=== PATIENT | female | born 1975 | race Caucasian/White ===

== ENCOUNTER → 2016-09-06 | Outpatient (CLI) | payer OTHER ==
[~2016-09-06] MED LIST: DPPI400 INJ; MINO100C22 PO; OMEP20CA59 PO
== END | disposition home or self-care (01) ==
LOC: C.PAPS 08:29
PROVIDERS: ATTEND Obstetrics & Gynecology
DX: Z12.4 Encounter for screening for malignant neoplasm of cervix (principal)

== ENCOUNTER → 2017-02-08 | Outpatient (CLI) | payer OTHER ==
[2017-02-08 12:14] LABS: BASO % 0.1 %; BASO ABS # 0.01 K/uL (0-0.2); COMPLETE YES; HEMATOCRIT 46.1 % (37-47); IG% 0.1 %; LYMPH % 27.9 %; LYMPH ABS # 2.22 K/uL (1.2-3.4); MEAN CELL VOLUME 98.3 fL (80-100); MEAN CORPUSCULAR HEMOGLOBIN 31.8 pg (25-34); MEAN CORPUSCULAR HGB CONC 32.3 g/dl (32-36); MEAN PLATELET VOLUME 9.9 fL (7.4-10.4); MONO % 5.2 %; NEUT % 65.7 %; PLATELET COUNT 283 K/uL (130-400); RED BLOOD COUNT 4.69 M/uL (4.2-5.4); WHITE BLOOD COUNT 7.96 K/uL (4.8-10.8)
[2017-02-08 12:44] LABS: ESTIMATED AVERAGE GLUCOSE 100 mg/dl; HA1C FLAG Normal (Normal)
[2017-02-08 13:01] LABS: ALT/SGPT 22 U/L (12-78); AST/SGOT 12 U/L (15-37); BLOOD UREA NITROGEN 8 mg/dl (7-18); BUN/CREATININE RATIO 10.8 (10-20); CALCIUM 8.4 mg/dl (8.5-10.1); CARBON DIOXIDE 27 mmol/L (21-32); CHLORIDE 108 mmol/L (98-107); CREATININE 0.72 mg/dl (0.60-1.20); GLUCOSE 76 mg/dl (70-99); POTASSIUM 4.2 mmol/L (3.5-5.1); SODIUM 144 mmol/L (136-145)
[2017-02-08 13:12] LABS: ALB/GLOB RATIO 0.9 (0.9-2); ALKALINE PHOSPHATASE 57 U/L (45-117); CHOLESTEROL 159 mg/dl (0-200); CHOLESTEROL/HDL RATIO 3.2; FERRITIN 176.5 ng/ml (8.0-388.0); HDL CHOLESTEROL 50 mg/dl; LDL CHOLESTEROL CALCULATED 96 mg/dl; TRIGLYCERIDES 64 mg/dl (0-150); VERY LOW DENSITY LIPOPROT CALC 13 mg/dl
== END | disposition home or self-care (01) ==
LOC: C.LABBFT 08:17
PROVIDERS: ATTEND Internal Medicine
DX: R73.09 Other abnormal glucose (principal); Z98.84 Bariatric surgery status; E53.8 Deficiency of other specified B group vitamins; E66.9 Obesity, unspecified; E55.9 Vitamin D deficiency, unspecified

== ENCOUNTER → 2017-04-04 | Outpatient (CLI) | payer OTHER ==
--- NOTE | 2017-04-05 12:47 | MAMMOGRAPHY REPORT ---
BILATERAL DIGITAL SCREENING MAMMOGRAM TOMOSYNTHESIS WITH CAD: 04/04/2017 CLINICAL HISTORY: Routine screening. Patient has no complaints. TECHNIQUE: Breast tomosynthesis in addition to standard 2D mammography was performed. Current study was also evaluated with a Computer Aided Detection (CAD) system. COMPARISON: Comparison is made to exams dated: 03/31/2016 mammogram, 03/30/2015 mammogram, and 12/25/19 14 mammogram - [facility]. BREAST COMPOSITION: The tissue of both breasts is almost entirely fatty. FINDINGS: No suspicious masses, calcifications, or areas of architectural distortion are noted in ei ther breast. There has been no significant interval change compared to prior exams. Bilateral benign -appearing calcifications are not significantly changed. IMPRESSION: ACR BI-RADS CATEGORY 2: BENIGN There is no mammographic evidence of malignancy. A 1 year screening mammogram is recommended. The pa tient will receive written notification of the results. Approximately 10% of breast cancers are not detected with mammography. A negative mammographic report should not delay biopsy if a clinically suggestive mass is present. Latia Bentley M.D. ah/:04/04/2017 16:58:43 Collet Gluer: Carolina GLASER(Allyson)(M), [facility] letter sent: Normal 1/2 BI-RADS Code: ACR BI-RADS Category 2: Benign
== END | disposition home or self-care (01) ==
LOC: C.MAMM 16:19
PROVIDERS: ATTEND Internal Medicine
DX: Z12.31 Encounter for screening mammogram for malignant neoplasm of breast (principal)

== ENCOUNTER → 2017-05-11 | Outpatient (CLI) | payer OTHER | END | disposition home or self-care (01) | LOC: C.LABBFT 15:32 | PROVIDERS: ATTEND Internal Medicine | DX: E55.9 Vitamin D deficiency, unspecified (principal) ==

== ENCOUNTER → 2017-09-10 | Outpatient (CLI) | payer OTHER | END | disposition home or self-care (01) | LOC: C.PAPS 09:50 | PROVIDERS: ATTEND Obstetrics & Gynecology | DX: Z01.419 Encounter for gynecological examination (general) (routine) without abnormal findings (principal) ==

== ENCOUNTER → 2018-01-07 | Outpatient (CLI) | payer OTHER ==
--- NOTE | 2018-01-07 17:37 | DIAGNOSTIC IMAGING REPORT ---
CHEST 2 VIEWS ROUTINE HISTORY: 42 years-old Female R05 [id number] Shortness of breath acute cough with shortness of breath COMPARISON: None available TECHNIQUE: PA and lateral views of the chest FINDINGS: Cardiac silhouette appears mildly enlarged. Small right and moderate left pleural effusions with bibasilar opacities. Linear perihilar densities suggest atelectasis. No pneumothorax or overt pulmonary edema. Bones of the chest appear grossly intact. Degenerative changes of the spine. Surgical clips of the upper abdomen suggest prior cholecystectomy. IMPRESSION: Small right and moderate left pleural effusions with bibasilar opacities suggesting atelectasis. The above report was generated using voice recognition software. It may contain grammatical, syntax or spelling errors. Electronically signed by: Ángel Flores M.D. 01/07/2018 5:35 PM Dictated Date/Time: 01/07/2018 5:34 PM
[2018-01-07 17:56] LABS: BASO % 0.3 %; BASO ABS # 0.04 K/uL (0-0.2); EOS % 2.2 %; EOS ABS # 0.34 K/uL (0-0.5); HEMATOCRIT 45.1 % (37-47); HEMOGLOBIN 15.4 g/dL (12.0-16.0); IG# 0.07 K/uL (0.00-0.02); LYMPH % 16.8 %; MEAN CELL VOLUME 95.3 fL (80-100); MEAN CORPUSCULAR HEMOGLOBIN 32.6 pg (25-34); MEAN CORPUSCULAR HGB CONC 34.1 g/dl (32-36); MEAN PLATELET VOLUME 9.4 fL (7.4-10.4); MONO % 7.1 %; MONO ABS # 1.09 K/uL (0.11-0.59); NEUT % 73.1 %; PLATELET COUNT 287 K/uL (130-400); RED CELL DISTRIBUTION WIDTH CV 13.2 % (11.5-14.5); RED CELL DISTRIBUTION WIDTH SD 46.1 fL (36.4-46.3); WHITE BLOOD COUNT 15.44 K/uL (4.8-10.8)
[2018-01-07 18:15] LABS: BLOOD UREA NITROGEN 14 mg/dl (7-18); CALCIUM 8.3 mg/dl (8.5-10.1); CARBON DIOXIDE 27 mmol/L (21-32); CREATININE 0.72 mg/dl (0.60-1.20); GLUCOSE 90 mg/dl (70-99); POTASSIUM 4.1 mmol/L (3.5-5.1); SODIUM 140 mmol/L (136-145)
[2018-01-07 18:20] LABS: CKMB 0.9 ng/ml (0.5-3.6)
== END | disposition home or self-care (01) ==
LOC: C.RAD 17:03
PROVIDERS: ATTEND Nurse Practitioner
DX: R06.02 Shortness of breath (principal); R05 Cough; R07.9 Chest pain, unspecified

== ENCOUNTER 2018-01-10 16:51 | Emergency (ER) | payer OTHER ==
[~2018-01-10] VITALS: Ht 170.2 cm; Wt 123.4 kg
[~2018-01-10 16:51] MED LIST changes: -CALC-393 PO; -CHOL20007 PO; -DPPI400 IM; -METH4PAK PO; -MULT-506 PO; -OPTIRAY 320 IV PRN; -PRLSR20 PO; -VNTHFA/IN INH
[2018-01-10 16:56] VITALS: TEMP 36.7; Ht 170.2 cm; Wt 123.4 kg
[2018-01-10] MEDS ORDERED: METH4PAK PO (17:29)
[2018-01-10] MEDS ORDERED: CHOL20007 PO (17:29)
[2018-01-10] MEDS ORDERED: PRLSR20 PO (17:29)
[2018-01-10] MEDS ORDERED: MULT-506 PO (17:29)
[2018-01-10] MEDS ORDERED: DPPI400 IM (17:29)
[2018-01-10] MEDS ORDERED: CALC-393 PO (17:29)
[2018-01-10] MEDS ORDERED: VNTHFA/IN INH (17:29)
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
[2018-01-10 17:56] LABS: BASO % 0.1 %; BASO ABS # 0.02 K/uL (0-0.2); EOS ABS # 0.15 K/uL (0-0.5); HEMATOCRIT 43.1 % (37-47); HEMOGLOBIN 14.8 g/dL (12.0-16.0); IG# 0.06 K/uL (0.00-0.02); LYMPH % 11.3 %; LYMPH ABS # 1.63 K/uL (1.2-3.4); MEAN CELL VOLUME 94.9 fL (80-100); MEAN CORPUSCULAR HEMOGLOBIN 32.6 pg (25-34); MEAN CORPUSCULAR HGB CONC 34.3 g/dl (32-36); MEAN PLATELET VOLUME 9.3 fL (7.4-10.4); MONO % 5.6 %; NEUT % 81.6 %; NEUT ABS # 11.71 K/uL (1.4-6.5); PLATELET COUNT 291 K/uL (130-400); RED CELL DISTRIBUTION WIDTH CV 13.2 % (11.5-14.5); RED CELL DISTRIBUTION WIDTH SD 45.2 fL (36.4-46.3); WHITE BLOOD COUNT 14.37 K/uL (4.8-10.8)
[2018-01-10 18:09] LABS: PTT PATIENT 24.5 SECONDS (21.0-31.0)
[2018-01-10 18:11] LABS: ALT/SGPT 24 U/L (12-78); AST/SGOT 14 U/L (15-37); BLOOD UREA NITROGEN 14 mg/dl (7-18); CALCIUM 8.5 mg/dl (8.5-10.1); CARBON DIOXIDE 23 mmol/L (21-32); CREATININE 0.65 mg/dl (0.60-1.20); GLUCOSE 96 mg/dl (70-99); POTASSIUM 3.7 mmol/L (3.5-5.1); SODIUM 139 mmol/L (136-145)
[2018-01-10 18:16] LABS: ALKALINE PHOSPHATASE 56 U/L (45-117); TOTAL PROTEIN 6.9 gm/dl (6.4-8.2)
[2018-01-10 18:25] VITALS: O2SAT 96
[2018-01-10 20:35] VITALS: BP 177/78; PULSE 73; O2SAT 97
== END 2018-01-10 20:35 | disposition home or self-care (01) ==
LOC: C.EDB 16:52 → C.EDC 20:35
DX: J90 Pleural effusion, not elsewhere classified (principal); R06.09 Other forms of dyspnea; Z79.51 Long term (current) use of inhaled steroids; Z79.899 Other long term (current) drug therapy

== ENCOUNTER → 2018-01-10 | Outpatient (CLI) | payer OTHER ==
[~2018-01-10] MED LIST changes: +CALC-393 PO; +CHOL20007 PO; +DPPI400 IM; +METH4PAK PO; +MULT-506 PO; +OPTIRAY 320 IV PRN; +PRLSR20 PO; +VNTHFA/IN INH
--- NOTE | 2018-01-10 08:40 | DIAGNOSTIC IMAGING REPORT ---
CT ANGIOGRAM OF THE CHEST CLINICAL HISTORY: Shortness of breath COMPARISON STUDY: Chest x-ray dated 01/07/2018 TECHNIQUE: Following the IV administration of 120 mL of [id number]-[id number], CT angiogram of the thorax was performed from the thoracic inlet to the lung bases utilizing the pulmonary embolus protocol. Images are reviewed in the axial, sagittal, and coronal planes. IV contrast was administered without complication. MIP imaging was performed. A dose lowering technique was utilized adhering to the principles of ALARA. CT DOSE: 715.03 mGy.cm FINDINGS: No pathologically enlarged axillary mediastinal or hilar lymph nodes were visualized. There was no evidence of thoracic aortic dilatation. There were no pulmonary artery filling defects to indicate acute pulmonary embolism. There are moderate bilateral pleural effusions Lingular and left lower lobe airspace opacities, likely representing compressive atelectasis. Atelectatic changes are also present on the right adjacent to the major and minor fissures. IMPRESSION: 1. No evidence of acute pulmonary embolism 2. Moderate bilateral pleural effusions, left larger than right.. Lingular and left lower lobe opacities, likely secondary to compressive atelectasis Electronically signed by: Darrin Dejesus M.D. 01/10/2018 8:38 AM Dictated Date/Time: 01/10/2018 8:34 AM
== END | disposition home or self-care (01) ==
LOC: C.CTS 08:07
PROVIDERS: ATTEND Physician Assistant Medical
DX: R06.02 Shortness of breath (principal); J90 Pleural effusion, not elsewhere classified; R91.8 Other nonspecific abnormal finding of lung field

== ENCOUNTER 2018-01-14 12:53 | Emergency (ER) | payer OTHER ==
[~2018-01-14] VITALS: Ht 170.2 cm; Wt 122.0 kg
[~2018-01-14 12:53] MED LIST changes: +CALC-393 PO; +CHOL20007 PO; +DPPI400 IM; -DPPI400 INJ; +METH4PAK PO; +MULT-506 PO; -OMEP20CA59 PO; +PRLSR20 PO; +VNTHFA/IN INH
[2018-01-14 12:55] VITALS: TEMP 36.7
[2018-01-14] MEDS ORDERED: ALBUT/IPRATROP 3MG/0.5MG NEB 3 ML VIAL INH STA (13:36)
--- NOTE | 2018-01-14 13:49 | EMERGENCY ROOM VISIT NOTE ---
ED Visit Note First contact with patient: 13:19 CHIEF COMPLAINT: Shortness of breath HISTORY OF PRESENTING ILLNESS: This is a 42-year-old female who presents to the emergency department with complaint of increasing shortness of breath for the past week. The patient was diagnosed by CT scan of the chest on 01/10 with bilateral pleural effusions. These effusions are of unknown etiology. She is to see Dr. Reyna with thoracic surgery, she has an appointment for tomorrow. She states that she has been followed by Dr. Connor with pulmonology, who called her today and advised her to go to the emergency department to be admitted and have her effusions drained. Dr. Live is to see the patient for this. Patient states that she just finished a course of prednisone yesterday and she feels that her cough has improved, but her shortness of breath has been getting progressively worse. She denies any chest pain. She denies any fevers or chills. She denies any hemoptysis. She denies any dizziness or syncope. She denies any leg pain or swelling. She denies any other symptoms of headaches , back pain, abdominal pain, vomiting or diarrhea, urinary symptoms, or unusual rash. REVIEW OF SYSTEMS: A complete 10 point review of systems was reviewed with the patient with pertinent positives and negatives as per history of present illness. All else were negative. PAST MEDICAL HISTORY: Reviewed in chart, see problem list below. SOCIAL HISTORY: Lives at home. She is a former smoker, states she quit approximately 14 years ago. ALLERGIES: No known allergies. PHYSICAL EXAM: CONSTITUTIONAL: Pleasant and cooperative. No acute distress, but appears to have slightly labored breathing and is uncomfortable. Appears well-hydrated. HEENT: Normocephalic, atraumatic. Pupils equal, round and reactive to light, EOMI. TMs normal. Pharynx normal. NECK: Supple, full active range of motion without discomfort. RESPIRATORY: Upper lung batres are clear. The left lung is severely diminished from the mid lung batres to the base with faint crackles. The right lung base is also diminished to a lesser degree, with some faint crackles. No wheezes or rhonchi. Equal expansion bilaterally. CARDIOVASCULAR: Regular rate and rhythm with no murmurs, rubs or gallops. Normal peripheral perfusion. No edema. GASTROINTESTINAL: Soft, nontender, nondistended. No palpable masses or HSM. Bowel sounds present in all quadrants. MUSCULOSKELETAL: Full range of motion of all joints without discomfort. INTEGUMENTARY: No rash or other significant dermatologic conditions noted. NEUROLOGIC: Alert and oriented X 4 with normal affect. Normal strength and sensation in all 4 extremities. No focal neurologic deficits noted. Normal speech. Normal gait observed ED COURSE AND MEDICAL DECISION MAKING: CC: Patient presenting with complaint of shortness of breath DIFFERENTIAL DIAGNOSIS: Includes, but not limited to bronchitis, pneumonia, pleural effusion, pulmonary edema, pulmonary embolus, among others. INTERPRETATION OF LABS: No leukocytosis, no anemia, no significant electrolyte abnormalities, normal renal function, normal liver enzymes and lipase. Coagulation factors within normal limits. IMAGING: CHEST 2 VIEWS ROUTINE CLINICAL HISTORY: Pleural effusions COMPARISON STUDY: 01/07/2018 FINDINGS: The heart is mildly enlarged. There is interval increase in the size of left pleural effusion with associated left lower lobe atelectasis/consolidation. There is a stable small right pleural effusion. IMPRESSION: 1. Slight interval increase in the size of the moderate left pleural effusion with associated left lower lobe atelectasis/consolidation 2. Stable small right pleural effusion. EKG: Shows normal sinus rhythm with a rate of 78 bpm, no acute ischemic changes , and no significant changes when compared to previous EKG from 01/10/2018 by my interpretation. MEDICATION RECONCILIATION: I attest that I have personally reviewed the patient 's current medication list. INITIAL VITAL SIGNS REVIEW: I reviewed the patient's initial vital signs and interpret them as follows: T: Afebrile; BP: Normotensive; HR: Within normal limits; RR: Within normal limits; Pulse Ox: Within normal limits on room air. Blood pressure screening: The patient was found to have normal blood pressure on screening and does not require follow-up for repeat blood pressure check. SUMMARY: Patient was evaluated at bedside, history and physical exam performed. Patient is alert and oriented, no acute distress, but does appear uncomfortable and was slightly labored breathing, resting in the stretcher. The left lung batres are significantly diminished from the mid lung to the base , and the right base is also diminished, consistent with history of pleural effusions. No peripheral edema on exam. No calf tenderness or swelling appreciated. EKG shows normal sinus rhythm with no acute ischemic changes. Orders were placed at bedside for labs, IV placement, chest x-ray to evaluate for changes in the pleural effusions. Patient discussed with Dr. Cordova, who agrees with my assessment and plan. Labs and imaging reviewed as above, noting a slight interval increase in the left pleural effusion. I spoke with Dr. Galan, [facility] hospitalist team, who agrees to evaluate the patient for admission. Patient is also to be seen by Dr. Live with pulmonology in consult. Patient reassessed multiple times throughout ED stay, she remained stable with no acute complaints. Patient was updated on all results and plan for admission, she verbalized understanding and was agreeable to this plan. Patient stable at time of admission. Problem List Surgical Problems: (1) S/P gastric bypass Status: Resolved Current/Historical Medications Scheduled Albuterol Hfa (Ventolin Hfa), 2-4 PUFFS INH Q6H Calcium Carbonate (Calcium), 600 MG PO DAILY Cholecalciferol (Vitamin D3), 2,000 UNIT PO DAILY Medroxyprogesterone Acetate (Depo-Provera), 400 MG IM Q3MO Minocycline (Minocin), 100 MG PO BID Multivitamin (Multivitamin), 1 TAB PO DAILY Omeprazole (Prilosec), 20 MG PO DAILY Allergies Coded Allergies: No Known Allergies (Verified , 01/14/18) Vital Signs Date Time Temp Pulse Resp B/P (MAP) Pulse Ox O2 Delivery O2 Flow Rate FiO2 01/14/18 14:31 92 20 134/97 95 Room Air 01/14/18 14:10 89 01/14/18 14:06 100 Room Air 01/14/18 13:51 80 20 122/78 100 Nebulizer 01/14/18 13:51 100 Nebulizer 01/14/18 13:51 100 Room Air 01/14/18 12:55 36.7 98 16 132/81 97 Room Air Laboratory Results 01/14/18 13:54 Red Blood Count 4.88, Mean Corpuscular Volume 95.5, Mean Corpuscular Hemoglobin 32.4, Mean Corpuscular Hemoglobin Concent 33.9, Mean Platelet Volume 9.1, Neutrophils (%) (Auto) 71.4, Lymphocytes (%) (Auto) 20.8, Monocytes (%) (Auto) 4.8, Eosinophils (%) (Auto) 2.4, Basophils (%) (Auto) 0.2, Neutrophils # (Auto) 7.66, Lymphocytes # (Auto) 2.23, Monocytes # (Auto) 0.51, Eosinophils # (Auto) 0.26, Basophils # (Auto) 0.02 01/14/18 13:54 Test 01/14/18 13:54 01/14/18 14:22 01/14/18 14:27 White Blood Count 10.72 K/uL (4.8-10.8) Red Blood Count 4.88 M/uL (4.2-5.4) Hemoglobin 15.8 g/dL (12.0-16.0) Hematocrit 46.6 % (37-47) Mean Corpuscular Volume 95.5 fL (80-100) Mean Corpuscular Hemoglobin 32.4 pg (25-34) Mean Corpuscular Hemoglobin Concent 33.9 g/dl (32-36) Platelet Count 268 K/uL (130-400) Mean Platelet Volume 9.1 fL (7.4-10.4) Neutrophils (%) (Auto) 71.4 % Lymphocytes (%) (Auto) 20.8 % Monocytes (%) (Auto) 4.8 % Eosinophils (%) (Auto) 2.4 % Basophils (%) (Auto) 0.2 % Neutrophils # (Auto) 7.66 K/uL (1.4-6.5) Lymphocytes # (Auto) 2.23 K/uL (1.2-3.4) Monocytes # (Auto) 0.51 K/uL (0.11-0.59) Eosinophils # (Auto) 0.26 K/uL (0-0.5) Basophils # (Auto) 0.02 K/uL (0-0.2) RDW Standard Deviation 46.2 fL (36.4-46.3) RDW Coefficient of Variation 13.4 % (11.5-14.5) Immature Granulocyte % (Auto) 0.4 % Immature Granulocyte # (Auto) 0.04 K/uL (0.00-0.02) Anion Gap 8.0 mmol/L (3-11) Est Creatinine Clear Calc Drug Dose 138.9 ml/min Estimated GFR () 122.1 Estimated GFR (Non- 105.4 BUN/Creatinine Ratio 11.0 (10-20) Calcium Level 8.5 mg/dl (8.5-10.1) Total Bilirubin 0.3 mg/dl (0.2-1) Aspartate Amino Transf (AST/SGOT) 17 U/L (15-37) Alanine Aminotransferase (ALT/SGPT) 33 U/L (12-78) Alkaline Phosphatase 68 U/L (45-117) Total Protein 7.5 gm/dl (6.4-8.2) Albumin 3.2 gm/dl (3.4-5.0) Globulin 4.3 gm/dl (2.5-4.0) Albumin/Globulin Ratio 0.7 (0.9-2) Prothrombin Time 10.0 SECONDS (9.0-12.0) Prothromb Time International Ratio 1.0 (0.9-1.1) Activated Partial Thromboplast Time 24.1 SECONDS (21.0-31.0) Partial Thromboplastin Ratio 0.9 Medications Administered Medications (Trade) Dose Ordered Sig/Manju Route Start Time Stop Time Status Last Admin Dose Admin Albuterol/ Ipratropium (Duoneb) 3 ml NOW STAT INH 01/14/18 13:36 01/14/18 13:38 DC 01/14/18 14:08 3 ML Departure Information Impression Primary Impression: Pleural effusion Dispostion Admitted as an inpatient Condition FAIR Referrals Alvaro Mohamud M.D. (PCP) Patient Instructions [facility]
[2018-01-14 13:51] VITALS: O2SAT 100
[2018-01-14 14:04] LABS: BASO % 0.2 %; BASO ABS # 0.02 K/uL (0-0.2); EOS % 2.4 %; EOS ABS # 0.26 K/uL (0-0.5); HEMATOCRIT 46.6 % (37-47); HEMOGLOBIN 15.8 g/dL (12.0-16.0); IG# 0.04 K/uL (0.00-0.02); LYMPH % 20.8 %; LYMPH ABS # 2.23 K/uL (1.2-3.4); MEAN CELL VOLUME 95.5 fL (80-100); MEAN CORPUSCULAR HEMOGLOBIN 32.4 pg (25-34); MEAN CORPUSCULAR HGB CONC 33.9 g/dl (32-36); MEAN PLATELET VOLUME 9.1 fL (7.4-10.4); MONO % 4.8 %; MONO ABS # 0.51 K/uL (0.11-0.59); NEUT % 71.4 %; NEUT ABS # 7.66 K/uL (1.4-6.5); PLATELET COUNT 268 K/uL (130-400); RED CELL DISTRIBUTION WIDTH CV 13.4 % (11.5-14.5); RED CELL DISTRIBUTION WIDTH SD 46.2 fL (36.4-46.3); WHITE BLOOD COUNT 10.72 K/uL (4.8-10.8)
[2018-01-14 14:06] VITALS: O2SAT 100; Ht 170.2 cm; Wt 122.0 kg
[2018-01-14] MEDS ORDERED: IV FLUIDS COMPLETED PRN (14:15)
[2018-01-14 14:23] LABS: ALBUMIN 3.2 gm/dl (3.4-5.0); CALCIUM 8.5 mg/dl (8.5-10.1); CREATININE 0.7 mg/dl (0.60-1.20); POTASSIUM 3.5 mmol/L (3.5-5.1)
[2018-01-14 14:25] LABS: TOTAL PROTEIN 7.5 gm/dl (6.4-8.2)
--- NOTE | 2018-01-14 14:31 | DIAGNOSTIC IMAGING REPORT ---
CHEST 2 VIEWS ROUTINE CLINICAL HISTORY: Pleural effusions COMPARISON STUDY: 01/07/2018 FINDINGS: The heart is mildly enlarged. There is interval increase in the size of left pleural effusion with associated left lower lobe atelectasis/consolidation. There is a stable small right pleural effusion.[ IMPRESSION: 1. Slight interval increase in the size of the moderate left pleural effusion with associated left lower lobe atelectasis/consolidation 2. Stable small right pleural effusion. Electronically signed by: Darrin Dejesus M.D. 01/14/2018 2:30 PM Dictated Date/Time: 01/14/2018 2:29 PM
--- NOTE | 2018-01-14 14:59 | Medical Consult ---
Consultation Note Date of Service January 14, 2018. Consultation Note Consult Dictated #[id number]
[2018-01-14 15:02] LABS: PTT PATIENT 24.1 SECONDS (21.0-31.0)
--- NOTE | 2018-01-14 16:03 | DIAGNOSTIC IMAGING REPORT ---
CHEST ONE VIEW PORTABLE CLINICAL HISTORY: Thoracentesis. COMPARISON STUDY: Chest radiograph January 14, 2018 at 2:18 PM. FINDINGS: There is no pneumothorax following left thoracentesis. The left pleural effusion has markedly decreased in size without significant residual left pleural fluid. A small right pleural fusion is unchanged. Linear bibasilar opacities favor atelectasis. There is no evidence for pulmonary edema. Cardiomediastinal silhouette is unremarkable. IMPRESSION: 1. No pneumothorax following left thoracentesis. Marked decrease in size of the left pleural effusion without significant residual left pleural fluid. 2. No change in a small right pleural effusion. Electronically signed by: Tato Parekh M.D. 01/14/2018 4:02 PM Dictated Date/Time: 01/14/2018 4:00 PM
--- NOTE | 2018-01-14 16:15 | SURGICAL CONSULTATION ---
DATE OF CONSULTATION: 01/14/2018 REASON FOR CONSULTATION: Bilateral pleural effusions. HISTORY OF PRESENT ILLNESS: This is a 42-year-old obese female who has a remote history of fairly light cigarette smoking who had developed a cough over the last 6 weeks. She was exposed to some noxious fumes in the form of chlorine and vinegar as well as polyurethane; however, even though there is a temporal relationship, I have explained that I do not think this pleural effusion is related to this. She really does not look bad. Saturations are 94-95% on room air, but she has orthopnea. She has a cough that has persisted for the last 6-8 weeks. She has had no weight loss. In fact, she has had some weight gain. She has had no palpitations. She has had no unusual peripheral edema. CT scan shows homogenous fluid much greater in the left than the right last Sunday. She was discharged home, came back to the office and is more short of breath. X-ray showed she had a very large left pleural effusion. An ultrasound confirmed this. We are going to perform a left thoracentesis. I discussed this in detail with the patient who does not want to stay in the hospital. We are going to tap her and if her x-ray looks good, we will get her set up for an appointment tomorrow and see her in the office with a repeat film. We discussed this in detail.
--- NOTE | 2018-01-14 17:08 | Discharge Instructions ---
Discharge Instructions Date of Service January 14, 2018. Admission Reason for Admission: Bilateral Lung Effustion Discharge Discharge Diagnosis / Problem: pleural effusion (fluid around the lungs) - improved after draining Discharge Goals Goal(s): Diagnostic testing, Therapeutic intervention Activity Recommendations Activity Limitations: per Instructions/Follow-up section . Instructions / Follow-Up Instructions / Follow-Up pleural effusion -the fluid is around both lungs, but was far worse on the left than the right. Dr Reyna drained 2 liters of fluid - which has opened up your left lung considerably. with more "literal breathing room" it's safe to let you go home and continue to manage this as an outpatient -Dr Reyna wants to see you tomorrow to see how you're doing as well as review the results of the fluid -if you feel a sharp, stabbing pain in your chest, and/or feel more short of breath - we'd want you seen right away -there are no formal activity restrictions, but take it easy between now and when Dr Reyna or Dr Live give you the "green light" to resume regular activity (if it feels like you're overdoing it, you probably are) Current Hospital Diet Patient's current hospital diet: Discharge Diet Recommended Diet: Regular Diet Pending Studies Studies pending at discharge: yes List of pending studies: pleural fluid studies Medical Emergencies . Who to Call and When: Medical Emergencies: If at any time you feel your situation is an emergency, please call 911 immediately. . Non-Emergent Contact Non-Emergency issues call your: Tool Sharpener (Dr Live), Surgeon (Dr Reyna ) . . "Provider Documentation" section prepared by Samm Jin. .
[2018-01-14 17:16] VITALS: BP 122/77; PULSE 83; O2SAT 95
[2018-01-14 17:27] LABS: PLEURAL FLUID TOTAL PROTEIN 4.7 g/dl
--- NOTE | 2018-01-14 17:51 | Medical Student: [facility] ---
Consultation Date of Consultation: January 14, 2018. Requesting Physician: Emergency Department Attending Physician: Davin Reason for Consultation: Question whether to admit History of Present Illness Naomi Caro is a 42-year-old female who presents with a 9 day history of progressively worsening shortness of breath. She says the dyspnea is worse with exertion but now sometimes happens at rest. She has also had a nonproductive cough for 6-8 weeks. She is unable to identify triggers and says that it happens intermittently all day long. She admits to wheezing at night and have chest "soreness" after having coughing fits and when lying flat. She denies orthopnea. She had been prescribed Medrol dose pack and Proventil PRN about two weeks ago. As an outpatient on January 07, she was found to have an EKG in NSR, negative troponins/CKMB/CK, normal BNP at 34, and bilateral pleural effusions on CXR. She also had a WBC count of 15.44, but was taking steroids at that time. She also had a CT of the chest done that showed significant bilateral pleural effusions, with left being worse than the right lung. She was supposed to see Dr. Reyna on January 15, but pulmonology recommended she come to the emergency department for evaluation today. Naomi denies trauma to the chest, recent travel, or jobs associated with caustic fumes. She once lived in a house that had asbestos, but she never renovated it, so the asbestos would have never been aerosolized. She notes that she first noticed the symptoms while working with cleaning products in her home. She has a 15-30 pack-year smoking history, but quit 12-14 years ago. She denies history of recent illness, heart, kidney or liver disease. She has had no new medications with the exception of the steroids. Currently Naomi says she feels well and would like to go home. Past Medical/Surgical History Medical History: B12 deficiency Vitamin D deficiency Plantar fasciitis Surgical History: Gastric bypass - 2013 L shoulder surgery for "bursitis" - pt does not remember date Cholecystectomy - pt does not remember date Family History Father: heart disease, diabetes mellitus, [place], lung fibrosis, HTN Mother: diabetes mellitus, frequent kidney stones Sister: cholelithiasis Social History Smoking Status: Former Smoker (previously smoked 1-2 ppd from age 13 to ~28. 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) Review of Systems Constitutional: + problem reported (weight gain), No fever, No chills Eyes: No worsening of vision ENT: No hearing loss, No nasal symptoms Respiratory: + cough, + wheezing, + shortness of breath, + dyspnea on exertion , + dyspnea at rest, No sputum, No hemoptysis Cardiac: + chest pain ("soreness" from coughing), No palpitations Abdomen: + problem reported (reflux), No pain, No nausea, No vomiting, No diarrhea, No constipation Musculoskeletal: No joint pain, No muscle pain Female : No dysuria, No urinary frequency Neurologic: No weakness, No numbness/tingling Heme: No abnormal bleeding/bruising Skin: + rash Allergies Coded Allergies: No Known Allergies (Verified , 01/14/18) Medications Current Inpatient Medications Medications (Trade) Dose Ordered Sig/Manju Route Start Time Stop Time Status Last Admin Dose Admin Miscellaneous (Iv Fluids Completed) 1 ea PRN PRN N/A 01/14/18 14:15 01/14/19 14:14 Physical Exam Date Time Temp Pulse Resp B/P (MAP) Pulse Ox O2 Delivery O2 Flow Rate FiO2 01/14/18 14:31 92 20 134/97 95 Room Air 01/14/18 14:10 89 01/14/18 14:06 100 Room Air 01/14/18 13:51 80 20 122/78 100 Nebulizer 01/14/18 13:51 100 Nebulizer 01/14/18 13:51 100 Room Air 01/14/18 12:55 36.7 98 16 132/81 97 Room Air General Appearance: WD/WN (Calmly sitting up in bed), no apparent distress Eyes: bilateral eyes normal inspection Respiratory: no respiratory distress, + decreased breath sounds (at bases bilaterally. Left lung clear to auscultation after thoracentesis) Cardiovascular: regular rate, rhythm, no gallop, no murmur Abdomen: normal bowel sounds, non tender, soft Neurologic/Psychiatric: alert Skin: + pertinent finding (purplish plaques with scaling about 2cm in diameter on R forearm.) Laboratory Results Last 24 Hours Test 01/14/18 00:00 01/14/18 13:54 01/14/18 14:22 01/14/18 14:27 Pleural Fluid Source LEFT LUNG Pleural Fluid Color NERY Pleural Fluid Appearance HAZY Pleural Fluid WBC 1171 /uL Pleural Fluid RBC 89519 /uL Pleural Fluid Polynuclear WBCs % 34.9 % Pleural Fluid Mononuclear WBCs % 65.1 % White Blood Count 10.72 K/uL Red Blood Count 4.88 M/uL Hemoglobin 15.8 g/dL Hematocrit 46.6 % Mean Corpuscular Volume 95.5 fL Mean Corpuscular Hemoglobin 32.4 pg Mean Corpuscular Hemoglobin Concent 33.9 g/dl Platelet Count 268 K/uL Mean Platelet Volume 9.1 fL Neutrophils (%) (Auto) 71.4 % Lymphocytes (%) (Auto) 20.8 % Monocytes (%) (Auto) 4.8 % Eosinophils (%) (Auto) 2.4 % Basophils (%) (Auto) 0.2 % Neutrophils # (Auto) 7.66 K/uL Lymphocytes # (Auto) 2.23 K/uL Monocytes # (Auto) 0.51 K/uL Eosinophils # (Auto) 0.26 K/uL Basophils # (Auto) 0.02 K/uL RDW Standard Deviation 46.2 fL RDW Coefficient of Variation 13.4 % Immature Granulocyte % (Auto) 0.4 % Immature Granulocyte # (Auto) 0.04 K/uL Sodium Level 140 mmol/L Potassium Level 3.5 mmol/L Chloride Level 106 mmol/L Carbon Dioxide Level 26 mmol/L Anion Gap 8.0 mmol/L Blood Urea Nitrogen 8 mg/dl Creatinine 0.70 mg/dl Est Creatinine Clear Calc Drug Dose 138.9 ml/min Estimated GFR () 122.1 Estimated GFR (Non- 105.4 BUN/Creatinine Ratio 11.0 Random Glucose 87 mg/dl Calcium Level 8.5 mg/dl Total Bilirubin 0.3 mg/dl Aspartate Amino Transf (AST/SGOT) 17 U/L Alanine Aminotransferase (ALT/SGPT) 33 U/L Alkaline Phosphatase 68 U/L Total Protein 7.5 gm/dl Albumin 3.2 gm/dl Globulin 4.3 gm/dl Albumin/Globulin Ratio 0.7 Pleural Fluid pH 7.31 Prothrombin Time 10.0 SECONDS Prothromb Time International Ratio 1.0 Activated Partial Thromboplast Time 24.1 SECONDS Partial Thromboplastin Ratio 0.9 Assessment & Plan This is a 42-year-old female with a 15-30 year pack history who presents with a 6-8 week history of cough, progressively worsening dyspnea, and bilateral pleural effusions seen on CXR and CT of the chest. Pleural Effusions - The patients shortness of breath and cough is consistent with pleural effusions. The presence of bilateral effusions may point toward systemic causes rather than pulmonary disease. She appears euvolemic, has no cardiac history, and is young making CHF unlikely. She has no liver disease and has normal LFTs making cirrhosis less likely. Consider nephrotic syndrome and obtain urinalysis as an outpatient. Albumin is decreased but not to the level that would explain her symptoms. The next step is to obtain further information from thoracentesis. This was performed on the left side by Dr. Reyna in the ED, and pleural fluid results are pending. ~2L of fluid was obtained. She is to follow-up with him in his office tomorrow at 1:45PM to discuss results, monitor for symptom improvement, and assess need for thoracentesis of the right lung. - She is hemodynamically stable and feels significant improvement in her shortness of breath after the procedure. Lung sounds are much clearer on the left side as well. Post-procedure CXR shows sharper left costophrenic angle. Dr. Reyna, the patient, and I are in agreement that she is stable and fit for discharge as she already has follow-up planned with him for tomorrow. B12 and vitamin D deficiencies Continue home supplementation. Medical Student Supervision Note: I interviewed and examined the patient. Discussed with Carol Carranza MS4 and agree with findings and plan as documented in the note. Any exceptions or clarifications are listed here: None In accordance with new CMS guidelines medical student documentation, when reviewed and attested by attending physician, may be used as part of the patient 's medical record. Documented By: Samm iJn d/w thoracic as well. pt w new effusions - sent to ER for further w/u including thoracentesis. fortunately this was done promptly and without complications by Dr Reyna and Mau Ansari. pt felt much better after and wanted to go home, thoracic surgery felt this was reasonable and will see pt in office tomorrow vitals noted and stable, lungs clear except diminished at bases, no r/r/w. breathing unlabored no accessory muscles new pleural effusions - s/p L sided thoracentesis - feeling better and stable for discharge with ongoing outpt w/u - as is her preference. stable for discharge to home.
--- NOTE | 2018-01-14 19:58 | PULMONARY CONSULTATION ---
DATE OF CONSULTATION: 01/14/2018 REASON FOR CONSULTATION: Bilateral pleural effusion/respiratory distress. HISTORY OF PRESENT ILLNESS: A 42-year-old white female who came back to our Emergency Room with increasing shortness of breath especially over the past 48 hours, states that she has been ill for the past 9 days. Her PCP has noticed that she has become progressively more dyspneic and coughing for the past 2 months, although has been extremely symptomatic for the past 9 days according to her history. Patient was seen in our Emergency Room by Dr. Danilo Guzman on 01/10/2018 with similar symptoms. She has had a history of gastric bypass 5 years ago. She has had a dry nonproductive cough, chest tightness without true pleuritic pain. 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 She quit smoking 12 years ago. Workup included white count of 14,000, H and H 14.8 and 43, and a CT angiogram. The CT scan showed no evidence of pulmonary thromboembolic disease, but moderate bilateral pleural effusions, left greater than right with lingula and left lower lobe compressive atelectasis versus consolidation noted. Apparently, patient was discharged from the ER and she states she is on the impression Dr. Reyna was to call her back the following day to consider a drainage procedure. PAST SURGICAL HISTORY: Pertinent for laparoscopic cholecystectomy, colposcopy, and gastric bypass surgery as well. FAMILY HISTORY: Cerebral artery occlusion with cerebral infarction. Others have had gastric surgery for morbid obesity, osteoporosis, and previous acute myocardial infarction as well as diabetes mellitus. ALLERGIES: There are no known allergies. She has no history of asthma or previous pneumonitis or trauma. She denies hemoptysis. She is not aware of any recent fevers, chills, or sweats. The only thing she has noted in addition to her chest tightness was progressive and worsening shortness of breath with exertion. PHYSICAL EXAMINATION: CURRENT VITAL SIGNS: Pulse 92 and regular, temperature 36.7, respiratory rate 20, blood pressure 134/97, 95% on room air sats. SKIN: Without lesion. HEENT: Atraumatic, normocephalic. PERRLA. EOMI. Conjunctivae pink. Sclerae nonicteric. Fundi non visualized. NECK: Neck veins are not distended at 45 degrees. No carotid bruits. LUNGS: Marked dullness with decreased breath sounds bilaterally. CARDIAC: Regular rate and rhythm. I do not appreciate a gallop. ABDOMEN: Soft, protuberant. EXTREMITIES: No significant pedal edema, clubbing, or cyanosis. NEUROLOGIC: Intact. No lateralizing signs. LABORATORY DATA: Chest x-ray today shows interval increase in size of the moderate left pleural effusion with associated left lower lobe atelectasis/consolidation, small right pleural effusion. White count 10,000, H and H 15.8 and 46.6. Potassium 3.5 and albumin 3.2. PT, PTT, INR within normal limits. OVERALL ASSESSMENT: A 42-year-old status post gastric bypass with history of morbid obesity and limited smoking history presents with progressive cough, dyspnea with exertion and bilateral pleural effusions, left greater than right with left lower lobe compressive atelectasis and mild leukocytosis. The patient needs a thoracentesis or even consideration for a PleurX catheter given the size of the left-sided pleural effusion. This will be for both diagnostic and therapeutic reasons. She will need to be admitted on to the hospitalist service and we will continue to follow her course clinically. I have spoken with Dr. Reyna who I had spoken to earlier along with Dr. Connor to facilitate patient's admission and eventual treatment and workup.
--- NOTE | 2018-01-14 20:04 | OPERATIVE REPORT ---
DATE OF OPERATION: 01/14/2018 PREOPERATIVE DIAGNOSIS: Bilateral pleural effusions, left much greater than right. POSTOPERATIVE DIAGNOSIS: Bilateral pleural effusions, left much greater than right. PROCEDURE: Left thoracentesis under ultrasound guidance. SURGEON: Dr. Reyna CO-SURGEON: RADHA Sahu ANESTHESIA: Local. SPECIFICS OF PROCEDURE: With the patient in the seated position, her left thoracic chest was evaluated with an ultrasound and she had a large amount of fluid as would be expected from her CT scan and chest x-ray. A spot was marked posteriorly and she was prepped and draped in usual sterile fashion. Appropriate timeout, a skin wheal was raised, 25-gauge needle 1% Xylocaine. A large bore needle was used to anesthetize the deeper tissues and pleura. A guidewire was inserted through this large needle and needle removed. Introducer sheath was slid over the guidewire, the guidewire removed and then triple lumen catheter slid in over the guidewire. 2000 mL of a rust colored fluid was drained. She had some reexpansion coughing and pain. We removed the catheter and put an antimicrobial dressing over this. The pH was 7.303. Her x-ray looks superb. She had no evidence of any pneumothorax or infiltrate. We will see her back in the office tomorrow at 1:45 in the afternoon. We will repeat an x-ray at that time and assess her studies. I attest to the content of the Intraoperative Record and any orders documented therein. Any exception s are noted below.
--- NOTE | 2018-01-14 20:27 | CONSULTATION REPORT ---
DATE OF CONSULTATION: 01/14/2018 REASON FOR CONSULTATION: Pleural effusion. HISTORY OF PRESENT ILLNESS: The 42-year-old female who is actually scheduled to see us in the office tomorrow, which is 01/15/2018 secondary to pleural effusion. The patient notes that approximately 6-8 weeks ago she was using some household chemicals to perform some cleaning in her house and she is unsure if she inhaled any toxic fumes. However, since that time, she notes that she has had progressively worsening shortness of breath. It is noteworthy to mention that the patient says she was initially short of breath with activity; however, due to an unrelated plantar fasciitis, she was placed on prednisone, which actually improved her breathing. However, upon stopping her prednisone taper at the appropriate time, her shortness of breath became worse. She notes over the past 2 weeks she has had progressive worsening shortness of breath that has been more pronounced with activity over the past 24-48 hours it is now present even at rest. The patient did see Dr. Connor as an outpatient who did perform a CT scan of her chest on 01/10/2018 of this year, which showed bilateral pleural effusions with the left side being markedly larger than the right. The patient was ultimately scheduled to see us in the office tomorrow for further evaluation and management; however, she presented to the Emergency Department due to her worsening shortness of breath. I questioned the patient on numerous items and she has no recent falls or head injuries. She denies visual changes, tinnitus, sore throat, or neck pain. She denies any substernal chest pain but does admit to some chest tightness due to her shortness of breath. She notes that she is short of breath even at rest now, more pronounced with activity. She denies any nausea, vomiting, diarrhea, or abdominal pain. She says that she has not had any significant weight loss. She denies dysuria. She has no history of DVT or PE. She has no known history of cancer. There is also no family history of cancer. She also denies fever, shakes, or chills. Today in the Emergency Room, PA and lateral chest x-ray was undertaken, which showed a large left pleural effusion. CBC showed white blood cell count, hemoglobin, hematocrit, and platelet count were all normal. Coagulation studies are pending. Chemistry profile showed sodium, potassium, BUN, and creatinine are all normal. At the present time, the patient is resting comfortably in bed and other than some shortness of breath, she is without complaints. PAST MEDICAL HISTORY: 1. History of obesity, for which she has undergone gastric bypass. 2. History of pleural effusion. 3. History of plantar fasciitis. PAST SURGICAL HISTORY: Includes gastric bypass surgery. ALLERGIES: None. SOCIAL HISTORY: The patient has a 50-aees-pzzx history of smoking but quit approximately 13 years ago. FAMILY HISTORY: Negative for breast cancer; however, father did have skin cancer; however, she is unsure of the type of cancer. OUTPATIENT MEDICATIONS: 1. Albuterol inhaler as needed. 2. Calcium 600 mg daily. 3. Vitamin D3 2000 units daily. 4. Depo-Provera 400 mg IM every 3 months. 5. Minocycline 100 mg twice daily. 6. Multivitamin daily. 7. Prilosec 20 mg daily. REVIEW OF SYSTEMS: As noted above. PHYSICAL EXAMINATION: VITAL SIGNS: The patient is afebrile. Temperature 36.7, pulse 92 and regular, respirations are 20 unlabored, blood pressure is 134/97, pulse ox 95% on room air. SKIN: Warm with good turgor. GENERAL: She is alert. She is oriented x3. She is in no distress. HEENT: Head is atraumatic, normocephalic. EYES: Pupils equal, round react to light and accommodation. Extraocular motions are intact. EARS: Auditory acuity is grossly intact. NOSE: Nasal patency was intact. Sinuses are nontender. MOUTH: Moist without exudates. NECK: Supple. I do not appreciate any JVD. CARDIOVASCULAR: Regular rate and rhythm. LUNGS: The patient's lungs were markedly decreased, breath sounds at the bases, left greater than right. ABDOMEN: Soft, nontender, nondistended. EXTREMITIES: Revealed no cyanosis, clubbing, or edema. NEUROLOGIC: Revealed no focal deficits. DIAGNOSTIC DATA: As noted above. IMPRESSION: A 42-year-old female with bilateral pleural effusions, left greater than right. PLAN: I performed a bedside ultrasound, which did show the presence of pleural effusion as noted by her other imaging studies. We will perform a left-sided thoracentesis in the Emergency Department at this time. I discussed with the patient the numerous etiologies of her pleural effusion and noted that we will send the fluid for appropriate analysis, which will help determine the exact cause of her effusion. We will monitor her response to a thoracentesis with further recommendations to be forthcoming. NEO
== END 2018-01-14 17:17 | disposition home or self-care (01) ==
LOC: C.EDB 12:54 → ENRESERV 15:03 → CANBEDREQ 16:15 → C.EDB 17:17
DX: C78.2 Secondary malignant neoplasm of pleura (principal); Z87.891 Personal history of nicotine dependence; Z98.84 Bariatric surgery status; Z79.899 Other long term (current) drug therapy; Z90.49 Acquired absence of other specified parts of digestive tract

== ENCOUNTER → 2018-01-15 | Outpatient (CLI) | payer OTHER ==
[~2018-01-15] MED LIST changes: -METH4PAK PO
--- NOTE | 2018-01-15 08:48 | DIAGNOSTIC IMAGING REPORT ---
CHEST 2 VIEWS ROUTINE HISTORY: J90 Pleural effusion, [id number] COMPARISON: Chest 01/14/2018. FINDINGS: Tiny left apical pneumothorax with a pleural gap of 3 mm. Small right pleural effusion persist. There is a small left pleural effusion which appears of slightly increased in size. Bilateral mid to lower lung zone linear densities. The heart is stable in size. IMPRESSION: 1. Interval development of a tiny left pneumothorax. 2. Small left pleural effusion has also slightly increased in size. 3. No change in the small right pleural effusion. Electronically signed by: Ehsan Atkinson M.D. 01/15/2018 8:46 AM Dictated Date/Time: 01/15/2018 8:34 AM
== END | disposition home or self-care (01) ==
LOC: C.RAD 08:03
PROVIDERS: ATTEND Surgery
DX: J90 Pleural effusion, not elsewhere classified (principal)

== ENCOUNTER 2018-01-21 16:01 | Day surgery (SDC) | payer OTHER ==
[~2018-01-21] VITALS: Ht 170.2 cm; Wt 120.5 kg
[~2018-01-21 16:01] MED LIST changes: -LIDOCAINE HCL 1% 20 ML VIAL ONE; -ULT/50 PO; -b12 injection IM
[2018-01-21] MEDS ORDERED: ULT/50 PO (16:07)
[2018-01-21 16:10] VITALS: BP 121/78; PULSE 95; TEMP 36.6; O2SAT 99; Ht 170.2 cm; Wt 120.5 kg
--- NOTE | 2018-01-21 16:10 | Discharge Instructions ---
Discharge Instructions Date of Service January 21, 2018. Visit Reason for Visit: Malignant Pleural Effusion Discharge Discharge Diagnosis / Problem: Malignant Pleural Effusion Discharge Goals Goal(s): Decrease discomfort, Improve function Activity Recommendations Activity Limitations: as noted below Lifting Limitations: none Shower/Bathe: keep incision dry 1. Do not shower ot take tub baths until cleared to to do so by Dr. Reyna. 2. Do not drive if taking ultram. Anesthesia . Post Anesthesia Instructions: If you have had General Anesthesia or IV Sedation: * Do not drive today. * Resume driving when surgeon permits. * Do not make important decisions or sign legal documents today. * Call surgeon for: 1. Temperature elevations greater than 101 degrees F. 2. Uncontrollable pain. 3. Excessive bleeding. 4. Persistent nausea and vomiting. 5. Medication intolerance (nausea, vomiting or rash). * For nausea and vomiting use only clear liquids such as: tea, soda, bouillon until nausea subsides, then gradually increase diet as tolerated. * If you have any concerns or questions, call your surgeon's office. If physician is unavailable and it is an emergency, call 911 or go to the nearest emergency room. . Instructions / Follow-Up Instructions / Follow-Up 1. Pleurx catheter will be drained daily and visiting nurses will assist you. Record amounts and call Dr. Reyna's office every with amounts. 2. Keep your scheduled appointment with Dr. Reyna on February 04, 2018 @ 9:45 am. Go to hospital 1 hour before appointment to have a chest x-ray taken. Diet Recommendations Recommended Home Diet: resume previous diet Pending Studies Studies pending at discharge: no Medical Emergencies . Who to Call and When: Medical Emergencies: If at any time you feel your situation is an emergency, please call 911 immediately. . Non-Emergent Contact Non-Emergency issues call your: Surgeon Call Non-Emergent contact if: you have a fever, your pain is not controlled, wound has increased drainage . . "Provider Documentation" section prepared by Hernan Ansari. .
[2018-01-21] MEDS ORDERED: TRAMADOL HCL 50 MG TAB PO PRN (16:15)
[2018-01-21 16:42] VITALS: BP 105/73; PULSE 98; TEMP 37; O2SAT 93
--- NOTE | 2018-01-21 16:44 | [facility] Post Operative Brief Note ---
Immediate Operative Summary Operative Date January 21, 2018. Pre-Operative Diagnosis MPE (left) Post-Operative Diagnosis MPE (left) Procedure(s) Performed Insertion of left pleurx catheter Surgeon Axel Lighting Equipment Operator Surgeon(s) Coty Estimated Blood Loss 2 cc's Findings Consistent with Post-Op Diagnosis Specimens 1,300 cc's serous fluid Drains 1 pleurx catheter Anesthesia Type Local Complication(s) none
[2018-01-21] MEDS ORDERED: b12 injection IM (16:49)
--- NOTE | 2018-01-21 17:09 | DIAGNOSTIC IMAGING REPORT ---
CHEST ONE VIEW PORTABLE HISTORY: 42 years-old Female effusion malignant pleural effusions COMPARISON: Chest radiograph 01/21/2018 at 7:05 AM TECHNIQUE: Portable AP view of the chest FINDINGS: Cardiac silhouette is unremarkable. Decreased size of left-sided pleural effusion status post placement of a pleural drainage catheter with distal tip projecting over the left heart border. Small pneumothorax at the level left lung base measures up to 9 mm. Moderate right pleural effusion persists along with consolidative bibasilar opacities. The bones appear grossly intact. IMPRESSION: 1. Interval placement of a left-sided pleural drainage catheter with decreased size of the left pleural effusion. Small postprocedural pneumothorax is noted. 2. Unchanged moderate right pleural effusion. 3. Bibasilar consolidative opacities favor atelectasis. The above report was generated using voice recognition software. It may contain grammatical, syntax or spelling errors. Electronically signed by: Ángel Flores M.D. 01/21/2018 5:07 PM Dictated Date/Time: 01/21/2018 5:05 PM
[2018-01-21 17:15] VITALS: BP 121/65; PULSE 97; TEMP 36.9; O2SAT 97
--- NOTE | 2018-01-21 20:14 | OPERATIVE REPORT ---
DATE OF OPERATION: 01/21/2018 PREOPERATIVE DIAGNOSIS: Reaccumulation of malignant left pleural effusion. POSTOPERATIVE DIAGNOSIS: Reaccumulation of malignant left pleural effusion. PROCEDURE: Insertion of left PleurX catheter. SURGEON: Jeff Reyna M.D. NATIONAL INVESTIGATIVE PRODUCER: RADHA Michele. ANESTHESIA: Local. 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 From the markers, Dr. Zechariah Mena from Pathology feels this is an upper gastrointestinal malignancy. I do not see anything on the CT scan to suggest an origin. Dr. Bruner was going to see her tomorrow. We do not have a PET scan now. Back on 01/14/2018, I performed a thoracentesis and drained 2000 mL of rust-colored fluid. She felt much better; however, over the course of the last week, this fluid has reaccumulated. I saw her in the office late last week and she was greatly improved after the fluid had been drained, but I asked her to come back today and an x-ray showed that this had greatly reaccumulated. For this reason, I felt that placing a PleurX catheter would be appropriate. On 01/21/2018, in the medical treatment unit, I inserted a left PleurX catheter under ultrasound guidance without difficulty. 1300 mL were drained. She had some reexpansion pain and coughing, so we stopped. We have arranged for her to have this drained. She tolerated it well. DESCRIPTION OF PROCEDURE: The patient was brought to the medical treatment unit. After appropriate consent had been obtained and we discussed this in detail, it was felt that she would be a candidate. The patient was placed in right lateral decubitus position, left chest prepped and draped in usual sterile fashion. Under ultrasound guidance, an area was picked just posterior to the mid axillary line and about the eighth interspace. This area was prepped completely. A 25 gauge needle was used to raise a skin wheal over this as well as a skin wheal about 12 cm anterior and inferior to this. A large bore needle was used to go into this and I went just above the rib and got rust-colored fluid. A guidewire was inserted through the needle and needle removed. This insertion site was enlarged to 1 cm. Another 1 cm incision was made in the anterior skin wheal. A long needle was used to anesthetize the subcutaneous tissues between them. The PleurX catheter was attached to a tunneler, which was then tunneled from the anterior to posterior incision. The tunneler was disconnected from the PleurX catheter. Introducer sheath with a peel away catheter and an inner cannula was inserted over the guidewire and then the inner cannula guidewire removed and PleurX catheter inserted through this peel away sheath, which was removed. Two separate 3-0 silk sutures were used to close the posterior incision and 3-0 silk suture was used to anchor the catheter to the patient's skin anteriorly. 1300 mL of rust-colored fluid was drained. She had some reexpansion pain with coughing, so we stopped. She tolerated it quite well. We placed antimicrobial dressings and capped the PleurX catheter. She will be discharged after her x-ray. I attest to the content of the Intraoperative Record and any orders documented therein. Any exception s are noted below.
== END 2018-01-21 17:31 | disposition home or self-care (01) ==
LOC: C.ACU 16:01
PROVIDERS: ATTEND Surgery
DX: J91.0 Malignant pleural effusion (principal)

== ENCOUNTER → 2018-01-21 | Outpatient (CLI) | payer OTHER ==
[~2018-01-21] MED LIST changes: +LIDOCAINE HCL 1% 20 ML VIAL ONE; +ULT/50 PO; +b12 injection IM
--- NOTE | 2018-01-21 08:04 | DIAGNOSTIC IMAGING REPORT ---
TWO VIEW CHEST CLINICAL HISTORY: Pleural effusions. FINDINGS: PA and lateral chest radiographs are compared to study dated 01/15/2018. Correlation is made with chest CT dated 01/10/2018. The cardiomediastinal silhouette is unremarkable. There are moderate pleural effusions, left larger than right with associated bibasilar consolidation. Atelectasis versus scarring is again seen in the right midlung. There is no pneumothorax. The bony thorax appears intact. Cholecystectomy clips are noted in the upper abdomen. IMPRESSION: 1. There are moderate pleural effusions, left larger than right with associated bibasilar consolidation. These unchanged to modestly increased in size from 01/15/2018. 2. Bibasilar consolidation likely represents atelectasis. Clinical correlation will be required. 3. The trace left apical pneumothorax seen previously is no longer identified. Electronically signed by: Fermín Arroyo M.D. 01/21/2018 8:02 AM Dictated Date/Time: 01/21/2018 8:00 AM
== END | disposition home or self-care (01) ==
LOC: C.RAD 06:40
PROVIDERS: ATTEND Physician Assistant
DX: J90 Pleural effusion, not elsewhere classified (principal)

== ENCOUNTER → 2018-04-05 | Outpatient (CLI) | payer OTHER ==
[~2018-04-05] MED LIST changes: +CYAN10005 IM; +ENOX1INJ13 SQ; -MINO100C22 PO; -VNTHFA/IN INH
--- NOTE | 2018-04-08 15:11 | MAMMOGRAPHY REPORT ---
BILATERAL DIGITAL SCREENING MAMMOGRAM TOMOSYNTHESIS WITH CAD: 04/05/2018 CLINICAL HISTORY: Routine screening. Patient has no complaints. TECHNIQUE: The study was acquired using full field digital technology and interpreted from soft copy. Breast tomosynthesis in addition to standard 2D mammography was performed. Current study was also ev aluated with a Computer Aided Detection (CAD) system. COMPARISON: Comparison is made to exams dated: 04/04/2017 mammogram, 03/31/2016 mammogram, 03/30/2015 ma mmogram, and 12/24/2013 mammogram - [facility]. BREAST COMPOSITION: The tissue of both breasts is almost entirely fatty. FINDINGS: No suspicious masses, calcifications, or areas of architectural distortion are noted in either breast . There has been no significant interval change compared to prior exams. Scattered bilateral benign-a ppearing calcifications are not significantly changed. A port catheter overlies the left pectoralis muscle on the MLO view. IMPRESSION: ACR BI-RADS CATEGORY 2: BENIGN There is no mammographic evidence of malignancy. A 1 year screening mammogram is recommended.( 019) The patient will receive written notification of the results. Some breast cancers are not detected with mammography. A negative mammographic report should not justine y biopsy if a clinically suggestive mass is present. Latia Bentley M.D. /:04/05/2018 16:12:49 Meter Changes Records Clerk: Kaela Falcon, [facility] letter sent: Normal 1/2 BI-RADS Code: ACR BI-RADS Category 2: Benign
== END | disposition home or self-care (01) ==
LOC: C.MAMM 15:49
PROVIDERS: ATTEND Internal Medicine
DX: Z12.31 Encounter for screening mammogram for malignant neoplasm of breast (principal); J90 Pleural effusion, not elsewhere classified

== ENCOUNTER 2018-11-07 21:28 | Inpatient (IN) ==
[2018-11-07] MEDS ORDERED: MoRPHine SULFATE 4 MG/ML 1 ML CARP\\VIAL IV STA (21:50)
[2018-11-07] MEDS ORDERED: ONDANSETRON INJ 2 MG/ML 2 ML VIAL IV STA (21:50)
--- NOTE | 2018-11-07 22:06 | XRay Report ---
XR chest 1V portable HISTORY: Esophageal cancer. COMPARISON: Chest CT 10/22/2018. FINDINGS: No pneumothorax. Small bilateral pleural effusions and diffuse interstitial thickening pers ists. The heart is stable in size. Left jugular Port-A-Cath is unchanged in position. This terminates within the left brachiocephalic vein. IMPRESSION: No change in the small bilateral pleural effusions and diffuse interstitial thickening. Electronically signed by: Ehsan Atkinson M.D. 11/07/2018 10:04 PM
[2018-11-07 22:26] LABS: Basophils # (auto) 0.01 K/uL (0-0.2); Basophils % (auto) 0.1 %; Eosinophils % (auto) 5.5 %; Hematocrit (blood only) 42.1 % (37-47); Hemoglobin 14.4 g/dL (12.0-16.0); Immature Granulocytes # (auto) 0.01 K/uL (0.00-0.02); Immature Granulocytes % (auto) 0.1 %; Lymphocytes # (auto) 0.84 K/uL (1.2-3.4); Lymphocytes % (auto) 7.7 %; Mean Corpuscular Hgb Conc 34.2 g/dL (32-36); Mean Corpuscular Volume 92.5 fL (80-100); Mean Platelet Volume 9.9 fL (7.4-10.4); Monocytes # (auto) 0.16 K/uL (0.11-0.59); Monocytes % (auto) 1.5 %; Neutrophils # (auto) 9.33 K/uL (1.4-6.5); Neutrophils % (auto) 85.1 %; Platelet Count 307 K/uL (130-400); RDW Coefficient of Variation 13.1 % (11.5-14.5); RDW Standard Deviation 44.5 fL (36.4-46.3); Red Blood Count 4.55 M/uL (4.2-5.4); White Blood Count 10.95 K/uL (4.8-10.8)
[2018-11-07 22:42] LABS: Albumin Level 2.6 gm/dl (3.4-5.0); BUN Creatinine Ratio 19.4 (10-20); Calcium 7.9 mg/dl (8.5-10.1); Creatinine Clr Calc Pharmacy 132.9 ml/min; Est GFR (African American) 121.3; Est GFR (Non-African American) 104.6; Potassium 3.9 mmol/L (3.5-5.1)
[2018-11-07 22:45] LABS: Albumin Globulin Ratio 0.6 (0.9-2); Bilirubin,Total 0.5 mg/dl (0.2-1); Globulin 4.1 gm/dl (2.5-4.0); Total Protein 6.7 gm/dl (6.4-8.2)
[2018-11-07 22:47] LABS: Partial Thromboplastin Ratio 1.7
[2018-11-07 22:52] LABS: Prothrombin Time 53.9 Seconds (9.0-12.0)
[2018-11-07 22:54] LABS: Partial Thromboplastin Time 46.6 Seconds (21.0-31.0)
[2018-11-07] MEDS ORDERED: IOVERSOL 100ml IV PRN (23:23)
--- NOTE | 2018-11-07 23:40 | Emergency Department Note ---
History of Present Illness General Chief complaint: Abdominal Pain Stated complaint: ABDOMINAL PAIN- CANCER PT Source: patient Mode of arrival: ambulatory Limitations: no limitations History of Present Illness Maximum Pain Intensity: 8 This patient is a 43-year-old female who presents to the emergency department complaining of worsening abdominal pain. 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 She has had worsening abdominal bloating and pain over the past 2-3 weeks. She states that over the past 2-3 days, her pain has become much worse. She rates her discomfort an 8/10. She states that she went to chemotherapy 2 days ago and they wanted to admit her but she refused at that time. She takes Coumadin due to a blood clot at her port. She reports a history of gastric bypass. She states that she has had a small amount of ascites but not enough for them to drain. Home Medications Home Medications Medication Instructions Recorded Confirmed Type calcium citrate-vitamin D3 1 tab PO QPM 05/13/18 11/07/18 History [Citracal + D Maximum] calcium citrate-vitamin D3 2 tabs PO DAILY 05/13/18 11/07/18 History [Citracal + D Maximum] cholecalciferol (vitamin D3) 2,000 unit PO DAILY 05/13/18 11/07/18 History [Vitamin D3] cyanocobalamin (vitamin B-12) 1,000 mcg IM Q3MO 05/13/18 11/07/18 History medroxyprogesterone [Depo-Provera] 400 mg IM Q3MO 05/13/18 11/07/18 History omeprazole 20 mg PO BID17 05/13/18 11/07/18 History hydrocodone 10 mg-acetaminophen 1 tab PO QID PRN 06/21/18 11/07/18 History 325 mg tablet turmeric root extract 500 mg 500 mg PO DAILY 07/11/18 11/07/18 History capsule pediatric multivitamin no.76 1 tab PO BID tab 10/02/18 11/07/18 History chewable tablet pregabalin 50 mg capsule 100 mg PO TID cap 10/02/18 11/07/18 History warfarin 5 mg tablet See Rx Instructions PO .COMPLEX 10/31/18 11/07/18 History tab Allergies Allergy/AdvReac Type Severity Reaction Status Date / Time No Known Allergies Allergy Verified 11/07/18 23:14 Past Med/Surg History Medical History Esophageal cancer Pleural effusion Social History Preferred Language: Khmer Communication Ability: Effective 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 Feels Safe at Home: Yes Safety Concerns: Feels Safe At This Time Smoking Status: Former smoker Hx Substance Use: No Review of Systems A total of 10 systems reviewed and were otherwise negative Physical Exam Vital Signs Vital Signs - 24 hr 11/07/18 21:30 11/07/18 22:26 11/08/18 00:20 Temperature 36.6 C Temperature Source Oral Sepsis Recent Fever Within 48 Hours No Sepsis Action Taken by Nursing No Action Required Pulse Rate 93 H Pulse Rate [Left Finger] 87 87 Pulse Rhythm [Left Finger] Regular Pulse Strength [Left Finger] Normal Respiratory Rate 18 23 18 Respiratory Effort / Characteristics Non-Labored Spontaneous Non-Labored Spontaneous Respiratory Depth Normal Normal Respiratory Pattern Regular Blood Pressure 127/87 Blood Pressure [Left Arm] 120/80 119/77 Blood Pressure Mean 100 Blood Pressure Mean [Left Arm] 93 91 Blood Pressure Position Sitting Blood Pressure Position [Left Arm] Sitting Pulse Oximetry 93 93 93 Oxygen Delivery Method Room Air Room Air Room Air 11/08/18 01:53 11/08/18 02:12 11/08/18 07:57 Temperature 36.6 C 36.7 C Temperature Source Oral Oral Sepsis Recent Fever Within 48 Hours Sepsis Action Taken by Nursing Pulse Rate Pulse Rate [Left Finger] 93 H 102 H 90 Pulse Rhythm [Left Finger] Regular Pulse Strength [Left Finger] Normal Respiratory Rate 16 22 18 Respiratory Effort / Characteristics Non-Labored Spontaneous Spontaneous SOB on Exertion Respiratory Depth Normal Shallow Respiratory Pattern Regular Blood Pressure Blood Pressure [Left Arm] 108/81 140/89 104/72 Blood Pressure Mean Blood Pressure Mean [Left Arm] 90 106 82 Blood Pressure Position Blood Pressure Position [Left Arm] Sitting Lying Pulse Oximetry 92 92 94 Oxygen Delivery Method Room Air Room Air Room Air 11/08/18 11:46 11/08/18 12:10 Temperature 36.8 C 36.8 C Temperature Source Oral Oral Sepsis Recent Fever Within 48 Hours Sepsis Action Taken by Nursing Pulse Rate Pulse Rate [Left Finger] 82 80 Pulse Rhythm [Left Finger] Pulse Strength [Left Finger] Respiratory Rate 16 18 Respiratory Effort / Characteristics Respiratory Depth Respiratory Pattern Blood Pressure Blood Pressure [Left Arm] 105/68 96/65 L Blood Pressure Mean Blood Pressure Mean [Left Arm] 80 75 Blood Pressure Position Blood Pressure Position [Left Arm] Lying Pulse Oximetry 96 93 Oxygen Delivery Method Room Air Room Air VITALS: Vitals are noted on the nurse's note and reviewed by myself. Vital signs stable. GENERAL: This patient is a 43-year-old female, in no acute distress, nondiaphoretic, well-developed well-nourished. SKIN: The skin was without rashes. EARS: External auditory canals clear, tympanic membranes pearly brumfield without erythema or effusion bilaterally. EYES: Pupils equal round and reactive to light and accommodation. Conjunctivae without injection, sclerae without icterus. MOUTH: Mucous membranes moist. Tonsils are not enlarged. Pharynx without erythema or exudate. NECK: Supple without nuchal rigidity. No lymphadenopathy. HEART: Regular rate and rhythm without murmurs gallops or rubs. LUNGS: Clear to auscultation bilaterally without wheezes, rales or rhonchi. ABDOMEN: Distended abdomen. Positive bowel sounds x 4. Tenderness to palpation throughout the abdomen. No guarding or rebound tenderness. EXTREMITIES: No peripheral edema. NEURO: Patient was alert and oriented to person place and time. Course Consultations Consultation #1: Dr. Merino - [facility] hospitalist Administered Medications Acetaminophen (Tylenol) 650 mg PO Q4H PRN PRN Reason: pain/fever Stop: 12/08/18 02:11 Last Admin: 11/08/18 08:30 Dose: 650 mg Documented by: [id number] Albumin Human (Albumin 25%) 50 mls @ 50 mls/hr IV Q1H [facility] Stop: 11/08/18 14:04 Last Admin: 11/08/18 12:12 Dose: 60 mls/hr Documented by: [id number] Ioversol (Optiray 320 100ml) 100 ml IV ONCE PRN PRN Reason: Interaction Checking Stop: 11/11/18 23:22 Last Admin: 11/07/18 23:24 Dose: 93 ml Documented by: [id number] Multivitamins/Minerals (Caltrate Plus) 1 tab PO DAILY [facility] Stop: 12/08/18 08:59 Last Admin: 11/08/18 08:32 Dose: 1 tab Documented by: [id number] Ondansetron HCl (Zofran) 4 mg IV Q6H PRN PRN Reason: Nausea Stop: 12/08/18 02:11 Last Admin: 11/08/18 06:03 Dose: 4 mg Documented by: [id number] Pantoprazole Sodium (Protonix) 40 mg PO QAM [facility] Stop: 12/08/18 08:59 Last Admin: 11/08/18 12:05 Dose: 40 mg Documented by: [id number] Pregabalin (Lyrica) 100 mg PO TID [facility] Stop: 12/08/18 08:59 Last Admin: 11/08/18 08:30 Dose: 100 mg Documented by: [id number] Prochlorperazine (Compazine) 10 mg PO Q6H PRN PRN Reason: Nausea Stop: 12/08/18 03:14 Last Admin: 11/08/18 06:04 Dose: 10 mg Documented by: [id number] Vitamin D (Vitamin D3) 2,000 units PO DAILY [facility] Stop: 12/08/18 08:59 Last Admin: 11/08/18 08:32 Dose: 2,000 units Documented by: [id number] Discontinued Medications Phytonadione 10 mg/ Sodium (Chloride) 51 mls @ 102 mls/hr IV NOW ONE Stop: 11/08/18 02:59 Last Infusion: 11/08/18 03:20 Dose: 0 mls/hr Documented by: [id number] Admin: 11/08/18 02:37 Dose: 75 mls/hr Documented by: [id number] Morphine Sulfate (Morphine Sulfate) 4 mg IV NOW STA Stop: 11/07/18 21:51 Last Admin: 11/07/18 22:31 Dose: 4 mg Documented by: [id number] Morphine Sulfate (Morphine Sulfate) 4 mg IV NOW STA Stop: 11/08/18 01:06 Last Admin: 11/08/18 01:11 Dose: 4 mg Documented by: [id number] Morphine Sulfate (Morphine Sulfate) Confirm Administered Dose 4 mg .ROUTE .STK- MED ONE Stop: 11/08/18 01:10 Last Admin: 11/08/18 01:11 Dose: Not Given Documented by: [id number] Ondansetron HCl (Zofran) 4 mg IV NOW STA Stop: 11/07/18 21:51 Last Admin: 11/07/18 22:31 Dose: 4 mg Documented by: [id number] Medical Decision Making Differential Diagnosis Differential diagnosis includes ascites, metastasis, SBP, bowel obstruction, UTI, among others. Medical Records Attestation: I reviewed the patient's medical records. Home Medications Current Medication List: was personally reviewed by me Laboratory Data Attestation: I reviewed the patient's lab results. Result diagrams: 11/08/18 07:14 11/08/18 07:14 Lab Results 11/07/18 11/07/18 11/07/18 Range/Units 22:15 22:15 22:15 WBC 10.95 H (4.8-10.8) K/uL RBC 4.55 (4.2-5.4) M/uL Hgb 14.4 (12.0-16.0) g/dL Hct 42.1 (37-47) % MCV 92.5 (80-100) fL MCH 31.6 (25-34) pg MCHC 34.2 (32-36) g/dL RDW Std Deviation 44.5 (36.4-46.3) fL RDW Coeff of Huber 13.1 (11.5-14.5) % Plt Count 307 (130-400) K/uL MPV 9.9 (7.4-10.4) fL Immature Gran % (Auto) 0.1 % Neut % (Auto) 85.1 % Lymph % (Auto) 7.7 % [place] % (Auto) 1.5 % Eos % (Auto) 5.5 % Baso % (Auto) 0.1 % Immature Gran # (Auto) 0.01 (0.00-0.02) K/uL Neut # (Auto) 9.33 H (1.4-6.5) K/uL Lymph # (Auto) 0.84 L (1.2-3.4) K/uL [place] # (Auto) 0.16 (0.11-0.59) K/uL Eos # (Auto) 0.60 H (0-0.5) K/uL Baso # (Auto) 0.01 (0-0.2) K/uL PT 53.9 H (9.0-12.0) Seconds INR 6.0 H* (0.9-1.1) APTT 46.6 H* (21.0-31.0) Seconds PTT Ratio 1.7 Sodium 136 (136-145) mmol/L Potassium 3.9 (3.5-5.1) mmol/L Chloride 100 (98-107) mmol/L Carbon Dioxide 31 (21-32) mmol/L Anion Gap 5.0 (3-11) BUN 14 (7-18) mg/dl Creatinine 0.70 (0.6-1.2) mg/dl Est Cr Clr Drug Dosing 132.9 ml/min Est GFR ( Amer) 121.3 Est GFR (Non-Af Amer) 104.6 BUN/Creatinine Ratio 19.4 (10-20) Glucose 86 (70-99) mg/dl Calcium 7.9 L (8.5-10.1) mg/dl Total Bilirubin 0.5 (0.2-1) mg/dl AST 22 (15-37) U/L ALT 27 (12-78) U/L Alkaline Phosphatase 61 (45-117) U/L Total Protein 6.7 (6.4-8.2) gm/dl Albumin 2.6 L (3.4-5.0) gm/dl Globulin 4.1 H (2.5-4.0) gm/dl Albumin/Globulin Ratio 0.6 L (0.9-2) Lipase 150 (73-393) U/L Urine Color Urine Appearance (Clear) Urine pH (4.5-7.5) Ur Specific Liberal (1.000-1.030) Urine Protein (Negative) Urine Glucose (UA) (Negative) Urine Ketones (Negative) Urine Blood (Negative) Urine Nitrite (Negative) Urine Bilirubin (Negative) Urine Urobilinogen (Negative) Ur Leukocyte Esterase (Negative) Urine WBC (Auto) (0-5) /hpf Urine RBC (Auto) (0-4) /hpf U Hyaline Cast (Auto) (0-5) /lpf U Epithel Cells (Auto) (0-5) /lpf Urine Bacteria (Auto) (Negative) Ur Renal Epithelial Cell Urine Mucus (None Prsent) 11/08/18 11/08/18 11/08/18 Range/Units 07:14 07:14 07:14 WBC 9.91 (4.8-10.8) K/uL RBC 4.44 (4.2-5.4) M/uL Hgb 13.9 (12.0-16.0) g/dL Hct 41.1 (37-47) % MCV 92.6 (80-100) fL MCH 31.3 (25-34) pg MCHC 33.8 (32-36) g/dL RDW Std Deviation 44.8 (36.4-46.3) fL RDW Coeff of Huber 13.0 (11.5-14.5) % Plt Count 287 (130-400) K/uL MPV 10.0 (7.4-10.4) fL Immature Gran % (Auto) 0.2 % Neut % (Auto) 87.7 % Lymph % (Auto) 7.0 % [place] % (Auto) 1.3 % Eos % (Auto) 3.8 % Baso % (Auto) 0.0 % Immature Gran # (Auto) 0.02 (0.00-0.02) K/uL Neut # (Auto) 8.69 H (1.4-6.5) K/uL Lymph # (Auto) 0.69 L (1.2-3.4) K/uL [place] # (Auto) 0.13 (0.11-0.59) K/uL Eos # (Auto) 0.38 (0-0.5) K/uL Baso # (Auto) 0.00 (0-0.2) K/uL PT 17.0 H (9.0-12.0) Seconds INR 1.7 H (0.9-1.1) APTT (21.0-31.0) Seconds PTT Ratio Sodium 134 L (136-145) mmol/L Potassium 4.0 (3.5-5.1) mmol/L Chloride 102 (98-107) mmol/L Carbon Dioxide 27 (21-32) mmol/L Anion Gap 5.0 (3-11) BUN 13 (7-18) mg/dl Creatinine 0.54 L (0.6-1.2) mg/dl Est Cr Clr Drug Dosing 172.5 ml/min Est GFR ( Amer) 132.1 Est GFR (Non-Af Amer) 114.0 BUN/Creatinine Ratio 23.6 H (10-20) Glucose 95 (70-99) mg/dl Calcium 7.8 L (8.5-10.1) mg/dl Total Bilirubin (0.2-1) mg/dl AST (15-37) U/L ALT (12-78) U/L Alkaline Phosphatase (45-117) U/L Total Protein (6.4-8.2) gm/dl Albumin (3.4-5.0) gm/dl Globulin (2.5-4.0) gm/dl Albumin/Globulin Ratio (0.9-2) Lipase (73-393) U/L Urine Color Urine Appearance (Clear) Urine pH (4.5-7.5) Ur Specific Liberal (1.000-1.030) Urine Protein (Negative) Urine Glucose (UA) (Negative) Urine Ketones (Negative) Urine Blood (Negative) Urine Nitrite (Negative) Urine Bilirubin (Negative) Urine Urobilinogen (Negative) Ur Leukocyte Esterase (Negative) Urine WBC (Auto) (0-5) /hpf Urine RBC (Auto) (0-4) /hpf U Hyaline Cast (Auto) (0-5) /lpf U Epithel Cells (Auto) (0-5) /lpf Urine Bacteria (Auto) (Negative) Ur Renal Epithelial Cell Urine Mucus (None Prsent) 11/08/18 Range/Units Unknown WBC (4.8-10.8) K/uL RBC (4.2-5.4) M/uL Hgb (12.0-16.0) g/dL Hct (37-47) % MCV (80-100) fL MCH (25-34) pg MCHC (32-36) g/dL RDW Std Deviation (36.4-46.3) fL RDW Coeff of Huber (11.5-14.5) % Plt Count (130-400) K/uL MPV (7.4-10.4) fL Immature Gran % (Auto) % Neut % (Auto) % Lymph % (Auto) % [place] % (Auto) % Eos % (Auto) % Baso % (Auto) % Immature Gran # (Auto) (0.00-0.02) K/uL Neut # (Auto) (1.4-6.5) K/uL Lymph # (Auto) (1.2-3.4) K/uL [place] # (Auto) (0.11-0.59) K/uL Eos # (Auto) (0-0.5) K/uL Baso # (Auto) (0-0.2) K/uL PT (9.0-12.0) Seconds INR (0.9-1.1) APTT (21.0-31.0) Seconds PTT Ratio Sodium (136-145) mmol/L Potassium (3.5-5.1) mmol/L Chloride (98-107) mmol/L Carbon Dioxide (21-32) mmol/L Anion Gap (3-11) BUN (7-18) mg/dl Creatinine (0.6-1.2) mg/dl Est Cr Clr Drug Dosing ml/min Est GFR ( Amer) Est GFR (Non-Af Amer) BUN/Creatinine Ratio (10-20) Glucose (70-99) mg/dl Calcium (8.5-10.1) mg/dl Total Bilirubin (0.2-1) mg/dl AST (15-37) U/L ALT (12-78) U/L Alkaline Phosphatase (45-117) U/L Total Protein (6.4-8.2) gm/dl Albumin (3.4-5.0) gm/dl Globulin (2.5-4.0) gm/dl Albumin/Globulin Ratio (0.9-2) Lipase (73-393) U/L Urine Color Yellow Urine Appearance Clear (Clear) Urine pH 6.0 (4.5-7.5) Ur Specific Liberal > 1.045 H (1.000-1.030) Urine Protein Negative (Negative) Urine Glucose (UA) Negative (Negative) Urine Ketones Negative (Negative) Urine Blood 2+ H (Negative) Urine Nitrite Negative (Negative) Urine Bilirubin Negative (Negative) Urine Urobilinogen Negative (Negative) Ur Leukocyte Esterase Negative (Negative) Urine WBC (Auto) 5-10 H (0-5) /hpf Urine RBC (Auto) 10-30 H (0-4) /hpf U Hyaline Cast (Auto) 0 (0-5) /lpf U Epithel Cells (Auto) >30 H (0-5) /lpf Urine Bacteria (Auto) Negative (Negative) Ur Renal Epithelial Cell Not Reportable Urine Mucus Present H (None Prsent) Imaging Data Attestation: I personally reviewed and interpreted this imaging study as follows: Radiologist's Impression: CT ABDOMEN & PELVIS With Contrast: Comparison 10/22/2018 Small bilateral pleural effusions, pleural thickening and basilar atelectasis and possible infiltrate at the left base again noted, unchanged Small pericardial effusion and coronary calcifications again noted There is now a very large abdominal pelvic free fluid, ascites distending the abdomen No bowel dilation or free air Large amount of proximal colonic stool Radiologist: Jos Coleman M.D. Blood Pressure Blood Pressure Findings: Elevated blood pressure Blood Pressure Disposition: elevated BP felt to be situational MDM Narrative The patient is a 43-year-old female with history of metastatic esophageal cancer who presents today complaining of abdominal pain and bloating which has been progressively worsening over the past 2 weeks. Labs revealed a mild leukocytosis, no concerning anemia or electrolyte abnormality. CT shows worsening abdominal ascites. Patient was treated with morphine for pain. I am not highly suspicious of SBP. Patient is afebrile. INR was elevated at 6. Patient will be admitted to the hospitalist service for further evaluation and paracentesis. Impression & Plan Ascites, Supratherapeutic INR Discharge Plan Visit Data *Final* Discharge Date/Time: 11/08/18 02:01 Chief Complaint: Abdominal Pain Stated Complaint: ABDOMINAL PAIN- CANCER PT ED Provider: Shola Clark ED Midlevel Provider: Farzana Watson Discharge Problem: Ascites, Supratherapeutic INR Patient Disposition: Admitted As Inpatient Discharge Instructions Interventions: ED Discharge Assessment Last Done: 11/08/18 02:01 Discharge Problem: Ascites Qualifiers: Ascites type: malignant Qualified Code(s): R18.0 - Malignant ascites
--- NOTE | 2018-11-08 00:40 | History & Physical Report ---
Date of Service November 08, 2018 Assessment & Plan (1) Ascites: Ms. 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 ED course: 4 mg IV morphine sulfate x2, 4 mg IV Zofran -Admit to Med/Surg -CT abdomen and pelvis showed very large amount of pelvic free fluid, ascites extending into abdomen, stool build up in proximal colon and small bilateral pleural effusions -Consult oncology as well as radiology for paracentesis -ascites is likely malignant and related to metastatic esophageal cancer -Patient does have an elevated white count at 10.95, however no fever or chills, and is hemodynamically stable. Will order blood cultures and hold off on antibiotics at this time, to allow for culture of ascitic fluid -pain regimen -> 4 mg of morphine q4h and 1g IV acetaminophen q8h -4mg IV zofran prn nausea -NPO pending paracentesis, hopefully tomorrow Supratherapeutic INR -INR supratherapeutic at 6, no bleeding noted -Hold warfarin -Administer 10 mg of IV vitamin K, in preparation for paracentesis -follows w/[facility] anticoagulation clinic Bilateral pleural effusions -Follows with Dr. Reyna -due to have another CT scan of her chest in December Esophageal cancer -metastatic adenocarcinoma of the distal esophagus (stage 4) -Follows with Dr. Bruner, who we have consulted -change home omeprazole to pantoprazole Peripheral neuropathy -Per review of outpatient records, seems to be secondary to mohegan based chemotherapy -Continue home gabapentin CODE STATUS: Full DVT prophylaxis: Contraindicated given supratherapeutic INR Disposition: Admit to med/surg F/E/N: N.p.o. No electrolyte abnormalities noted. No IV fluids ordered. (2) Supratherapeutic INR: (3) Pleural effusion: (4) Esophageal cancer: (5) Peripheral neuropathy: History of Present Illness Primary Care Provider: Alvaro Mohamud MD Ms. 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 The patient states that she was meant to have a paracentesis last week, however after her ultrasound, she was told there was not enough fluid to tap. Since then, she has noted progressively worsening abdominal distention and abdominal pain, as well as back pain. She states her pain is all over her abdomen, and is an 8 out of 10 in severity. She denies fever, chills, nausea, vomiting, but states that she has been quite fatigued and weak since beginning her second cycle of chemotherapy. She has had poor appetite, and also reports constipation. She is able to urinate without difficulty. The patient does endorse a cough, that is occasionally productive of sputum, however states that this has been ongoing. With regards to her metastatic esophageal cancer, she follows with Dr. Bruner. She completed 1 cycle of chemotherapy, took a month break, and is now on her second cycle of chemotherapy. She last had chemotherapy on October 29. She also has seen Dr. Reyna in the past for management of her bilateral malignant pleural effusions, and he had placed a Pleurx catheter. With regards to the clot in her port, she is unsure of exactly when this happened, but states that it was longer than 6 months ago. She states she is meant to be on Coumadin for life, and follows with the anticoagulation clinic here at [facility]. She states that they did hold her Coumadin last week, in preparation for her paracentesis. She was then loaded with 10 mg of Coumadin on Sunday, Sunday, Sunday and has been taking an alternating regimen of 7.5 mg and 5 mg daily. She denies any bleeding. Of note, she is a former smoker. She smoked a pack to a pack and a half for 15 years, but has since quit. She denies use of alcohol or recreational drugs. Allergies Allergy/AdvReac Type Severity Reaction Status Date / Time No Known Allergies Allergy Verified 11/07/18 23:14 Home Medications Home Medications Medication Instructions Recorded Confirmed Type calcium citrate-vitamin D3 1 tab PO QPM 05/13/18 11/07/18 History [Citracal + D Maximum] calcium citrate-vitamin D3 2 tabs PO DAILY 05/13/18 11/07/18 History [Citracal + D Maximum] cholecalciferol (vitamin D3) 2,000 unit PO DAILY 05/13/18 11/07/18 History [Vitamin D3] cyanocobalamin (vitamin B-12) 1,000 mcg IM Q3MO 05/13/18 11/07/18 History medroxyprogesterone [Depo-Provera] 400 mg IM Q3MO 05/13/18 11/07/18 History omeprazole 20 mg PO BID17 05/13/18 11/07/18 History hydrocodone 10 mg-acetaminophen 1 tab PO QID PRN 06/21/18 11/07/18 History 325 mg tablet turmeric root extract 500 mg 500 mg PO DAILY 07/11/18 11/07/18 History capsule pediatric multivitamin no.76 1 tab PO BID tab 10/02/18 11/07/18 History chewable tablet pregabalin 50 mg capsule 100 mg PO TID cap 10/02/18 11/07/18 History warfarin 5 mg tablet See Rx Instructions PO .COMPLEX 10/31/18 11/07/18 History tab Past Med/Surg History Medical History Esophageal cancer (Chronic) Pleural effusion (Chronic) Social History Communication Ability: Effective Beliefs That Will Affect Care: None Current Living Situation: Family Current Living Situation Comment: lives at home with son. Feels Safe at Home: Yes Safety Concerns: Feels Safe At This Time Smoking Status: Former smoker Hx Substance Use: No Review of Systems Constitutional: + fatigue, + weakness and + anorexia; no fever and no chills Respiratory: + cough and + sputum production; no hemoptysis and no wheezing Cardiovascular: + edema; no chest pain, no palpitations, no syncope and no calf pain Gastrointestinal: + abdominal pain, + bloating and + constipation; no nausea, no vomiting, no hematemesis and no blood in stools Genitourinary (Female): no dysuria, no urinary frequency and no hematuria Musculoskeletal: + back pain Integumentary: no rash and no lesions Physical Exam Vital Signs (Past 24 Hours): Last Vital Signs Temp 36.6 C 11/07/18 21:30 Pulse 87 11/08/18 00:20 Resp 18 11/08/18 00:20 BP 119/77 11/08/18 00:20 Pulse Ox 93 11/08/18 00:20 Constitutional: well developed and well nourished; no acute distress Looks uncomfortable, appears pale and tired Eyes: PERRL, conjunctivae normal, anicteric sclerae ENMT: external ear and nose normal, oropharynx normal Respiratory: Auscultation: + diminished lung sounds Cardiovascular: Rate/Rhythm: regular rate and regular rhythm Heart Sounds: no murmur Vessels: radial pulses present Extremities: + pedal edema; no calf tenderness Gastrointestinal (Abdomen): Inspection/Auscultation: + abdomen distended Percussion/Palpation: + abdomen tender (throughout) and + ascites Skin: no rashes, warm and dry Psychiatric: A+Ox3, euthymic affect Results & Data Laboratory Results Laboratory Results - last 24 hr 11/07/18 11/07/18 11/07/18 22:15 22:15 22:15 WBC 10.95 H RBC 4.55 Hgb 14.4 Hct 42.1 MCV 92.5 MCH 31.6 MCHC 34.2 RDW Std Deviation 44.5 RDW Coeff of Huber 13.1 Plt Count 307 MPV 9.9 Immature Gran % (Auto) 0.1 Neut % (Auto) 85.1 Lymph % (Auto) 7.7 Linn % (Auto) 1.5 Eos % (Auto) 5.5 Baso % (Auto) 0.1 Immature Gran # (Auto) 0.01 Neut # (Auto) 9.33 H Lymph # (Auto) 0.84 L Linn # (Auto) 0.16 Eos # (Auto) 0.60 H Baso # (Auto) 0.01 PT 53.9 H INR 6.0 H* APTT 46.6 H* PTT Ratio 1.7 Sodium 136 Potassium 3.9 Chloride 100 Carbon Dioxide 31 Anion Gap 5.0 BUN 14 Creatinine 0.70 Est Cr Clr Drug Dosing 132.9 Est GFR ( Amer) 121.3 Est GFR (Non-Af Amer) 104.6 BUN/Creatinine Ratio 19.4 Glucose 86 Calcium 7.9 L Total Bilirubin 0.5 AST 22 ALT 27 Alkaline Phosphatase 61 Total Protein 6.7 Albumin 2.6 L Globulin 4.1 H Albumin/Globulin Ratio 0.6 L Lipase 150 Supervising Physician Co-Signing Physician Notes Attending addendum: I have physically seen this patient, have supervised the medical residents activities, and agree with the H&P unless as otherwise noted. Assessment and Plan: Ascites/anasarca/cirrhosis-- CT scan shows a significantly worsening ascites and since previous imaging 1 week ago. Consult radiology for therapeutic paracentesis. Morphine sulfate 4 mg IV every 4 hours as needed severe pain. Zofran 4 mg IV every 6 hours as needed nausea. Give vitamin K 10 mg IV with supratherapeutic INR of 6, and repeat INR in the a.m. Should likely be less than 1.4 for paracentesis to be performed. Bilateral pleural effusions-- Follow with Dr. Reyna Metastatic distal esophageal adenocarcinoma stage IV-- Consult her oncologist Dr. Bruner. Remainder of orders and notations as noted. Resident Activity Tracking Resident Involvement: Resident Care Provided Care Provided: [facility]
[2018-11-08] MEDS ORDERED: MoRPHine SULFATE 4 MG/ML 1 ML CARP\\VIAL IV STA (01:05)
[2018-11-08] MEDS ORDERED: MoRPHine SULFATE 4 MG/ML 1 ML CARP\\VIAL ONE (01:09)
[2018-11-08] MEDS ORDERED: HYDROCODONE/ACETAMINOPHEN 10/325 TAB PO PRN (02:12)
[2018-11-08] MEDS ORDERED: ACETAMINOPHEN 1,000 MG/100 ML VIAL IV PRN (02:18)
[2018-11-08] MEDS ORDERED: PHYTONADIONE 10 MG in SODIUM CHLORIDE 0.9% 50 ML IV ONE (02:30)
[2018-11-08 02:48] LABS: Appearance Urine Clear (Clear); Bacteria Urine Automated Negative (Negative); Bilirubin Urine Negative (Negative); Blood Urine 2+ (Negative); Color Urine Yellow; Epithelial Cell Urine Auto >30 /lpf (0-5); Glucose Urine UA Negative (Negative); Ketones Urine Negative (Negative); Leukocyte Esterase Urine Negative (Negative); Nitrite Urine Negative (Negative); Protein Urine Negative (Negative); Specific Gravity Urine > 1.045 (1.000-1.030); Urobilinogen Urine Negative (Negative)
[2018-11-08] MEDS ORDERED: PROCHLORPERAZINE MALEATE 10 MG TAB PO PRN (03:02)
[2018-11-08 03:08] LABS: Cast Urine Automated 0 /lpf (0-5); Mucus Urine Present (None Prsent)
[2018-11-08] MEDS: ONDANSETRON INJ 2 MG/ML 2 ML VIAL IV PRN (06:03)
--- NOTE | 2018-11-08 07:10 | CT Scan Report ---
CT abd pelvis IV con only CLINICAL HISTORY: 43 years-old Female presenting with esophageal ca, increased pain and bloating. TECHNIQUE: Multidetector CT of the abdomen and pelvis was performed after the administration of intra venous contrast. IV contrast: 93 mL of Optiray 320. One or more dose lowering techniques were used co nsistent with the principles of ALARA (as low as reasonably achievable), including automatic exposure control, mA or kV adjustment to individual patient size, and/or use of iterative reconstruction. COMPARISON: 10/22/2018. CT DOSE (mGy.cm): The estimated cumulative dose is 1665.61 mGy.cm. FINDINGS: Audiovisual Technician topogram: Cholecystectomy clips. Lung bases: Normal heart size. Coronary artery calcification. Small pericardial effusion with pericar dial enhancement slightly increased from prior. Bilateral pleural thickening with trace bilateral ple ural effusions similar to prior. Pleural thickening also extends into the fissures. Calcification not ed along the pleura at the left heart border. Extensive interlobular septal thickening. Atelectasis n oted at the lung bases. Liver: Redemonstration of the subcapsular or intraparenchymal cystic lesion in the region of the caud ate with mass effect on the adjacent intrahepatic IVC. This lesion measures 4.6 cm in maximal diamete r, unchanged from prior. No additional subcapsular or parenchymal lesion. Patent hepatic vasculature. Biliary: Mild biliary ductal prominence likely a reservoir effect in the post cholecystectomy state. Gallbladder surgically absent. Pancreas: Mild parenchymal atrophy. Spleen: Normal. Adrenal glands: Normal. Kidneys and ureters: Normal. No hydronephrosis. Bladder: Incompletely evaluated secondary to underdistention. Pelvic organs: Uterus and ovaries normal. Bowel: Moderate stool burden in the right colon. No bowel obstruction. Feces noted in small bowel lik rain indicating delayed transit or bacterial overgrowth. Small bowel loops appear clumped with ill-def ined wall thickening. Postsurgical changes of antecolic Hubert-en-Y gastric bypass. Patent distal anast omosis. Visualized portion of the esophagus is grossly normal. Peritoneal cavity: Significant interval increase in size of the now large volume ascites. Extensive p eritoneal thickening most prominent in the pelvis (series 3 image 442 and 451). Redemonstration of th e bilobed cystic lesion within the lesser sac and associated with the serosa of the posterior wall th e stomach. This measures up to 7 cm in diameter, not significant changed from prior given slightly al tered configuration of the stomach. Nodularity of the omentum also evident. No free intraperitoneal g as. Lymph nodes: No enlarged lymph nodes in the abdomen or pelvis. Vasculature: Atherosclerosis of the normal caliber abdominal aorta. IVC patent. Abdominal wall: Mild body wall edema. Musculoskeletal: Degenerative changes of the spine. No destructive osseous lesion. IMPRESSION: 1. Significant interval increase in the now large volume ascites with evidence of peritoneal carcino matosis as on prior exam. Peritoneal carcinomatosis likely extensively involves bowel serosa. Subcaps ular or intraparenchymal cystic lesion in the region of the caudate lobe of the liver and bilobed cys tic lesion in the region of the lesser sac also consistent with metastatic disease; these lesions are unchanged. 2. Persistent bilateral pleural thickening and effusions with stable to slightly increased pericardi al thickening and pericardial effusion. Metastatic involvement is presumed. 3. 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 4. Antecolic Hubert-en-Y gastric bypass. No bowel obstruction. 5. Moderate stool burden in the right colon. Electronically signed by: Zechariah Yeung M.D. 11/08/2018 7:08 AM
[2018-11-08 07:28] LABS: Eosinophils # (auto) 0.38 K/uL (0-0.5); Eosinophils % (auto) 3.8 %; Hematocrit (blood only) 41.1 % (37-47); Hemoglobin 13.9 g/dL (12.0-16.0); Immature Granulocytes # (auto) 0.02 K/uL (0.00-0.02); Immature Granulocytes % (auto) 0.2 %; Lymphocytes # (auto) 0.69 K/uL (1.2-3.4); Mean Corpuscular Hgb Conc 33.8 g/dL (32-36); Mean Corpuscular Volume 92.6 fL (80-100); Monocytes # (auto) 0.13 K/uL (0.11-0.59); Monocytes % (auto) 1.3 %; Neutrophils # (auto) 8.69 K/uL (1.4-6.5); Neutrophils % (auto) 87.7 %; Platelet Count 287 K/uL (130-400); RDW Standard Deviation 44.8 fL (36.4-46.3); Red Blood Count 4.44 M/uL (4.2-5.4); White Blood Count 9.91 K/uL (4.8-10.8)
[2018-11-08 07:37] LABS: INR 1.7 (0.9-1.1)
[2018-11-08 08:03] LABS: BUN Creatinine Ratio 23.6 (10-20); Calcium 7.8 mg/dl (8.5-10.1); Creatinine Clr Calc Pharmacy 172.5 ml/min; Est GFR (African American) 132.1
[2018-11-08] MEDS: ACETAMINOPHEN 325 MG TAB PO PRN ×3 (08:30→20:20)
[2018-11-08] MEDS: PREGABALIN 100 MG CAP PO SCH ×3 (08:30→20:16)
[2018-11-08] MEDS: CALCIUM 600MG + VIT D 400 IU TAB PO SCH ×2 (08:32→20:16)
[2018-11-08] MEDS: CHOLECALCIFEROL 1,000 UNITS TAB PO SCH (08:32)
--- NOTE | 2018-11-08 11:03 | Ultrasound Report ---
PARACENTESIS UNDER ULTRASOUND GUIDANCE CLINICAL HISTORY: Abdominal ascites. Esophageal cancer. Abdominal pain and bloating. COMPARISON STUDY: Abdominal CT dated 11/07/2018. PROCEDURE: The risks, benefits, and alternatives to the procedure were discussed with the patient who voiced understanding. Written informed consent was obtained. Following real-time ultrasound localiza tion of a suitable pocket of fluid the left lower quadrant, the abdomen was prepped and draped in the usual sterile fashion. The skin and soft tissues were anesthetized with 1% lidocaine. The sheathed p aracentesis was inserted and approximately 6 liters of dark ascitic fluid was removed by vacuum sucti on. The procedure was well tolerated and without immediate complication. The patient left the [facility] in satisfactory condition. IMPRESSION: Successful ultrasound-guided paracentesis with removal of approximately 6 liters of ascit ic fluid. Electronically signed by: Fermín Arroyo M.D. 11/08/2018 11:01 AM
[2018-11-08] MEDS: PANTOprazole 40 MG TAB PO SCH (12:05)
[2018-11-08] MEDS: ALBUMIN 25% 50 ML IV SCH ×3 (12:12→13:53)
--- NOTE | 2018-11-08 14:41 | Hospitalist Progress Note ---
Date of Service November 08, 2018 Assessment & Plan (1) Ascites: - This is likely in the setting of malignancy; no signs of SBP and holding on Abx - S/P paracentesis for 6 L; and reports improvement with discomfort - Utilize Albumin 25% x 3 bags for a 6 mg/L removed ratio - Will check electrolytes in AM - Oncology following - appreciate input Present on Admission?: Yes (2) Supratherapeutic INR: - INR was at 6 on admission but now at 1.7 after Vit K administration - was ok to go forward with paracentesis - No bleeding at site of paracentesis and will restart her home regimen as she is now subtherapeutic - Pt follows with the anticoagulation clinic Present on Admission?: Yes (3) Esophageal cancer: - Metastatic adenocarcinoma of the distal esophagus and follows with Dr Bruner - Concern for rapid progression of cancer with last chemo a couple days prior - appreciate oncology input Present on Admission?: Yes (4) Pleural effusion: - Follows with Dr. Reyna - Small b/l effusions on CT Present on Admission?: Yes (5) Peripheral neuropathy: - Possibly chemotherapy induced - Lyrica 100 mg TID Present on Admission?: Yes (6) DVT prophylaxis: - Coumadin Disposition: If symptom improvement and electrolytes stable. Likely discharge tomorrow Subjective Reports a lot more comfort now that paracentesis is complete. States she has never had one before. States she is more just fatigued. Denies tenderness with palp and does not appear this is a SBP She verbalizes no other complaints at this time Constitutional: + fatigue, + weakness and + anorexia; no fever and no chills Ear, Nose, Mouth, Throat: no sore throat, no hoarseness and no dysphagia Respiratory: + cough and + sputum production; no hemoptysis and no wheezing Cardiovascular: + edema; no chest pain, no palpitations and no calf pain Gastrointestinal: + abdominal pain (improving), + bloating (improving) and + constipation; no nausea, no vomiting, no hematemesis and no blood in stools Genitourinary (Female): no dysuria Musculoskeletal: + back pain Physical Exam Vital Signs (Past 24 Hours): Last Vital Signs Temp 37.0 C 11/08/18 13:45 Pulse 93 H 11/08/18 13:45 Resp 18 11/08/18 13:45 BP 110/72 11/08/18 13:45 Pulse Ox 94 11/08/18 13:45 Constitutional: well developed and well nourished; no acute distress Eyes: PERRL, conjunctivae normal, anicteric sclerae ENMT: external ear and nose normal, oropharynx normal Respiratory: Auscultation: + diminished lung sounds Cardiovascular: Rate/Rhythm: regular rate and regular rhythm Heart Sounds: no murmur Vessels: radial pulses present Extremities: + pedal edema; no calf tenderness Gastrointestinal (Abdomen): Inspection/Auscultation: + abdomen distended Percussion/Palpation: + abdomen tender (throughout) and + ascites Skin: no rashes, warm and dry Psychiatric: A+Ox3, euthymic affect (1) Ascites Ascites type: malignant Qualified Code(s): R18.0 - Malignant ascites
--- NOTE | 2018-11-08 14:43 | Consultation Report ---
DATE OF CONSULTATION: 11/08/2018 MEDICAL ONCOLOGY CONSULTATION REASON FOR CONSULTATION: Progressive ascites in a pleasant 43-year-old female patient with metastatic adenocarcinoma of the esophagus. HISTORY OF PRESENT ILLNESS: Naomi is a very pleasant but unfortunate 43-year-old female with a diagnosis of metastatic esophageal cancer, manifested by bilateral malignant pleural effusions, initially admitted to [facility] with increased abdominal pain. The patient has been struggling with worsening abdominal pain and distention for a couple of weeks now. She describes the pain as dull, persistent and diffuse and rates it 8/10 in severity. She has had no fevers, chills, but clearly has not been eating much because of abdominal fullness. Naomi also complains of constipation. She was recently started on opioid analgesia. Naomi was diagnosed with metastatic breast cancer last January, manifested by bilateral malignant pleural effusions. The cytology was suggestive of an upper gastrointestinal carcinoma and was initially treated with salvage FOLFOX x12 courses completed 07/09/2018. Unfortunately, shortly thereafter, CT scan of the chest clearly demonstrates abdominal disease progression, particularly in the omentum. Thus, the decision is to proceed with salvage Taxotere. Her first course was administered roughly a week ago. Since that time, there has been further abdominal distention. She actually went through abdominal ultrasound and at this time there was not enough fluid to pursue a paracentesis. Her most recent scans now demonstrate significant interval increase in large volume ascites with evidence of peritoneal carcinomatosis. Persistent bilateral pleural thickening and effusions with a stable to slightly increased pericardial thickening and pericardial effusion. Metastatic involvement is presumed. Extensive intralobar septal thickening at the lung base is likely lymphangitic carcinomatosis. PAST MEDICAL HISTORY: Again significant for metastatic esophageal cancer, glucose intolerance, previous DVT of the upper extremity, gastroesophageal reflux disease, morbid obesity, obstructive sleep apnea, cholelithiasis. PAST SURGICAL HISTORY: Includes Hubert-en-Y, colposcopy, cholecystectomy, and tooth extraction, talc pleurodesis, left chest PleurX catheter. HOME MEDICATIONS: Include calcium citrate 1 tablet p.o. daily, cholecalciferol 2000 mg p.o. daily, cyanocobalamin 1000 mcg IM q. 3 months, Depo-Provera 400 mg IM q. 3, omeprazole 20 mg p.o. b.i.d., hydrocodone 10 mg p.o. q.i.d. p.r.n., turmeric root 500 mg p.o. daily, multivitamin 1 p.o. daily, pregabalin 100 mg p.o. t.i.d., warfarin per instruction. ALLERGIES: No known drug allergies. 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 FAMILY HISTORY: Noncontributory. REVIEW OF SYSTEMS: Positive for asthenia, anorexia, increased abdominal girth, progressive ascites. No fevers, chills or sweats. SKIN: No rashes or lesions. No history of dermatoses. HEENT: Negative for headaches, lightheadedness or dizziness. No acute visual or hearing deficits. No sinus symptoms, sore throat or dysphagia. LYMPH: No history of lymphoproliferative disease. CARDIAC: Negative for coronary artery disease, no angina or palpitations. PULMONARY: Negative for COPD, shortness of breath, dyspnea or orthopnea. Positive history of malignant pleural effusions. GASTROINTESTINAL: As per HPI, diffuse abdominal pain. Positive for constipation. No current nausea. Positive for ascites. GENITOURINARY: No hematuria, dysuria, urinary incontinence. MUSCULOSKELETAL: No arthralgias or myalgias. ENDOCRINE: Negative for diabetes or thyroid disease. NEUROLOGIC: Negative for seizure, stroke, or migraine headache. HEMATOLOGIC: Positive for treatment-induced cytopenias. PHYSICAL EXAMINATION: GENERAL: Ill-appearing 43-year-old female patient, in no acute distress, awake, alert and appropriate. VITAL SIGNS: Temperature 36.8, pulse 82, respiratory rate 16, blood pressure 105/68. SKIN: Warm, dry, noncyanotic without petechiae, rash or ecchymosis. HEENT: Head: Atraumatic, normocephalic. Eyes: PERRLA, EOMI. Sclerae nonicteric. No conjunctival injection. Nares patent without rhinorrhea or discharge. Throat clear. Tongue midline. Mucous membranes are moist. NECK: Supple without JVD or thyromegaly. LYMPH: No cervical, supraclavicular or axillary palpable nodes. HEART: Regular rate and rhythm. No clicks, rubs, murmurs or gallops. LUNGS: Clear to auscultation bilaterally. ABDOMEN: Distended, shifting dullness, positive fluid wave, diffusely tender. EXTREMITIES: No clubbing, cyanosis. Trace peripheral edema, bilateral lower extremities. MUSCULOSKELETAL: Strength and pulses are equal in all 4 quadrants. NEUROLOGICALLY: She is awake, alert and oriented x3. Cranial nerves are intact. LABORATORY DATA: Sodium 134, potassium 4.0, chloride 102, carbon dioxide 27, BUN 13, creatinine 0.54, albumin 2.6. Urinalysis reveals 5-10 WBCs. She has got a microhematuria as well. WBCs 9910, hemoglobin 13.9, platelet count 287. IMPRESSION: 1. Abdominal ascites. 2. Increased omental disease burden. 3. Hypoalbuminemia. 4. Malignant bilateral effusions/pericardial effusion. 5. Metastatic esophageal cancer. PLAN: In summary, Naomi is a very pleasant and unfortunate 43-year-old female patient who is clearly progressing rapidly. The change in ascites volume has been significant, however, just a few days. Her abdominal pain became so severe necessitating admission to hospital. I started her on salvage Taxotere about a week ago. Unfortunately, I suspect she will progress through treatment at this juncture and at some point need to talk to her to consider other options long-term. Perhaps, a little too early to discuss hospice, I would like to at least give her another cycle of chemotherapy. Clearly, she needs a paracentesis for palliation. Perhaps pain management and nutritional status should be addressed. Urinalysis suggests she may have an underlying urinary tract infection and would place her on short course of ciprofloxacin. I appreciate the hospitalist's assistance in managing this very nice lady. I plan to reconvene with her prior to cycle #2 and potentially at that time broach the subject of discontinuing aggressive treatment. Thank you very much for allowing me to participate in her care. NEO
[2018-11-08] MEDS ORDERED: WARFARIN SOD 5 MG TAB PO SCH (16:00)
[2018-11-09] MEDS: MoRPHine SULFATE 4 MG/ML 1 ML CARP\\VIAL IV PRN ×2 (02:31→14:45)
[2018-11-09] MEDS: ONDANSETRON INJ 2 MG/ML 2 ML VIAL IV PRN (02:31)
[2018-11-09] MEDS ORDERED: POLYETHYLENE (MIRALAX) 17 GM PACK PO ONE (03:25)
[2018-11-09] MEDS: POLYETHYLENE (MIRALAX) 17 GM PACK PO SCH (08:21)
[2018-11-09] MEDS: CHOLECALCIFEROL 1,000 UNITS TAB PO SCH (08:23)
[2018-11-09] MEDS: PANTOprazole 40 MG TAB PO SCH (08:23)
[2018-11-09] MEDS: CALCIUM 600MG + VIT D 400 IU TAB PO SCH ×2 (08:23→20:15)
[2018-11-09] MEDS: PREGABALIN 100 MG CAP PO SCH ×3 (08:26→20:20)
[2018-11-09 09:33] LABS: Eosinophils # (auto) 0.36 K/uL (0-0.5); Eosinophils % (auto) 3.3 %; Hematocrit (blood only) 43.1 % (37-47); Hemoglobin 14.1 g/dL (12.0-16.0); Immature Granulocytes # (auto) 0.02 K/uL (0.00-0.02); Immature Granulocytes % (auto) 0.2 %; Lymphocytes # (auto) 0.57 K/uL (1.2-3.4); Lymphocytes % (auto) 5.2 %; Mean Corpuscular Hgb Conc 32.7 g/dL (32-36); Mean Corpuscular Volume 93.9 fL (80-100); Mean Platelet Volume 10.2 fL (7.4-10.4); Monocytes # (auto) 0.08 K/uL (0.11-0.59); Monocytes % (auto) 0.7 %; Neutrophils # (auto) 9.89 K/uL (1.4-6.5); Neutrophils % (auto) 90.6 %; Platelet Count 249 K/uL (130-400); RDW Coefficient of Variation 13.3 % (11.5-14.5); RDW Standard Deviation 45.5 fL (36.4-46.3); Red Blood Count 4.59 M/uL (4.2-5.4); White Blood Count 10.92 K/uL (4.8-10.8)
[2018-11-09 09:43] LABS: INR 1.2 (0.9-1.1); Prothrombin Time 12.3 Seconds (9.0-12.0)
[2018-11-09 09:48] LABS: Calcium 7.9 mg/dl (8.5-10.1); Creatinine Clr Calc Pharmacy 160.5 ml/min; Est GFR (African American) 130.5; Est GFR (Non-African American) 112.6; Potassium 4.1 mmol/L (3.5-5.1)
[2018-11-09] MEDS ORDERED: BISACODYL 10 MG SUPP PR STA (11:38)
[2018-11-09] MEDS ORDERED: SOD PHOSPHATE/SOD BIPHOSPHATE ENEMA 132 ML BTL PR PRN (11:39)
[2018-11-09] MEDS ORDERED: WARFARIN SOD 2.5 MG TAB PO STA (13:05)
--- NOTE | 2018-11-09 13:34 | Hospitalist Progress Note ---
Date of Service November 09, 2018 Assessment & Plan (1) Ascites: - This is likely in the setting of malignancy; no signs of SBP and holding on Abx - S/P paracentesis for 6 L; and reports improvement with discomfort - Given Albumin 25% x 3 bags for a 6 mg/L removed ratio / - Albumin 11/09 2.6 - will order Boost - Oncology following - appreciate input (2) Supratherapeutic INR: - INR was at 6 on admission but now at 1.2 after Vit K administration - was ok to go forward with paracentesis - Patient's normal dose today would be 7.5 - will give and bridge with enoxaparin due to history of blood clot in port - Pt follows with the anticoagulation clinic - INR am (3) Pleural effusion: - Follows with Dr. Reyna - Small b/l effusions on CT (4) Esophageal cancer: - Metastatic adenocarcinoma of the distal esophagus and follows with Dr Bruner - Concern for rapid progression of cancer with last chemo a couple days prior - appreciate oncology input (5) Peripheral neuropathy: - Possibly chemotherapy induced - Lyrica 100 mg TID (6) Low urine output: 150 ml for daylight shift - will hold off on IV fluids given ascites and pleural effusions. Encourage po intake. Kidney function this morning was wnl. Reassess after next shift (7) DVT prophylaxis: Coumadin, enoxaparin Subjective Ms. Caro had some relief after her paracentesis yesterday of her abdominal pain but she continues to have constipation. She is unsure of when her last bowel movement was but notes it has been sometime. Review of Systems All systems reviewed & are unremarkable except as noted in HPI & below Physical Exam Vital Signs (Past 24 Hours): Last Vital Signs Temp 37.1 C 11/09/18 12:29 Pulse 99 H 11/09/18 12:29 Resp 18 11/09/18 12:29 BP 112/76 11/09/18 12:29 Pulse Ox 94 11/09/18 12:29 Physical Exam: General: no distress Eyes: normal inspection, PERLL Respiratory: chest non tender, clear to auscultation, normal breath sounds, no respiratory distress, no accessory muscle use Cardiac: regular rate and rhythm, no rub or gallop, no murmur, no edema, no jvd GI/: active bowel sounds, no abd pain or tenderness, soft, non distended Extremities: normal range of motion, normal strength, non tender Neuro/Psych: alert and oriented x 3, normal mood and affect Skin: normal color, dry Results & Data Laboratory Results Abnormal lab results 11/09/18 11/09/18 11/09/18 Range/Units 09:21 09:21 09:21 WBC 10.92 H (4.8-10.8) K/uL Neut # (Auto) 9.89 H (1.4-6.5) K/uL Lymph # (Auto) 0.57 L (1.2-3.4) K/uL [place] # (Auto) 0.08 L (0.11-0.59) K/uL PT 12.3 H (9.0-12.0) Seconds INR 1.2 H (0.9-1.1) Creatinine 0.56 L (0.6-1.2) mg/dl Glucose 130 H (70-99) mg/dl Calcium 7.9 L (8.5-10.1) mg/dl (1) Ascites Ascites type: malignant Qualified Code(s): R18.0 - Malignant ascites
[2018-11-09] MEDS: ENOXAPARIN INJ 120 MG/0.8 ML SYR SC SCH (14:10)
[2018-11-09] MEDS ORDERED: WARFARIN SOD 5 MG TAB PO SCH (16:00)
[2018-11-09] MEDS: LAVAGE SOLUTION 4000ML PO SCH ×2 (18:36→20:16)
[2018-11-10] MEDS: ENOXAPARIN INJ 120 MG/0.8 ML SYR SC SCH ×2 (01:12→15:15)
[2018-11-10] MEDS: LAVAGE SOLUTION 4000ML PO SCH ×3 (01:32→07:46)
[2018-11-10] MEDS ORDERED: LAVAGE SOLN 240ML BOTTLE PO ONE (02:00)
[2018-11-10 06:06] LABS: Basophils # (auto) 0.02 K/uL (0-0.2); Basophils % (auto) 0.3 %; Eosinophils # (auto) 0.19 K/uL (0-0.5); Eosinophils % (auto) 2.5 %; Hemoglobin 14.2 g/dL (12.0-16.0); Immature Granulocytes # (auto) 0.08 K/uL (0.00-0.02); Immature Granulocytes % (auto) 1.1 %; Lymphocytes # (auto) 0.77 K/uL (1.2-3.4); Lymphocytes % (auto) 10.3 %; Mean Corpuscular Volume 92.1 fL (80-100); Mean Platelet Volume 10.6 fL (7.4-10.4); Monocytes # (auto) 0.09 K/uL (0.11-0.59); Monocytes % (auto) 1.2 %; Neutrophils # (auto) 6.36 K/uL (1.4-6.5); Neutrophils % (auto) 84.6 %; Platelet Count 277 K/uL (130-400); RDW Coefficient of Variation 13.3 % (11.5-14.5); RDW Standard Deviation 44.3 fL (36.4-46.3); Red Blood Count 4.67 M/uL (4.2-5.4); White Blood Count 7.51 K/uL (4.8-10.8)
[2018-11-10 06:25] LABS: INR 1.8 (0.9-1.1); Prothrombin Time 17.7 Seconds (9.0-12.0)
[2018-11-10 06:33] LABS: BUN Creatinine Ratio 20.9 (10-20); Calcium 7.8 mg/dl (8.5-10.1); Creatinine Clr Calc Pharmacy 209.2 ml/min; Est GFR (African American) 142.4; Est GFR (Non-African American) 122.8; Potassium 4.2 mmol/L (3.5-5.1)
[2018-11-10] MEDS: CHOLECALCIFEROL 1,000 UNITS TAB PO SCH (07:42)
[2018-11-10] MEDS: POLYETHYLENE (MIRALAX) 17 GM PACK PO SCH (07:42)
[2018-11-10] MEDS: PANTOprazole 40 MG TAB PO SCH (07:43)
[2018-11-10] MEDS: PREGABALIN 100 MG CAP PO SCH ×3 (07:51→20:58)
[2018-11-10] MEDS ORDERED: BISACODYL 10 MG SUPP PR STA (08:55)
[2018-11-10] MEDS: CALCIUM 600MG + VIT D 400 IU TAB PO SCH ×2 (09:02→20:58)
--- NOTE | 2018-11-10 10:33 | XRay Report ---
XR KUB CLINICAL HISTORY: abdominal pain pain COMPARISON STUDY: 11/07/2018. FINDINGS: Moderate increase in fecal load transverse colon. Nonobstructive bowel pattern. IMPRESSION: Moderate increased fecal load transverse colon. The above report was generated using voice recognition software. It may contain grammatical, syntax or spelling errors. Electronically signed by: Calvin Desouza M.D. 11/10/2018 10:32 AM
[2018-11-10] MEDS ORDERED: TAP WATER ENEMA PR ONE (12:03)
[2018-11-10] MEDS: WARFARIN SOD 7.5 MG TAB PO SCH ×2 (15:39→18:20)
[2018-11-10] MEDS ORDERED: BISACODYL 5 MG TABEC PO ONE (16:13)
[2018-11-10] MEDS: MoRPHine SULFATE 4 MG/ML 1 ML CARP\\VIAL IV PRN ×2 (16:16→22:27)
[2018-11-10] MEDS: ONDANSETRON INJ 2 MG/ML 2 ML VIAL IV PRN (16:22)
--- NOTE | 2018-11-10 16:24 | Hospitalist Progress Note ---
Date of Service November 10, 2018 Assessment & Plan (1) Ascites: - This is likely in the setting of malignancy; no signs of SBP and holding on Abx - S/P paracentesis 11/08 for 6 L ; and reports improvement with discomfort - Given Albumin 25% x 3 bags for a 6 mg/L removed ratio 11/08 - Albumin 11/09 2.6 - will order Boost - Oncology following - appreciate input (2) Constipation: Patient having a lot of belly pain - repeat KUB without obstruction, does show increased fecal load. Patient tried GoLytely last night but could not tolerate so much liquid ingestion due to history of gastric bypass. She has had a soap suds enema and suppository today. Will give 10 mg po dulcolax now and one time dose of Relistor. Patient does not take chronic opioids but has had a few doses of morphine here at the hospital. (3) Supratherapeutic INR: - INR was at 6 and reversed with Vit K administration - 1.7 today - continue to bridge with enoxaparin due to history of blood clot in port - Pt follows with the anticoagulation clinic - INR am (4) Pleural effusion: - Follows with Dr. Reyna - Small b/l effusions on CT (5) Esophageal cancer: - Metastatic adenocarcinoma of the distal esophagus and follows with Dr Bruner - Concern for rapid progression of cancer with last chemo a couple days prior - appreciate oncology input (6) Peripheral neuropathy: - Possibly chemotherapy induced - Lyrica 100 mg TID (7) Low urine output: Improved. Encourage po intake. Kidney function this morning was wnl. Would like to avoid IFV given effusions/ascites (8) DVT prophylaxis: Coumadin, enoxaparin Subjective Ms. Caro continues to have quite a bit of belly pain. She has not been able to have a bowel movement Review of Systems All systems reviewed & are unremarkable except as noted in HPI & below Physical Exam Vital Signs (Past 24 Hours): Last Vital Signs Temp 36.7 C 11/10/18 15:51 Pulse 115 H 11/10/18 15:51 Resp 16 11/10/18 15:51 BP 121/83 11/10/18 15:51 Pulse Ox 90 11/10/18 15:51 Physical Exam: General: no distress Eyes: normal inspection, PERLL Respiratory: chest non tender, clear to auscultation, normal breath sounds, no respiratory distress, no accessory muscle use Cardiac: regular rate and rhythm, no rub or gallop, no murmur, no edema, no jvd GI/: active bowel sounds, abdomen is soft, tender to palpation but no exquisitely tender, no guarding Extremities: normal range of motion, normal strength, non tender Neuro/Psych: alert and oriented x 3, normal mood and affect Skin: normal color, dry Results & Data Laboratory Results Abnormal lab results 11/10/18 11/10/18 11/10/18 Range/Units 05:39 05:39 05:39 MPV 10.6 H (7.4-10.4) fL Immature Gran # (Auto) 0.08 H (0.00-0.02) K/uL Lymph # (Auto) 0.77 L (1.2-3.4) K/uL [place] # (Auto) 0.09 L (0.11-0.59) K/uL PT 17.7 H (9.0-12.0) Seconds INR 1.8 H (0.9-1.1) Creatinine 0.43 L (0.6-1.2) mg/dl BUN/Creatinine Ratio 20.9 H (10-20) Glucose 102 H (70-99) mg/dl Calcium 7.8 L (8.5-10.1) mg/dl (1) Ascites Ascites type: malignant Qualified Code(s): R18.0 - Malignant ascites
[2018-11-10] MEDS ORDERED: METHYLNALTREXONE BROMIDE 12 MG/0.6 ML VIAL SQ SCH (17:00)
[2018-11-10] MEDS ORDERED: METHYLNALTREXONE BROMIDE 12 MG/0.6 ML VIAL SQ ONE (17:44)
[2018-11-11] MEDS: ENOXAPARIN INJ 120 MG/0.8 ML SYR SC SCH (05:47)
[2018-11-11] MEDS: PREGABALIN 100 MG CAP PO SCH ×3 (07:43→21:06)
[2018-11-11] MEDS: CALCIUM 600MG + VIT D 400 IU TAB PO SCH ×2 (07:44→21:05)
[2018-11-11] MEDS: CHOLECALCIFEROL 1,000 UNITS TAB PO SCH (07:44)
[2018-11-11] MEDS: PANTOprazole 40 MG TAB PO SCH (07:44)
[2018-11-11] MEDS: POLYETHYLENE (MIRALAX) 17 GM PACK PO SCH (07:44)
[2018-11-11 08:05] LABS: INR 3.2 (0.9-1.1); Prothrombin Time 30.3 Seconds (9.0-12.0)
[2018-11-11 08:20] LABS: Hematocrit (blood only) 42.8 % (37-47); Hemoglobin 14.5 g/dL (12.0-16.0); Mean Corpuscular Hgb Conc 33.9 g/dL (32-36); Mean Corpuscular Volume 91.8 fL (80-100); Mean Platelet Volume 10.6 fL (7.4-10.4); Platelet Count 297 K/uL (130-400); RDW Coefficient of Variation 13.2 % (11.5-14.5); Red Blood Count 4.66 M/uL (4.2-5.4); White Blood Count 2.16 K/uL (4.8-10.8)
[2018-11-11 08:23] LABS: Creatinine Clr Calc Pharmacy 171.1 ml/min; Est GFR (African American) 132.9; Est GFR (Non-African American) 114.7; Potassium 4.3 mmol/L (3.5-5.1)
[2018-11-11 08:26] LABS: Basophils # (auto) 0.05 K/uL (0-0.2); Basophils % (auto) 2.3 %; Eosinophils # (auto) 0.15 K/uL (0-0.5); Eosinophils % (auto) 6.9 %; Immature Granulocytes # (auto) 0.09 K/uL (0.00-0.02); Immature Granulocytes % (auto) 4.2 %; Lymphocytes # (auto) 0.86 K/uL (1.2-3.4); Lymphocytes % (auto) 39.8 %; Monocytes # (auto) 0.16 K/uL (0.11-0.59); Monocytes % (auto) 7.4 %; Neutrophils # (auto) 0.85 K/uL (1.4-6.5); Neutrophils % (auto) 39.4 %
--- NOTE | 2018-11-11 09:04 | Progress Note ---
DATE: 11/11/2018 DIAGNOSES: 1. Abdominal ascites. 2. Progressing metastatic disease. 3. Hypoalbuminemia. 4. Bilateral pleural effusion/pericardial effusion. 5. Metastatic esophageal cancer. 6. Constipation. SUBJECTIVE: Naomi was seen and examined while sitting in chair today. Paracentesis was successful in removing close to 6 L of ascitic fluid. She was also given albumin over the weekend. P.o. intake is marginal; however, she states clinically feeling a little bit better today. She continues to have difficulty moving her bowels; perhaps the addition of lactulose may be helpful. Obviously, my concerns of disease progression are significant. She is due for her next round of chemotherapy in about 10 days. She states her pain is well controlled. She reports no fevers or chills over the weekend. Nursing reports no overnight difficulties otherwise. PHYSICAL EXAMINATION: GENERAL: Very pleasant 43-year-old female in no acute distress. VITAL SIGNS: Temperature 36.7, pulse 121, respiratory rate 16, blood pressure 138/86. SKIN: Without rash or lesion. HEENT: Oral mucosa without erythema or ulceration. NECK: Supple. Trachea is midline. HEART: Tachycardic but regular. LUNGS: Clear to auscultation bilaterally. ABDOMEN: Mildly distended, nontender. EXTREMITIES: No clubbing, cyanosis; however, she does have trace peripheral edema bilateral lower extremities. NEUROLOGIC: Grossly intact. LABORATORY DATA: WBC count 2160, hemoglobin 14.5, platelet count 297,000. Her chemistries are pending. RADIOGRAPHIC DATA: KUB performed reveals moderate increased equal in the transverse colon. IMPRESSION: 1. Diffuse abdominal pain. 2. Abdominal ascites. 3. Progressing omental metastatic disease. 4. Hypoalbuminemia. 5. Metastatic esophageal cancer. PLAN: I visited with Naomi at chair side this morning. She seems to be making slow but steady progress. I would continue to evaluate her routinely for reaccumulation of fluid, perhaps an ultrasound tomorrow or the next day to see how fast she is reaccumulating. Naomi expressed interest in going home, but again, would like to have fluid drained before that happens, a little closer to when she is to get her second cycle of chemotherapy. Obviously, she is constipated and needs work on moving her bowels regularly. Perhaps adding Megace, poor appetite stimulation might prove to be beneficial. I have nothing further to add at this time but will continue to follow her regularly during her stay. Thank you again for assisting me in the care of this very pleasant and unfortunate patient.
[2018-11-11] MEDS: MoRPHine SULFATE 4 MG/ML 1 ML CARP\\VIAL IV PRN (13:45)
[2018-11-11] MEDS: ONDANSETRON INJ 2 MG/ML 2 ML VIAL IV PRN (13:51)
[2018-11-11] MEDS ORDERED: WARFARIN SOD 5 MG TAB PO SCH (16:00)
--- NOTE | 2018-11-11 17:43 | Hospitalist Progress Note ---
Date of Service November 11, 2018 Assessment & Plan (1) Ascites: - Related to metastatic esophageal cancer; no evidence of SBP. - S/p paracentesis on 11/08 with removal of 6L; received Albumin 25% x 3 bags following procedure. - Plan for repeat US on 11/12/18. - Will likely require placement of peritoneal drain if fluid re-accumulates -- would need transferred to tertiary care center for procedure. (2) Esophageal cancer: - Metastatic adenocarcinoma of the distal esophagus. - Has progressed through chemotherapy; currently receiving salvage chemo with Taxotere. - Oncology consulted, appreciate input. (3) Constipation: - KUB showed 11/10 showed moderate fecal load. - Received Dulcolax and Relistor on 11/10/18 with resolution. - Continue Miralax daily scheduled. (4) Pleural effusion: - Follows with Dr. Reyna - Small bilat pleural effusions noted on CXR. (5) DVT (deep venous thrombosis): - Mediport associated DVT in the past. - Had supratherapeutic INR on 11/07, reversed with Vitamin K. - Continue Coumadin 7.5 mg qSunTuesThursSat and 5 mg qMWF. - Monitor INR daily -- was mildly elevatd at 3.2 today, consider decreasing dose tomorrow. - Follows with the Coumadin clinic. (6) Peripheral neuropathy: - Likely chemo induced. - Continue Lyrica 100 mg TID. (7) Neutropenia: - Secondary to recent chemotherapy. - ANC decreased to 850 today. - Monitor CBC qAM. (8) Hyponatremia: - Na level decreased to 133; likely hypervolemic hyponatremia in setting of ascites. - Monitor qAM. (9) DVT prophylaxis: - Coumadin. Dispo: Continue to monitor for re-accumulation of ascites; may require transfer to tertiary care center for peritoneal drain. Supervising Physician Co-Signing Physician Notes Attending Attestation- Chart reviewed in detail, care plan d/w RADHA Torrez. I agree w/ the roa components of her documentation. Pt with ongoing multiple GI issues including malignant ascites and constipation. May need another therapeutic paracentesis tomorrow. In light of rapid reaccumulation of fluid strongly consider transfer to tertiary care for consideration of IR placed peritoneal drain. Treat the constipation. Also, in light of rapidly progressive cancer, would patient be willing to discuss hospice as option ? Panda Gonsalez MD Subjective Pt. is stable overall. She has abdominal bloating at the top of her abdomen. Complains of abd cramping/pain in the lower abdomen. Constipation now improved, is having diarrhea following administration of stool softeners/laxatives. Review of Systems All systems reviewed & are unremarkable except as noted in HPI & below Constitutional: + anorexia; no fever, no chills, no fatigue and no weakness Respiratory: no cough, no dyspnea and no dyspnea on exertion Cardiovascular: no chest pain, no palpitations and no edema Gastrointestinal: + abdominal pain, + bloating and + diarrhea/loose stools; no nausea, no vomiting and no constipation Genitourinary (Female): no difficulty urinating Musculoskeletal: no joint pain Allergy / Immunological: no rash Physical Exam Vital Signs (Past 24 Hours): Last Vital Signs Temp 36.7 C 11/11/18 08:00 Pulse 99 H 11/11/18 08:10 Resp 16 11/11/18 08:00 BP 138/86 11/11/18 08:00 Pulse Ox 90 11/11/18 08:00 Physical Exam: General: Resting comfortably in no apparent distress; A&OX3 HEENT: NC/AT; PERRLA with EOMI; [place] conjunctiva, MMM. Neck: Supple and nontender Cardiac: RRR w/o murmurs, gallops or rubs Lungs: CTA bilaterally; No rhonchi, wheezing, or rales Abdomen: Distended abdomen; BS normoactive x4; nontender to light palpation. Extremities: Warm. No edema present Neuro: No focal weakness Skin: No rash Results & Data Laboratory Results 11/11/18 11/11/18 11/11/18 Range/Units 07:23 07:23 07:23 WBC 2.16 L (4.8-10.8) K/uL RBC 4.66 (4.2-5.4) M/uL Hgb 14.5 (12.0-16.0) g/dL Hct 42.8 (37-47) % MCV 91.8 (80-100) fL MCH 31.1 (25-34) pg MCHC 33.9 (32-36) g/dL RDW Std Deviation 44.0 (36.4-46.3) fL RDW Coeff of [place] 13.2 (11.5-14.5) % Plt Count 297 (130-400) K/uL MPV 10.6 H (7.4-10.4) fL Immature Gran % (Auto) 4.2 % Neut % (Auto) 39.4 % Lymph % (Auto) 39.8 % [place] % (Auto) 7.4 % Eos % (Auto) 6.9 % Baso % (Auto) 2.3 % Immature Gran # (Auto) 0.09 H (0.00-0.02) K/uL Neut # (Auto) 0.85 L* (1.4-6.5) K/uL Lymph # (Auto) 0.86 L (1.2-3.4) K/uL [place] # (Auto) 0.16 (0.11-0.59) K/uL Eos # (Auto) 0.15 (0-0.5) K/uL Baso # (Auto) 0.05 (0-0.2) K/uL PT 30.3 H (9.0-12.0) Seconds INR 3.2 H (0.9-1.1) Sodium 133 L (136-145) mmol/L Potassium 4.3 (3.5-5.1) mmol/L Chloride 98 (98-107) mmol/L Carbon Dioxide 28 (21-32) mmol/L Anion Gap 7.0 (3-11) BUN 9 (7-18) mg/dl Creatinine 0.53 L (0.6-1.2) mg/dl Est Cr Clr Drug Dosing 171.1 ml/min Est GFR ( Amer) 132.9 Est GFR (Non-Af Amer) 114.7 BUN/Creatinine Ratio 17.0 (10-20) Glucose 102 H (70-99) mg/dl Calcium 8.0 L (8.5-10.1) mg/dl (1) Ascites Ascites type: malignant Qualified Code(s): R18.0 - Malignant ascites
[2018-11-12] MEDS: ONDANSETRON INJ 2 MG/ML 2 ML VIAL IV PRN ×2 (05:52→14:32)
[2018-11-12] MEDS: MoRPHine SULFATE 4 MG/ML 1 ML CARP\\VIAL IV PRN ×2 (05:52→14:32)
[2018-11-12] MEDS: POLYETHYLENE (MIRALAX) 17 GM PACK PO SCH (08:27)
[2018-11-12] MEDS: CHOLECALCIFEROL 1,000 UNITS TAB PO SCH (08:28)
[2018-11-12] MEDS: PANTOprazole 40 MG TAB PO SCH (08:28)
[2018-11-12] MEDS: PREGABALIN 100 MG CAP PO SCH ×2 (08:28→13:17)
[2018-11-12] MEDS: CALCIUM 600MG + VIT D 400 IU TAB PO SCH (08:29)
--- NOTE | 2018-11-12 09:15 | Progress Note ---
DATE: 11/12/2018 DIAGNOSES: 1. Abdominal ascites. 2. Progressive metastatic disease. 3. Hypoalbuminemia. 4. Bilateral pleural effusions/pericardial effusion. 5. Metastatic esophageal cancer. 6. Constipation. SUBJECTIVE: The patient was visited while sitting in chair again today. Previous paracentesis was successful in removing 6 liters of ascitic fluid. She was also administered albumin over the weekend. The patient feels the ascites is returning, feels bloating particularly in the upper abdomen. She states the lower part of her abdomen does feel better since moving her bowels. I understand the patient will be transferred to [facility] for peritoneal drain, which I readily agree. I think until we achieve better control of her disease through chemotherapy, peritoneal drain may prove to be helpful. She continues to report very little p.o. intake. Nursing reports no overnight difficulties otherwise. PHYSICAL EXAMINATION: GENERAL: She is in no acute distress. VITAL SIGNS: Temperature 36.7, pulse 90, respiratory rate 18, blood pressure 139/53. SKIN: Without rash or lesion. HEENT: Oral mucosa without erythema or ulceration. NECK: Supple. Trachea is midline. HEART: Regular rate and rhythm. LUNGS: Bibasilar crackles heard. ABDOMEN: Mildly distended, nontender. EXTREMITIES: Trace peripheral edema bilateral lower extremities noted. NEUROLOGIC: Grossly intact. LABORATORY DATA: Labs are pending for today. IMPRESSION: 1. Diffuse abdominal pain (improving). 2. Abdominal ascites. 3. Progressive omental metastatic disease. 4. Hypoalbuminemia. 5. Metastatic esophageal cancer. 6. Constipation. PLAN: In summary, the patient feels her ascites is reaccumulating, which would not be surprising. Agree with transfer to the [facility] for peritoneal drain placement. She is scheduled to receive her second cycle of chemotherapy, I believe, next week. I would like to see her eating better and obviously moving her bowels more regularly. I agree with current medical management, really I have nothing further to add. We will await drain placement and reconvene with her as outpatient with plan to continue salvage chemotherapy. Her overall prognosis is quite poor. Again, I do not believe the patient is ready for hospice just yet. Thank you for assisting me in the care of this very pleasant and unfortunate patient.
[2018-11-12 09:29] LABS: Prothrombin Time 37.3 Seconds (9.0-12.0)
[2018-11-12 09:31] LABS: Mean Corpuscular Hgb Conc 33.3 g/dL (32-36); Mean Corpuscular Volume 90.9 fL (80-100); Mean Platelet Volume 10.4 fL (7.4-10.4); Platelet Count 316 K/uL (130-400); RDW Coefficient of Variation 13.2 % (11.5-14.5); RDW Standard Deviation 43.1 fL (36.4-46.3); Red Blood Count 4.62 M/uL (4.2-5.4); White Blood Count 1.55 K/uL (4.8-10.8)
[2018-11-12 09:45] LABS: BUN Creatinine Ratio 14.5 (10-20); Calcium 7.9 mg/dl (8.5-10.1); Est GFR (African American) 129.8; Potassium 3.9 mmol/L (3.5-5.1)
[2018-11-12 10:43] LABS: Giant Platelets 1+; Toxic Vacuolation 1+
[2018-11-12 10:55] LABS: ALC (manual) 0.94 K/uL (1.2-3.4); Basophils # (manual) 0.01 K/uL (0-0.2); Basophils % (manual) 0.9 %; Eosinophils # (manual) 0.11 K/uL (0-0.5); Lymphocytes # (manual) 0.94 K/uL (1.2-3.4); Lymphocytes % (manual) 60.8 %; Neutrophils % (manual) 18.3 %
--- NOTE | 2018-11-12 11:11 | Ultrasound Report ---
US abdomen limited HISTORY: Evaluate for re-accumulation of ascites. COMPARISON: 11/08/2018 FINDINGS: Survey evaluation of the abdomen is compared to a prior study of 11/08/2018.. There is been m oderate reaccumulation of ascites. IMPRESSION: Moderate reaccumulation of ascites compared to the prior exam. The above report was generated using voice recognition software. It may contain grammatical, syntax or spelling errors. Electronically signed by: Calvin Desouza M.D. 11/12/2018 11:09 AM
--- NOTE | 2018-11-12 13:37 | Discharge Summary ---
Date of Service November 12, 2018 Admission HPI Per Admitting Provider Ms. 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 The patient states that she was meant to have a paracentesis last week, however after her ultrasound, she was told there was not enough fluid to tap. Since then, she has noted progressively worsening abdominal distention and abdominal pain, as well as back pain. She states her pain is all over her abdomen, and is an 8 out of 10 in severity. She denies fever, chills, nausea, vomiting, but states that she has been quite fatigued and weak since beginning her second cycle of chemotherapy. She has had poor appetite, and also reports constipation. She is able to urinate without difficulty. The patient does endorse a cough, that is occasionally productive of sputum, however states that this has been ongoing. With regards to her metastatic esophageal cancer, she follows with Dr. Bruner. She completed 1 cycle of chemotherapy, took a month break, and is now on her second cycle of chemotherapy. She last had chemotherapy on October 29. She also has seen Dr. Reyna in the past for management of her bilateral malignant pleural effusions, and he had placed a Pleurx catheter. With regards to the clot in her port, she is unsure of exactly when this happened, but states that it was longer than 6 months ago. She states she is meant to be on Coumadin for life, and follows with the anticoagulation clinic here at [facility]. She states that they did hold her Coumadin last week, in preparation for her paracentesis. She was then loaded with 10 mg of Coumadin on Sunday, Sunday, Sunday and has been taking an alternating regimen of 7.5 mg and 5 mg daily. She denies any bleeding. Of note, she is a former smoker. She smoked a pack to a pack and a half for 15 years, but has since quit. She denies use of alcohol or recreational drugs. Admission Exam Per Admitting Provider Constitutional: well developed and well nourished; no acute distress Looks uncomfortable, appears pale and tired Eyes: PERRL, conjunctivae normal, anicteric sclerae ENMT: external ear and nose normal, oropharynx normal Respiratory: Auscultation: + diminished lung sounds Cardiovascular: Rate/Rhythm: regular rate and regular rhythm Heart Sounds: no murmur Vessels: radial pulses present Extremities: + pedal edema; no calf tenderness Gastrointestinal (Abdomen): Inspection/Auscultation: + abdomen distended Percussion/Palpation: + abdomen tender (throughout) and + ascites Skin: no rashes, warm and dry Psychiatric: A+Ox3, euthymic affect Principal Diagnosis Malignant recurrent ascites Discharge Exam General: Resting comfortably in no apparent distress; A&OX3 HEENT: NC/AT; PERRLA with EOMI; [place] conjunctiva, MMM. Neck: Supple and nontender Cardiac: RRR w/o murmurs, gallops or rubs Lungs: CTA bilaterally; No rhonchi, wheezing, or rales Abdomen: Distended abdomen; BS normoactive x4; firm to palpation over abdomen c/w ascites, increased from previous exam. Extremities: Warm. No edema present Neuro: No focal weakness Skin: No rash Discharge Data Allergies Allergy/AdvReac Type Severity Reaction Status Date / Time No Known Allergies Allergy Verified 11/07/18 23:14 Consultations 11/07/18 23:37 ED Decision to Admit Stat 11/08/18 02:12 Consult Hematology Routine 11/08/18 02:22 Consult Radiology Routine 11/12/18 13:13 Burn CD for patient Stat Ordered Studies CXR 11/07/18 11/07/18 21:50 CT abd pelvis IV con only Urgent 11/08/18 07:17 US paracentesis abd w/image Routine 11/12/18 09:04 US abdomen limited Routine KUB 11/10/18 Hospital Course (1) Ascites: Related to metastatic esophageal cancer; no evidence of SBP. S/p paracentesis on 11/08 with removal of 6L; received Albumin 25% x 3 bags following procedure. Repeat US on 11/12 moderate re-accumulation of ascites. She will be transferred to [facility] for placement of a peritoneal drain. (2) Esophageal cancer: Metastatic adenocarcinoma of the distal esophagus. Has progressed through chemotherapy; currently receiving salvage chemo with Taxotere. Oncology was consulted. Plan for ongoing chemotherapy, due for next dose in ~9 days. (3) Constipation: KUB showed 11/10 showed moderate fecal load. Constipation improved with Dulcolax and Relistor. (4) Pleural effusion: Follows with Dr. Reyna. Small bilat pleural effusions noted on CXR. (5) DVT (deep venous thrombosis): Mediport associated DVT in the past. INR was supratherapeutic at 4 on day of transfer, coumadin will be held. Pt. takes 7.5 mg qSunTuesThursSat and 5 mg qMWF. (6) Peripheral neuropathy: Likely chemo induced. Continued Lyrica 100 mg TID. (7) Neutropenia: Secondary to recent chemotherapy. CBC monitored qAM. (8) Hyponatremia: - Na level decreased, likely hypervolemic hyponatremia in setting of as cites. (9) DVT prophylaxis: Coumadin was ordered. Pt. was stable for transfer to [facility] for placement of peritoneal drain on 11/12/18. Total Time Total Time Spent Total Time Spent (In Minutes): >30 minutes Total Time Includes: Examination of the Patient, Discharge Planning, Medication Reconciliation, Communication With Other Providers and Other Discharge Plan Discharge Items Patient Disposition: Transfer Acute Care Hospital Reason For Visit: ASCITES, SUPRATHERAPEUTIC INR Discharge Diagnosis: Malignant Recurrent Ascites Condition: Critical Discharge Goals: Decrease discomfort, Diagnostic testing and Therapeutic intervention Activity: Resume your previous activity Non-emergency contact: Primary Care Provider and Oncologist Call non-emergency contact if: you have any medication questions Follow-up/Referrals: Alvaro Mohamud III, MD [Primary Care Provider] - Diet: Regular Addtl Provider Instructions: 1. You will be transferred to [facility] in [place], [place] for placement of a drain in the setting of recurrent ascites. Prescriptions: Continued omeprazole 20 mg Capsule,Delayed Release(Dr/Ec) 20 mg PO BID17 RF: 0 pregabalin [Lyrica] 50 mg capsule 100 mg PO TID RF: 0 Discontinued cyanocobalamin (vitamin B-12) 1,000 mcg/mL Solution 1,000 mcg IM Q3MO RF: 0 Depo-Provera 400 mg/mL Suspension 400 mg IM Q3MO RF: 0 cholecalciferol (vitamin D3) [Vitamin D3] 2,000 unit Capsule 2,000 unit PO DAILY RF: 0 calcium citrate-vitamin D3 [Citracal + D Maximum] 315-250 mg-unit Tablet 1 tab PO QPM RF: 0 calcium citrate-vitamin D3 [Citracal + D Maximum] 315-250 mg-unit Tablet 2 tabs PO DAILY RF: 0 hydrocodone-acetaminophen [[place]] 10-325 mg tablet 1 tab PO QID PRN (Reason: Abdominal Discomfort) RF: 0 turmeric root extract 500 mg capsule 500 mg PO DAILY RF: 0 pediatric multivitamin no.76 [[place] Complete] tablet,chewable 1 tab PO BID RF: 0 warfarin 5 mg tablet See Patient Comments PO .COMPLEX RF: 0 No Action calcium citrate-vitamin D3 [Citracal + D Maximum] 315-250 mg-unit tablet See Patient Comments PO .COMPLEX RF: 0 cyanocobalamin (vitamin B-12) 1,000 mcg/mL solution 1,000 mcg IM .3 month RF: 0 Depo-Provera 400 mg/mL suspension 400 mg IM .3 months RF: 0 hydrocodone-acetaminophen [[place]] 10-325 mg tablet 1 tab PO QID PRN (Reason: pain) RF: 0 pediatric multivitamin tablet,chewable 1 tab PO BID RF: 0 tumeric 500 mg 500 mg PO DAILY RF: 0 warfarin 5 mg tablet 5 mg PO DAILY RF: 0 Stand-Alone Forms: Call Back Authorization, [facility] Discharge Orders: Discharge Order (Routine); Ordered 11/12/18 Ordered By: Radha Torrez Admission Data Admit Date/Time: 11/08/18 01:13 Attending Provider: Panda Gonsalez Admit Provider: Antoni Maravilla Primary Care Provider: Alvaro Mohamud III Other Providers: Antoni Maravilla ; Liborio Bruner V ; Arti Lewis Sarah Ann ; Radha Torrez Service: Medical Other Interventions: Discharge Summary Assessment (RN) Last Done: 11/12/18 14:04 Pending Studies at Discharge: Yes Studies:: Blood cultures 11/08/18: negative to date DC Date/Time DO NOT enter until pt leaves facility: 11/12/18 14:45 Supervising Physician Co-Signing Physician Notes Attending Attestation & Discharge Note: Pt seen/examined, chart reviewed, discharge care plan d/w RADHA Torrez. I agree w/ the roa components of her discharge summary. Unfortunate 43yo female with stage 4 esophageal cancer with malignant ascites. Underwent paracentesis this admission - diagnostic and therapeutic. The patient's ascites was extensive and reaccumulated quickly. In order to avoid recurrent paracentesis procedures discussions were held with the patient about transferring to tertiary care for placement of a palliative peritoneal drain. She was agreeable to such, and will transfer to [facility] for consideration of this. Discharge exam: gen - NAD, depressed affect neck - no JVD heart - RRR, s1, s2 lungs - CTA b/l abd - distended w/ ascites, BS+, NT ext - no edema Panda Gonsalez MD
== END 2018-11-12 14:45 | disposition short-term general hospital (02) | DRG 375 ==
LOC: ED 21:28 → 4E 11-08 01:13 → SUATTDRO 11-08 01:13 → 4E 11-08 02:01
DX: Z86.718 Personal history of other venous thrombosis and embolism; Z79.01 Long term (current) use of anticoagulants; K74.60 Unspecified cirrhosis of liver; G62.0 Drug-induced polyneuropathy; J91.0 Malignant pleural effusion; Z98.84 Bariatric surgery status; Z79.899 Other long term (current) drug therapy; K21.9 Gastro-esophageal reflux disease without esophagitis; C15.5 Malignant neoplasm of lower third of esophagus; R18.0 Malignant ascites; G47.33 Obstructive sleep apnea (adult) (pediatric); T45.515A Adverse effect of anticoagulants, initial encounter; Z68.39 Body mass index [BMI] 39.0-39.9, adult; T47.2X5A Adverse effect of stimulant laxatives, initial encounter; T45.1X5A Adverse effect of antineoplastic and immunosuppressive drugs, initial encounter; Z87.891 Personal history of nicotine dependence; E66.01 Morbid (severe) obesity due to excess calories; D70.1 Agranulocytosis secondary to cancer chemotherapy; E87.1 Hypo-osmolality and hyponatremia; E88.09 Other disorders of plasma-protein metabolism, not elsewhere classified; K59.00 Constipation, unspecified; R79.1 Abnormal coagulation profile; R19.7 Diarrhea, unspecified

== ENCOUNTER 2018-12-30 08:28 | Inpatient (IN) ==
[2018-12-30] MEDS ORDERED: SODIUM CHLORIDE 0.9% 500 ML IV SCH (09:00)
[2018-12-30 09:03] LABS: Basophils # (auto) 0.05 K/uL (0-0.2); Basophils % (auto) 0.3 %; Hematocrit (blood only) 38.5 % (37-47); Hemoglobin 12.9 g/dL (12.0-16.0); Immature Granulocytes # (auto) 0.65 K/uL (0.00-0.02); Immature Granulocytes % (auto) 4.1 %; Lymphocytes # (auto) 2.27 K/uL (1.2-3.4); Lymphocytes % (auto) 14.4 %; Mean Corpuscular Hgb Conc 33.5 g/dL (32-36); Mean Corpuscular Volume 86.5 fL (80-100); Mean Platelet Volume 9.2 fL (7.4-10.4); Monocytes # (auto) 1.47 K/uL (0.11-0.59); Monocytes % (auto) 9.3 %; Neutrophils # (auto) 11.31 K/uL (1.4-6.5); Neutrophils % (auto) 71.9 %; Platelet Count 283 K/uL (130-400); RDW Coefficient of Variation 18.5 % (11.5-14.5); Red Blood Count 4.45 M/uL (4.2-5.4); White Blood Count 15.75 K/uL (4.8-10.8)
[2018-12-30 09:06] LABS: Base Excess VBG 4.2 mEq/L; Oxygen Saturation VBG 72.3 %; pH VBG 7.47 (7.36-7.41)
[2018-12-30] MEDS ORDERED: OPTIRAY 320 125ml IV PRN (09:11)
[2018-12-30 09:13] LABS: INR 1.3 (0.9-1.1); Partial Thromboplastin Ratio 1.2; Partial Thromboplastin Time 31.8 Seconds (21.0-31.0); Prothrombin Time 13.2 Seconds (9.0-12.0)
[2018-12-30 09:19] LABS: Albumin Level 1.6 gm/dl (3.4-5.0); BUN Creatinine Ratio 19.5 (10-20); Creatinine Clr Calc Pharmacy 153.8 ml/min; Est GFR (African American) 131.3; Est GFR (Non-African American) 113.3; Potassium 2.9 mmol/L (3.5-5.1)
[2018-12-30 09:32] LABS: Albumin Globulin Ratio 0.4 (0.9-2); Bilirubin,Total 0.4 mg/dl (0.2-1); Globulin 3.7 gm/dl (2.5-4.0); Total Protein 5.3 gm/dl (6.4-8.2); Troponin I 1.63 ng/ml (0-0.045)
[2018-12-30] MEDS ORDERED: ONDANSETRON INJ 2 MG/ML 2 ML VIAL IV STA (09:35)
[2018-12-30] MEDS ORDERED: ACETAMINOPHEN 1,000 MG/100 ML VIAL IV STA (09:35)
--- NOTE | 2018-12-30 09:49 | CT Scan Report ---
CT ANGIOGRAM OF THE CHEST; CT SCAN OF THE ABDOMEN AND PELVIS WITH IV CONTRAST CLINICAL HISTORY: Dyspnea. Nausea. COMPARISON STUDY: Chest CT scans dated 12/03/2018 and 01/10/2018. Abdominal CT dated 11/07/2018. TECHNIQUE: Following the IV administration of 119 of Optiray 320, CT angiogram of the chest is perfor med from the upper abdomen to the thoracic inlet utilizing the pulmonary embolus protocol. Images are reviewed in the axial, sagittal, coronal planes. 3-D MIPS images are created and assessed. Subsequen tly, CT scan of the abdomen and pelvis was performed from the lung bases to the proximal femora. Imag es are reviewed in the axial, sagittal, and coronal planes. IV contrast was administered without comp lication. A dose lowering technique was utilized adhering to the principles of ALARA. CT DOSE: 1417.56 mGy.cm FINDINGS: CHEST: Thyroid: Imaged portions of the thyroid gland are normal in size and attenuation. Thoracic aorta: The thoracic aorta is normal in caliber and demonstrates bovine variant arch anatomy. No dissection is seen. Pulmonary vasculature: The pulmonary trunk is normal in caliber. There is saddle pulmonary embolus. E xtensive pulmonary emboli are present within all lobar branches, extending peripherally into segmenta l and subsegmental levels. Heart: A right internal jugular central venous infusion port is in place. The heart is top normal in size and there is a small pericardial effusion. The coronary arteries are densely calcified. Lungs and pleural spaces: There are moderate pleural effusions with associated atelectasis. Intralobu lar septal thickening is noted at the lung bases. The trachea and central airways are clear. Pleural thickening is again seen at both lung bases. Mediastinum: There are prominent mediastinal lymph nodes. A prevascular node measures 7 mm in short a xis. Terri: Clear. Axillae: There is no axillary lymphadenopathy. Bony thorax: No lytic or blastic lesions are identified. Soft tissues: There is a small pocket of fluid within the left anterior chest wall measuring 1.8 cm, best seen on image #207. This is at the site of a previous infusion port and likely represents a smal l seroma. ABDOMEN AND PELVIS: Liver: The contrast-enhanced liver is enlarged, measuring 20 cm in length. The liver demonstrates dif fusely diminished attenuation consistent with severe hepatic steatosis. There is no intrahepatic or d uctal dilatation. The hepatic veins and portal veins are patent. 3.6 cm cystic lesion is again seen i n the caudate lobe. A peripherally enhancing low-attenuation fluid collection is again seen along the right lateral margin of the liver on image #124. This has decreased in size from previous, and measu res up to 10 x 2.5 cm in maximum axial dimension. Gallbladder: Surgically absent noting clips in the gallbladder fossa. Spleen: Normal in size and attenuation. Pancreas: Unremarkable. Adrenal glands: Unremarkable. Kidneys: The contrast enhanced kidneys demonstrate mild cortical atrophy and are without hydronephros is. The kidneys enhance symmetrically. Abdominal vasculature: The abdominal aorta is normal in course and caliber noting moderate to advance d atherosclerotic calcification. Stomach and bowel: Postoperative change is consistent with a history of Hubert-en-Y gastric bypass surg arik. No bowel obstruction is seen. The small bowel loops are matted anteriorly, likely representing a dhesions. The appendix is normal as imaged. Peritoneum: There is only trace abdominal ascites. This is significantly decreased from previous. No intraperitoneal free air is seen. A catheter is coiled in the pelvis from a right lower quadrant appr oach. There is a thick-walled and peripherally enhancing multiloculated fluid collection the pelvis o r on the catheter. This measures approximately 7.5 x 11 x 9.5 cm in dimension and there are adjacent foci of nodular soft tissue thickening and enhancement. A 3.6 x 2.3 cm collection is seen in the left upper quadrant scalloping the anterior margin of the spleen on image #128. Numerous additional tiny locules of fluid are scattered throughout the mesentery. Lymphadenopathy: None. Pelvic viscera: The bladder, uterus, and adnexa are normal as visualized. Skeletal structures: No lytic or blastic lesions are seen. Sclerotic change is noted in the sacroilia c joints. IMPRESSION: 1. Saddle embolus with extensive pulmonary emboli as above. 2. There are small to moderate and at least partially loculated pleural effusions as above. These are similar to the 12/03/2018 examination. 3. Intralobular septal thickening is again seen at both lung bases. This could represent scarring/ate lectasis, a component of congestive change, and/or limited expected tumor. 4. Nonspecific pleural thickening is again seen at the lung bases. 5. Severe hepatic steatosis. 6. There is only trace residual abdominal ascites. 7. A catheter is coiled in the pelvis, new from previous. A loculated fluid collection is seen in the pelvis around the tip of the catheter with foci of nodular thickening and enhancement. There are sev eral additional cystic collections scattered throughout the abdomen and pelvis, and this appears impr kristofer from 11/07/2018. 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 Superimposed infection at any o f these sites would be impossible to exclude by imaging and clinical correlation will be required. 8. There are postoperative changes from a Hubert-en-Y gastric bypass procedure. No bowel obstruction is seen. 9. Additional findings as above. Electronically signed by: Fermín Arroyo M.D. 12/30/2018 9:47 AM
--- NOTE | 2018-12-30 10:10 | Emergency Department Note ---
Entered by Virginia Ernandez acting as a scribe for Shola Clark M.D. History of Present Illness General Chief complaint: Shortness of Breath/Dyspnea Time Seen by Provider: 12/30/18 08:47 Source: patient, EMS and other (nursing staff) History of Present Illness Provider complaint: shortness of breath Onset (ago): day(s) (last night) Location: chest Current Pain Intensity: 3 Quality: + other (shortness of breath) Associated symptoms: + loss of appetite, + nausea/vomiting (nausea), + weakness and + other (hypotensive, tachycardic, right leg achiness); no chest pain and no fever/chills The patient is a 43 year old female who presents to the Emergency Department with complaints of shortness of breath beginning last night. She rates her current discomfort at a 3/10. She reports feeling very weak and nauseous. The patient denies being febrile and denies having chest pain. She states that she also has neuropathy and a history of a gastric bypass. The patient states that she normally does not wear Oxygen at home. She states that she gets Lovenox sh ots once per day. She states that she follows with Dr. Bruner and Dr. Mohamud. She states that she was a smoker 12 years ago. Per nursing staff, the patient has a history of metastatic esophageal cancer. Nursing staff states that the patient was satting at 72% and went to the 90s after being placed on a non-rebreather. Per nursing staff, the patient was also hypotensive at 40/20. Per EMS, the patient was hypotensive at 44/20 and was tachycardic. EMS states that the patient had chemotherapy 2 weeks ago. Per EMS, the patient reported having right leg achiness since yesterday morning. Per EMS, the patient's home health nurse came this morning and the patient was satting in the 70s. Per EMS, the patient has not been eating much in the last couple of weeks and has not been taking her potassium supplements over the last couple of days. Home Medications Home Medications Medication Instructions Recorded Confirmed Type omeprazole 20 mg PO BID 05/13/18 12/30/18 History cyanocobalamin (vit B-12) 1,000 1,000 mcg IM UD ml 11/18/18 12/30/18 History mcg/mL injection solution hydrocodone 10 mg-acetaminophen 1 tab PO QID PRN 11/18/18 12/30/18 History 325 mg tablet pediatric multivitamin chewable 1 tab PO BID 11/18/18 12/30/18 History tablet pregabalin 150 mg PO TID 12/04/18 12/30/18 History dronabinol 5 mg capsule 5 mg PO TID 12/09/18 12/30/18 History enoxaparin 40 mg/0.4 mL 40 mg SQ DAILY 12/09/18 12/30/18 History subcutaneous syringe potassium 10 meq PO BID 12/11/18 12/30/18 History medroxyprogesterone 1 dose IM Q3M 12/30/18 12/30/18 History Allergies Allergy/AdvReac Type Severity Reaction Status Date / Time No Known Allergies Allergy Verified 12/30/18 09:34 Past Med/Surg History Medical History Esophageal cancer (Chronic) Acid reflux History of blood clots LEFT UPPER CHEST "HOOKED TO JUGULAR VEIN" (2 CLOTS TOTAL) History of pleural effusion JANUARY 2018/ R & L DRAINAGE CATHETERS History of recent chemotherapy Surgical History History of gastric bypass History of shoulder surgery LEFT History of vascular access device MEDIPORT LEFT CHEST Family History Grandfather Family history of stomach cancer Social History Preferred Language: Khmer Communication Ability: Effective Processing Mgr Required: No Beliefs That Will Affect Care: Sikhism Current Living Situation: Family Current Living Situation Comment: live with son Other Information That Helps Us Care for You: No Feels Safe at Home: Yes Safety Concerns: Feels Safe At This Time Smoking Status: Never smoker Tobacco Type: cigarettes Second Hand Exposure: No Hx Alcohol Use: No Hx Substance Use: No Review of Systems See HPI for pertinent positives & negatives. and A total of 10 systems reviewed and were otherwise negative Physical Exam Vital Signs Vital Signs - 24 hr 12/30/18 08:35 12/30/18 08:40 12/30/18 08:41 Temperature 36.6 C Temperature Source Oral Sepsis Recent Fever Within 48 Hours No Sepsis New/Unexplained Change in Mental Status No Sepsis Action Taken by Nursing No Action Required Pulse Rate 127 H Pulse Rate [Apical] Pulse Rate from SpO2 Sensor Respiratory Rate 32 H Respiratory Effort / Characteristics Spontaneous Respiratory Depth Respiratory Pattern Regular Blood Pressure 96/74 L Blood Pressure [Right Arm] Blood Pressure Mean 81 Blood Pressure Mean [Right Arm] Pulse Oximetry 87 L 93 93 Oxygen Delivery Method Oxymask Oxymask Oxymask Oxygen Flow Rate 10 15 15 12/30/18 09:25 12/30/18 09:44 12/30/18 10:01 Temperature Temperature Source Sepsis Recent Fever Within 48 Hours Sepsis New/Unexplained Change in Mental Status Sepsis Action Taken by Nursing Pulse Rate 115 H 115 H Pulse Rate [Apical] 119 H Pulse Rate from SpO2 Sensor 117 H 115 H Respiratory Rate 28 H 28 H Respiratory Effort / Characteristics Respiratory Depth Respiratory Pattern Blood Pressure 91/64 L 88/68 L Blood Pressure [Right Arm] 81/65 L Blood Pressure Mean 73 74 Blood Pressure Mean [Right Arm] 70 Pulse Oximetry 90 90 93 Oxygen Delivery Method Oxymask Oxymask Oxymask Oxygen Flow Rate 15 15 12/30/18 10:16 12/30/18 10:42 12/30/18 10:46 Temperature Temperature Source Sepsis Recent Fever Within 48 Hours Sepsis New/Unexplained Change in Mental Status Sepsis Action Taken by Nursing Pulse Rate 121 H 123 H 123 H Pulse Rate [Apical] Pulse Rate from SpO2 Sensor 119 H 120 H 126 H Respiratory Rate 28 H 30 H Respiratory Effort / Characteristics Respiratory Depth Respiratory Pattern Blood Pressure 94/59 L 93/62 L 85/69 L Blood Pressure [Right Arm] Blood Pressure Mean 70 72 74 Blood Pressure Mean [Right Arm] Pulse Oximetry 94 92 83 L Oxygen Delivery Method Oxymask Oxymask Oxygen Flow Rate 15 15 12/30/18 10:50 12/30/18 10:56 12/30/18 10:57 Temperature Temperature Source Sepsis Recent Fever Within 48 Hours Sepsis New/Unexplained Change in Mental Status Sepsis Action Taken by Nursing Pulse Rate 120 H 120 H 119 H Pulse Rate [Apical] Pulse Rate from SpO2 Sensor 122 H 120 H 118 H Respiratory Rate Respiratory Effort / Characteristics Respiratory Depth Respiratory Pattern Blood Pressure 94/74 L Blood Pressure [Right Arm] Blood Pressure Mean 80 Blood Pressure Mean [Right Arm] Pulse Oximetry 87 L 93 94 Oxygen Delivery Method Oxygen Flow Rate 12/30/18 11:00 12/30/18 11:03 12/30/18 11:10 Temperature Temperature Source Sepsis Recent Fever Within 48 Hours Sepsis New/Unexplained Change in Mental Status Sepsis Action Taken by Nursing Pulse Rate 121 H 117 H 118 H Pulse Rate [Apical] Pulse Rate from SpO2 Sensor 125 H 117 H 120 H Respiratory Rate Respiratory Effort / Characteristics Respiratory Depth Respiratory Pattern Blood Pressure 87/63 L Blood Pressure [Right Arm] Blood Pressure Mean 71 Blood Pressure Mean [Right Arm] Pulse Oximetry 82 L 82 L Oxygen Delivery Method Oxygen Flow Rate 12/30/18 11:15 12/30/18 11:20 12/30/18 11:45 Temperature 36.3 C L Temperature Source Oral Sepsis Recent Fever Within 48 Hours Sepsis New/Unexplained Change in Mental Status Sepsis Action Taken by Nursing Pulse Rate 116 H 114 H 116 H Pulse Rate [Apical] Pulse Rate from SpO2 Sensor 115 H 112 H Respiratory Rate Respiratory Effort / Characteristics Spontaneous SOB on Exertion Respiratory Depth Normal Respiratory Pattern Regular Blood Pressure 101/69 Blood Pressure [Right Arm] Blood Pressure Mean 79 Blood Pressure Mean [Right Arm] Pulse Oximetry 98 99 Oxygen Delivery Method Oxymask Oxygen Flow Rate 15 12/30/18 11:52 12/30/18 12:00 12/30/18 12:05 Temperature 36.3 C L Temperature Source Sepsis Recent Fever Within 48 Hours Sepsis New/Unexplained Change in Mental Status Sepsis Action Taken by Nursing Pulse Rate 120 H 118 H 118 H Pulse Rate [Apical] Pulse Rate from SpO2 Sensor 119 H 118 H Respiratory Rate 20 25 H 30 H Respiratory Effort / Characteristics Respiratory Depth Respiratory Pattern Blood Pressure 86/62 L 86/63 L Blood Pressure [Right Arm] Blood Pressure Mean 70 70 Blood Pressure Mean [Right Arm] Pulse Oximetry 91 93 92 Oxygen Delivery Method Oxymask Oxygen Flow Rate 15 12/30/18 12:10 12/30/18 12:15 12/30/18 12:20 Temperature Temperature Source Sepsis Recent Fever Within 48 Hours Sepsis New/Unexplained Change in Mental Status Sepsis Action Taken by Nursing Pulse Rate 118 H 114 H 115 H Pulse Rate [Apical] Pulse Rate from SpO2 Sensor 117 H 114 H 115 H Respiratory Rate 28 H 21 20 Respiratory Effort / Characteristics Respiratory Depth Respiratory Pattern Blood Pressure Blood Pressure [Right Arm] Blood Pressure Mean Blood Pressure Mean [Right Arm] Pulse Oximetry 90 92 88 L Oxygen Delivery Method Oxygen Flow Rate 12/30/18 12:25 12/30/18 12:34 12/30/18 12:40 Temperature Temperature Source Sepsis Recent Fever Within 48 Hours Sepsis New/Unexplained Change in Mental Status Sepsis Action Taken by Nursing Pulse Rate 116 H 115 H 117 H Pulse Rate [Apical] Pulse Rate from SpO2 Sensor 116 H 114 H 118 H Respiratory Rate 28 H 22 21 Respiratory Effort / Characteristics Respiratory Depth Respiratory Pattern Blood Pressure 81/61 L 87/71 L Blood Pressure [Right Arm] Blood Pressure Mean 67 76 Blood Pressure Mean [Right Arm] Pulse Oximetry 91 93 93 Oxygen Delivery Method Oxygen Flow Rate 12/30/18 12:46 12/30/18 12:51 12/30/18 12:55 Temperature Temperature Source Sepsis Recent Fever Within 48 Hours Sepsis New/Unexplained Change in Mental Status Sepsis Action Taken by Nursing Pulse Rate 118 H 114 H 113 H Pulse Rate [Apical] Pulse Rate from SpO2 Sensor 118 H 114 H 113 H Respiratory Rate 25 H 25 H 28 H Respiratory Effort / Characteristics Respiratory Depth Respiratory Pattern Blood Pressure 80/63 L 89/57 L 81/55 L Blood Pressure [Right Arm] Blood Pressure Mean 68 67 63 Blood Pressure Mean [Right Arm] Pulse Oximetry 90 91 91 Oxygen Delivery Method Oxygen Flow Rate 12/30/18 13:01 12/30/18 13:06 12/30/18 13:10 Temperature Temperature Source Sepsis Recent Fever Within 48 Hours Sepsis New/Unexplained Change in Mental Status Sepsis Action Taken by Nursing Pulse Rate 120 H 117 H 115 H Pulse Rate [Apical] Pulse Rate from SpO2 Sensor 120 H 118 H 115 H Respiratory Rate 27 H 27 H 24 Respiratory Effort / Characteristics Respiratory Depth Respiratory Pattern Blood Pressure 92/69 L 90/60 L 108/50 L Blood Pressure [Right Arm] Blood Pressure Mean 76 70 69 Blood Pressure Mean [Right Arm] Pulse Oximetry 79 L 89 L 90 Oxygen Delivery Method Oxygen Flow Rate 12/30/18 13:16 Temperature Temperature Source Sepsis Recent Fever Within 48 Hours Sepsis New/Unexplained Change in Mental Status Sepsis Action Taken by Nursing Pulse Rate 113 H Pulse Rate [Apical] Pulse Rate from SpO2 Sensor 113 H Respiratory Rate 17 Respiratory Effort / Characteristics Respiratory Depth Respiratory Pattern Blood Pressure 97/56 L Blood Pressure [Right Arm] Blood Pressure Mean 69 Blood Pressure Mean [Right Arm] Pulse Oximetry 92 Oxygen Delivery Method Oxygen Flow Rate GENERAL: Awake, alert. Fatigued. Tachypneic. HENT: Normocephalic, atraumatic. EYES: Normal conjunctiva. Sclera non-icteric. NECK: Supple. No nuchal rigidity. RESPIRATORY: Clear to auscultation. No wheezes. Normal respiratory effort. CARDIAC: Tachycardic rate. Normal rhythm. Extremities warm and well perfused. Port to the right upper chest. GI: Soft, non-distended. No tenderness to palpation. No rebound or guarding. Mild abdominal ascites. RECTAL: Deferred. MUSCULOSKELETAL: Atraumatic. Chest examination reveals no tenderness. LOWER EXTREMITIES: 2+ right lower extremity edema. NEURO: Normal sensorium. No sensory or motor deficits noted. No facial droop. SKIN: Warm and dry. No jaundice noted. Course 0828: The patient was evaluated in room B1. A history and physical were performed. 0931: I reviewed the patient's CT scans. 0945: I discussed the patient's CT with Dr. Parekh-Radiology. 0947: I discussed the patient's case with Dr. Shah-ICU who will come see the patient. 1007: I discussed the patient's case with Dr. Efrain Lopez who will evaluate the patient for further management. 1014: I discussed the patient's case with Dr. Shah. Consultations Consultation #1: Dr. Shah-ICU Time: 09:47 Consultation #2: Dr. Efrain Lopez Time: 10:07 Administered Medications Dronabinol (Marinol) 5 mg PO TID MERCEDEZ Stop: 01/29/19 13:59 Last Admin: 12/30/18 14:18 Dose: 5 mg Documented by: [id number] Potassium Chloride (K Alvarado / Wtr) 10 meq in 100 mls @ 100 mls/hr IV Q1H MERCEDEZ Stop: 12/30/18 16:29 Last Admin: 12/30/18 14:17 Dose: 100 mls/hr Documented by: [id number] Famotidine 20 mg/ Syringe 5 mls @ 2.5 mls/min IV BID MERCEDEZ Stop: 01/29/19 13:29 Last Admin: 12/30/18 14:18 Dose: 2.5 mls/min Documented by: [id number] Pregabalin (Lyrica) 150 mg PO TID MERCEDEZ Stop: 01/29/19 13:59 Last Admin: 12/30/18 14:18 Dose: 150 mg Documented by: [id number] Discontinued Medications Heparin Sodium (Porcine) (Heparin Iv Bolus) Confirm Administered Dose 10,000 units .ROUTE .STK-MED ONE Stop: 12/30/18 10:20 Last Admin: 12/30/18 10:22 Dose: 6,000 units Documented by: [id number] Cosigned by: [id number] Heparin Sodium/Dextrose () 1 ea IV NOW STA; Protocol Stop: 12/30/18 10:07 Last Admin: 12/30/18 10:26 Dose: Not Given Documented by: [id number] Heparin Sodium/Dextrose (Heparin Sodium/Dextrose) Confirm Administered Dose 25,000 units IV .STK-MED ONE Stop: 12/30/18 10:20 Last Admin: 12/30/18 10:22 Dose: 1,350 units Documented by: [id number] Cosigned by: [id number] Sodium Chloride (Nss) 500 mls @ 999 mls/hr IV .Q31M MERCEDEZ Stop: 12/30/18 09:30 Last Infusion: 12/30/18 09:24 Dose: 0 mls/hr Documented by: [id number] Admin: 12/30/18 08:50 Dose: 999 mls/hr Documented by: [id number] Acetaminophen (Ofirmev) 1,000 mg in 100 mls @ 400 mls/hr IV NOW STA Stop: 12/30/18 09:49 Last Infusion: 12/30/18 09:55 Dose: 0 mls/hr Documented by: [id number] Admin: 12/30/18 09:39 Dose: 400 mls/hr Documented by: [id number] Sodium Chloride (Nss 1000ml) 1,000 mls @ 999 mls/hr IV .Q1H1M ONE Stop: 12/30/18 11:13 Last Infusion: 12/30/18 12:12 Dose: 0 mls/hr Documented by: [id number] Admin: 12/30/18 10:24 Dose: 999 mls/hr Documented by: [id number] Alteplase, Recombinant 100 mg/ (EMPTY BAG) 100 mls @ 50 mls/hr IV NOW [facility] Stop: 12/30/18 14:02 Last Admin: 12/30/18 12:20 Dose: 50 mls/hr Documented by: [id number] Cosigned by: [id number] Ioversol (Optiray 320 125ml) 119 ml IV ONCE PRN PRN Reason: Interaction Checking Stop: 01/03/19 09:10 Last Admin: 12/30/18 09:11 Dose: 119 ml Documented by: [id number] Ondansetron HCl (Zofran) 4 mg IV NOW STA Stop: 12/30/18 09:36 Last Admin: 12/30/18 09:39 Dose: 4 mg Documented by: [id number] Medical Decision Making Differential Diagnosis Differential diagnosis: Etiologies such as infections, reactive airway disease, COPD, pneumonia, pleural effusion, pulmonary edema, ARDS, pneumothorax, CHF, cardiac ischemia, cardiac tamponade, dysrhythmia, anemia, pulmonary embolism, musculoskeletal, gastrointestinal process, as well as others were entertained. Medical Records Attestation: I reviewed the patient's medical records. Home Medications Current Medication List: was personally reviewed by me Laboratory Data Attestation: I reviewed the patient's lab results. Result diagrams: 12/30/18 08:49 12/30/18 08:49 Lab Results 12/30/18 12/30/18 12/30/18 Range/Units 08:49 08:49 08:49 WBC 15.75 H (4.8-10.8) K/uL RBC 4.45 (4.2-5.4) M/uL Hgb 12.9 (12.0-16.0) g/dL Hct 38.5 (37-47) % MCV 86.5 (80-100) fL MCH 29.0 (25-34) pg MCHC 33.5 (32-36) g/dL RDW Std Deviation 57.0 H (36.4-46.3) fL RDW Coeff of Huber 18.5 H (11.5-14.5) % Plt Count 283 (130-400) K/uL MPV 9.2 (7.4-10.4) fL Immature Gran % (Auto) 4.1 % Neut % (Auto) 71.9 % Lymph % (Auto) 14.4 % Meigs % (Auto) 9.3 % Eos % (Auto) 0.0 % Baso % (Auto) 0.3 % Immature Gran # (Auto) 0.65 H (0.00-0.02) K/uL Neut # (Auto) 11.31 H (1.4-6.5) K/uL Lymph # (Auto) 2.27 (1.2-3.4) K/uL Meigs # (Auto) 1.47 H (0.11-0.59) K/uL Eos # (Auto) 0.00 (0-0.5) K/uL Baso # (Auto) 0.05 (0-0.2) K/uL PT 13.2 H (9.0-12.0) Seconds INR 1.3 H (0.9-1.1) APTT 31.8 H (21.0-31.0) Seconds PTT Ratio 1.2 VBG pH (7.36-7.41) VBG pCO2 (38-50) mmHg VBG pO2 mmHg VBG HCO3 mmol/L VBG O2 Saturation % VBG Base Excess mEq/L Barometric Pressure mm/Hg Sodium 141 (136-145) mmol/L Potassium 2.9 L (3.5-5.1) mmol/L Chloride 103 (98-107) mmol/L Carbon Dioxide 28 (21-32) mmol/L Anion Gap 10.0 (3-11) BUN 11 (7-18) mg/dl Creatinine 0.55 L (0.6-1.2) mg/dl Est Cr Clr Drug Dosing 153.8 ml/min Est GFR ( Amer) 131.3 Est GFR (Non-Af Amer) 113.3 BUN/Creatinine Ratio 19.5 (10-20) Glucose 101 H (70-99) mg/dl Lactate (0.4-2.0) mmol/L Calcium 8.0 L (8.5-10.1) mg/dl Magnesium 2.0 (1.8-2.4) mg/dl Total Bilirubin 0.4 (0.2-1) mg/dl AST 17 (15-37) U/L ALT 14 (12-78) U/L Alkaline Phosphatase 98 (45-117) U/L Troponin I 1.630 H* (0-0.045) ng/ml NT-Pro-B Natriuret Pep (0-450) pg/ml Total Protein 5.3 L (6.4-8.2) gm/dl Albumin 1.6 L (3.4-5.0) gm/dl Globulin 3.7 (2.5-4.0) gm/dl Albumin/Globulin Ratio 0.4 L (0.9-2) Influenza Type A (PCR) (Neg) Influenza Type B (PCR) (Neg) 12/30/18 12/30/18 12/30/18 Range/Units 08:49 08:49 08:55 WBC (4.8-10.8) K/uL RBC (4.2-5.4) M/uL Hgb (12.0-16.0) g/dL Hct (37-47) % MCV (80-100) fL MCH (25-34) pg MCHC (32-36) g/dL RDW Std Deviation (36.4-46.3) fL RDW Coeff of Huber (11.5-14.5) % Plt Count (130-400) K/uL MPV (7.4-10.4) fL Immature Gran % (Auto) % Neut % (Auto) % Lymph % (Auto) % Meigs % (Auto) % Eos % (Auto) % Baso % (Auto) % Immature Gran # (Auto) (0.00-0.02) K/uL Neut # (Auto) (1.4-6.5) K/uL Lymph # (Auto) (1.2-3.4) K/uL Meigs # (Auto) (0.11-0.59) K/uL Eos # (Auto) (0-0.5) K/uL Baso # (Auto) (0-0.2) K/uL PT (9.0-12.0) Seconds INR (0.9-1.1) APTT (21.0-31.0) Seconds PTT Ratio VBG pH 7.47 H (7.36-7.41) VBG pCO2 39 (38-50) mmHg VBG pO2 38 mmHg VBG HCO3 28 mmol/L VBG O2 Saturation 72.3 % VBG Base Excess 4.2 mEq/L Barometric Pressure 741.3 mm/Hg Sodium (136-145) mmol/L Potassium (3.5-5.1) mmol/L Chloride (98-107) mmol/L Carbon Dioxide (21-32) mmol/L Anion Gap (3-11) BUN (7-18) mg/dl Creatinine (0.6-1.2) mg/dl Est Cr Clr Drug Dosing ml/min Est GFR ( Amer) Est GFR (Non-Af Amer) BUN/Creatinine Ratio (10-20) Glucose (70-99) mg/dl Lactate 1.3 (0.4-2.0) mmol/L Calcium (8.5-10.1) mg/dl Magnesium (1.8-2.4) mg/dl Total Bilirubin (0.2-1) mg/dl AST (15-37) U/L ALT (12-78) U/L Alkaline Phosphatase (45-117) U/L Troponin I (0-0.045) ng/ml NT-Pro-B Natriuret Pep 2354 H (0-450) pg/ml Total Protein (6.4-8.2) gm/dl Albumin (3.4-5.0) gm/dl Globulin (2.5-4.0) gm/dl Albumin/Globulin Ratio (0.9-2) Influenza Type A (PCR) (Neg) Influenza Type B (PCR) (Neg) 12/30/18 Range/Units 09:25 WBC (4.8-10.8) K/uL RBC (4.2-5.4) M/uL Hgb (12.0-16.0) g/dL Hct (37-47) % MCV (80-100) fL MCH (25-34) pg MCHC (32-36) g/dL RDW Std Deviation (36.4-46.3) fL RDW Coeff of Huber (11.5-14.5) % Plt Count (130-400) K/uL MPV (7.4-10.4) fL Immature Gran % (Auto) % Neut % (Auto) % Lymph % (Auto) % Meigs % (Auto) % Eos % (Auto) % Baso % (Auto) % Immature Gran # (Auto) (0.00-0.02) K/uL Neut # (Auto) (1.4-6.5) K/uL Lymph # (Auto) (1.2-3.4) K/uL Meigs # (Auto) (0.11-0.59) K/uL Eos # (Auto) (0-0.5) K/uL Baso # (Auto) (0-0.2) K/uL PT (9.0-12.0) Seconds INR (0.9-1.1) APTT (21.0-31.0) Seconds PTT Ratio VBG pH (7.36-7.41) VBG pCO2 (38-50) mmHg VBG pO2 mmHg VBG HCO3 mmol/L VBG O2 Saturation % VBG Base Excess mEq/L Barometric Pressure mm/Hg Sodium (136-145) mmol/L Potassium (3.5-5.1) mmol/L Chloride (98-107) mmol/L Carbon Dioxide (21-32) mmol/L Anion Gap (3-11) BUN (7-18) mg/dl Creatinine (0.6-1.2) mg/dl Est Cr Clr Drug Dosing ml/min Est GFR ( Amer) Est GFR (Non-Af Amer) BUN/Creatinine Ratio (10-20) Glucose (70-99) mg/dl Lactate (0.4-2.0) mmol/L Calcium (8.5-10.1) mg/dl Magnesium (1.8-2.4) mg/dl Total Bilirubin (0.2-1) mg/dl AST (15-37) U/L ALT (12-78) U/L Alkaline Phosphatase (45-117) U/L Troponin I (0-0.045) ng/ml NT-Pro-B Natriuret Pep (0-450) pg/ml Total Protein (6.4-8.2) gm/dl Albumin (3.4-5.0) gm/dl Globulin (2.5-4.0) gm/dl Albumin/Globulin Ratio (0.9-2) Influenza Type A (PCR) Neg for Influ A (Neg) Influenza Type B (PCR) Neg for Influ B (Neg) Imaging Data Radiologist's Impression: Radiology results as stated below per my review and the radiologist's interpretation: CT ANGIOGRAM OF THE CHEST; CT SCAN OF THE ABDOMEN AND PELVIS WITH IV CONTRAST CLINICAL HISTORY: Dyspnea. Nausea. COMPARISON STUDY: Chest CT scans dated 12/03/2018 and 01/10/2018. Abdominal CT dated 11/07/2018. TECHNIQUE: Following the IV administration of 119 of Optiray 320, CT angiogram of the chest is performed from the upper abdomen to the thoracic inlet utilizing the pulmonary embolus protocol. Images are reviewed in the axial, sagittal, coronal planes. 3-D MIPS images are created and assessed. Subsequently, CT scan of the abdomen and pelvis was performed from the lung bases to the proximal femora. Images are reviewed in the axial, sagittal, and coronal planes. IV contrast was administered without complication. A dose lowering technique was utilized adhering to the principles of ALARA. CT DOSE: 1417.56 mGy.cm FINDINGS: CHEST: Thyroid: Imaged portions of the thyroid gland are normal in size and attenua tion. Thoracic aorta: The thoracic aorta is normal in caliber and demonstrates bovine variant arch anatomy. No dissection is seen. Pulmonary vasculature: The pulmonary trunk is normal in caliber. There is saddle pulmonary embolus. Extensive pulmonary emboli are present within all lobar branches, extending peripherally into segmental and subsegmental levels. Heart: A right internal jugular central venous infusion port is in place. The heart is top normal in size and there is a small pericardial effusion. The coronary arteries are densely calcified. Lungs and pleural spaces: There are moderate pleural effusions with associated atelectasis. Intralobular septal thickening is noted at the lung bases. The trachea and central airways are clear. Pleural thickening is again seen at both lung bases. Mediastinum: There are prominent mediastinal lymph nodes. A prevascular node measures 7 mm in short axis. Terri: Clear. Axillae: There is no axillary lymphadenopathy. Bony thorax: No lytic or blastic lesions are identified. Soft tissues: There is a small pocket of fluid within the left anterior chest wall measuring 1.8 cm, best seen on image #207. This is at the site of a previous infusion port and likely represents a small seroma. ABDOMEN AND PELVIS: Liver: The contrast-enhanced liver is enlarged, measuring 20 cm in length. The liver demonstrates diffusely diminished attenuation consistent with severe hepatic steatosis. There is no intrahepatic or ductal dilatation. The hepatic veins and portal veins are patent. 3.6 cm cystic lesion is again seen in the caudate lobe. A peripherally enhancing low-attenuation fluid collection is again seen along the right lateral margin of the liver on image #124. This has decreased in size from previous, and measures up to 10 x 2.5 cm in maximum axial dimension. Gallbladder: Surgically absent noting clips in the gallbladder fossa. Spleen: Normal in size and attenuation. Pancreas: Unremarkable. Adrenal glands: Unremarkable. Kidneys: The contrast enhanced kidneys demonstrate mild cortical atrophy and are without hydronephrosis. The kidneys enhance symmetrically. Abdominal vasculature: The abdominal aorta is normal in course and caliber noting moderate to advanced atherosclerotic calcification. Stomach and bowel: Postoperative change is consistent with a history of Hubert-en-Y gastric bypass surgery. No bowel obstruction is seen. The small bowel loops are matted anteriorly, likely representing adhesions. The appendix is normal as imaged. Peritoneum: There is only trace abdominal ascites. This is significantly decreased from previous. No intraperitoneal free air is seen. A catheter is coiled in the pelvis from a right lower quadrant approach. There is a thick- walled and peripherally enhancing multiloculated fluid collection the pelvis or on the catheter. This measures approximately 7.5 x 11 x 9.5 cm in dimension and there are adjacent foci of nodular soft tissue thickening and enhancement. A 3.6 x 2.3 cm collection is seen in the left upper quadrant scalloping the anterior margin of the spleen on image #128. Numerous additional tiny locules of fluid are scattered throughout the mesentery. Lymphadenopathy: None. Pelvic viscera: The bladder, uterus, and adnexa are normal as visualized. Skeletal structures: No lytic or blastic lesions are seen. Sclerotic change is n oted in the sacroiliac joints. IMPRESSION: 1. Saddle embolus with extensive pulmonary emboli as above. 2. There are small to moderate and at least partially loculated pleural effusions as above. These are similar to the 12/03/2018 examination. 3. Intralobular septal thickening is again seen at both lung bases. This could represent scarring/atelectasis, a component of congestive change, and/or limited expected tumor. 4. Nonspecific pleural thickening is again seen at the lung bases. 5. Severe hepatic steatosis. 6. There is only trace residual abdominal ascites. 7. A catheter is coiled in the pelvis, new from previous. A loculated fluid collection is seen in the pelvis around the tip of the catheter with foci of nodular thickening and enhancement. There are several additional cystic c ollections scattered throughout the abdomen and pelvis, and this appears improved from 11/07/2018. 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 Superimposed infection at any of these sites would be impossible to exclude by imaging and clinical correlation will be required. 8. There are postoperative changes from a Hubert-en-Y gastric bypass procedure. No bowel obstruction is seen. 9. Additional findings as above. Electronically signed by: Fermín Arroyo M.D. 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 History of gastric bypass as well. Presenting with weakness over the past several days decreased oral intake along with shortness of breath particularly this morning. Noticed some right leg swelling below the knee y esterday. Is on prophylactic Lovenox dosing only. Denies trauma. Denies chest pain. EMS called and noted to be hypoxic and hypotensive. Not normally on oxygen. Now requiring 15 L to saturate proximal and 90. Some swelling of the right lower extremity. Some mild diffuse abdominal ascites noted but not tense. EKG with what appears to be some new diffuse ST depressions. Troponin was sent. [id number] BMP obtained and taken for emergent CT of the chest and abdomen pelvis. Concern for possible PE. Also concern for possible lower extremity DVT. Could also be accumulated ascites although does have a drain in place. No real infectious symptoms reported but influenza and blood cultures were sent. Less likely to be infectious after results. CT scan shows evidence of a large saddle pulmonary embolism with extensive emboli elsewhere. CT abdomen pelvis without other significant acute pathology contributing to today's complaint. Likely a right lower extremity DVT as well. Discussed with the ICU doctor. Does have evidence of some cardiac strain with positive troponin. Started on a heparin drip. Discussed with the ICU who they wished for another fluid bolus before initiating TPA and will see the patient in the ICU. Hospitalist contacted as well. Impression & Plan Pulmonary emboli, Hypoxia, Non-ST elevation SD (NSTEMI) Critical Care Time I have personally spent 45 minutes of critical care time in the direct management of this patient. This includes bedside care, interpretation of diagnostic studies, and testing, discussion with consultants, patient, and family members, and other required patient management activities. This 45 minutes is in excess of all separately billable procedures. Critical Care Time: Yes Total Critical Care Time: 45 Discharge Plan Visit Data *Final* Discharge Date/Time: 12/30/18 11:26 Chief Complaint: Shortness of Breath/Dyspnea ED Provider: Shola Clark Discharge Problem: Pulmonary emboli, Hypoxia, Non-ST elevation SD (NSTEMI) Patient Disposition: Admitted As Inpatient Discharge Instructions Interventions: ED Discharge Assessment Last Done: 12/30/18 11:26 Discharge Problem: Pulmonary emboli Qualifiers: Pulmonary embolism type: saddle The scribe's documentation has been prepared under my direction and personally reviewed by me in its entirety. I confirm that the note above accurately reflects all work, treatment, procedures, and medical decision making performed by me.
--- NOTE | 2018-12-30 10:12 | History & Physical Report ---
Date of Service December 30, 2018 Assessment & Plan (1) Hypoxia: Acute respiratory distress with hypoxia, presumed to be from saddle pulmonary embolus. She has physiological strain from this with tachycardic and hypotensive vital signs and requiring significant oxygen supplementation to maintain her saturations. He is previously known small pleural effusions from her metastatic disease and poor nutritional status. We will supplement oxygen with high flow and anticoagulated with intravenous heparin (2) Pulmonary embolism: Patient takes prophylactic Lovenox previously she was on therapeutic warfarin therapy. This was because of a left subclavian surgery DVT. Patient did miss 1 dose of subcu Lovenox according to her, one day prior to admission. She is a saddle pulmonary embolus seen on CT scan and she does have clinical signs of likely right calf DVT with positive Homans sign she is anticoagulated with intravenous heparin at this time, ICU with consideration of thrombolytic therapy (3) Metastatic squamous cell carcinoma: Patient reportedly sees Dr. Bundy, has been intolerant of some chemotherapy in the past and is reportedly in 1 week chemotherapy at lower doses. She continues to pursue additional treatment she is a full code at this time. (4) Abdominal carcinomatosis: Pt has a poorly functioning Pleurex cath in her right abdomen and CT shows likely loculated fluid collections, and there was some discussion of removing tube in the next two weeks. (5) Hypokalemia: pt has significant issues swallowing her potassium pills will try to augment her intravenously and then try to find another way to augment her potassium (6) Nausea: Patient had persistent nausea for the last 2 days which is she feels secondary to chemotherapy. Could also be from gastritis will use intravenous famotidine as Protonix is on back order. We will supply antiemetics at this time clear liquid diet and nutritional evaluation. If it looks like she may have some gastric outlet issues because of her cancer we may pursue a gastric emptying study. The patient otherwise does not have any swallowing issues per se. History of Present Illness She reportedly is on home Lovenox injections Primary Care Provider: Alvaro Mohamud MD The patient is a 43 year old female who presents to the Emergency Department with complaints of shortness of breath beginning 12/29. She has a history of metastatic esophageal cancer and is on home lovenox injections. She reportedly is on home Lovenox injections because she is having difficulty controlling her INR being on Coumadin therapy and chemotherapy at the same time. She was fully anticoagulated in the past due to a left subclavian catheter associated blood clot that catheter has been since removed. She reported feeling very weak and nauseous. The patient denies being febrile and denies having chest pain. She states that she also has neuropathy and a history of a gastric bypass. The patient states that she normally does not wear Oxygen at home. She follows with Dr. Bruner and Dr. Mohamud. She states that she was a smoker 12 years ago. Pts oxygen saturation in the ER was up to 90% after being placed on a non- rebreather, the patient was also hypotensive at 40/20. Per EMS, the patient was hypotensive at 44/20 and was tachycardic. EMS states that the patient had chemotherpay 2 weeks ago. Per EMS, the patient reported having right leg achiness since yesterday morning. Per EMS, the patient's home health nurse came this morning and the patient was with an oxygen saturation in the 70s. Per EMS, the patient has not been eating much in the last couple of weeks and has not been taking her potassium supplements over the last couple of days. Allergies Allergy/AdvReac Type Severity Reaction Status Date / Time No Known Allergies Allergy Verified 12/30/18 09:34 Home Medications Home Medications Medication Instructions Recorded Confirmed Type omeprazole 20 mg PO BID 05/13/18 12/30/18 History cyanocobalamin (vit B-12) 1,000 1,000 mcg IM UD ml 11/18/18 12/30/18 History mcg/mL injection solution hydrocodone 10 mg-acetaminophen 1 tab PO QID PRN 11/18/18 12/30/18 History 325 mg tablet pediatric multivitamin chewable 1 tab PO BID 11/18/18 12/30/18 History tablet pregabalin 150 mg PO TID 12/04/18 12/30/18 History dronabinol 5 mg capsule 5 mg PO TID 12/09/18 12/30/18 History enoxaparin 40 mg/0.4 mL 40 mg SQ DAILY 12/09/18 12/30/18 History subcutaneous syringe potassium 10 meq PO BID 12/11/18 12/30/18 History medroxyprogesterone 1 dose IM Q3M 12/30/18 12/30/18 History Past Med/Surg History Medical History Esophageal cancer (Chronic) Acid reflux History of blood clots LEFT UPPER CHEST "HOOKED TO JUGULAR VEIN" (2 CLOTS TOTAL) History of pleural effusion JANUARY 2018/ R & L DRAINAGE CATHETERS History of recent chemotherapy Surgical History History of gastric bypass History of shoulder surgery LEFT History of vascular access device MEDIPORT LEFT CHEST Family History Grandfather Family history of stomach cancer Social History Preferred Language: Irish Communication Ability: Effective 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 Beliefs That Will Affect Care: Zoroastrianism Current Living Situation: Family Current Living Situation Comment: live with son Other Information That Helps Us Care for You: No Feels Safe at Home: Yes Safety Concerns: Feels Safe At This Time Smoking Status: Never smoker Tobacco Type: cigarettes Second Hand Exposure: No Hx Alcohol Use: No Hx Substance Use: No Review of Systems Review of Systems: ROS: Appears chronically ill weekend and fatigue No double vision blurry vision Patient has had anorexia of late and has difficulty swallowing potassium pills No palpitations, chest pain or pressure Patient feels short of breath has no pleuritic pain has a small cough but no hemoptysis No abdominal pain nausea vomiting diarrhea did move her bowels one day prior to admission No burning urine urine frequency or changes in color No focal joint pain does have right calf pain No skin rashes or oral lesions No unusual bruising or bleeding No focused back pain or numbness or loss of strength outside of her typical neuropathy No changes in memory or confusion Physical Exam Physical Exam: The patient appeared medically ill she is alopecia Vital signs as documented. Tachycardic hypertensive Head exam is unremarkable. normocephalic, atraumatic, oropharynx without thrush Neck is without jugular venous distension, thyromegaly, or lymphademopathy Lungs are clear to auscultation with exception of some decreased breath sounds at the bases Cardiac exam reveals CARDIAC: No chest pain, sweating, shortness of breath, leg swelling, or irregular heart beat.. First and second heart sounds normal. Abdominal exam reveals normal bowel sounds, no masses, no organomegaly, she is a Pleurx catheter in the right mid abdomen Extremities are nonedematous and both pedal pulses are present, positive Homans sign but no cords are felt in the right leg Neurologic exam is A&Ox3, no focal deficits, strength is equal bilateral globally diminished Psychologically seems to be coping well with her serious medical problems Skin is warm Dry without bruises or lesions Results & Data Vital Signs (Past 12 Hours) Vital Signs Temp Pulse Pulse Resp BP BP Pulse Ox 12/30/18 10:01 115 H 28 H 88/68 L 93 12/30/18 09:44 115 H 91/64 L 90 12/30/18 09:25 119 H 28 H 81/65 L 90 12/30/18 08:41 93 12/30/18 08:40 93 12/30/18 08:35 36.6 C 127 H 32 H 96/74 L 87 L Diagnostic Findings CTA + abd and pelvis: Saddle embolus with extensive pulmonary emboli as above. 2. There are small to moderate and at least partially loculated pleural effusions as above. These are similar to the 12/03/2018 examination. 3. Intralobular septal thickening is again seen at both lung bases. This could represent scarring/atelectasis, a component of congestive change, and/or limited expected tumor. 4. Nonspecific pleural thickening is again seen at the lung bases. 5. Severe hepatic steatosis. 6. There is only trace residual abdominal ascites. 7. A catheter is coiled in the pelvis, new from previous. A loculated fluid collection is seen in the pelvis around the tip of the catheter with foci of nodular thickening and enhancement. There are several additional cystic collections scattered throughout the abdomen and pelvis, and this appears improved from 11/07/2018. 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 Superimposed infection at any of these sites would be impossible to exclude by imaging and clinical correlation will be required. 8. There are postoperative changes from a Hubert-en-Y gastric bypass procedure. No bowel obstruction is seen. ECG Additional Comments: EKG was not performed in the ER and will be performed in the ICU
[2018-12-30] MEDS ORDERED: SODIUM CHLORIDE 0.9% 1000ML 1,000 ML IV ONE (10:13)
[2018-12-30 10:14] LABS: Influenza A virus by PCR Neg for Influ A (Neg); Influenza B virus by PCR Neg for Influ B (Neg)
[2018-12-30] MEDS ORDERED: HEPARIN 25000 UNIT/500 ML D5W IV ONE (10:19)
[2018-12-30] MEDS ORDERED: HEPARIN SOD (PORCINE) 1000 UNIT/ML 10 ML VIAL ONE (10:19)
--- NOTE | 2018-12-30 10:38 | Critical Care Consultation ---
Date of Consultation December 30, 2018 Assessment & Plan (1) Pulmonary emboli: Reason Critically Ill: 43-year-old female with a PMHx of esophageal cancer s/p chemotherapy here for saddle pulmonary embolus. Neuro - [facility] ICU: NEGATIVE Cardiac - No prior cardiac history EKG: sinus tachycardia with nonspecific T wave changes likely 2/2 to PE managed as below Respiratory - Massive Pulmonary Embolism: - Saddle PE with multiple diffuse PEs noted on CT-PE protocol - Tachycardic, hypotensive, tachypnic on admission - Oxymask 15L/min, Spo2 ~92% - TPA administered 100mg/2hr given hypotension. She is tolerating administration well with slow normalization of her blood pressure and downtrending of her heart rate. No clinical signs of bleeding at this time. - Heparin held temporarily in context of TPA administration. Once complete, resume heparin gtt with bolus protocol. 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 Will require therapeutic anticoagulation dosing likely followed by indefinite anticoagulation. Question lovenox as an appropriate agent in post-therapeutic period given clot development while on 40mg daily, but given esophageal cancer is not an ideal candidate for DOAC either. 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 Continue to follow. HEME - - Stable H&H. - Will monitor for any drops in the setting of Heparin gtt Esophageal Cancer - s/p port placement with ongoing chemotherapy. Was previously on coumadin for a clot at her port site which was revised . - No oncology consult at this time ID - No concerns for infection at this point. INTEGUMENTARY - No skin lesions or skin findings at this time LINES/IV ACCESS - PIVs intact. DVT PROPHYLAXIS - Heparin gtt, TPA protocol Thank you for allowing us to be part of this patient's care. Please refer to Dr. Dozier's documentation for any further recommendations. (2) Peripheral neuropathy: History of Present Illness Reason for Consultation: Saddle Pulmonary Embolism Requesting Physician: Dr. Clark Attending Physician: Dr. Yap History of Present Illness Naomi Caro is a 43yo F with a PMHx of metastatic esophageal cancer on enoxaparin anticoagulation who presented to the emergency department with increased shortness of breath, nausea, and leg pain from the ankle to knee. She noticed her symptoms yesterday morning and they have gradually worsened. She has not had any chest pain, fever, or chills. She denies vomiting, diarrhea. She presented to the emergency departmet after her home health nurse noted her SpO2 was in the 70s and called EMS. She follows with Dr. Bundy and Dr. Mohamud for her malignancy. She last had chemotherapy treatment two weeks ago. She had a R port placed at about that time. She has not had any radiation treatment. She has not taken any long trips and had prolonged periods of sitting. She has not had any recent surgery other than the placement of her R port as noted above. She is a former smoker, last tobacco use 12 years ago. She has had a decreased appetite for the last couple of weeks and has not been taking her potassium supplements over the last couple of days. She denies other symptoms/problems. CT-PE in ED shows mutliple pulmonary emboli and a saddle embolus. Allergies Allergy/AdvReac Type Severity Reaction Status Date / Time No Known Allergies Allergy Verified 12/30/18 09:34 Home Medications Home Medications Medication Instructions Recorded Confirmed Type omeprazole 20 mg PO BID 05/13/18 12/30/18 History cyanocobalamin (vit B-12) 1,000 1,000 mcg IM UD ml 11/18/18 12/30/18 History mcg/mL injection solution hydrocodone 10 mg-acetaminophen 1 tab PO QID PRN 11/18/18 12/30/18 History 325 mg tablet pediatric multivitamin chewable 1 tab PO BID 11/18/18 12/30/18 History tablet pregabalin 150 mg PO TID 12/04/18 12/30/18 History dronabinol 5 mg capsule 5 mg PO TID 12/09/18 12/30/18 History enoxaparin 40 mg/0.4 mL 40 mg SQ DAILY 12/09/18 12/30/18 History subcutaneous syringe potassium 10 meq PO BID 12/11/18 12/30/18 History medroxyprogesterone 1 dose IM Q3M 12/30/18 12/30/18 History Patient History Medical History Esophageal cancer (Chronic) Acid reflux History of blood clots LEFT UPPER CHEST "HOOKED TO JUGULAR VEIN" (2 CLOTS TOTAL) History of pleural effusion JANUARY 2018/ R & L DRAINAGE CATHETERS History of recent chemotherapy Surgical History History of gastric bypass History of shoulder surgery LEFT History of vascular access device MEDIPORT LEFT CHEST Family History Grandfather Family history of stomach cancer Social History Preferred Language: Samoan Communication Ability: Effective Beliefs That Will Affect Care: None Current Living Situation: Family Current Living Situation Comment: lives at home with son. Feels Safe at Home: Yes Smoking Status: Former smoker Tobacco Type: cigarettes Second Hand Exposure: No Hx Alcohol Use: No Hx Substance Use: No Review of Systems Review of Systems: Constitutional: Denies fevers, chills. Eyes: Denies double vision, vision change, eye pain ENT: Denies ear pain, sore throat, sinus pain Cardiovascular: Denies chest pain, chest pressure, palpitations, lower extremity edema. Respiratory: Endorses shortness of breath. Denies wheezing, asthma, COPD Gastrointestinal: Denies abdominal pain, vomiting, constipation, diarrhea. Endorses nausea. Genitourinary: Denies dysuria, urinary symptoms. Musculoskeletal: Endorses fatigue, diffuse weakness. Denies joint stiffness, joint swelling Integumentary: Denies rash, hives, blisters, bruising, Neurological: Denies headache, weakness, numbness Hematology: Denies recent bleeding, bruising, clotting problems Physical Exam Physical Exam: General: A&Ox3. NAD. Cooperative. HEENT: Atraumatic, normocephalic. Pulm: CTAB A&P. -wheezes, -rales, -rhonchi. Symmetrical chest rise. No overt distress. On 15L oxymask. Cardiac: RRR, -mrg. S2 more prominent than S1. Abdominal: Nontender, nondistended, soft. BS present. Extremity: No unilateral leg swelling, no lower extremity warmth or erythema. Results & Data Vital Signs (Past 12 Hours) Vital Signs Temp Pulse Pulse Resp BP BP Pulse Ox 12/30/18 10:01 115 H 28 H 88/68 L 93 12/30/18 09:44 115 H 91/64 L 90 12/30/18 09:25 119 H 28 H 81/65 L 90 12/30/18 08:41 93 12/30/18 08:40 93 12/30/18 08:35 36.6 C 127 H 32 H 96/74 L 87 L Resident Activity Tracking Resident Involvement: Resident Care Provided Care Provided: Adult Hospital Medicine (1) Pulmonary emboli Pulmonary embolism type: saddle
[2018-12-30] MEDS ORDERED: ALTEPLASE, RECOMBINANT 100 MG in EMPTY BAG 0 ML IV SCH (12:03)
[2018-12-30] MEDS ORDERED: ICU PROTOCOL FOR HYPERGLYCEMIA PRN ×2 (12:10)
[2018-12-30] MEDS ORDERED: FAMOTIDINE 20 MG in DEXTROSE 5% 100 ML IV SCH (12:10)
[2018-12-30] MEDS ORDERED: POTASSIUM CHLORIDE 10 MEQ / 100ML WTR IV STA (12:10)
[2018-12-30] MEDS ORDERED: HYDROCODONE/ACETAMINOPHEN 10/325 TAB PO PRN (12:10)
[2018-12-30] MEDS ORDERED: ICU ELECTROLYTE REPLACEMENT PROTOCOL PRN (12:10)
[2018-12-30] MEDS ORDERED: Heparin IV Standard *NO* Bolus IV SCH (14:16)
[2018-12-30] MEDS: POTASSIUM CHLORIDE / WTR 10 MEQ/100 ML PLCT IV SCH ×3 (14:17→16:41)
[2018-12-30] MEDS: DRONABINOL 2.5 MG CAP PO SCH ×3 (14:18→20:52)
[2018-12-30] MEDS: FAMOTIDINE 20 MG in SYRINGE 3 ML IV SCH ×2 (14:18→20:52)
[2018-12-30] MEDS: PREGABALIN 150 MG CAP PO SCH ×2 (14:18→20:52)
[2018-12-30] MEDS ORDERED: LACTATED RINGER'S 1,000 ML IV ONE ×2 (15:02→18:30)
[2018-12-30] MEDS: Heparin Adult STANDARD Wt-Based Dextrose 5% 25,000 units/500 mL IV SCH (15:34)
--- NOTE | 2018-12-30 16:41 | Ultrasound Report ---
BILATERAL LOWER EXTREMITY VENOUS DOPPLER HISTORY: Pulmonary embolus. Right leg pain. COMPARISON STUDY: None. FINDINGS: There is near occlusive thrombus within the right popliteal vein with occlusive thrombus wi thin the right posterior tibial and one of 2 peroneal and anterior tibial veins. No DVT within the le ft lower externally. IMPRESSION: 1. Positive DVT within the right lower extremity. 2. No DVT within the left lower extremity. Electronically signed by: Ehsan Atkinson M.D. 12/30/2018 4:40 PM
[2018-12-30] MEDS ORDERED: NOREPINEPHRINE BIT INJ 8 MG in DEXTROSE 5% 500 ML IV SCH (19:30)
[2018-12-30 21:57] LABS: Partial Thromboplastin Ratio 3.4
[2018-12-30 21:59] LABS: Partial Thromboplastin Time 92.1 Seconds (21.0-31.0)
--- OUTSIDE RECORDS SUMMARY | 2018-12-30 22:55 | External Medical Summary | Continuity of Care Document ---
:1975 Author Name Ayanna Pena, Provider Address Unavailable Unavailable , Care Team Providers Name Role Phone Oneida RODRÍGUEZ M.D., Alvaro Zepeda Unavailable [email or web address] Leonardo CARLTON Unavailable [email or web address] Unavailable [email or web address] INTERVIEWING CLERK SC1 Unavailable MARCOS MOHAMUD M.D., A Unavailable Unavailable Unavailable Unavailable Unavailable Problems Cellulitis of foot (682.7) (L03.119) Cough (786.2) (R05) On depo medroxyprogesterone acetate for contraception (V25.4 9) (Z30.42) Nausea with vomiting (787.01) (R11.2) Sciatica (724.3) (M54.30) Plantar fasciitis (728.71) (M72.2) Diarrhea (787.91) (R19.7) Headache (784.0) (R51) Cholelithiasis (574.20) Esophageal cancer (150.9) (C15.9) Peritoneal dialysis catheter in place (V45.11) (Z99.2) Aftercare following surgery (V58.89) (Z48.89) Acid reflux (530.81) (K21.9) Malignant ascites (789.51) (R18.0) Port-A-Cath in place (V45.89) (Z95.828) Counseling for initiation of control method (V25.02) ( Z30.09) Encounter for routine gynecological exam ination with Papanicolaou smear of cervix (V72.31) (Z01.419) Malignant pleural effusion (511.81) (J91.0) Arm vein blood clot (453.83) (I82.609) Shortness of breath (786.05) (R06.02) Central chest pain (786.50) (R07.9) Elevated blood pressure reading without diagnosis of hypertension (796.2) (R03.0) Pap smear of cervix with ASCUS, cannot exclude HGSIL (795.02 ) (R87.611) Status post gastric bypass for obesity (V45.86) (Z98.84) Pain in joint of left shoulder (719.41) (M25.512) Joint pain, knee (719.46) (M25.569) Emotional crisis (309.29) (F43.20) Mild cervical dysplasia (622.11) (N87.0) Muscle spasm (728.85) (M62.838) Acute pharyngitis (462) (J02.9) Acne (706.1) (L70.9) Potassium deficiency (276.8) (E87.6) Pleural effusion (511.9) (J90) Vitamin B12 deficiency (266.2) (E53.8) Bacterial conjunctivitis of right eye (372.39) (H10.9) Abnormal glucose (790.29) (R73.09) Obesity (278.00) (E66.9) Vitamin D deficiency (268.9) (E55.9) Hyperlipidemia (272.4) (E78.5) Obstructive sleep apnea (327.23) (G47.33) Allergies and Adverse Reactions No Known Drug Allergies (Allergy) Medications Omeprazole 20 MG Oral Capsule Delayed Release; Take 1 capsule twice daily BRANDT Patterson Start: 12-Apr-2012 Quantity: 180 Refills: 3 Multi-Vitamin Oral Tablet; TAKE 1 TABLET DAILY. Start: 01-Dec-2011 Refills: 0 Calcium Citrate CAPS Refills: 0 Proventil HFA 108 (90 Base) MCG/ACT Inha lation Aerosol Solution; INHALE 1-2 PUFFS EVERY 4-6 HOURS NEEDED AND DIRECTED. BRANDT Patterson Start : 07-Jan-2018 Quantity: 1 6.7 GM Inhaler Refills: 3 Metoclopramide HCl - 10 MG/10ML Oral Maryanne ution; GIVE 1ML BY MOUTH FOUR TIMES DAILY 30 MINUTES BEFORE EATING AND AT BEDTIME CLARISSA Ansari Start: 19-Dec-2018 Quantity: 3 100 x 10 ML Cup Refills: 2 Carafate 1 GM/10ML Oral Suspension; TAKE 10ML BY MOUTH DAILY BEFORE MEALS Becky Mohamud III Start: 24-Dec-2018 Quantity: 1260 Refills: 4 Potassium Chloride ER 20 MEQ Oral Tablet Extended Release; TAKE 2 TABLET Twice daily BRANDT Patterson Start: 05-Dec-2018 Quantity: 120 Refills: 3 Lyrica 100 MG Oral Capsule; TAKE 1 CAPSULE 3 TIMES DAILY. Start: 22-Oct-2018 Refills: 0 Cyanocobalamin 1000 MCG/ML Injection Maryanne ution; INJECT 1 ML Intramuscular every 3 months BRANDT Patterson Start: 29-Apr-2018 Quantity: 0 Status: Admin Reques dara Refills: 0 Coumadin 4 MG Oral Tablet; TAKE 1 TABLET BY MOUTH DAILY OR A S DIRECTED Start: 29-Apr-2018 Refills: 0 Vicodin TABS; TAKE 1 TABLET DAILY NEEDED FOR PAIN. Refills: 0 Procedures X-ray Chest, PA and Lateral Routine Date: 12-Dec-2018 History of Oral Surgery Tooth Status: Co mpleted Extraction History of Colposcopy With Loop Status: Completed Electrode Excision Of The Cervix History of Colposcopy With Loop Status: Completed Electrode Excision Of The Cervix History of Cholecystectomy Status: Compl eted Laparoscopic History of Gastric Surgery For Morbid St atus: Completed Obesity Gastric Bypass History of thoracentesis Status: Complet ed History of Thoracentesis (Diagnostic) St atus: Completed History of Lung Surgery Insertion Of Sta tus: Completed Tunnel Pleural Catheter With Cuff Counseling for initiation of control method History of venous access port Status: Co mpleted 11-Dec-2018 0:00 placement History of Excision For Hidradenitis Sta tus: Completed 26-Dec-2018 0:00 Axillary Immunizations Fluzone Quadrivalent 0.5 ML Intramuscular Suspension On: Jun-2018 16:59 Lot #: [id number], [employer] Family History Unknown Family Member Family history of Diabetes Mellitus (V18.0) Status: Active Comments: Family History Father Family history of Acute Myocardial Infarction (V17.3) Status : Active Mother Family history of Gastric Surgery For Morbid Obesity Status: Active Family history of Cerebral Artery Occlusion With Cereb ral Infarction Status: Active Family history of Osteoporosis (V17.81) Status: Active Sister Family history of Family Health Status Of Sister - Good Stat us: Active Grandmother Family history of Cerebral Artery Aneurysm Status: Active Social History - Smoking Status Unknown if ever smoked Never smoker Former smoker Plan of Treatment Planned Encounters Appointment; INTERVIEWING CLERK SC1, Nursing Station Start: 12-Mar-2019 16: 00 Request Planned Observations Planned Goals not documented Results Comp Metabolic Panel Laboratory: [facility] Laboratory 1800 Comme nts: Drawn with IV (Pending) Mariana Malik Raymond RADHA start per protocol. [id number] tel: 03-Dec-2018 11:33 SODIUM 138 mmol/L Range: 136-145 mmol /L POTASSIUM 2.9 mmol/L (below low Range: 3.5-5.1 mmol/L threshold) CHLORIDE 100 mmol/L Range: 98-107 mmol/ L CARBON DIOXIDE 29 mmol/L Range: 21-32 m mol/L ANION GAP 9.0 Range: 3-11 BLOOD UREA NITROGEN 6 mg/dl (below Range : 7-18 mg/dl low threshold) CREATININE 0.34 mg/dl (below low Range: 0.6-1.2 mg/dl threshold) Estimated GFR () > Comme nts: Units: ml/min per 150.0 1.73 meters squaredT he estimated GFR (CKD-E PI equation) has not be en validatedfor inpatie nt settings and may not be an accurate reflectiono f renal function in critical ly ill patients or those withrapidly changing renal function (e.g. JAMAL). Estimated GFR (Non- Comments: Uni ts: ml/min per Citizen Of [place]) 132.7 1.73 meters squaredT he estimated GFR (CKD-E PI equation) has not be en validatedfor inpatie nt settings and may not be an accurate reflectiono f renal function in critical ly ill patients or those withrapidly changing renal function (e.g. JAMAL). BUN/CREATININE RATIO 17.5 Range: 10-20 GLUCOSE 90 mg/dl Range: 70-99 mg/dl CALCIUM 8.2 mg/dl (below low Range: 8.5 -10.1 mg/dl threshold) Bilirubin, Total 0.5 mg/dl Range: 0.2-1 mg/dl AST/SGOT 12 U/L (below low Range: 15-37 U/L threshold) ALT/SGPT 19 U/L Range: 12-78 U/L TOTAL PROTEIN 5.9 {gm/dl} (below Range: 6.4-8.2 gm/dl low threshold) ALBUMIN 1.5 {gm/dl} (below low Range: 3 .4-5.0 gm/dl threshold) GLOBULIN 4.4 {gm/dl} (above high Range: 2.5-4.0 gm/dl threshold) ALB/GLOB RATIO 0.3 (below low Range: 0. 9-2 threshold) ALKALINE PHOSPHATASE 101 U/L Range: 45- 117 U/L Magnesium (Pending) Laboratory: [facility] Laboratory 1800 Commen ts: Drawn with IV [address] Raymond [place] start per protocol. [id number] tel: 03-Dec-2018 11:33 MAGNESIUM 1.8 mg/dl Range: 1.8-2.4 mg/d l CBC With DIFF (Pending) Laboratory: [facility] Laboratory 1800 Co mments: Drawn with IV [address]. [address] [place] start per protocol. [id number] tel: 03-Dec-2018 11:33 WBC 2.72 K/uL (below low Range: 4.8-10. 8 K/uL threshold) RBC 4.03 {M/uL} (below low Range: 4.2-5 .4 M/uL threshold) HEMOGLOBIN 11.9 g/dL (below low Range: 12.0-16.0 g/dL threshold) HEMATOCRIT 35.3 % (below low Range: 37- 47 % threshold) MCV 87.6 fL Range: 80-100 fL MCH 29.5 pg Range: 25-34 pg MEAN CORPUSCULAR HGB CONC 33.7 Range: 3 2-36 g/dL g/dL RED CELL DISTRIBUTION WIDTH SD Range: 3 6.4-46.3 fL 45.6 fL RED CELL DISTRIBUTION WIDTH CV Range: 1 1.5-14.5 % 14.4 % PLATELET COUNT 427 K/uL (above Range: 1 30-400 K/uL high threshold) MEAN PLATELET VOLUME 10.0 fL Range: 7.4 -10.4 fL NEUT % 30.1 % Range: % LYMPH % 32.4 % Range: % MONO % 36.0 % Range: % EOS % 0.7 % Range: % BASO % 0.4 % Range: % IG% 0.4 % Range: % Comments: IG paramet er reflects the combination of Metas, Myelos andPromyelocytes. Neutrophils (Auto) 0.82 K/uL Range: 1. 4-6.5 K/uL (Critical low) Comments: This resul t has been called to LENARD SINGLETON by Kary on 12 03 18 at 12:23, and has been read back (). LYMPH ABS # 0.88 K/uL (below low Range: 1.2-3.4 K/uL threshold) MONO ABS # 0.98 K/uL (above high Range: 0.11-0.59 K/uL threshold) EOS ABS # 0.02 K/uL Range: 0-0.5 K/uL BASO ABS # 0.01 K/uL Range: 0-0.2 K/uL IG# 0.01 K/uL Range: 0.00-0.02 K/ uL HYPOSEGMENTED POLYS 2+ GIANT PLATELETS 1+ CT chest wo con Laboratory: [facility] Diagnostic Imaging 1800 [facility] 03-Dec-2018 16:59 CT chest wo con [facility], [place] [phone] CT Scan Report Patient: SHERON AHUJA Admit Date: 12/03/18 MR#: [id number] Address1: [address] [place] [address] Acct ID:[id number] Address2: Date: 1975 [facility] Zip: [place] [address] Age: 43 Location: CT Sex: F Room/Bed: Att Phy: Hernan Ansari PA-C Diagnosis : PLURAL EFFUSION Teetee Phy: Alvaro Mohamud MD Service Date: 12/03/18 Fam Phy: Interpreting Phy: Fermín Leslie Admit Phy: Ordering Phy: Hernan Ansari PA-C cc: CT SCAN OF THE CHEST WITHOUT IV CONTRAST CLINICAL HISTORY: Pleural effusions. Esophageal cancer. COMPARISON STUDY: Chest CT scans dated 10/22/2018 and 01/10/2018. PET/CT dated 08/05/2018. Abdominal CT dated 11/07/2018. TECHNIQUE: CT scan of the thorax was performed from the thoracic inlet to the upper abdomen. Images are reviewed in the axial, sagittal, and coronal planes. IV contrast was not administered forthis examination as per the referring clinician. Note that the examination is suboptimal without IV contrast. A dose lowering technique was utilized adhering to the principles of ALARA. CT DOSE: 445.93 mGycm FINDINGS: Thyroid: Imaged portions of the thyroid gland are normal in size and attenuation. Thoracic aorta: The thoracic aorta is normal in caliber and demonstrates bovine variant arch anatomy. Heart: The heart is normal in size and there is a small to moderate pericardial effusion. The coronary arteries are densely calcified. A left internal jugular central venous infusion port is in place. Lungs and pleural spaces: There are small to moderate bilateral pleural effusions appear at least partially loculated. There is associated pleural thickening. There is intralobular septal thickeningseen throughout both lower lobes. The upper lobes appear relatively clear. The trachea and central airways are patent. Mediastinum: There are numerous subcentimeter mediastinal lymph nodes. Terri: Not well assessed without IV contrast. Axillae: A heterogeneous left axillary lymph node measures up to 1.8 cm. Upper abdomen: Postoperative change is identified the gastroesophageal junction and consistent withprevious Hubert-en-Y gastric bypass. There is loculated fluid scalloping the right lobe of the liver. This has increased in volume from 11/07/2018 and may be subcapsular in location. This measures up to 12 cm in length. A 4.4 cm cystic lesion in the caudate lobe of the liver is unchanged. Skeletal structures: The skeletal structures are osteopenic. No lytic or blastic bony lesions are seen. IMPRESSION: 1. There are small to moderate bilateral pleural effusions which are at least partially loculated. Both of these show adjacent pleural thickening, and these have not significantly changed from 10/22/2018. 2. Intralobular septal thickening and airspace opacities are again seen in the lower lobes. This isunchanged to slightly progressive from previous. Differential considerations include chronic scarring, a component of chronic congestive change, or possibly lymphangitic spread of tumor. 3. The upper lobes appear relatively clear. 4. Small to moderate pericardial effusion. 5. There is increasing loculated fluid in the upper abdomen which scallops the right lobe of the liver. This is likely related to the patient's history of carcinomatosis and the fluid may be subcapsular in location. A partially imaged cystic lesion in the caudate lobe has not appreciably changed. 6. Numerous subcentimeter mediastinal lymph nodes are similar to previous. 7. Additional findings as above. Electronically signed by: Fermín Arroyo M.D. 12/03/2018 5:10 PM Dictated: 12/03/181658 Transcribed: 12/03/181658 Basic Metabolic Panel Laboratory: [facility] Laboratory 1800 Mariana Malik [place] [id number] tel: 09-Dec-2018 8:04 SODIUM 140 mmol/L Range: 136-145 mmol /L POTASSIUM 2.6 mmol/L (below low Range: 3.5-5.1 mmol/L threshold) CHLORIDE 101 mmol/L Range: 98-107 mmol/ L CARBON DIOXIDE 36 mmol/L (above Range: 21-32 mmol/L high threshold) ANION GAP 3.0 Range: 3-11 BLOOD UREA NITROGEN 7 mg/dl Range: 7-18 mg/dl CREATININE 0.55 mg/dl (below low Range: 0.6-1.2 mg/dl threshold) Estimated GFR () Comment s: Units: ml/min per 131.3 1.73 meters squaredT he estimated GFR (CKD-E PI equation) has not be en validatedfor inpatie nt settings and may not be an accurate reflectiono f renal function in critical ly ill patients or those withrapidly changing renal function (e.g. JAMAL). Estimated GFR (Non- Comments: Uni ts: ml/min per Citizen [place]) 113.3 1.73 meters squaredT he estimated GFR (CKD-E PI equation) has not be en validatedfor inpatie nt settings and may not be an accurate reflectiono f renal function in critical ly ill patients or those withrapidly changing renal function (e.g. JAMAL). BUN/CREATININE RATIO 11.8 Range: 10-20 GLUCOSE 112 mg/dl (above high Range: 70 -99 mg/dl threshold) CALCIUM 7.8 mg/dl (below low Range: 8.5 -10.1 mg/dl threshold) CBC With DIFF (Pending) Laboratory: [facility] Laboratory 1800 Co mments: Reason for Exam [place] [id number] tel: [place]? NCom ment SDS 11-Dec-2018 10:18 WBC 20.11 K/uL (above high Range: 4.8-1 0.8 K/uL threshold) RBC 4.26 {M/uL} Range: 4.2-5.4 M/uL HEMOGLOBIN 12.4 g/dL Range: 12.0-16.0 g /dL HEMATOCRIT 37.6 % Range: 37-47 % MCV 88.3 fL Range: 80-100 fL MCH 29.1 pg Range: 25-34 pg MEAN CORPUSCULAR HGB CONC 33.0 Range: 3 2-36 g/dL g/dL RED CELL DISTRIBUTION WIDTH SD Range: 3 6.4-46.3 fL 48.2 fL (above high threshold) RED CELL DISTRIBUTION WIDTH CV Range: 1 1.5-14.5 % 15.2 % (above high threshold) PLATELET COUNT 507 K/uL (above Range: 1 30-400 K/uL high threshold) MEAN PLATELET VOLUME 9.2 fL Range: 7.4- 10.4 fL NEUT % 76.9 % Range: % LYMPH % 11.9 % Range: % MONO % 6.8 % Range: % EOS % 0.0 % Range: % BASO % 0.2 % Range: % IG% 4.2 % Range: % Comments: IG paramet er reflects the combination of Metas, Myelos andPromyelocytes. Neutrophils (Auto) 15.45 K/uL Range: 1 .4-6.5 K/uL (above high threshold) LYMPH ABS # 2.39 K/uL Range: 1.2-3.4 K/ uL MONO ABS # 1.37 K/uL (above high Range: 0.11-0.59 K/uL threshold) EOS ABS # 0.01 K/uL Range: 0-0.5 K/uL BASO ABS # 0.05 K/uL Range: 0-0.2 K/uL IG# 0.84 K/uL (above high Range: 0.00-0 .02 K/uL threshold) PT/INR (Pending) Laboratory: [facility] Laboratory 1800 Comm ts: Reason for Exam E. Sophy Menone. [facility] PREOPComme [facility] [address] tel: 11-Dec-2018 10:18 Prothrombin Time 12.7 {Seconds} Range: 9.0-12.0 Seconds (above high threshold) INR 1.3 (above high threshold) Range: 0 .9-1.1 PTT (Pending) Laboratory: [facility] Laboratory 1800 Commen ts: Reason for Exam Mariana Malik [facility] [place] [address] tel: 11-Dec-2018 10:18 PTT PATIENT 28.7 {Seconds} Range: 21.0- 31.0 Seconds Comments: Therapeuti c APTT range is 46.0 - 66.4 seconds PARTIAL THROMBOPLASTIN RATIO 1.1 Potassium, Serum Laboratory: [facility] Laboratory 1800 Commen ts: Reason for Exam (Pending) Mariana Malik [facility] [place] [id number] tel: 11-Dec-2018 10:18 POTASSIUM 3.2 mmol/L (below low Range: 3.5-5.1 mmol/L threshold) , Urine - Point Laboratory: [facility] Laboratory 1800 Of Care (Pending) Mariana Malik [facility] [address] tel: 11-Dec-2018 10:20 , Urine (Point of Care) Range: NEG NEG Comp Metabolic Panel Laboratory: [facility] 1800 Comme nts: Drawn from [facility] (Pending) Mariana Malik [facility] per protoc ol. 10 cc [id number] tel: discard. 16-Dec-2018 15:48 SODIUM 136 mmol/L Range: 136-145 mmol /L POTASSIUM 4.4 mmol/L Range: 3.5-5.1 mmo l/L CHLORIDE 104 mmol/L Range: 98-107 mmol/ L CARBON DIOXIDE 29 mmol/L Range: 21-32 m mol/L ANION GAP 3.0 Range: 3-11 BLOOD UREA NITROGEN 10 mg/dl Range: 7-1 8 mg/dl CREATININE 0.60 mg/dl Range: 0.6-1.2 mg /dl Estimated GFR () Comment s: Units: ml/min per 127.6 1.73 meters squaredT he estimated GFR (CKD-E PI equation) has not be en validatedfor [facility] nt settings and may not be an accurate reflectiono f renal function in critical ly ill patients or those withrapidly changing renal function (e.g. JAMAL). Estimated GFR (Non- Comments: Uni ts: ml/min per Citizen [place]) 110.1 1.73 meters squaredT he estimated GFR (CKD-E PI equation) has not be en validatedfor inpatie nt settings and may not be an accurate reflectiono f renal function in critical ly ill patients or those withrapidly changing renal function (e.g. JAMAL). BUN/CREATININE RATIO 16.3 Range: 10-20 GLUCOSE 152 mg/dl (above high Range: 70 -99 mg/dl threshold) CALCIUM 7.9 mg/dl (below low Range: 8.5 -10.1 mg/dl threshold) Bilirubin, Total 0.4 mg/dl Range: 0.2-1 mg/dl AST/SGOT 10 U/L (below low Range: 15-37 U/L threshold) ALT/SGPT 13 U/L Range: 12-78 U/L TOTAL PROTEIN 6.5 {gm/dl} Range: 6.4-8. 2 gm/dl ALBUMIN 1.4 {gm/dl} (below low Range: 3 .4-5.0 gm/dl threshold) GLOBULIN 5.1 {gm/dl} (above high Range: 2.5-4.0 gm/dl threshold) ALB/GLOB RATIO 0.3 (below low Range: 0. 9-2 threshold) ALKALINE PHOSPHATASE 140 U/L Range: 45- 117 U/L (above high threshold) Magnesium (Pending) Laboratory: [facility] Laboratory 1800 Commen ts: Drawn from [facility] per protoc ol. 10 cc [id number] tel: discard. 16-Dec-2018 15:48 MAGNESIUM 2.0 mg/dl Range: 1.8-2.4 mg/d l CEA (Pending) Laboratory: [facility] Laboratory 1800 Commen ts: Drawn from [facility] per protoc ol. 10 cc [id number] tel: discard. 16-Dec-2018 15:48 CARCINOEMBRYONIC ANTIGEN 1.8 ng/ml Range : 0-2.5 ng/ml CBC With DIFF (Pending) Laboratory: [facility] Laboratory 1800 Co mments: Drawn from [facility] per protoc ol. 10 cc [id number] tel: discard. 16-Dec-2018 15:48 WBC 25.55 K/uL (above high Range: 4.8-1 0.8 K/uL threshold) RBC 3.70 {M/uL} (below low Range: 4.2-5 .4 M/uL threshold) HEMOGLOBIN 10.5 g/dL (below low Range: 12.0-16.0 g/dL threshold) HEMATOCRIT 32.8 % (below low Range: 37- 47 % threshold) MCV 88.6 fL Range: 80-100 fL MCH 28.4 pg Range: 25-34 pg MEAN CORPUSCULAR HGB CONC 32.0 Range: 3 2-36 g/dL g/dL RED CELL DISTRIBUTION WIDTH SD Range: 3 6.4-46.3 fL 51.1 fL (above high threshold) RED CELL DISTRIBUTION WIDTH CV Range: 1 1.5-14.5 % 16.3 % (above high threshold) PLATELET COUNT 398 K/uL Range: 130-400 K/uL MEAN PLATELET VOLUME 9.6 fL Range: 7.4- 10.4 fL NEUT % 93.4 % Range: % LYMPH % 4.2 % Range: % MONO % 1.5 % Range: % EOS % 0.0 % Range: % BASO % 0.0 % Range: % IG% 0.9 % Range: % Comments: IG paramet er reflects the combination of Metas, Myelos andPromyelocytes. Neutrophils (Auto) 23.83 K/uL Range: 1 .4-6.5 K/uL (above high threshold) LYMPH ABS # 1.08 K/uL (below low Range: 1.2-3.4 K/uL threshold) MONO ABS # 0.39 K/uL Range: 0.11-0.59 K /uL EOS ABS # 0.00 K/uL Range: 0-0.5 K/uL BASO ABS # 0.01 K/uL Range: 0-0.2 K/uL IG# 0.24 K/uL (above high Range: 0.00-0 .02 K/uL threshold) ANISOCYTOSIS Present TYPE/SCREEN Hold Profile Laboratory: [facility] Laboratory 1800 (Pending) Mariana Malik [facility] [address] tel: 17-Dec-2018 13:40 TYPE/SCREEN HOLD PROFILE Run: 12/18/[address] [place], [place] [address]tany Pathology Report Name : SHERON AHUJA Age/Sex: 43/F Location: [facility]: [id number] Unit: [id number] Status: REG [facility] Room/Bed:Re12/18/18 Disch: Att Dr: Liborio Bruner D.O. Spec: [id number] Collected: 12/17/18Received: 12/17/[address]: Liborio Bruner D.O.Copy To: Alvaro Mohamud III, Lupe Prods: PC LeukoOrd Tests: TS, XMComments: Drawn from [facility] per protocol. 10 cc discard.Queries: Patient Confirmed NIf Not Currently , Preg or Miscarriage Last 3 Mo? NoTransfusion of Blood, Platelets, FFP in Past 3 Months? UnknownLast 3 Months: Rhogam? NoHas Patient Ever Had a Blood Transfusion? Unknown Alicia t Result Flag Reference Site Blood Type A PosAntibody Screen NEGATIVEXMPacked Cells, [id number] A Neg Compatible? Y Packed Cells, Leukoreduced-------- Issue --------Unit # Bld Type Product Status Date Time User Rsrvd [id number] A Neg PC Leuko TRANSFUSED 12/18/18833 68998Hkxdje: 310 mL TX Begin: 12/18/18 By [id number] End: 12/18/18 By [id number] Date/Time: 12/18/18841 Bobbi Gandhi RN (RN)Entered by: 12/18/18842 Bobbi Gandhi RN (RN)Transfusion Rate: 50Pulse Rhythm: RegularOccurred Date/Time: 12/18/18857 Arthur Lawson RN (RN)Entered by: 12/18/18899 Arthur Lawson RN (RN)Transfusion Rate: 200Pulse Rhythm: RegularOccurred Date/Time: 12/18/1815 53433 Bobbi Gandhi RN (RN)Entered by: 12/18/1818 [id number] Bobbi Gandhi RN (RN)Transfusion Rate: 200Pulse Rhythm: RegularOccurred Date/Time: 12/18/1847 66650 Bobbi Gandhi RN (RN)Entered by: 12/18/1850 70362 Bobbi Gandhi RN (RN)Transfusion Rate: 200Pulse Rhythm: RegularOccurred Date/Time: 12/18/18 1040 [id number] Bobbi Gandhi RN (RN)Entered by: 12/18/181044 [id number] Bobbi Gandhi RN (RN)Pulse Rhythm: Regular Alicia ts: Date Time Order Change Action User Run: 12/18/181044 [facility] Pathology Report Specimen: [id number] Collected: 12/17/18 (Continued) 12/17/181343 TS 1 NEW [id number]/17/18 1404 XM 1 ADD [id number] Products: Date Time Order Change Action User12/17/18 1404 PC Leuko [address] ADD [id number] abd pelvis IV con Laboratory: [facility] Diagnostic only (Pending) Imaging Farheen Cannon Raymond [place] 30-Dec-2018 9:28 CT abd pelvis IV con only [facility], [place] [phone] CT Scan Report Patient: SHERON AHUJA Admit Date: 12/30/18 MR#: [id number] Address1: [address] [place] Acct ID:[id number] Address2: Date: 1975 [facility] Zip: [place] [address] Age: 43 Location: ED Sex: F Room/Bed: Att Phy: Diagnosis: SOB Teetee Phy: Alvaro Mohamud III, MD Service Date: 12/30/18 Fam Phy: Interpreting Phy: Fermín Leslie Admit Phy: Ordering Phy: Shola Clark M.D. cc: CT ANGIOGRAM OF THE CHEST; CT SCAN OF THE ABDOMEN AND PELVIS WITH IV CONTRAST CLINICAL HISTORY: Dyspnea. Nausea. COMPARISON STUDY: Chest CT scans dated 12/03/2018 and 01/10/2018. Abdominal CT dated 11/07/2018. TECHNIQUE: Following the IV administration of 119 of Optiray 320, CT angiogram of the chest is performed from the upper abdomen to the thoracic inlet utilizing the pulmonary embolus protocol. Images are reviewed in the axial, sagittal, coronal planes. 3-D MIPS images are created and assessed. Subsequently, CT scan of the abdomen and pelvis was performed from the lung bases to the proximal femora. Images are reviewed in the axial, sagittal, and coronal planes. IV contrast was administered without complication. A dose lowering technique was utilized adhering to the principlesof ALARA. CT DOSE: 1417.56 mGy.cm FINDINGS: CHEST: Thyroid: Imaged portions of the thyroid gland are normal in size and attenuation. Thoracic aorta: The thoracic aorta is normal in caliber and demonstrates bovine variant arch anatomy. No dissection is seen. Pulmonary vasculature: The pulmonary trunk is normal in caliber. There is saddle pulmonary embolus.Extensive pulmonary emboli are present within all lobar branches, extending peripherally into segmental and subsegmental levels. Heart: A right internal jugular central venous infusion port is in place. The heart is top normal in size and there is a small pericardial effusion. The coronary arteries are densely calcified. Lungs and pleural spaces: There are moderate pleural effusions with associated atelectasis. Intralobular septal thickening is noted at the lung bases. The trachea and central airways are clear. Pleural thickening is again seen at both lung bases. Mediastinum: There are prominent mediastinal lymph nodes. A prevascular node measures 7 mm in shortaxis. Terri: Clear. Axillae: There is no axillary lymphadenopathy. Bony thorax: No lytic or blastic lesions are identified. Soft tissues: There is a small pocket of fluid within the left anterior chest wall measuring 1.8 cm, best seen on image #207. This is at the site of a previous infusion port and likely represents asmall seroma. ABDOMEN AND PELVIS: Liver: The contrast-enhanced liver is enlarged, measuring 20 cm in length. The liver demonstrates diffusely diminished attenuation consistent with severe hepatic steatosis. There is no intrahepatic or ductal dilatation. The hepatic veins and portal veins are patent. 3.6 cm cystic lesion is again seen in the caudate lobe. A peripherally enhancing low-attenuation fluid collection is again seen along the right lateral margin of the liver on image #124. This has decreased in size from previous,and measures up to 10 x 2.5 cm in maximum axial dimension. Gallbladder: Surgically absent noting clips in the gallbladder fossa. Spleen: Normal in size and attenuation. Pancreas: Unremarkable. Adrenal glands: Unremarkable. Kidneys: The contrast enhanced kidneys demonstrate mild cortical atrophy and are without hydronephrosis. The kidneys enhance symmetrically. Abdominal vasculature: The abdominal aorta is normal in course and caliber noting moderate to advanced atherosclerotic calcification. Stomach and bowel: Postoperative change is consistent with a history of Hubert-en-Y gastric bypass surgery. No bowel obstruction is seen. The small bowel loops are matted anteriorly, likely representing adhesions. The appendix is normal as imaged. Peritoneum: There is only trace abdominal ascites. This is significantly decreased from previous. No intraperitoneal free air is seen. A catheter is coiled in the pelvis from a right lower quadrant approach. There is a thick-walled and peripherally enhancing multiloculated fluid collection the pelvis or on the catheter. This measures approximately 7.5 x 11 x 9.5 cm in dimension and there are adjacent foci of nodular soft tissue thickening and enhancement. A 3.6 x 2.3 cm collection is seen in the left upper quadrant scalloping the anterior margin of the spleen on image #128. Numerous additional tiny locules of fluid are scattered throughout the mesentery. Lymphadenopathy: None. Pelvic viscera: The bladder, uterus, and adnexa are normal as visualized. Skeletal structures: No lytic or blastic lesions are seen. Sclerotic change is noted in the sacroiliac joints. IMPRESSION: 1. Saddle embolus with extensive pulmonary emboli as above. 2. There are small to moderate and at least partially loculated pleural effusions as above. These are similar to the 12/03/2018 examination. 3. Intralobular septal thickening is again seen at both lung bases. This could represent scarring/atelectasis, a component of congestive change, and/or limited expected tumor. 4. Nonspecific pleural thickening is again seen at the lung bases. 5. Severe hepatic steatosis. 6. There is only trace residual abdominal ascites. 7. A catheter is coiled in the pelvis, new from previous. A loculated fluid collection is seen in the pelvis around the tip of the catheter with foci of nodular thickening and enhancement. There areseveral additional cystic collections scattered throughout the abdomen and pelvis, and this appears improved from 11/07/2018. 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 Superimposed infection at any of these sites would be impossible to exclude by imaging and clinical correlation will be required. 8. There are postoperative changes from a Hubert-en-Y gastric bypass procedure. No bowel obstruction is seen. 9. Additional findings as above. Electronically signed by: Fermín Arroyo M.D. 12/30/2018 9:47 AM Dictated: 12/30/18927 Transcribed: 12/30/18927 CT (Chest for Laboratory: [facility] Diagnostic PE)Angiography with Imaging [address] [facility] (Pending) [facility] 30-Dec-2018 9:28 CT CHEST FOR PE ANGIO WITH [facility], [place] [phone] CT Scan Report Patient: SHERON AHUJA Admit Date: 12/30/18 MR#: [id number] Address1: [address] [place] [address] Acct ID:[id number] Address2: Date: 1975 [facility] Zip: [place] [address] Age: 43 Location: ED Sex: F Room/Bed: Att Phy: Diagnosis: SOB Teetee Phy: Alvaro Mohamud III, MD Service Date: 12/30/18 Fam Phy: Interpreting Phy: Fermín Leslie Admit Phy: Ordering Phy: Shola Clark M.D. cc: CT ANGIOGRAM OF THE CHEST; CT SCAN OF THE ABDOMEN AND PELVIS WITH IV CONTRAST CLINICAL HISTORY: Dyspnea. Nausea. COMPARISON STUDY: Chest CT scans dated 12/03/2018 and 01/10/2018. Abdominal CT dated 11/07/2018. TECHNIQUE: Following the IV administration of 119 of Optiray 320, CT angiogram of the chest is performed from the upper abdomen to the thoracic inlet utilizing the pulmonary embolus protocol. Images are reviewed in the axial, sagittal, coronal planes. 3-D MIPS images are created and assessed. Subsequently, CT scan of the abdomen and pelvis was performed from the lung bases to the proximal femora. Images are reviewed in the axial, sagittal, and coronal planes. IV contrast was administered without complication. A dose lowering technique was utilized adhering to the principlesof ALARA. CT DOSE: 1417.56 mGy.cm FINDINGS: CHEST: Thyroid: Imaged portions of the thyroid gland are normal in size and attenuation. Thoracic aorta: The thoracic aorta is normal in caliber and demonstrates bovine variant arch anatomy. No dissection is seen. Pulmonary vasculature: The pulmonary trunk is normal in caliber. There is saddle pulmonary embolus.Extensive pulmonary emboli are present within all lobar branches, extending peripherally into segmental and subsegmental levels. Heart: A right internal jugular central venous infusion port is in place. The heart is top normal in size and there is a small pericardial effusion. The coronary arteries are densely calcified. Lungs and pleural spaces: There are moderate pleural effusions with associated atelectasis. Intralobular septal thickening is noted at the lung bases. The trachea and central airways are clear. Pleural thickening is again seen at both lung bases. Mediastinum: There are prominent mediastinal lymph nodes. A prevascular node measures 7 mm in shortaxis. Terri: Clear. Axillae: There is no axillary lymphadenopathy. Bony thorax: No lytic or blastic lesions are identified. Soft tissues: There is a small pocket of fluid within the left anterior chest wall measuring 1.8 cm, best seen on image #207. This is at the site of a previous infusion port and likely represents asmall seroma. ABDOMEN AND PELVIS: Liver: The contrast-enhanced liver is enlarged, measuring 20 cm in length. The liver demonstrates diffusely diminished attenuation consistent with severe hepatic steatosis. There is no intrahepatic or ductal dilatation. The hepatic veins and portal veins are patent. 3.6 cm cystic lesion is again seen in the caudate lobe. A peripherally enhancing low-attenuation fluid collection is again seen along the right lateral margin of the liver on image #124. This has decreased in size from previous,and measures up to 10 x 2.5 cm in maximum axial dimension. Gallbladder: Surgically absent noting clips in the gallbladder fossa. Spleen: Normal in size and attenuation. Pancreas: Unremarkable. Adrenal glands: Unremarkable. Kidneys: The contrast enhanced kidneys demonstrate mild cortical atrophy and are without hydronephrosis. The kidneys enhance symmetrically. Abdominal vasculature: The abdominal aorta is normal in course and caliber noting moderate to advanced atherosclerotic calcification. Stomach and bowel: Postoperative change is consistent with a history of Hubert-en-Y gastric bypass surgery. No bowel obstruction is seen. The small bowel loops are matted anteriorly, likely representing adhesions. The appendix is normal as imaged. Peritoneum: There is only trace abdominal ascites. This is significantly decreased from previous. No intraperitoneal free air is seen. A catheter is coiled in the pelvis from a right lower quadrant approach. There is a thick-walled and peripherally enhancing multiloculated fluid collection the pelvis or on the catheter. This measures approximately 7.5 x 11 x 9.5 cm in dimension and there are adjacent foci of nodular soft tissue thickening and enhancement. A 3.6 x 2.3 cm collection is seen in the left upper quadrant scalloping the anterior margin of the spleen on image #128. Numerous additional tiny locules of fluid are scattered throughout the mesentery. Lymphadenopathy: None. Pelvic viscera: The bladder, uterus, and adnexa are normal as visualized. Skeletal structures: No lytic or blastic lesions are seen. Sclerotic change is noted in the sacroiliac joints. IMPRESSION: 1. Saddle embolus with extensive pulmonary emboli as above. 2. There are small to moderate and at least partially loculated pleural effusions as above. These are similar to the 12/03/2018 examination. 3. Intralobular septal thickening is again seen at both lung bases. This could represent scarring/atelectasis, a component of congestive change, and/or limited expected tumor. 4. Nonspecific pleural thickening is again seen at the lung bases. 5. Severe hepatic steatosis. 6. There is only trace residual abdominal ascites. 7. A catheter is coiled in the pelvis, new from previous. A loculated fluid collection is seen in the pelvis around the tip of the catheter with foci of nodular thickening and enhancement. There areseveral additional cystic collections scattered throughout the abdomen and pelvis, and this appears improved from 11/07/2018. 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 Superimposed infection at any of these sites would be impossible to exclude by imaging and clinical correlation will be required. 8. There are postoperative changes from a Hubert-en-Y gastric bypass procedure. No bowel obstruction is seen. 9. Additional findings as above. Electronically signed by: Fermín Arroyo M.D. 12/30/2018 9:47 AM Dictated: 12/30/18927 Transcribed: 12/30/18927 Ultrasound Venous Laboratory: [facility] Diagnostic Doppler Lwr Ext Bila Imaging [address] [facility] (Pending) [facility] 30-Dec-2018 16:39 US Venoous Doppler Lwr Ext Bila [place], [place] [phone] Ultrasound Report Patient: SHERON AHUJA Admit Date: 12/30/18 MR#: [id number] Address1: [address] [place] [address] Acct ID:[id number] Address2: Date: 1975 [facility] Zip: [place] [address] Age: 43 Location: Sex: F Room/Bed: [facility] Att Phy: Casey Vu MD Diagnosis: SA DDLE PE Teetee Phy: Alvaro Mohamud III, MD Service Date: 12/30/18 Fam Phy: Interpreting Phy: Ehsan ayala MD Admit Phy: Hemant Yap MD Ordering Phy: Zechariah Hinkle MD cc: BILATERAL LOWER EXTREMITY VENOUS DOPPLER HISTORY: Pulmonary embolus. Right leg pain. COMPARISON STUDY: None. FINDINGS: There is near occlusive thrombus within the right popliteal vein with occlusive thrombus within the right posterior tibial and one of 2 peroneal and anterior tibial veins. No DVT within theleft lower externally. IMPRESSION: 1. Positive DVT within the right lower extremity. 2. No DVT within the left lower extremity. Electronically signed by: Ehsan Atkinson M.D. 12/30/2018 4:40 PM Dictated: 12/30/18 1639 Transcribed: 12/30/18 1639 Vital Signs 26-Dec-2018 15:07 Systolic 109 mm[Hg] Diastolic 75 mm[Hg] Temperature 97.7 f Respiration 18 /min Heart Rate 89 /min BMI Calculated 32.26 kg/m2 Weight 206 lb BSA Calculated 2.05 m2 Height 67 in 24-Dec-2018 12:03 other 50 Comments: CC Drained 12-Dec-2018 11:28 Systolic 117 mm[Hg] Diastolic 73 mm[Hg] Respiration 18 /min Heart Rate 95 /min O2 Saturation 91 % Comments: Source: 06-Dec-2018 13:14 other 350 Comments: CC Drained 28-Nov-2018 13:19 other 75 Comments: CC Drained 25-Nov-2018 13:20 other 75 Comments: CC Drained Encounters Appointment; Alfredo Galeana DO 26-Dec-2018 14:50 Encounter Diagnosis: Problem not documented Appointment; INTERVIEWING CLERK [facility], [facility] 19-Dec-2018 12:30 Encounter Diagnosis: Problem not documented Appointment; Jeff Reyna M.D. 12-Dec-2018 11:15 Encounter Diagnosis: Problem not documented Appointment; Alfredo Galeana DO 11-Dec-2018 11:30 Encounter Diagnosis: Problem not documented Appointment; Alfredo Galeana DO 29-Nov-2018 9:40 Encounter Diagnosis: Problem not documented Appointment; Jannet Patterson CRNP 25-Nov-2018 14:00 Encounter Diagnosis: Problem not documented Appointment; Jeff Reyna M.D. 22-Oct-2018 9:00 Encounter Diagnosis: Problem not documented Appointment; INTERVIEWING CLERK [facility] 02-Oct-2018 15:30 Encounter Diagnosis: Problem not documented Appointment; Jeff Reyna M.D. 30-Sep-2018 13:30 Encounter Diagnosis: Problem not documented Appointment; Juan Miguel Richards M.D. 23-Sep-2018 16:30 Encounter Diagnosis: Problem not documented Appointment; Jeff Reyna M.D. 20-Aug-2018 9:45 Encounter Diagnosis: Problem not documented Appointment; [facility], [place] [id number] 02-Aug-2018 15:30 Encounter Diagnosis: Problem not documented Appointment; Alfredo Galeana DO 23-Jul-2018 14:40 Encounter Diagnosis: Problem not documented Appointment; [facility], [place] [id number] 04-Jul-2018 8:15 Encounter Diagnosis: Problem not documented Appointment; INTERVIEWING CLERK [facility], Nursing [facility] 04-Jul-2018 8:15 Encounter Diagnosis: Problem not documented Appointment; INTERVIEWING CLERK [facility], [facility] 03-Jul-2018 16:00 Encounter Diagnosis: Problem not documented Appointment; Nursing [facility], [place] [id number] 20-Jun-2018 16:00 Encounter Diagnosis: Problem not documented Appointment; Jannet Patterson CRNP 29-Apr-2018 15:45 Encounter Diagnosis: Problem not documented Appointment; INTERVIEWING CLERK [facility], Nursing Station 16-Apr-2018 16:00 Encounter Diagnosis: Problem not documented Appointment; Jeff Reyna M.D. 07-Mar-2018 12:00 Encounter Diagnosis: Problem not documented Appointment; Jeff Reyna M.D. 15-Feb-2018 14:30 Encounter Diagnosis: Problem not documented Appointment; Hernan Ansari PA-C 14-Feb-2018 15:00 Encounter Diagnosis: Problem not documented Appointment; Jeff Reyna M.D. 12-Feb-2018 16:00 Encounter Diagnosis: Problem not documented Appointment; Jeff Reyna M.D. 12-Feb-2018 14:45 Encounter Diagnosis: Problem not documented Appointment; Jeff Reyna M.D. 05-Feb-2018 16:00 Encounter Diagnosis: Problem not documented Appointment; Jeff Reyna M.D. 05-Feb-2018 10:30 Encounter Diagnosis: Problem not documented Appointment; Alfredo Galeana DO 31-Jan-2018 10:00 Encounter Diagnosis: Problem not documented Appointment; Porsha Rojas PA-C 30-Jan-2018 11:00 Encounter Diagnosis: Problem not documented Appointment; Jannet Patterson CRNP 29-Jan-2018 16:45 Encounter Diagnosis: Problem not documented Appointment; Surg [facility], Nursing Station 23-Jan-2018 16:00 Encounter Diagnosis: Problem not documented Appointment; INTERVIEWING CLERK [facility], Nursing Station 22-Jan-2018 16:00 Encounter Diagnosis: Problem not documented Appointment; Jeff Reyna M.D. 21-Jan-2018 14:30 Encounter Diagnosis: Problem not documented Appointment; Jeff Reyna M.D. 15-Jan-2018 13:45 Encounter Diagnosis: Problem not documented Appointment; Pulmonary, Funct Testing 11-Jan-2018 14:00 Encounter Diagnosis: Problem not documented Appointment; Jannet Patterson CRNP 07-Jan-2018 15:30 Encounter Diagnosis: Problem not documented Appointment; INTERVIEWING CLERK [facility], Nursing Station 31-Oct-2017 11:30 Encounter Diagnosis: Problem not documented Appointment; Juan Miguel Richards M.D. 10-Sep-2017 16:30 Encounter Diagnosis: Problem not documented Appointment; [place] [id number], [facility] 07-Aug-2017 16:00 Encounter Diagnosis: Problem not documented Appointment; [place] [id number], Nursing [facility] 15-May-2017 16:00 Encounter Diagnosis: Problem not documented Appointment; [place] [id number] 11-May-2017 15:30 Encounter Diagnosis: Problem not documented Appointment; [place] [id number], [facility] 19-Feb-2017 16:00 Encounter Diagnosis: Problem not documented Appointment; Alvaro Mohamud III, M.D. 08-Feb-2017 7:50 Encounter Diagnosis: Problem not documented Appointment; [place] [id number], [facility] 12-Mar-2019 16:00 Encounter Diagnosis: Problem not documented
[2018-12-30] MEDS ORDERED: HEPARIN 100 UNIT/ML 5ML FLUSH FLUSH PRN (23:32)
[2018-12-31 04:15] LABS: Basophils # (auto) 0.04 K/uL (0-0.2); Basophils % (auto) 0.3 %; Eosinophils # (auto) 0.03 K/uL (0-0.5); Eosinophils % (auto) 0.3 %; Hematocrit (blood only) 34.3 % (37-47); Hemoglobin 11.2 g/dL (12.0-16.0); Immature Granulocytes # (auto) 0.53 K/uL (0.00-0.02); Immature Granulocytes % (auto) 4.6 %; Lymphocytes # (auto) 1.68 K/uL (1.2-3.4); Lymphocytes % (auto) 14.7 %; Mean Corpuscular Hgb Conc 32.7 g/dL (32-36); Mean Platelet Volume 9.7 fL (7.4-10.4); Monocytes # (auto) 1.07 K/uL (0.11-0.59); Monocytes % (auto) 9.3 %; Neutrophils % (auto) 70.8 %; Nucleated RBC # (auto) 0.05 K/uL (0-0); Nucleated RBC % (auto) 0.4 %; Platelet Count 186 K/uL (130-400); RDW Coefficient of Variation 18.7 % (11.5-14.5); RDW Standard Deviation 57.5 fL (36.4-46.3); Red Blood Count 3.99 M/uL (4.2-5.4); White Blood Count 11.45 K/uL (4.8-10.8)
[2018-12-31 04:35] LABS: BUN Creatinine Ratio 19.5 (10-20); Calcium 7.2 mg/dl (8.5-10.1); Creatinine Clr Calc Pharmacy 173.3 ml/min; Est GFR (African American) 136.4; Est GFR (Non-African American) 117.7; Magnesium 1.6 mg/dl (1.8-2.4); Partial Thromboplastin Ratio 3.7; Potassium 3.1 mmol/L (3.5-5.1)
[2018-12-31 04:37] LABS: Partial Thromboplastin Time 99.4 Seconds (21.0-31.0)
[2018-12-31 04:44] LABS: Phosphorus 3.2 mg/dl (2.5-4.9); Troponin I 0.857 ng/ml (0-0.045)
[2018-12-31] MEDS ORDERED: MAGNESIUM OXIDE 400 MG TAB PO STA (04:55)
[2018-12-31] MEDS: POTASSIUM CHLORIDE / WTR 20 MEQ/100 ML PLCT IV SCH ×4 (05:40→18:25)
[2018-12-31] MEDS ORDERED: CARBOHYDRATES FOR HYPOGLYCEMIA PO PRN (06:34)
[2018-12-31] MEDS: MAGNESIUM SULFATE / D5W 1 GM/100 ML BAG IV SCH ×2 (07:51→08:55)
[2018-12-31] MEDS: FAMOTIDINE 20 MG in SYRINGE 3 ML IV SCH ×2 (08:14→21:01)
[2018-12-31] MEDS: PREGABALIN 150 MG CAP PO SCH ×3 (08:14→21:01)
[2018-12-31] MEDS: DRONABINOL 2.5 MG CAP PO SCH ×3 (08:14→21:01)
--- NOTE | 2018-12-31 08:14 | Critical Care Progress Note ---
Date of Service December 31, 2018 Assessment & Plan (1) Pulmonary emboli: Reason Critically Ill: 43-year-old female with a PMHx of esophageal cancer s/p chemotherapy here for saddle pulmonary embolus. Neuro - CAM ICU: NEGATIVE Cardiac - No prior cardiac history EKG: sinus tachycardia with nonspecific T wave changes likely 2/2 to PE managed as below Respiratory - Massive Pulmonary Embolism: - Saddle PE with multiple diffuse PEs noted on CT-PE protocol - Tachycardic, hypotensive, tachypnic on admission - Oxygen weaned to NC4L from Oxymask 15L/min, doing well with Spo2>94%. - s/p TPA. Initially had improvement in BP and downtrending of her heart rate, but remains mildly hypotensive and tachycardic. No signs of bleeding. - Heparin gtt. Hold [employer] enoxaparin. Will require therapeutic anticoagulation dosing followed by indefinite anticoagulation. Question lovenox as an appropriate agent in post-therapeutic period given clot development while on 40mg daily, but given esophageal cancer is not an ideal candidate for DOAC either. +Discussion with heme/onc GI - Regular Diet RENAL/LYTES - - Hypokalemic, has not been taking [employer] potassium repletion 2/2 nausea - K 3.1 today - Declines oral potassium repletion 2/2 nausea - KRider 20meg today - Cr 0.49, stable. - Mg low at 1.6. +2g Mg IV and recheck electrolytes in 4 hours. ENDO - Glucose 62-81mg/dl with juice this morning. Low oral intake, no hx DM. Continue to follow. HEME - - Stable H&H. (Hgb 11.2 today) - Will monitor for any drops in the setting of Heparin gtt Esophageal Cancer - s/p port placement with ongoing chemotherapy. Was previously on coumadin for a clot at her port site which was revised 12/11. - No oncology consult at this time, will consider today for optimal anticoagulation discussion. ID - No concerns for infection at this point. INTEGUMENTARY - No skin lesions or skin findings at this time LINES/IV ACCESS - PIVs intact. DVT PROPHYLAXIS - Heparin gtt Thank you for allowing us to be part of this patient's care. Please refer to Dr. Dozier's documentation for any further recommendations. (2) Peripheral neuropathy: Supervising Physician Co-Signing Physician Notes pulmonary/critical care attending: seen and examined with Dr. Hinkle. agree with above except as below 43 y/o female with a history of esophageal ca presenting with one day of leg pain and shortness of breath. Constitutional: Comfortable NAD HEENT: normocephalic atraumatic. CV: tachycardic nl s1, loud s2 no murmurs rubs or gallops Lungs: clear to auscultation bilaterally. no accessory muscle use Abd: soft nontender nondistended. normal bowel sounds Ext: no edema. no cyanosis, no clubbing Skin: warm dry Neuro: alert and oriented. moving all extremities Psych: normal mood and affect a/p: Neuro- awake alert CV- obstructive shock due to massive pulmonary embolism. s/p TPA though did not respond as well as I would have liked. await echo to evaluate RV strain. will need repeat echo in 3 months as well Pulmonary- acute respiratory failure due to massive PE. s/p TPA due to hemodynamic instability. titrate fio2 for sat >92% ID- no signs infection Renal- cr ok. hypokalemia will replace GI- diet as tolerated. nausea with diet. ondansetron as needed Heme- pulmonary embolism due to esophageal CA. heparin drip s/p TPA. will need lifelong anticoagulation as long as bleeding risk is not greater than clotting risk. discussed risk and benefits with DOAC vs enoxaparin in cancer patients. recent date suggest less clot with DOAC but increased bleeding in GI malignancies. This was discussed with her but she would prefer the oral medications as she does not like the pain from injecting herself Endocrine- keep blood sugar <180 Dispo-continue ICU care for hemodynamic support and monitoring post TPA Subjective Naomi reports she feels 'OK' this morning. She denies shortness of breath this morning. She is not having any chest pain, chest pressure, or palpitations this morning. SHe did not have any fever or chills overnight. She continues to have a dry, nonproductive intermittent cough. Her lower R leg continues to ache, no better or worse today. No weakness. She continues to have mild nausea with some sensitive gag reflex in response to her cough. REports an 'OK' appetite, thinks that some more solid food might help her appetite. No emesis this morning. No questions or concerns at time of visit. Review of Systems Review of Systems: Constitutional: Denies fever, chills Eyes: Denies vision change, eye pain ENT: Denies sore throat, sinus pain Cardiovascular: Denies chest pain, chest pressure, palpitations, extremity swelling Respiratory: Denies shortness of breath, sputum production, difficulty breathing. Endorses dry cough. Gastrointestinal: Denies abdominal pain, vomiting, constipation, diarrhea. Endorses mild nausea Musculoskeletal: Denies weakness, endorses some aching in her R leg, denies other joint aches/pain Integumentary:Denies rash, lesions, bruising Neurological: Denies headache, focal weakness. Physical Exam Physical Exam: General: A&Ox3. NAD. Cooperative. HEENT: Atraumatic, normocephalic. Pulm: LLL crackles. Otherwise CTAB A&P. -wheezes, -rales, -rhonchi. Symmetrical chest rise. No increase work of breathing. No respiratory distress on 5L NCO2. Cardiac: RRR, -mrg. Radial pulses intact and symmetrical. Abdominal: Nontender, nondistended, soft. BS present. Extremity: Continues to have tenderness to palpation in RLE and pain with R ankle dorsiflexion. No lower extremity swelling, warmth, erythema, or asymmetry. Posterior tibial pulses intact and symmetrical bilaterally. Results & Data Vital Signs (Past 12 Hours) Vital Signs Temp Pulse Resp BP Pulse Ox 12/31/18 06:31 96 H 25 H 98/61 L 95 12/31/18 06:00 88 18 95/62 L 96 12/31/18 05:30 92 H 21 110/70 98 12/31/18 05:00 90 19 95/59 L 95 12/31/18 04:30 90 20 98/58 L 95 12/31/18 04:00 36.8 C 88 15 96/63 L 96 12/31/18 03:30 92 H 20 94/61 L 96 12/31/18 03:00 86 20 90/58 L 98 12/31/18 02:30 89 19 92/57 L 96 12/31/18 02:00 93 H 16 97/64 L 98 12/31/18 01:30 90 17 89/51 L 95 12/31/18 01:00 94 H 21 96/53 L 94 12/31/18 00:30 97 H 21 99/60 L 95 12/31/18 00:00 36.7 C 91 H 14 88/54 L 97 12/30/18 23:30 91 H 15 90/60 L 98 12/30/18 23:01 93 H 18 94/51 L 97 12/30/18 22:32 93 H 14 90/53 L 97 12/30/18 21:31 96 H 13 103/55 L 94 12/30/18 21:01 108 H 31 H 101/66 94 12/30/18 20:30 96 H 16 86/52 L 96 Resident Activity Tracking Resident Involvement: Resident Care Provided Care Provided: Adult Hospital Medicine (1) Pulmonary emboli Pulmonary embolism type: saddle
[2018-12-31] MEDS ORDERED: POTASSIUM CHLORIDE 20 MEQ/15 ML UDC PO SCH (09:00)
[2018-12-31 10:28] LABS: Partial Thromboplastin Ratio 2.7
[2018-12-31 10:52] LABS: Partial Thromboplastin Time 71.9 Seconds (21.0-31.0)
--- NOTE | 2018-12-31 11:39 | Hospitalist Progress Note ---
Date of Service December 31, 2018 Assessment & Plan (1) Pulmonary embolism: massive PE causing hemodynamic compromise with hypotension at the time of admission saddle PE with signs of cor pulmonale treated with tPA at 1200 yesterday, completed at 1400 on 12/30 now back on heparin drip blood pressure and HR stable today keep in ICU today will need to determine best option for anticoagulation, likely Lovenox (2) Right leg DVT: continue on heparin drip will need transition to outpatient AC will need lifelong given cancer (3) Hypoxia: Acute respiratory distress with hypoxia due to massive PE and cor pulmonale less oxygen requirements today, no distress at rest (4) Metastatic squamous cell carcinoma: continues to follow with Dr. Bruner for chemotherapy (5) Abdominal carcinomatosis: Pt has a poorly functioning Pleurex cath in her right abdomen and CT shows likely loculated fluid collections, and there was some discussion of removing tube in the next two weeks. can follow up with Dr. Bruner (6) Hypokalemia: K normal today at 3.5 repeat tomorrow (7) Nausea: better today continue to monitor could be due to chemo (8) Pleural effusion: chronic issue, now worse could be metastatic but also related to bilateral PE will monitor Subjective Patient feeling better today, less dyspnea, no chest pain, less tightness in her leg appetite is okay, eating 50% reviewed labs, BMP normal, mild leukocytosis at 11k troponin trending down at 0.8 from 1[address] Dozier reviewed chart since time of admission reviewed CTA chest with students Review of Systems Review of Systems: All systems reviewed & are unremarkable except as noted in HPI & below Constitutional: + fatigue and + weakness; no fever and no sweats Respiratory: + dyspnea and + dyspnea on exertion; no cough Cardiovascular: no chest pain, no palpitations and no edema Gastrointestinal: no abdominal pain, no nausea, no vomiting, no constipation and no diarrhea/loose stools Physical Exam Constitutional: WD/WN, vitals as above Eyes: PERRL, conjunctivae normal, anicteric sclerae ENMT: external ear and nose normal, oropharynx normal Neck: trachea midline, no thyromegaly Respiratory: normal respiratory effort, lungs clear to auscultation Auscultation: + diminished lung sounds (bases); no wheezes Cardiovascular: RRR, no murmur, no edema Gastrointestinal (Abdomen): normal bowel sounds, soft, nontender, no hepatosplenomegaly Musculoskeletal: no cyanosis or clubbing, extremities motor strength 5/5 Skin: no rashes, warm and dry Neurologic: patellar DTR's 2+ bilat, sensation intact and PERRL, EOMI, accommodation nl, no face palsy, no dysarthria Psychiatric: A+Ox3, euthymic affect Lymphatic: no cervical or axillary lymphadenopathy Results & Data Vital Signs (Past 12 Hours) Vital Signs Temp Pulse Resp BP Pulse Ox 12/31/18 09:30 93 H 17 97/68 L 97 12/31/18 09:19 89 18 91/59 L 97 12/31/18 09:01 91 H 21 91/59 L 97 12/31/18 08:31 95 H 19 110/66 94 12/31/18 08:01 108 H 16 105/64 91 12/31/18 08:00 91 H 12/31/18 07:30 36.9 C 90 20 104/65 94 12/31/18 07:00 89 21 101/59 L 95 12/31/18 06:31 96 H 25 H 98/61 L 95 12/31/18 06:00 88 18 95/62 L 96 12/31/18 05:30 92 H 21 110/70 98 12/31/18 05:00 90 19 95/59 L 95 12/31/18 04:30 90 20 98/58 L 95 12/31/18 04:00 36.8 C 88 15 96/63 L 96 12/31/18 03:30 92 H 20 94/61 L 96 12/31/18 03:00 86 20 90/58 L 98 12/31/18 02:30 89 19 92/57 L 96 12/31/18 02:00 93 H 16 97/64 L 98 12/31/18 01:30 90 17 89/51 L 95 12/31/18 01:00 94 H 21 96/53 L 94 12/31/18 00:30 97 H 21 99/60 L 95 12/31/18 00:00 36.7 C 91 H 14 88/54 L 97 Laboratory Results Laboratory Results - last 24 hr 12/30/18 12/30/18 12/30/18 12:30 17:05 21:27 WBC RBC Hgb Hct MCV MCH MCHC RDW Std Deviation RDW Coeff of Huber Plt Count MPV Immature Gran % (Auto) Neut % (Auto) Lymph % (Auto) [place] % (Auto) Eos % (Auto) Baso % (Auto) Immature Gran # (Auto) Neut # (Auto) Lymph # (Auto) [place] # (Auto) Eos # (Auto) Baso # (Auto) Absolute Nucleated RBC Nucleated RBC % (auto) APTT 92.1 H* PTT Ratio 3.4 Sodium Potassium Chloride Carbon Dioxide Anion Gap BUN Creatinine Est Cr Clr Drug Dosing Est GFR ( Amer) Est GFR (Non-Af Amer) BUN/Creatinine Ratio Glucose POC Glucose 82 Calcium Phosphorus Magnesium Troponin I Nasal Screen MRSA (PCR) Negative 12/31/18 12/31/18 12/31/18 00:26 04:06 04:06 WBC 11.45 H RBC 3.99 L Hgb 11.2 L Hct 34.3 L MCV 86.0 MCH 28.1 MCHC 32.7 RDW Std Deviation 57.5 H RDW Coeff of Huber 18.7 H Plt Count 186 MPV 9.7 Immature Gran % (Auto) 4.6 Neut % (Auto) 70.8 Lymph % (Auto) 14.7 [place] % (Auto) 9.3 Eos % (Auto) 0.3 Baso % (Auto) 0.3 Immature Gran # (Auto) 0.53 H Neut # (Auto) 8.10 H Lymph # (Auto) 1.68 [place] # (Auto) 1.07 H Eos # (Auto) 0.03 Baso # (Auto) 0.04 Absolute Nucleated RBC 0.05 H Nucleated RBC % (auto) 0.4 APTT PTT Ratio Sodium 138 Potassium 3.1 L Chloride 107 Carbon Dioxide 28 Anion Gap 3.0 BUN 10 Creatinine 0.49 L Est Cr Clr Drug Dosing 173.3 Est GFR ( Amer) 136.4 Est GFR (Non-Af Amer) 117.7 BUN/Creatinine Ratio 19.5 Glucose 76 POC Glucose 80 Calcium 7.2 L Phosphorus 3.2 Magnesium 1.6 L Troponin I 0.857 H* Nasal Screen MRSA (PCR) 12/31/18 12/31/18 12/31/18 04:06 06:30 06:32 WBC RBC Hgb Hct MCV MCH MCHC RDW Std Deviation RDW Coeff of Huber Plt Count MPV Immature Gran % (Auto) Neut % (Auto) Lymph % (Auto) [place] % (Auto) Eos % (Auto) Baso % (Auto) Immature Gran # (Auto) Neut # (Auto) Lymph # (Auto) [place] # (Auto) Eos # (Auto) Baso # (Auto) Absolute Nucleated RBC Nucleated RBC % (auto) APTT 99.4 H* PTT Ratio 3.7 Sodium Potassium Chloride Carbon Dioxide Anion Gap BUN Creatinine Est Cr Clr Drug Dosing Est GFR ( Amer) Est GFR (Non-Af Amer) BUN/Creatinine Ratio Glucose POC Glucose 62 L* 62 L* Calcium Phosphorus Magnesium Troponin I Nasal Screen MRSA (PCR) 12/31/18 12/31/18 06:51 09:47 WBC RBC Hgb Hct MCV MCH MCHC RDW Std Deviation RDW Coeff of Huber Plt Count MPV Immature Gran % (Auto) Neut % (Auto) Lymph % (Auto) [place] % (Auto) Eos % (Auto) Baso % (Auto) Immature Gran # (Auto) Neut # (Auto) Lymph # (Auto) [place] # (Auto) Eos # (Auto) Baso # (Auto) Absolute Nucleated RBC Nucleated RBC % (auto) APTT 71.9 H* PTT Ratio 2.7 Sodium Potassium Chloride Carbon Dioxide Anion Gap BUN Creatinine Est Cr Clr Drug Dosing Est GFR ( Amer) Est GFR (Non-Af Amer) BUN/Creatinine Ratio Glucose POC Glucose 81 Calcium Phosphorus Magnesium Troponin I Nasal Screen MRSA (PCR) Medications Administered Current Inpatient Medications Hydrocodone Bitart/Acetaminophen ([place] 10/325) 1 tab PO QID PRN PRN Reason: pain Stop: 01/13/19 12:09 Dronabinol (Marinol) 5 mg PO TID [facility] Stop: 01/29/19 13:59 Last Admin: 12/31/18 08:14 Dose: 5 mg Documented by: Heparin Sodium (Porcine) (Heparin Sod 100 Unit/Ml Flush) 5 ml FLUSH PRN PRN PRN Reason: Flush Stop: 01/29/19 23:44 Famotidine 20 mg/ Syringe 5 mls @ 2.5 mls/min IV BID [facility] Stop: 01/29/19 13:29 Last Admin: 12/31/18 08:14 Dose: 2.5 mls/min Documented by: Heparin Sodium/Dextrose (Heparin Sodium/Dextrose) 25,000 units in 500 mls @ 21 mls/hr IV .[id number] [facility]; Protocol Stop: 01/29/19 15:14 Last Titration: 12/31/18 11:37 Dose: 950 units/hr, 19 mls/hr Documented by: Miscellaneous ([facility] Protocol For Hyperglycemia) 1 ea N/A PRN PRN; Protocol PRN Reason: Hyperglycemia Protocol Stop: 01/01/19 12:09 Miscellaneous ([facility] Electrolyte Replacement Protocol) 1 ea N/A UD PRN PRN Reason: for e-lyte repletion Stop: 01/06/19 12:09 Miscellaneous (Carbohydrates For Hypoglycemia) 15 gm PO ONCE PRN PRN Reason: Hypoglycemia Treatment Stop: 01/30/19 06:33 Last Admin: 12/31/18 06:35 Dose: 15 gm Documented by: Ondansetron HCl (Zofran) 4 mg IV Q4H PRN PRN Reason: Nausea Stop: 01/29/19 12:09 Potassium Chloride (Luciana Ciel Elix) 40 meq PO QAM [facility] Stop: 01/30/19 08:59 Last Admin: 12/31/18 07:53 Dose: Not Given Documented by: Pregabalin (Lyrica) 150 mg PO TID [facility] Stop: 01/29/19 13:59 Last Admin: 12/31/18 08:14 Dose: 150 mg Documented by:
[2018-12-31] MEDS: Heparin Adult STANDARD Wt-Based Dextrose 5% 25,000 units/500 mL IV SCH (13:43)
--- NOTE | 2018-12-31 15:28 | Medical Student Progress Note ---
Date of Service December 31, 2018 Assessment & Plan (1) Hypoxia: Ms. Caro's acute respiratory distress appears to be improving re: her vitals and symptoms. Her BP is still low but better than on admission now at 98/63, her pulse is still high though lower than on admission now at 95, her respiratory rate has stabilized now at 19, her O2 sat has much improved now to 95% on 4L NC. Symptomatically she says she is better able to breathe today and less nauseous. Her hypoxia is likely related to her right calf DVT and saddle PE discussed below. Continue supplemental O2 and IV heparin. (2) Pulmonary embolism: She has metastatic esophageal cancer and takes enoxaparin injections, though missed Sunday's dose. She has a history of subclavian catheter-related DVT. She has right calf pain and mild swelling, and venous doppler confirms a DVT. She had acute respiratory distress, with DVT Sx, likely PE diagnosis, HR >100, history of DVT, and actively treated cancer, resulting in 8.5 points on the Well's criteria and likely PE. This is confirmed by chest CTA and abd/pelvis CT which both showed massive saddle embolus with extensive PE, along with more chronic small-moderate partially lobulated pleural effusions which are unchanged since early December. She had her heparin drip stopped, underwent 100mg/2 hours TPA, and now heparin drip has restarted. She is symptomatically improving. Her PE is considered massive especially considering her hypotension (noted as 40/20 on EMR) and IV heparin should help in case her saddle PE breaks up in the lungs. (3) Metastatic squamous cell carcinoma: She follows with Dr. Bruner and has been intolerant of chemo, and she has a lower dose chemo scheduled. (4) Hypokalemia: She has had difficulty swallowing her potassium supplement pills re: her chronic nausea. Augment her with IV while inpatient. K today was 3.1, continue to monitor (5) Nausea: She has a chronic nausea likely related to her esophageal cancer with chemo and exacerbated by chronic productive cough with strong gag reflex. Continue pantoprazole and monitor as she advances her diet. She is making symptomatic progress today and was able to swallow and eat some solid breakfast. Subjective Ms. Caro states she is feeling better this morning. Her diet was advanced from clear liquids and she is happy she was able to eat some oatmeal and blueberries this morning with some nausea but no vomiting. She says she has had chronic nausea re: her cancer and chemo and that much of her vomiting is due to a chronic semi-productive cough which leads to balls of phlegm which she then gags on and vomits, although she has had no episodes of this today and only a mild, dry cough. Her right calf is mildly tender with 1/10 pain, somewhat less bothersome than yesterday. She underwent TPA yesterday and is back on her IV heparin drip. Constitutional: + fatigue; no fever and no chills Respiratory: + cough; no dyspnea, no pain on inspiration and no pain with cough Cardiovascular: + calf pain; no chest pain and no palpitations Gastrointestinal: + nausea; no abdominal pain, no vomiting, no dysphagia, no constipation and no diarrhea/loose stools Neurologic: no headache(s) and no confusion Physical Exam Vital Signs (Past 24 Hours): Last Vital Signs Temp 36.9 C 12/31/18 07:30 Pulse 95 H 12/31/18 13:01 Resp 19 12/31/18 13:01 BP 98/63 L 12/31/18 13:01 Pulse Ox 95 12/31/18 13:01 Constitutional: WD/WN, vitals as above no acute distress Eyes: PERRL, conjunctivae normal, anicteric sclerae ENMT: external ear and nose normal, oropharynx normal Respiratory: normal respiratory effort; no respiratory distress and does not use accessory muscles Auscultation: + rales (mild LLL rales, though somewhat difficult to auscultate due to bed position); no rhonchi and no wheezes Cardiovascular: RRR, no murmur, no edema Gastrointestinal (Abdomen): normal bowel sounds, soft, nontender, no hepatosplenomegaly Percussion/Palpation: no guarding and abdomen not rigid Musculoskeletal: Extremities: + lower extremity abnormal to inspection (right leg mildly swollen relative to left, mildly tender, no erythema) Skin: no rashes, warm and dry Psychiatric: A+Ox3, euthymic affect Lymphatic: no cervical or axillary lymphadenopathy
[2018-12-31 15:30] LABS: BUN Creatinine Ratio 14.1 (10-20); Calcium 7.2 mg/dl (8.5-10.1); Creatinine Clr Calc Pharmacy 142.9 ml/min; Est GFR (African American) 127.6; Est GFR (Non-African American) 110.1; Magnesium 2.2 mg/dl (1.8-2.4); Potassium 3.5 mmol/L (3.5-5.1)
[2018-12-31 18:41] LABS: Partial Thromboplastin Ratio > 5.1
[2018-12-31 19:04] LABS: Partial Thromboplastin Time > 139.0 Seconds (21.0-31.0)
[2018-12-31 19:29] LABS: Appearance Urine Cloudy (Clear); Bacteria Urine Automated Negative (Negative); Bilirubin Urine Negative (Negative); Blood Urine 3+ (Negative); Color Urine Dark Yellow; Epithelial Cell Urine Auto >30 /lpf (0-5); Glucose Urine UA Negative (Negative); Ketones Urine Trace (Negative); Leukocyte Esterase Urine Negative (Negative); Nitrite Urine Negative (Negative); Protein Urine Trace (Negative); Specific Gravity Urine 1.037 (1.000-1.030); Urobilinogen Urine Negative (Negative); pH Urine 5.5 (4.5-7.5)
[2018-12-31 19:58] LABS: Mucus Urine Present (None Prsent)
[2019-01-01 02:24] LABS: Partial Thromboplastin Ratio 2.4
[2019-01-01 02:45] LABS: Partial Thromboplastin Time 65.2 Seconds (21.0-31.0)
[2019-01-01 04:52] LABS: Hematocrit (blood only) 34.4 % (37-47); Mean Corpuscular Volume 86.9 fL (80-100); Mean Platelet Volume 9.4 fL (7.4-10.4); Platelet Count 158 K/uL (130-400); RDW Coefficient of Variation 18.7 % (11.5-14.5); RDW Standard Deviation 57.9 fL (36.4-46.3); Red Blood Count 3.96 M/uL (4.2-5.4); White Blood Count 11.94 K/uL (4.8-10.8)
[2019-01-01 05:12] LABS: Partial Thromboplastin Ratio 2.5
[2019-01-01 05:16] LABS: Partial Thromboplastin Time 68.6 Seconds (21.0-31.0)
[2019-01-01 05:20] LABS: BUN Creatinine Ratio 18.5 (10-20); Calcium 7.1 mg/dl (8.5-10.1); Creatinine Clr Calc Pharmacy 164.9 ml/min; Est GFR (African American) 133.7; Est GFR (Non-African American) 115.4; Magnesium 2.1 mg/dl (1.8-2.4); Phosphorus 2.9 mg/dl (2.5-4.9)
[2019-01-01 05:28] LABS: Basophils # (auto) 0.05 K/uL (0-0.2); Basophils % (auto) 0.4 %; Echinocytes 1+; Eosinophils # (auto) 0.05 K/uL (0-0.5); Eosinophils % (auto) 0.4 %; Immature Granulocytes # (auto) 0.66 K/uL (0.00-0.02); Immature Granulocytes % (auto) 5.5 %; Lymphocytes # (auto) 1.77 K/uL (1.2-3.4); Lymphocytes % (auto) 14.8 %; Monocytes # (auto) 1.02 K/uL (0.11-0.59); Monocytes % (auto) 8.5 %; Neutrophils # (auto) 8.39 K/uL (1.4-6.5); Neutrophils % (auto) 70.4 %; Polychromasia 1+
[2019-01-01] MEDS: FAMOTIDINE 20 MG in SYRINGE 3 ML IV SCH (08:21)
[2019-01-01] MEDS: DRONABINOL 2.5 MG CAP PO SCH ×3 (08:21→21:19)
[2019-01-01] MEDS: PREGABALIN 150 MG CAP PO SCH ×3 (08:21→21:19)
[2019-01-01] MEDS: POTASSIUM CHLORIDE 10 MEQ TABCR PO SCH (09:13)
--- NOTE | 2019-01-01 09:27 | Critical Care Progress Note ---
Date of Service January 01, 2019 Assessment & Plan (1) Pulmonary emboli: Reason Critically Ill: 43-year-old female with a PMHx of esophageal cancer s/p chemotherapy here for saddle pulmonary embolus. Neuro - [facility] ICU: NEGATIVE Cardiac - No prior cardiac history EKG 12/30: sinus tachycardia with nonspecific T wave changes likely 2/2 to PE managed as below Respiratory - Massive Pulmonary Embolism: - Saddle PE with multiple diffuse PEs noted on CT-PE protocol - Tachycardic, hypotensive, tachypnic on admission - Oxygen weaned to NC4L from Oxymask 15L/min. Continues to require 4LNC for SpO2>94%. - s/p TPA. Initially had improvement in BP and downtrending of her heart rate, but remains mildly hypotensive and tachycardic. No signs of bleeding. - Heparin gtt. 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 Will require therapeutic anticoagulation dosing followed by indefinite anticoagulation. Pt would prefer pill for ease, but would rather therapeutic lovenox if the DOACs carry an increased bleeding risk given her malignancy. GI - Regular Diet RENAL/LYTES - - Potassium corrected to 4.2 today - KCL 40meq PO daily - BMP daily - Mg corrected to 2.1 from 1.6 ENDO - Glucose 70s-80s in setting of low oral intake. Increasing PO intake, continue to follow. HEME - - Stable H&H. (Hgb 11.9 today) - Will monitor for any drops in the setting of Heparin gtt Esophageal Cancer - s/p port placement with ongoing chemotherapy. Was previously on coumadin for a clot at her port site which was revised 12/11. - No oncology consult at this time ID - No concerns for infection at this point. INTEGUMENTARY - No skin lesions or skin findings at this time LINES/IV ACCESS - PIVs intact. DVT PROPHYLAXIS - Heparin gtt. Pending conversion to DOAC vs Enoxaparin. Dispo: Anticipate downgrade from ICU status today. Thank you for allowing us to be part of this patient's care. Please refer to Dr. Dozier's documentation for any further recommendations. Supervising Physician Co-Signing Physician Notes pulmonary/critical care attending: seen and examined with Dr. Hinkle. agree with above except as below 43 y/o female with a history of esophageal ca presenting with massive pulmonary embolism Constitutional: Comfortable NAD HEENT: normocephalic atraumatic. CV: RRR nl s1, s2 no murmurs rubs or gallops Lungs: clear to auscultation bilaterally. no accessory muscle use Abd: soft nontender nondistended. normal bowel sounds Ext: no edema. no cyanosis, no clubbing Skin: warm dry Neuro: alert and oriented. moving all extremities Psych: normal mood and affect a/p: Neuro- awake alert CV- obstructive shock due to massive pulmonary embolism. s/p TPA though did not respond as well as I would have liked. await echo to evaluate RV strain. will need repeat echo in 3 months as well Pulmonary- acute respiratory failure due to massive PE. s/p TPA due to hemodynamic instability. titrate fio2 for sat >92% ID- no signs infection Renal- cr ok. hypokalemia will replace GI- diet as tolerated. nausea improved. ondansetron as needed Heme- pulmonary embolism due to esophageal CA. heparin drip s/p TPA. will need lifelong anticoagulation as long as bleeding risk is not greater than clotting risk. discussed risk and benefits with DOAC vs enoxaparin in cancer patients. recent date suggest less clot with DOAC but increased bleeding in GI malignancies. This was discussed with her but she would prefer the oral medications as she does not like the pain from injecting herself. can transition off heparin tommorow Endocrine- keep blood sugar <180 Dispo-ok to transfer out of ICU to monitored floor Subjective Naomi reports she feels 'OK' today. She feels unchanged from yesterday. Denies shortness of breath this morning. No shortness of breath moving from the bed to chair, although she did require and assist due to feeling weak. Denies chest pain. Continues to have a dry cough. Had a BM this morning. Is hungry, is not nauseus currently and last had a small amount of vomiting last night. No questions/concerns at this time. Review of Systems Review of Systems: Constitutional: Denies fever, chills Eyes: Denies vision change, eye pain ENT: Denies sore throat, sinus pain Cardiovascular: Denies chest pain, chest pressure, palpitations, extremity swelling Respiratory: Denies shortness of breath, sputum production, difficulty breathing. Endorses dry cough. Gastrointestinal: Denies abdominal pain, vomiting, constipation, diarrhea. Denies nausea this morning. Musculoskeletal: Endorses some weakness ambulating from bed this morning. Endorses some aching in her R leg unchanged from prior, denies other joint aches/pain Integumentary: Denies rash, lesions, bruising Neurological: Denies headache, focal weakness. Physical Exam Physical Exam: General: A&Ox3. NAD. Cooperative. HEENT: Atraumatic, normocephalic. Pulm: CTAB A&P. -wheezes, -rales, -rhonchi. Symmetrical chest rise. No increase work of breathing. No respiratory distress on 4L NCO2. Cardiac: RRR, -mrg. Radial pulses intact and symmetrical. Abdominal: Nontender, nondistended, soft. BS present. Extremity: Continues to have tenderness to palpation in RLE and pain with R ankle dorsiflexion. No lower extremity swelling, warmth, erythema, or asymmetry. Results & Data Vital Signs (Past 12 Hours) Vital Signs Temp Pulse Resp BP Pulse Ox 01/01/19 06:01 75 18 90/57 L 98 01/01/19 06:00 78 16 97 01/01/19 05:31 76 14 89/54 L 98 01/01/19 05:30 72 22 98 01/01/19 05:01 82 15 84/65 L 98 01/01/19 05:00 73 15 97 01/01/19 04:32 79 14 96 01/01/19 04:31 81 13 101/57 L 97 01/01/19 04:30 78 6 L 97 01/01/19 04:01 36.8 C 79 15 103/53 L 95 01/01/19 04:00 85 13 96 01/01/19 03:31 82 17 100/56 L 95 01/01/19 03:30 84 19 94 01/01/19 03:01 86 18 103/56 L 96 01/01/19 03:00 91 H 26 H 97 01/01/19 02:31 78 22 95/52 L 97 01/01/19 02:30 79 19 98 01/01/19 02:01 82 17 102/54 L 97 01/01/19 02:00 86 16 97 01/01/19 01:31 85 14 103/47 L 97 01/01/19 01:30 86 14 97 01/01/19 01:00 87 19 91/58 L 97 01/01/19 00:32 88 28 H 96 01/01/19 00:31 85 22 88/54 L 96 01/01/19 00:30 85 19 95 01/01/19 00:01 36.8 C 86 25 H 111/53 L 97 01/01/19 00:00 84 23 98 12/31/18 23:31 90 17 99/60 L 97 12/31/18 23:30 90 22 97 12/31/18 23:01 88 19 96/71 L 97 12/31/18 23:00 84 18 96 12/31/18 22:31 92 H 20 92/60 L 96 12/31/18 22:30 87 22 97 12/31/18 22:02 92 H 16 96 12/31/18 22:01 94 H 17 104/58 L 96 12/31/18 22:00 94 H 17 96 12/31/18 21:32 83 13 99 12/31/18 21:31 82 16 87/53 L 98 12/31/18 21:30 84 14 98 Laboratory Results 01/01/19 01/01/19 01/01/19 Range/Units 06:37 04:32 04:32 WBC (4.8-10.8) K/uL RBC (4.2-5.4) M/uL Hgb (12.0-16.0) g/dL Hct (37-47) % MCV (80-100) fL MCH (25-34) pg MCHC (32-36) g/dL RDW Std Deviation (36.4-46.3) fL RDW Coeff of Huber (11.5-14.5) % Plt Count (130-400) K/uL MPV (7.4-10.4) fL Immature Gran % (Auto) % Neut % (Auto) % Lymph % (Auto) % [place] % (Auto) % Eos % (Auto) % Baso % (Auto) % Immature Gran # (Auto) (0.00-0.02) K/uL Neut # (Auto) (1.4-6.5) K/uL Lymph # (Auto) (1.2-3.4) K/uL [place] # (Auto) (0.11-0.59) K/uL Eos # (Auto) (0-0.5) K/uL Baso # (Auto) (0-0.2) K/uL Polychromasia Echinocytes APTT 68.6 H* (21.0-31.0) Seconds PTT Ratio 2.5 Sodium 136 (136-145) mmol/L Potassium 4.0 (3.5-5.1) mmol/L Chloride 106 (98-107) mmol/L Carbon Dioxide 28 (21-32) mmol/L Anion Gap 2.0 L (3-11) BUN 10 (7-18) mg/dl Creatinine 0.52 L (0.6-1.2) mg/dl Est Cr Clr Drug Dosing 164.9 ml/min Est GFR ( Amer) 133.7 Est GFR (Non-Af Amer) 115.4 BUN/Creatinine Ratio 18.5 (10-20) Glucose 73 (70-99) mg/dl POC Glucose 86 (70-99) Calcium 7.1 L (8.5-10.1) mg/dl Phosphorus 2.9 (2.5-4.9) mg/dl Magnesium 2.1 (1.8-2.4) mg/dl Urine Color Urine Appearance (Clear) Urine pH (4.5-7.5) Ur Specific [place] (1.000-1.030) Urine Protein (Negative) Urine Glucose (UA) (Negative) Urine Ketones (Negative) Urine Blood (Negative) Urine Nitrite (Negative) Urine Bilirubin (Negative) Urine Urobilinogen (Negative) Ur Leukocyte Esterase (Negative) Urine WBC (Auto) (0-5) /hpf Urine RBC (Auto) (0-4) /hpf U Hyaline Cast (Auto) (0-5) /lpf U Epithel Cells (Auto) (0-5) /lpf Urine Bacteria (Auto) (Negative) Ur Renal Epithelial Cell Granular Casts (0) /lpf Urine Mucus (None Prsent) Urine Yeast 01/01/19 01/01/19 12/31/18 Range/Units 04:32 01:55 20:46 WBC 11.94 H (4.8-10.8) K/uL RBC 3.96 L (4.2-5.4) M/uL Hgb 11.0 L (12.0-16.0) g/dL Hct 34.4 L (37-47) % MCV 86.9 (80-100) fL MCH 27.8 (25-34) pg MCHC 32.0 (32-36) g/dL RDW Std Deviation 57.9 H (36.4-46.3) fL RDW Coeff of Huber 18.7 H (11.5-14.5) % Plt Count 158 (130-400) K/uL MPV 9.4 (7.4-10.4) fL Immature Gran % (Auto) 5.5 % Neut % (Auto) 70.4 % Lymph % (Auto) 14.8 % [place] % (Auto) 8.5 % Eos % (Auto) 0.4 % Baso % (Auto) 0.4 % Immature Gran # (Auto) 0.66 H (0.00-0.02) K/uL Neut # (Auto) 8.39 H (1.4-6.5) K/uL Lymph # (Auto) 1.77 (1.2-3.4) K/uL [place] # (Auto) 1.02 H (0.11-0.59) K/uL Eos # (Auto) 0.05 (0-0.5) K/uL Baso # (Auto) 0.05 (0-0.2) K/uL Polychromasia 1+ Echinocytes 1+ APTT 65.2 H* (21.0-31.0) Seconds PTT Ratio 2.4 Sodium (136-145) mmol/L Potassium (3.5-5.1) mmol/L Chloride (98-107) mmol/L Carbon Dioxide (21-32) mmol/L Anion Gap (3-11) BUN (7-18) mg/dl Creatinine (0.6-1.2) mg/dl Est Cr Clr Drug Dosing ml/min Est GFR ( Amer) Est GFR (Non-Af Amer) BUN/Creatinine Ratio (10-20) Glucose (70-99) mg/dl POC Glucose 71 (70-99) Calcium (8.5-10.1) mg/dl Phosphorus (2.5-4.9) mg/dl Magnesium (1.8-2.4) mg/dl Urine Color Urine Appearance (Clear) Urine pH (4.5-7.5) Ur Specific [place] (1.000-1.030) Urine Protein (Negative) Urine Glucose (UA) (Negative) Urine Ketones (Negative) Urine Blood (Negative) Urine Nitrite (Negative) Urine Bilirubin (Negative) Urine Urobilinogen (Negative) Ur Leukocyte Esterase (Negative) Urine WBC (Auto) (0-5) /hpf Urine RBC (Auto) (0-4) /hpf U Hyaline Cast (Auto) (0-5) /lpf U Epithel Cells (Auto) (0-5) /lpf Urine Bacteria (Auto) (Negative) Ur Renal Epithelial Cell Granular Casts (0) /lpf Urine Mucus (None Prsent) Urine Yeast 12/31/18 12/31/18 12/31/18 Range/Units 19:14 18:45 17:40 WBC (4.8-10.8) K/uL RBC (4.2-5.4) M/uL Hgb (12.0-16.0) g/dL Hct (37-47) % MCV (80-100) fL MCH (25-34) pg MCHC (32-36) g/dL RDW Std Deviation (36.4-46.3) fL RDW Coeff of Huber (11.5-14.5) % Plt Count (130-400) K/uL MPV (7.4-10.4) fL Immature Gran % (Auto) % Neut % (Auto) % Lymph % (Auto) % [place] % (Auto) % Eos % (Auto) % Baso % (Auto) % Immature Gran # (Auto) (0.00-0.02) K/uL Neut # (Auto) (1.4-6.5) K/uL Lymph # (Auto) (1.2-3.4) K/uL [place] # (Auto) (0.11-0.59) K/uL Eos # (Auto) (0-0.5) K/uL Baso # (Auto) (0-0.2) K/uL Polychromasia Echinocytes APTT 55.0 H* > 139.0 H* (21.0-31.0) Seconds PTT Ratio 2.0 > 5.1 Sodium (136-145) mmol/L Potassium (3.5-5.1) mmol/L Chloride (98-107) mmol/L Carbon Dioxide (21-32) mmol/L Anion Gap (3-11) BUN (7-18) mg/dl Creatinine (0.6-1.2) mg/dl Est Cr Clr Drug Dosing ml/min Est GFR ( Amer) Est GFR (Non-Af Amer) BUN/Creatinine Ratio (10-20) Glucose (70-99) mg/dl POC Glucose (70-99) Calcium (8.5-10.1) mg/dl Phosphorus (2.5-4.9) mg/dl Magnesium (1.8-2.4) mg/dl Urine Color Dark Yellow Urine Appearance Cloudy H (Clear) Urine pH 5.5 (4.5-7.5) Ur Specific [place] 1.037 H (1.000-1.030) Urine Protein Trace H (Negative) Urine Glucose (UA) Negative (Negative) Urine Ketones Trace H (Negative) Urine Blood 3+ H (Negative) Urine Nitrite Negative (Negative) Urine Bilirubin Negative (Negative) Urine Urobilinogen Negative (Negative) Ur Leukocyte Esterase Negative (Negative) Urine WBC (Auto) 10-30 H (0-5) /hpf Urine RBC (Auto) 10-30 H (0-4) /hpf U Hyaline Cast (Auto) 1-5 (0-5) /lpf U Epithel Cells (Auto) >30 H (0-5) /lpf Urine Bacteria (Auto) Negative (Negative) Ur Renal Epithelial Cell Not Reportable Granular Casts 1-5 H (0) /lpf Urine Mucus Present H (None Prsent) Urine Yeast Not Reportable 12/31/18 12/31/18 12/31/18 Range/Units 16:26 15:06 11:35 WBC (4.8-10.8) K/uL RBC (4.2-5.4) M/uL Hgb (12.0-16.0) g/dL Hct (37-47) % MCV (80-100) fL MCH (25-34) pg MCHC (32-36) g/dL RDW Std Deviation (36.4-46.3) fL RDW Coeff of Huber (11.5-14.5) % Plt Count (130-400) K/uL MPV (7.4-10.4) fL Immature Gran % (Auto) % Neut % (Auto) % Lymph % (Auto) % [place] % (Auto) % Eos % (Auto) % Baso % (Auto) % Immature Gran # (Auto) (0.00-0.02) K/uL Neut # (Auto) (1.4-6.5) K/uL Lymph # (Auto) (1.2-3.4) K/uL [place] # (Auto) (0.11-0.59) K/uL Eos # (Auto) (0-0.5) K/uL Baso # (Auto) (0-0.2) K/uL Polychromasia Echinocytes APTT (21.0-31.0) Seconds PTT Ratio Sodium 138 (136-145) mmol/L Potassium 3.5 (3.5-5.1) mmol/L Chloride 106 (98-107) mmol/L Carbon Dioxide 29 (21-32) mmol/L Anion Gap 3.0 (3-11) BUN 9 (7-18) mg/dl Creatinine 0.60 (0.6-1.2) mg/dl Est Cr Clr Drug Dosing 142.9 ml/min Est GFR ( Amer) 127.6 Est GFR (Non-Af Amer) 110.1 BUN/Creatinine Ratio 14.1 (10-20) Glucose 75 (70-99) mg/dl POC Glucose 75 79 (70-99) Calcium 7.2 L (8.5-10.1) mg/dl Phosphorus (2.5-4.9) mg/dl Magnesium 2.2 (1.8-2.4) mg/dl Urine Color Urine Appearance (Clear) Urine pH (4.5-7.5) Ur Specific [place] (1.000-1.030) Urine Protein (Negative) Urine Glucose (UA) (Negative) Urine Ketones (Negative) Urine Blood (Negative) Urine Nitrite (Negative) Urine Bilirubin (Negative) Urine Urobilinogen (Negative) Ur Leukocyte Esterase (Negative) Urine WBC (Auto) (0-5) /hpf Urine RBC (Auto) (0-4) /hpf U Hyaline Cast (Auto) (0-5) /lpf U Epithel Cells (Auto) (0-5) /lpf Urine Bacteria (Auto) (Negative) Ur Renal Epithelial Cell Granular Casts (0) /lpf Urine Mucus (None Prsent) Urine Yeast 12/31/18 Range/Units 09:47 WBC (4.8-10.8) K/uL RBC (4.2-5.4) M/uL Hgb (12.0-16.0) g/dL Hct (37-47) % MCV (80-100) fL MCH (25-34) pg MCHC (32-36) g/dL RDW Std Deviation (36.4-46.3) fL RDW Coeff of Huber (11.5-14.5) % Plt Count (130-400) K/uL MPV (7.4-10.4) fL Immature Gran % (Auto) % Neut % (Auto) % Lymph % (Auto) % [place] % (Auto) % Eos % (Auto) % Baso % (Auto) % Immature Gran # (Auto) (0.00-0.02) K/uL Neut # (Auto) (1.4-6.5) K/uL Lymph # (Auto) (1.2-3.4) K/uL [place] # (Auto) (0.11-0.59) K/uL Eos # (Auto) (0-0.5) K/uL Baso # (Auto) (0-0.2) K/uL Polychromasia Echinocytes APTT 71.9 H* (21.0-31.0) Seconds PTT Ratio 2.7 Sodium (136-145) mmol/L Potassium (3.5-5.1) mmol/L Chloride (98-107) mmol/L Carbon Dioxide (21-32) mmol/L Anion Gap (3-11) BUN (7-18) mg/dl Creatinine (0.6-1.2) mg/dl Est Cr Clr Drug Dosing ml/min Est GFR ( Amer) Est GFR (Non-Af Amer) BUN/Creatinine Ratio (10-20) Glucose (70-99) mg/dl POC Glucose (70-99) Calcium (8.5-10.1) mg/dl Phosphorus (2.5-4.9) mg/dl Magnesium (1.8-2.4) mg/dl Urine Color Urine Appearance (Clear) Urine pH (4.5-7.5) Ur Specific [place] (1.000-1.030) Urine Protein (Negative) Urine Glucose (UA) (Negative) Urine Ketones (Negative) Urine Blood (Negative) Urine Nitrite (Negative) Urine Bilirubin (Negative) Urine Urobilinogen (Negative) Ur Leukocyte Esterase (Negative) Urine WBC (Auto) (0-5) /hpf Urine RBC (Auto) (0-4) /hpf U Hyaline Cast (Auto) (0-5) /lpf U Epithel Cells (Auto) (0-5) /lpf Urine Bacteria (Auto) (Negative) Ur Renal Epithelial Cell Granular Casts (0) /lpf Urine Mucus (None Prsent) Urine Yeast Medications Administered Current Inpatient Medications Hydrocodone Bitart/Acetaminophen ([place] 10/325) 1 tab PO QID PRN PRN Reason: pain Stop: 01/13/19 12:09 Dronabinol (Marinol) 5 mg PO TID [facility]CEDEZ Stop: 01/29/19 13:59 Last Admin: 01/01/19 08:21 Dose: 5 mg Documented by: Heparin Sodium (Porcine) (Heparin Sod 100 Unit/Ml Flush) 5 ml FLUSH PRN PRN PRN Reason: Flush Stop: 01/29/19 23:44 Famotidine 20 mg/ Syringe 5 mls @ 2.5 mls/min IV BID MERCEDEZ Stop: 01/29/19 13:29 Last Admin: 01/01/19 08:21 Dose: 2.5 mls/min Documented by: Heparin Sodium/Dextrose (Heparin Sodium/Dextrose) 25,000 units in 500 mls @ 17 mls/hr IV .Q24H MERCEDEZ; Protocol Stop: 01/29/19 15:14 Last Titration: 01/01/19 06:46 Dose: 850 units/hr, 17 mls/hr Documented by: Miscellaneous ([facility] Protocol For Hyperglycemia) 1 ea N/A PRN PRN; Protocol PRN Reason: Hyperglycemia Protocol Stop: 01/01/19 12:09 Miscellaneous ([facility] Electrolyte Replacement Protocol) 1 ea N/A UD PRN PRN Reason: for e-lyte repletion Stop: 01/06/19 12:09 Miscellaneous (Carbohydrates For Hypoglycemia) 15 gm PO ONCE PRN PRN Reason: Hypoglycemia Treatment Stop: 01/30/19 06:33 Last Admin: 12/31/18 06:35 Dose: 15 gm Documented by: Ondansetron HCl (Zofran) 4 mg IV Q4H PRN PRN Reason: Nausea Stop: 01/29/19 12:09 Potassium Chloride (Klor-Con M10) 40 meq PO DAILY MERCEDEZ Stop: 01/31/19 08:59 Last Admin: 01/01/19 09:13 Dose: 40 meq Documented by: Pregabalin (Lyrica) 150 mg PO TID [facility] Stop: 01/29/19 13:59 Last Admin: 01/01/19 08:21 Dose: 150 mg Documented by: Resident Activity Tracking Resident Involvement: Resident Care Provided Care Provided: Adult Hospital Medicine (1) Pulmonary emboli Pulmonary embolism type: saddle
[2019-01-01] MEDS: ONDANSETRON INJ 2 MG/ML 2 ML VIAL IV PRN (10:45)
[2019-01-01 11:36] LABS: Partial Thromboplastin Ratio 1.8
[2019-01-01 12:13] LABS: Partial Thromboplastin Time 49.4 Seconds (21.0-31.0)
[2019-01-01] MEDS: Heparin Adult STANDARD Wt-Based Dextrose 5% 25,000 units/500 mL IV SCH (15:17)
--- NOTE | 2019-01-01 16:04 | Hospitalist Progress Note ---
Date of Service January 01, 2019 Assessment & Plan (1) Pulmonary embolism: massive PE causing hemodynamic compromise with hypotension at the time of admission saddle PE with signs of cor pulmonale treated with tPA at 1200 on 12/30, completed at 1400 continue heparin drip blood pressure still low at times, HR stable keep in ICU today due to low blood pressures and high clot burden, need to monitor closely will need to determine best option for anticoagulation, likely Lovenox of note, was only on Lovenox 40mg daily outpatient for bridge will d/w hematology, coag clinic prior to discharge (2) Right leg DVT: continue on heparin drip will need transition to outpatient AC will need lifelong given cancer (3) Hypoxia: Acute respiratory distress with hypoxia due to massive PE and cor pulmonale oxygen requirement down to 2L today, no distress at rest (4) Metastatic squamous cell carcinoma: continues to follow with Dr. Bruner for chemotherapy (5) Abdominal carcinomatosis: Pt has a poorly functioning Pleurex cath in her right abdomen and CT shows likely loculated fluid collections, and there was some discussion of removing tube in the next two weeks. can follow up with Dr. Bruner (6) Hypokalemia: K normal today at 4.0 repeat tomorrow (7) Nausea: better today continue to monitor could be due to chemo eating more (8) Pleural effusion: chronic issue, now worse could be metastatic but also related to bilateral PE will monitor Subjective patient feeling a little better today, more energy breathing is stable at rest but feels dyspnea on minimal exertion appetite is a little better today but not great discussed details of outpatient anticoagulation she says she was on Lovenox 40mg daily which would seem to be too low she was on this because her Coumadin was difficult to manage we discussed that prior to discharge we will touch base with hem/onc and coag clinic keep in ICU reviewed labs discussed with intensive care staff Review of Systems Review of Systems: All systems reviewed & are unremarkable except as noted in HPI & below Constitutional: + fatigue and + weakness; no fever Respiratory: + dyspnea on exertion; no cough and no dyspnea Cardiovascular: no chest pain Physical Exam Constitutional: WD/WN, vitals as above Eyes: PERRL, conjunctivae normal, anicteric sclerae ENMT: external ear and nose normal, oropharynx normal Neck: trachea midline, no thyromegaly Respiratory: normal respiratory effort, lungs clear to auscultation Auscultation: + diminished lung sounds (bases); no wheezes Cardiovascular: RRR, no murmur, no edema Gastrointestinal (Abdomen): normal bowel sounds, soft, nontender, no hepatosplenomegaly Musculoskeletal: no cyanosis or clubbing, extremities motor strength 5/5 Skin: no rashes, warm and dry Neurologic: patellar DTR's 2+ bilat, sensation intact and PERRL, EOMI, accommodation nl, no face palsy, no dysarthria Psychiatric: A+Ox3, euthymic affect Lymphatic: no cervical or axillary lymphadenopathy Results & Data Vital Signs (Past 12 Hours) Vital Signs Temp Pulse Pulse Resp BP BP Pulse Ox 01/01/19 12:00 36.7 C 91 H 17 91/50 L 94 01/01/19 10:01 92 H 8 L 88/55 L 99 01/01/19 09:13 97 H 12 97/65 L 98 01/01/19 08:05 114 H 15 110/71 97 01/01/19 08:00 98 H 01/01/19 07:13 83 7 L 89/54 L 96 01/01/19 06:01 75 18 90/57 L 98 01/01/19 06:00 78 16 97 01/01/19 05:31 76 14 89/54 L 98 01/01/19 05:30 72 22 98 01/01/19 05:01 82 15 84/65 L 98 01/01/19 05:00 73 15 97 01/01/19 04:32 79 14 96 01/01/19 04:31 81 13 101/57 L 97 01/01/19 04:30 78 6 L 97 01/01/19 04:01 36.8 C 79 15 103/53 L 95 Laboratory Results Laboratory Results - last 24 hr 12/31/18 12/31/18 12/31/18 16:26 17:40 18:45 WBC RBC Hgb Hct MCV MCH MCHC RDW Std Deviation RDW Coeff of Huber Plt Count MPV Immature Gran % (Auto) Neut % (Auto) Lymph % (Auto) [place] % (Auto) Eos % (Auto) Baso % (Auto) Immature Gran # (Auto) Neut # (Auto) Lymph # (Auto) [place] # (Auto) Eos # (Auto) Baso # (Auto) Polychromasia Echinocytes APTT > 139.0 H* PTT Ratio > 5.1 Sodium Potassium Chloride Carbon Dioxide Anion Gap BUN Creatinine Est Cr Clr Drug Dosing Est GFR ( Amer) Est GFR (Non-Af Amer) BUN/Creatinine Ratio Glucose POC Glucose 75 Calcium Phosphorus Magnesium Urine Color Dark Yellow Urine Appearance Cloudy H Urine pH 5.5 Ur Specific [place] 1.037 H Urine Protein Trace H Urine Glucose (UA) Negative Urine Ketones Trace H Urine Blood 3+ H Urine Nitrite Negative Urine Bilirubin Negative Urine Urobilinogen Negative Ur Leukocyte Esterase Negative Urine WBC (Auto) 10-30 H Urine RBC (Auto) 10-30 H U Hyaline Cast (Auto) 1-5 U Epithel Cells (Auto) >30 H Urine Bacteria (Auto) Negative Ur Renal Epithelial Cell Not Reportable Granular Casts 1-5 H Urine Mucus Present H Urine Yeast Not Reportable 12/31/18 12/31/18 01/01/19 19:14 20:46 01:55 WBC RBC Hgb Hct MCV MCH MCHC RDW Std Deviation RDW Coeff of Huber Plt Count MPV Immature Gran % (Auto) Neut % (Auto) Lymph % (Auto) [place] % (Auto) Eos % (Auto) Baso % (Auto) Immature Gran # (Auto) Neut # (Auto) Lymph # (Auto) [place] # (Auto) Eos # (Auto) Baso # (Auto) Polychromasia Echinocytes APTT 55.0 H* 65.2 H* PTT Ratio 2.0 2.4 Sodium Potassium Chloride Carbon Dioxide Anion Gap BUN Creatinine Est Cr Clr Drug Dosing Est GFR ( Amer) Est GFR (Non-Af Amer) BUN/Creatinine Ratio Glucose POC Glucose 71 Calcium Phosphorus Magnesium Urine Color Urine Appearance Urine pH Ur Specific [place] Urine Protein Urine Glucose (UA) Urine Ketones Urine Blood Urine Nitrite Urine Bilirubin Urine Urobilinogen Ur Leukocyte Esterase Urine WBC (Auto) Urine RBC (Auto) U Hyaline Cast (Auto) U Epithel Cells (Auto) Urine Bacteria (Auto) Ur Renal Epithelial Cell Granular Casts Urine Mucus Urine Yeast 01/01/19 01/01/19 01/01/19 04:32 04:32 04:32 WBC 11.94 H RBC 3.96 L Hgb 11.0 L Hct 34.4 L MCV 86.9 MCH 27.8 MCHC 32.0 RDW Std Deviation 57.9 H RDW Coeff of Huber 18.7 H Plt Count 158 MPV 9.4 Immature Gran % (Auto) 5.5 Neut % (Auto) 70.4 Lymph % (Auto) 14.8 [place] % (Auto) 8.5 Eos % (Auto) 0.4 Baso % (Auto) 0.4 Immature Gran # (Auto) 0.66 H Neut # (Auto) 8.39 H Lymph # (Auto) 1.77 [place] # (Auto) 1.02 H Eos # (Auto) 0.05 Baso # (Auto) 0.05 Polychromasia 1+ Echinocytes 1+ APTT 68.6 H* PTT Ratio 2.5 Sodium 136 Potassium 4.0 Chloride 106 Carbon Dioxide 28 Anion Gap 2.0 L BUN 10 Creatinine 0.52 L Est Cr Clr Drug Dosing 164.9 Est GFR ( Amer) 133.7 Est GFR (Non-Af Amer) 115.4 BUN/Creatinine Ratio 18.5 Glucose 73 POC Glucose Calcium 7.1 L Phosphorus 2.9 Magnesium 2.1 Urine Color Urine Appearance Urine pH Ur Specific [place] Urine Protein Urine Glucose (UA) Urine Ketones Urine Blood Urine Nitrite Urine Bilirubin Urine Urobilinogen Ur Leukocyte Esterase Urine WBC (Auto) Urine RBC (Auto) U Hyaline Cast (Auto) U Epithel Cells (Auto) Urine Bacteria (Auto) Ur Renal Epithelial Cell Granular Casts Urine Mucus Urine Yeast 01/01/19 01/01/19 01/01/19 06:37 11:02 11:39 WBC RBC Hgb Hct MCV MCH MCHC RDW Std Deviation RDW Coeff of Huber Plt Count MPV Immature Gran % (Auto) Neut % (Auto) Lymph % (Auto) [place] % (Auto) Eos % (Auto) Baso % (Auto) Immature Gran # (Auto) Neut # (Auto) Lymph # (Auto) [place] # (Auto) Eos # (Auto) Baso # (Auto) Polychromasia Echinocytes APTT 49.4 H* PTT Ratio 1.8 Sodium Potassium Chloride Carbon Dioxide Anion Gap BUN Creatinine Est Cr Clr Drug Dosing Est GFR ( Amer) Est GFR (Non-Af Amer) BUN/Creatinine Ratio Glucose POC Glucose 86 71 Calcium Phosphorus Magnesium Urine Color Urine Appearance Urine pH Ur Specific [place] Urine Protein Urine Glucose (UA) Urine Ketones Urine Blood Urine Nitrite Urine Bilirubin Urine Urobilinogen Ur Leukocyte Esterase Urine WBC (Auto) Urine RBC (Auto) U Hyaline Cast (Auto) U Epithel Cells (Auto) Urine Bacteria (Auto) Ur Renal Epithelial Cell Granular Casts Urine Mucus Urine Yeast Medications Administered Current Inpatient Medications Hydrocodone Bitart/Acetaminophen ([place] 10/325) 1 tab PO QID PRN PRN Reason: pain Stop: 01/13/19 12:09 Dronabinol (Marinol) 5 mg PO TID [facility] Stop: 01/29/19 13:59 Last Admin: 01/01/19 15:16 Dose: 5 mg Documented by: Famotidine (Pepcid) 20 mg PO BID [facility]; Protocol Stop: 01/31/19 20:59 Heparin Sodium (Porcine) (Heparin Sod 100 Unit/Ml Flush) 5 ml FLUSH PRN PRN PRN Reason: Flush Stop: 01/29/19 23:44 Heparin Sodium/Dextrose (Heparin Sodium/Dextrose) 25,000 units in 500 mls @ 17 mls/hr IV .Q24H [facility]; Protocol Stop: 01/29/19 15:14 Last Admin: 01/01/19 15:17 Dose: 850 units/hr, 17 mls/hr Documented by: Miscellaneous (Icu Electrolyte Replacement Protocol) 1 ea N/A UD PRN PRN Reason: for e-lyte repletion Stop: 01/06/19 12:09 Miscellaneous (Carbohydrates For Hypoglycemia) 15 gm PO ONCE PRN PRN Reason: Hypoglycemia Treatment Stop: 01/30/19 06:33 Last Admin: 12/31/18 06:35 Dose: 15 gm Documented by: Ondansetron HCl (Zofran) 4 mg IV Q4H PRN PRN Reason: Nausea Stop: 01/29/19 12:09 Potassium Chloride (Klor-Con M10) 40 meq PO DAILY [facility] Stop: 01/31/19 08:59 Last Admin: 01/01/19 09:13 Dose: 40 meq Documented by: Pregabalin (Lyrica) 150 mg PO TID [facility] Stop: 01/29/19 13:59 Last Admin: 01/01/19 15:16 Dose: 150 mg Documented by:
[2019-01-01] MEDS: FAMOTIDINE 20 MG TAB PO SCH (21:19)
[2019-01-02 04:36] LABS: Basophils # (auto) 0.04 K/uL (0-0.2); Basophils % (auto) 0.3 %; Eosinophils # (auto) 0.03 K/uL (0-0.5); Eosinophils % (auto) 0.2 %; Hematocrit (blood only) 32.9 % (37-47); Hemoglobin 10.6 g/dL (12.0-16.0); Immature Granulocytes # (auto) 0.57 K/uL (0.00-0.02); Immature Granulocytes % (auto) 3.8 %; Lymphocytes # (auto) 2.55 K/uL (1.2-3.4); Mean Corpuscular Hgb Conc 32.2 g/dL (32-36); Mean Platelet Volume 10.1 fL (7.4-10.4); Monocytes # (auto) 1.05 K/uL (0.11-0.59); Neutrophils # (auto) 10.72 K/uL (1.4-6.5); Neutrophils % (auto) 71.7 %; Platelet Count 149 K/uL (130-400); RDW Coefficient of Variation 18.8 % (11.5-14.5); RDW Standard Deviation 58.7 fL (36.4-46.3); Red Blood Count 3.78 M/uL (4.2-5.4); White Blood Count 14.96 K/uL (4.8-10.8)
[2019-01-02 04:53] LABS: BUN Creatinine Ratio 18.2 (10-20); Creatinine Clr Calc Pharmacy 159.1 ml/min; Est GFR (African American) 132.1; Magnesium 1.8 mg/dl (1.8-2.4); Potassium 4.1 mmol/L (3.5-5.1)
[2019-01-02 04:54] LABS: Partial Thromboplastin Ratio 4.4; Phosphorus 3.2 mg/dl (2.5-4.9)
[2019-01-02 05:12] LABS: Partial Thromboplastin Time 117.9 Seconds (21.0-31.0)
[2019-01-02 06:22] LABS: Partial Thromboplastin Ratio 2.1
[2019-01-02 06:23] LABS: Partial Thromboplastin Time 57.6 Seconds (21.0-31.0)
--- NOTE | 2019-01-02 07:27 | Critical Care Progress Note ---
Date of Service January 02, 2019 Assessment & Plan (1) Pulmonary emboli: Reason Critically Ill: 43-year-old female with a PMHx of esophageal cancer s/p chemotherapy here for saddle pulmonary embolus. Neuro - CAM ICU: NEGATIVE Cardiac - No prior cardiac history EKG 12/30: sinus tachycardia with nonspecific T wave changes likely 2/2 to PE managed as below Respiratory - Massive Pulmonary Embolism with R DVT: - Saddle PE with multiple diffuse PEs noted on CT-PE protocol, R DVT on doppler in setting of known malignancy - Tachycardic, hypotensive, tachypnic on admission - Oxygen weaned to NC2L with no SoB and SpO2>94% - s/p TPA. Currently mildly hypotensive without tachycardia. - Heparin gtt. Will require therapeutic anticoagulation dosing followed by indefinite anticoagulation. Pt would prefer pill for ease, but would rather therapeutic lovenox if the DOACs carry an increased bleeding risk given her malignancy. GI - Regular Diet RENAL/LYTES - - Potassium 4.1 today, Cr .54 - KCL 40meq PO daily - BMP daily ENDO - Glucose 70s with moderate-low oral intake. Increasing PO intake, continue to follow. HEME - - Stable H&H. (Hgb 10.6 today) - Will monitor for any drops in the setting of Heparin gtt Esophageal Cancer - s/p port placement with ongoing chemotherapy. Was previously on coumadin for a clot at her port site which was revised 12/11. - No oncology consult at this time ID - No concerns for infection at this point. INTEGUMENTARY - No skin lesions or skin findings at this time LINES/IV ACCESS - PIVs intact. DVT PROPHYLAXIS - Heparin gtt. Pending conversion to DOAC vs Enoxaparin. Thank you for allowing us to be part of this patient's care. Please refer to Dr. Dozier's documentation for any further recommendations. Supervising Physician Co-Signing Physician Notes pulmonary/critical care attending: seen and examined with Dr. Hinkle. agree with above except as below 43 y/o female with a history of esophageal ca presenting with massive pulmonary embolism Constitutional: Comfortable NAD in chair HEENT: normocephalic atraumatic. CV: RRR nl s1, s2 no murmurs rubs or gallops Lungs: clear to auscultation bilaterally. no accessory muscle use Abd: soft nontender nondistended. normal bowel sounds Ext: no edema. no cyanosis, no clubbing Skin: warm dry Neuro: alert and oriented. moving all extremities Psych: normal mood and affect a/p: Neuro- awake alert CV- obstructive shock due to massive pulmonary embolism now HD stable. s/p TPA. echo yesterday without RV dysfunction Pulmonary- acute respiratory failure due to massive PE. s/p TPA due to hemodynamic instability. titrate fio2 for sat >92% ID- no signs infection except for increased WBC. bibasilar infiltrates more likely atelectasis Renal- cr ok. hypokalemia improved GI- diet as tolerated. nausea improved. ondansetron as needed Heme- pulmonary embolism due to esophageal CA. heparin drip s/p TPA. will need lifelong anticoagulation as long as bleeding risk is not greater than clotting risk. discussed risk and benefits with DOAC vs enoxaparin in cancer patients. recent date suggest less clot with DOAC but increased bleeding in GI malignancies. This was discussed with her. Endocrine- keep blood sugar <180 Dispo-ok to transfer out of ICU to monitored floor Subjective Naomi feels about the same today as yesterday. She reports she is not short of breath this morning. her oxygen was weaned from 4L to 2L last night, she initially had some shortness of breath which quickly resolved. No chest pain, chest pressure. No fevers, chills, night sweats. Her R leg continues to be a little achy to the touch, but is not painful at rest today. No vomiting this morning, although was a little nauseus last night. No abdominal pain, diarrhea. No questions or concerns this morning. Review of Systems Review of Systems: Constitutional: Denies fever, chills, night sweats Eyes: Denies vision change, eye pain ENT: Denies sore throat, sinus pain Cardiovascular: Denies chest pain, chest pressure, palpitations, extremity swelling Respiratory: Denies shortness of breath, sputum production, difficulty breathing. Endorses dry cough. Gastrointestinal: Denies abdominal pain, vomiting, constipation, diarrhea. Denies nausea this morning. Was last nauseus last night. Musculoskeletal: Endorses some aching in her R leg unchanged from prior, denies other joint aches/pain Integumentary: Denies rash, lesions, bruising Neurological: Denies headache, focal weakness. Denies dysuria/polyuria. Physical Exam Physical Exam: General: A&Ox3. NAD. Cooperative. No cyanosis. No clubbing. HEENT: Atraumatic, normocephalic. Pulm: RLL rales present. Otherwise CTAB A&P. -wheezes, -rhonchi. Symmetrical chest rise. No increase work of breathing. No respiratory distress on 2L NCO2. Cardiac: RRR, -mrg. Radial pulses intact and symmetrical. Abdominal: Nontender, nondistended, soft. BS present. Extremity: Continues to have tenderness to palpation in RLE and pain with R ankle dorsiflexion. No tenderness at rest. No lower extremity swelling, warmth, erythema, or asymmetry. Results & Data Vital Signs (Past 12 Hours) Vital Signs Temp Pulse Resp BP Pulse Ox Pulse Ox 01/02/19 05:30 70 14 97 01/02/19 05:11 74 16 95/57 L 95 01/02/19 05:10 87 21 86/51 L 97 01/02/19 05:01 72 17 95/57 L 96 01/02/19 05:00 72 5 L 96 01/02/19 04:30 77 15 95 01/02/19 04:28 78 16 89/57 L 94 01/02/19 04:02 74 14 97 01/02/19 04:01 76 12 86/48 L 98 01/02/19 04:00 75 16 97 01/02/19 03:30 79 12 97 01/02/19 03:01 84 16 87/50 L 97 01/02/19 03:00 78 16 97 01/02/19 02:30 83 16 98 01/02/19 02:01 85 16 89/51 L 91 01/02/19 02:00 82 16 91 01/02/19 01:30 84 13 91 01/02/19 01:02 85 13 93 01/02/19 01:01 82 21 87/53 L 92 01/02/19 01:00 81 12 92 01/02/19 00:30 83 95 01/02/19 00:01 36.8 C 81 21 97/51 L 94 01/02/19 00:00 91 H 22 94 01/01/19 23:47 89 14 86/54 L 96 01/01/19 23:30 80 13 96 01/01/19 23:00 75 12 97 01/01/19 22:30 81 12 96 01/01/19 22:01 78 13 81/55 L 96 01/01/19 22:00 80 20 97 94 01/01/19 21:30 81 12 96 01/01/19 21:00 82 18 96 01/01/19 20:30 89 18 97 01/01/19 20:01 36.8 C 82 19 114/49 L 97 01/01/19 20:00 83 98 01/01/19 19:30 88 29 H 95 Resident Activity Tracking Resident Involvement: Resident Care Provided Care Provided: Adult Hospital Medicine (1) Pulmonary emboli Pulmonary embolism type: saddle
[2019-01-02] MEDS: DRONABINOL 2.5 MG CAP PO SCH ×3 (08:47→21:17)
[2019-01-02] MEDS: PREGABALIN 150 MG CAP PO SCH ×3 (08:47→21:17)
[2019-01-02] MEDS: FAMOTIDINE 20 MG TAB PO SCH ×2 (08:47→21:44)
[2019-01-02] MEDS: POTASSIUM CHLORIDE 10 MEQ TABCR PO SCH (08:48)
--- NOTE | 2019-01-02 10:49 | XRay Report ---
XR chest 1V portable CLINICAL HISTORY: RLL rales, leukocytosis dyspnea COMPARISON STUDY: 12/11/2018 FINDINGS: Central catheter remains in superior vena cava. Pleural thickening left hemithorax is unchanged. Pleural thickening and/or small effusion right base unchanged. Prominent basilar parenchymal markings unchanged. Pulmonary apices are clear. IMPRESSION: Stable bibasilar parenchymal infiltrative change. Stable bilateral pleural thickening. N o change from the prior study. The above report was generated using voice recognition software. It may contain grammatical, syntax or spelling errors. Electronically signed by: Calvin Desouza M.D. 01/02/2019 10:48 AM
[2019-01-02] MEDS: Heparin Adult STANDARD Wt-Based Dextrose 5% 25,000 units/500 mL IV SCH (12:10)
--- NOTE | 2019-01-02 13:36 | Hospitalist Progress Note ---
Date of Service January 02, 2019 Assessment & Plan (1) Pulmonary embolism: massive PE causing hemodynamic compromise with hypotension at the time of admission saddle PE with signs of cor pulmonale treated with tPA at 1200 on 12/30, completed at 1400 continue heparin drip while inpatient blood pressure still low at times, HR stable, overal BP improved today transfer to PCU today will plan for Lovenox 1mg/kg BID on discharge for lifetime anticoagulation (2) Right leg DVT: continue on heparin drip will need transition to outpatient AC, Lovenox will need lifelong given cancer (3) Hypoxia: Acute respiratory distress with hypoxia due to massive PE and cor pulmonale oxygen requirement down to room air today, no distress at all (4) Metastatic squamous cell carcinoma: continues to follow with Dr. Bruner for chemotherapy can follow up next week after discharge (5) Abdominal carcinomatosis: Pt has a poorly functioning Pleurex cath in her right abdomen and CT shows likely loculated fluid collections, and there was some discussion of removing tube in the next two weeks. can follow up with Dr. Bruner (6) Hypokalemia: K normal today at 4.1 (7) Nausea: much improved, eating a lot more today (8) Pleural effusion: chronic issue, now worse could be metastatic but also related to bilateral PE will monitor Subjective patient is having a good day today oob in chair, stronger appetite is coming back breathing quite well, even tolerating room air with saturations 94% blood pressure still periodically low but for the most part it is improved reviewed labs, WBC up slightly to 14k BMP stable discussed with Dr. Bruner, her oncologist, will use full dose Lovenox on d/c Review of Systems Review of Systems: All systems reviewed & are unremarkable except as noted in HPI & below Constitutional: + fatigue and + weakness; no fever, no chills and no sweats Respiratory: + dyspnea on exertion; no cough and no dyspnea Cardiovascular: + dyspnea on exertion; no chest pain, no palpitations, no syncope and no edema Physical Exam Constitutional: WD/WN, vitals as above Eyes: PERRL, conjunctivae normal, anicteric sclerae ENMT: external ear and nose normal, oropharynx normal Neck: trachea midline, no thyromegaly Respiratory: normal respiratory effort, lungs clear to auscultation Auscultation: + diminished lung sounds (bases); no wheezes Cardiovascular: RRR, no murmur, no edema Gastrointestinal (Abdomen): normal bowel sounds, soft, nontender, no hepatosplenomegaly Musculoskeletal: no cyanosis or clubbing, extremities motor strength 5/5 Skin: no rashes, warm and dry Neurologic: patellar DTR's 2+ bilat, sensation intact and PERRL, EOMI, accommodation nl, no face palsy, no dysarthria Psychiatric: A+Ox3, euthymic affect Lymphatic: no cervical or axillary lymphadenopathy Results & Data Vital Signs (Past 12 Hours) Vital Signs Temp Pulse Pulse Resp BP BP Pulse Ox 01/02/19 13:00 90 16 92 01/02/19 12:40 36.4 C L 96 H 20 96 01/02/19 12:01 92 H 19 110/61 94 01/02/19 12:00 36.6 C 88 93 H 17 95/67 L 95 01/02/19 11:01 87 24 100/62 100 01/02/19 11:00 79 20 98 01/02/19 10:01 85 20 101/71 98 01/02/19 10:00 90 20 98 01/02/19 09:08 87 14 102/75 98 01/02/19 09:07 97 01/02/19 08:01 78 16 92/57 L 97 01/02/19 08:00 36.4 C L 82 88 16 89/54 L 96 01/02/19 07:45 87 23 89/54 L 94 01/02/19 07:00 72 11 L 97 01/02/19 05:30 70 14 97 01/02/19 05:11 74 16 95/57 L 95 01/02/19 05:10 87 21 86/51 L 97 01/02/19 05:01 72 17 95/57 L 96 01/02/19 05:00 72 5 L 96 01/02/19 04:30 77 15 95 01/02/19 04:28 78 16 89/57 L 94 01/02/19 04:02 74 14 97 01/02/19 04:01 76 12 86/48 L 98 01/02/19 04:00 75 16 97 01/02/19 03:30 79 12 97 01/02/19 03:01 84 16 87/50 L 97 01/02/19 03:00 78 16 97 01/02/19 02:30 83 16 98 01/02/19 02:01 85 16 89/51 L 91 01/02/19 02:00 82 16 91 Pulse Ox 01/02/19 13:00 01/02/19 12:40 01/02/19 12:01 01/02/19 12:00 94 01/02/19 11:01 01/02/19 11:00 01/02/19 10:01 01/02/19 10:00 01/02/19 09:08 01/02/19 09:07 01/02/19 08:01 01/02/19 08:00 94 01/02/19 07:45 01/02/19 07:00 01/02/19 05:30 01/02/19 05:11 01/02/19 05:10 01/02/19 05:01 01/02/19 05:00 01/02/19 04:30 01/02/19 04:28 01/02/19 04:02 01/02/19 04:01 01/02/19 04:00 01/02/19 03:30 01/02/19 03:01 01/02/19 03:00 01/02/19 02:30 01/02/19 02:01 01/02/19 02:00 Laboratory Results Laboratory Results - last 24 hr 01/01/19 01/01/19 01/02/19 16:38 23:53 04:23 WBC 14.96 H RBC 3.78 L Hgb 10.6 L Hct 32.9 L MCV 87.0 MCH 28.0 MCHC 32.2 RDW Std Deviation 58.7 H RDW Coeff of Huber 18.8 H Plt Count 149 MPV 10.1 Immature Gran % (Auto) 3.8 Neut % (Auto) 71.7 Lymph % (Auto) 17.0 [place] % (Auto) 7.0 Eos % (Auto) 0.2 Baso % (Auto) 0.3 Immature Gran # (Auto) 0.57 H Neut # (Auto) 10.72 H Lymph # (Auto) 2.55 [place] # (Auto) 1.05 H Eos # (Auto) 0.03 Baso # (Auto) 0.04 APTT PTT Ratio Sodium Potassium Chloride Carbon Dioxide Anion Gap BUN Creatinine Est Cr Clr Drug Dosing Est GFR ( Amer) Est GFR (Non-Af Amer) BUN/Creatinine Ratio Glucose POC Glucose 72 80 Calcium Phosphorus Magnesium 01/02/19 01/02/19 01/02/19 04:23 04:23 05:47 WBC RBC Hgb Hct MCV MCH MCHC RDW Std Deviation RDW Coeff of Huber Plt Count MPV Immature Gran % (Auto) Neut % (Auto) Lymph % (Auto) [place] % (Auto) Eos % (Auto) Baso % (Auto) Immature Gran # (Auto) Neut # (Auto) Lymph # (Auto) [place] # (Auto) Eos # (Auto) Baso # (Auto) APTT 117.9 H* 57.6 H* PTT Ratio 4.4 2.1 Sodium 137 Potassium 4.1 Chloride 107 Carbon Dioxide 27 Anion Gap 3.0 BUN 10 Creatinine 0.54 L Est Cr Clr Drug Dosing 159.1 Est GFR ( Amer) 132.1 Est GFR (Non-Af Amer) 114.0 BUN/Creatinine Ratio 18.2 Glucose 72 POC Glucose Calcium 7.0 L Phosphorus 3.2 Magnesium 1.8 01/02/19 11:15 WBC RBC Hgb Hct MCV MCH MCHC RDW Std Deviation RDW Coeff of Huber Plt Count MPV Immature Gran % (Auto) Neut % (Auto) Lymph % (Auto) [place] % (Auto) Eos % (Auto) Baso % (Auto) Immature Gran # (Auto) Neut # (Auto) Lymph # (Auto) [place] # (Auto) Eos # (Auto) Baso # (Auto) APTT PTT Ratio Sodium Potassium Chloride Carbon Dioxide Anion Gap BUN Creatinine Est Cr Clr Drug Dosing Est GFR ( Amer) Est GFR (Non-Af Amer) BUN/Creatinine Ratio Glucose POC Glucose 80 Calcium Phosphorus Magnesium Medications Administered Current Inpatient Medications Hydrocodone Bitart/Acetaminophen ([place] 10/325) 1 tab PO QID PRN PRN Reason: pain Stop: 01/13/19 12:09 Dronabinol (Marinol) 5 mg PO TID [facility] Stop: 01/29/19 13:59 Last Admin: 01/02/19 08:47 Dose: 5 mg Documented by: Famotidine (Pepcid) 20 mg PO BID [facility]; Protocol Stop: 01/31/19 20:59 Last Admin: 01/02/19 08:47 Dose: 20 mg Documented by: Heparin Sodium (Porcine) (Heparin Sod 100 Unit/Ml Flush) 5 ml FLUSH PRN PRN PRN Reason: Flush Stop: 01/29/19 23:44 Heparin Sodium/Dextrose (Heparin Sodium/Dextrose) 25,000 units in 500 mls @ 17 mls/hr IV .Q24H [facility]; Protocol Stop: 01/29/19 15:14 Last Admin: 01/02/19 12:10 Dose: 850 units/hr, 17 mls/hr Documented by: Miscellaneous (Icu Electrolyte Replacement Protocol) 1 ea N/A UD PRN PRN Reason: for e-lyte repletion Stop: 01/06/19 12:09 Miscellaneous (Carbohydrates For Hypoglycemia) 15 gm PO ONCE PRN PRN Reason: Hypoglycemia Treatment Stop: 01/30/19 06:33 Last Admin: 12/31/18 06:35 Dose: 15 gm Documented by: Ondansetron HCl (Zofran) 4 mg IV Q4H PRN PRN Reason: Nausea Stop: 01/29/19 12:09 Last Admin: 01/01/19 10:45 Dose: 4 mg Documented by: Potassium Chloride (Klor-Con M10) 40 meq PO DAILY [facility] Stop: 01/31/19 08:59 Last Admin: 01/02/19 08:48 Dose: 40 meq Documented by: Pregabalin (Lyrica) 150 mg PO TID [facility] Stop: 01/29/19 13:59 Last Admin: 01/02/19 08:47 Dose: 150 mg Documented by:
--- NOTE | 2019-01-02 14:13 | Medical Student Progress Note ---
Date of Service January 02, 2019 Assessment & Plan (1) Hypoxia: Ms. Bains acute respiratory distress continues to improve. Her HR and RR has stabilized and while her BP had been hanging in the 90s systolic for the past few days it has been around 100 this morning. Her O2 sats have been improving as well, and she moved from 2L to room air around lunchtime. She no longer has SOB or JAUREGUI. Continue IV heparin re: PE and she is ready to transfer to PCU upstairs. (2) Pulmonary embolism: She has metastatic esophageal cancer and takes enoxaparin injections, though missed Sunday's dose. She has a history of subclavian catheter-related DVT. She has right calf pain and mild swelling, and venous doppler confirms a DVT. She had acute respiratory distress, with DVT Sx, likely PE diagnosis, HR >100, history of DVT, and actively treated cancer, resulting in 8.5 points on the Well's criteria and likely PE. This is confirmed by chest CTA and abd/pelvis CT which both showed massive saddle embolus with extensive PE, along with more chronic small-moderate partially lobulated pleural effusions which are unchanged since early December. She had her heparin drip stopped, underwent 100mg/2 hours TPA, and now heparin drip has restarted. She is symptomatically improving. Her PE is considered massive especially considering her hypotension (noted as 40/20 on EMR) and IV heparin should help in case her saddle PE breaks up in the lungs. By this time the PE should have at least mostly broken up, and she is hemodynamically stable for transfer upstairs. Continue to supply heparin drip inpatient. Outpatient Ms. Bains regiment of enoxaparin should likely increase. She had been on 40mg subQ qd, although at 100.1 kg she would likely be better served with a higher dose like 100mg bid. This can be discussed with Dr. Bruner and the coag clinic, but it would be surprising if her missing the Sunday dose of enoxaparin alone would be enough to cause this massive saddle PE, so likely a more aggressive anticoagulation regimen is necessary. (3) Metastatic squamous cell carcinoma: She follows with Dr. Bruner and has been intolerant of chemo, and she has a lower dose chemo scheduled. (4) Hypokalemia: She has had difficulty swallowing her potassium supplement pills re: her chronic nausea. Augment her with IV while inpatient. K was 3.1 Gé[place]is, 4.0 yesterday, 4.1 today, now back in the normal range. (5) Nausea: She has a chronic nausea likely related to her esophageal cancer with chemo and exacerbated by chronic productive cough with strong gag reflex. Continue pantoprazole and monitor as she advances her diet. She is making symptomatic progress today and was able to swallow and eat some solid breakfast. Subjective Ms. Caro states her energy level is about the same today and that she is feeling tired. She is eating better today after having primarily eating only broth and oatmeal the past few days. Last night she had a small amount of meatloaf and a strawberry banana smoothie. She has another smoothie to eat today and is looking forward to it. She also had some eggs for breakfast, and while she isn't doesn't have her normal appetite she feels she is making definite progress with eating and drinking. She says she is never a good drinker and doesn't like the taste of water in general, so the smoothies help a bit in that regard. Whereas she had SOB on admission and JAUREGUI yesterday, today she has neither and feels able to breathe comfortably at both rest and with activity. Her oxygen supplementation continues to go down, needing 4L yesterday but does to room air today with appropriate sats. She has had one episode of vomiting this morning, of the phlegm leading to gaging leading to vomiting variety, and has not had any nausea. Her right calf continues to symptomatically improve in terms of tenderness. Constitutional: + fatigue; no fever and no chills Respiratory: + cough (unchanged, minimal); no dyspnea, no pain on inspiration and no pain with cough Cardiovascular: + calf pain; no chest pain and no palpitations Gastrointestinal: + vomiting (From gaging); no abdominal pain, no nausea, no dysphagia, no constipation and no diarrhea/loose stools Neurologic: no confusion Physical Exam Vital Signs (Past 24 Hours): Last Vital Signs Temp 36.8 C 01/02/19 13:45 Pulse 78 01/02/19 13:45 Resp 20 01/02/19 13:45 BP 89/63 L 01/02/19 13:45 Pulse Ox 94 01/02/19 13:45 Constitutional: WD/WN, vitals as above no acute distress Eyes: PERRL, conjunctivae normal, anicteric sclerae ENMT: external ear and nose normal, oropharynx normal Respiratory: normal respiratory effort; no respiratory distress and does not use accessory muscles Auscultation: no rales, no rhonchi and no wheezes Cardiovascular: RRR, no murmur, no edema Gastrointestinal (Abdomen): normal bowel sounds, soft, nontender, no hepatosplenomegaly Percussion/Palpation: no guarding and abdomen not rigid Musculoskeletal: Extremities: no lower extremity abnormal to inspection Skin: no rashes, warm and dry Psychiatric: A+Ox3, euthymic affect Lymphatic: no cervical or axillary lymphadenopathy
[2019-01-02] MEDS: ONDANSETRON INJ 2 MG/ML 2 ML VIAL IV PRN (19:14)
[2019-01-03 07:36] LABS: Hematocrit (blood only) 37.9 % (37-47); Hemoglobin 12.4 g/dL (12.0-16.0)
[2019-01-03] MEDS: FAMOTIDINE 20 MG TAB PO SCH ×2 (08:02→20:34)
[2019-01-03] MEDS: PREGABALIN 150 MG CAP PO SCH ×3 (08:02→20:34)
[2019-01-03] MEDS: POTASSIUM CHLORIDE 10 MEQ TABCR PO SCH (08:02)
[2019-01-03 08:12] LABS: Partial Thromboplastin Time 53.8 Seconds (21.0-31.0)
[2019-01-03] MEDS: DRONABINOL 2.5 MG CAP PO SCH ×3 (08:55→20:34)
[2019-01-03] MEDS: ONDANSETRON INJ 2 MG/ML 2 ML VIAL IV PRN ×2 (10:21→20:35)
--- NOTE | 2019-01-03 12:31 | XRay Report ---
XR chest 1V portable HISTORY: 43 years-old Female dyspnea acute shortness of breath COMPARISON: Chest radiograph 01/02/2019 TECHNIQUE: Portable AP view of the chest. FINDINGS: Cardiac silhouette is enlarged, unchanged. Pulmonary vascular congestion with bilateral interstitial opacities. Stable positioning of the right internal jugular [id number]-[id number] catheter. Unchanged bilater al pleural effusions with bibasilar and right midlung opacities. Degenerative changes of the shoulder s and spine. IMPRESSION: 1. Cardiomegaly with pulmonary edema. 2. Unchanged pleural effusions with bibasilar opacities. The above report was generated using voice recognition software. It may contain grammatical, syntax o r spelling errors. Electronically signed by: Ángel Flores M.D. 01/03/2019 12:29 PM
--- NOTE | 2019-01-03 14:38 | Medical Student Progress Note ---
Date of Service January 03, 2019 Assessment & Plan (1) Hypoxia: Ms. Caro was moved up to the PCU from the ICU yesterday. Her BP dipped a bit through the night, likely related to sleep, but improved this morning. Her HR has been somewhat elevated for the past 24 hours, and her O2 sats which were briefly at goal on room air dipped a bit and she is currently at 92% on 2L NC. She had a CXR yesterday after the RLL rales were heard which showed no changes from her previous imaging on Sunday, but we will continue to monitor and check the CXR if her vitals don't improve. (2) Pulmonary embolism: She has metastatic esophageal cancer and takes enoxaparin injections, though missed Sunday's dose. She has a history of subclavian catheter-related DVT. She has right calf pain and mild swelling, and venous doppler confirms a DVT. She had acute respiratory distress, with DVT Sx, likely PE diagnosis, HR >100, history of DVT, and actively treated cancer, resulting in 8.5 points on the Well's criteria and likely PE. This is confirmed by chest CTA and abd/pelvis CT which both showed massive saddle embolus with extensive PE, along with more chronic small-moderate partially lobulated pleural effusions which are unchanged since early December. She had her heparin drip stopped, underwent 100mg/2 hours TPA, and now heparin drip has restarted. She is symptomatically improving over the past few days, though took a small step back today in terms of her HR, O2 sats, and breathing. Her PE is considered massive especially considering her hypotension (noted as 40/20 on EMR) and IV heparin should help in case her saddle PE breaks up in the lungs. By this time the PE should have at least mostly broken up, and she is hemodynamically stable. Continue to supply heparin drip inpatient. Outpatient Ms. Caro's regiment of enoxaparin should likely increase. She had been on 40mg subQ qd, although at 100.1 kg she would likely be better served with a higher dose like 100mg bid. This can be discussed with Dr. Bruner and the coag clinic, but it would be surprising if her missing the Sunday dose of enoxaparin alone would be enough to cause this massive saddle PE, so likely a more aggressive anticoagulation regimen is necessary. If she continues to feel well, plan to switch her IV heparin to injection enoxaparin tomorrow in preparation for discharge in the next few days. (3) Metastatic squamous cell carcinoma: She follows with Dr. Bruner and has been intolerant of chemo, and she has a lower dose chemo scheduled. (4) Hypokalemia: She has had difficulty swallowing her potassium supplement pills re: her chronic nausea. Augment her with IV while inpatient. K was 3.1 Sunday, 4.0 yesterday, 4.1 , not measured today, now back in the normal range. (5) Nausea: She has a chronic nausea likely related to her esophageal cancer with chemo and exacerbated by chronic productive cough with strong gag reflex. Continue pantoprazole and monitor as she advances her diet. She is making symptomatic progress today and was able to swallow and eat some solid soup for lunch. The ondansetron seems to help with her episodic nausea. Subjective Ms. Caro seemed to improve throughout the morning. When I first saw her this morning she said she had been awake for several hours but felt so tired she couldn't quite keep her eyes open. I saw her again at lunchtime and she had perked up and was eating soup looking much more awake. Whereas yesterday she said she had no SOB or JAUREGUI, today she says she needed some assistance to get to the bathroom and felt short of breath for several minutes afterwards. Whereas yesterday she was no longer nauseous and only vomited saliva and mucus re: her phlegm-->strong gag reflex-->vomit phenomenon, today she was again feeling nauseous and said she vomited some stomach contents. She received some ondansetron this morning and said she felt better after and was able to eat lunch. She again mentioned that she is not a good water drinker even at baseline, and she only likes to drink smoothies. We acquired her strawberry banana smoothie at lunch and she said she would work on it this afternoon. Constitutional: + fatigue; no fever and no chills Respiratory: + cough (unchanged, minimal); no dyspnea, no pain on inspiration and no pain with cough Cardiovascular: + calf pain (minimal, improving); no chest pain and no pal pitations Gastrointestinal: + vomiting; no abdominal pain, no nausea, no dysph agia, no constipation and no diarrhea/loose stools Physical Exam Vital Signs (Past 24 Hours): Last Vital Signs Temp 36.8 C 01/03/19 11:07 Pulse 91 H 01/03/19 11:07 Resp 18 01/03/19 11:07 BP 97/64 L 01/03/19 11:07 Pulse Ox 92 01/03/19 11:07 Constitutional: WD/WN, vitals as above no acute distress Eyes: PERRL, conjunctivae normal, anicteric sclerae ENMT: external ear and nose normal, oropharynx normal Respiratory: normal respiratory effort; no respiratory distress and does not use accessory muscles Auscultation: + rales (some RLL rales this morning ); no rhonchi and no wheezes Cardiovascular: RRR, no murmur, no edema Gastrointestinal (Abdomen): normal bowel sounds, soft, nontender, no hepatosplenomegaly Percussion/Palpation: no guarding and abdomen not rigid Musculoskeletal: Extremities: no lower extremity abnormal to inspection Skin: no rashes, warm and dry Psychiatric: A+Ox3, euthymic affect Lymphatic: no cervical or axillary lymphadenopathy
--- NOTE | 2019-01-03 16:02 | Hospitalist Progress Note ---
Date of Service January 03, 2019 Assessment & Plan (1) Pulmonary embolism: massive PE causing hemodynamic compromise with hypotension at the time of admission saddle PE with signs of cor pulmonale treated with tPA at 1200 on 12/30, completed at 1400 continue heparin drip today plan to transition to Lovenox 1mg/kg BID tomorrow blood pressure still low at times, HR stable will plan for Lovenox 1mg/kg BID on discharge for lifetime anticoagulation (2) Right leg DVT: continue on heparin drip, Lovenox likely tomorrow will need lifelong given cancer (3) Hypoxia: Acute respiratory distress with hypoxia due to massive PE and cor pulmonale oxygen requirement up slightly to 2L CXR today with chronic pleural effusion, no major changes likely that she will need oxygen on discharge, she already had pleural effusion and atelectasis massive clot burden will certainly take some time to decrease (4) Metastatic squamous cell carcinoma: continues to follow with Dr. Bruner for chemotherapy can follow up next week after discharge (5) Abdominal carcinomatosis: Pt has a poorly functioning Pleurex cath in her right abdomen and CT shows likely loculated fluid collections, and there was some discussion of removing tube in the next two weeks. can follow up with Dr. Bruner (6) Hypokalemia: K normal / at 4.1 (7) Nausea: much improved, tolerating her diet (8) Pleural effusion: chronic issue, now worse could be metastatic but also related to bilateral PE will monitor causing some degree of compression atelectasis and hypoxia Subjective appetite is a little better, not drinking much in way of fluids, does not like water no chest pain has some dyspnea on exertion reviewed films, has significant effusions, chronic issue, likely making it diff icult to titrate off oxygen completely reviewed vitals, still having some low normal blood pressures Review of Systems Review of Systems: All systems reviewed & are unremarkable except as noted in HPI & below Respiratory: + dyspnea on exertion; no cough and no dyspnea Cardiovascular: no chest pain Gastrointestinal: + early satiety; no abdominal pain, no nausea, no vomiting, no constipation and no diarrhea/loose stools Physical Exam Constitutional: WD/WN, vitals as above Eyes: PERRL, conjunctivae normal, anicteric sclerae ENMT: external ear and nose normal, oropharynx normal Neck: trachea midline, no thyromegaly Respiratory: normal respiratory effort, lungs clear to auscultation Auscultation: + diminished lung sounds (bases); no wheezes Cardiovascular: RRR, no murmur, no edema Gastrointestinal (Abdomen): normal bowel sounds, soft, nontender, no hepatosplenomegaly Musculoskeletal: no cyanosis or clubbing, extremities motor strength 5/5 Skin: no rashes, warm and dry Neurologic: patellar DTR's 2+ bilat, sensation intact and PERRL, EOMI, accommodation nl, no face palsy, no dysarthria Psychiatric: A+Ox3, euthymic affect Lymphatic: no cervical or axillary lymphadenopathy Results & Data Vital Signs (Past 12 Hours) Vital Signs Temp Pulse Resp BP BP Pulse Ox 01/03/19 15:09 36.8 C 95 H 16 100/70 93 01/03/19 11:07 36.8 C 91 H 18 97/64 L 92 01/03/19 07:41 36.5 C 96 H 20 108/74 93 01/03/19 04:00 36.3 C L 93 H 20 78/51 L 93 Laboratory Results Laboratory Results - last 24 hr 01/03/19 01/03/19 01/03/19 07:21 07:21 07:25 Hgb 12.4 Hct 37.9 APTT 53.8 H* PTT Ratio 2.0 Phosphorus 3.9 Diagnostic Findings XR chest 1V portable HISTORY: 43 years-old Female dyspnea acute shortness of breath COMPARISON: Chest radiograph 01/02/2019 TECHNIQUE: Portable AP view of the chest. FINDINGS: Cardiac silhouette is enlarged, unchanged. Pulmonary vascular congestion with bilateral interstitial opacities. Stable positioning of the right internal jugular Lewlgm-a-Ojob catheter. Unchanged bilateral pleural effusions with bibasilar and right midlung opacities. Degenerative changes of the shoulders and spine. IMPRESSION: 1. Cardiomegaly with pulmonary edema. 2. Unchanged pleural effusions with bibasilar opacities. Medications Administered Current Inpatient Medications Hydrocodone Bitart/Acetaminophen ([place] 10/325) 1 tab PO QID PRN PRN Reason: pain Stop: 01/13/19 12:09 Dronabinol (Marinol) 5 mg PO TID [facility] Stop: 01/29/19 13:59 Last Admin: 01/03/19 15:20 Dose: 5 mg Documented by: Famotidine (Pepcid) 20 mg PO BID [facility]; Protocol Stop: 01/31/19 20:59 Last Admin: 01/03/19 08:02 Dose: 20 mg Documented by: Heparin Sodium (Porcine) (Heparin Sod 100 Unit/Ml Flush) 5 ml FLUSH PRN PRN PRN Reason: Flush Stop: 01/29/19 23:44 Heparin Sodium/Dextrose (Heparin Sodium/Dextrose) 25,000 units in 500 mls @ 17 mls/hr IV .Q24H [facility]; Protocol Stop: 01/29/19 15:14 Last Titration: 01/03/19 09:40 Dose: 850 units/hr, 17 mls/hr Documented by: Miscellaneous (Icu Electrolyte Replacement Protocol) 1 ea N/A UD PRN PRN Reason: for e-lyte repletion Stop: 01/06/19 12:09 Miscellaneous (Carbohydrates For Hypoglycemia) 15 gm PO ONCE PRN PRN Reason: Hypoglycemia Treatment Stop: 01/30/19 06:33 Last Admin: 12/31/18 06:35 Dose: 15 gm Documented by: Ondansetron HCl (Zofran) 4 mg IV Q4H PRN PRN Reason: Nausea Stop: 01/29/19 12:09 Last Admin: 01/03/19 10:21 Dose: 4 mg Documented by: Potassium Chloride (Klor-Con M10) 40 meq PO DAILY [facility] Stop: 01/31/19 08:59 Last Admin: 01/03/19 08:02 Dose: Not Given Documented by: Pregabalin (Lyrica) 150 mg PO TID [facility] Stop: 01/29/19 13:59 Last Admin: 01/03/19 15:20 Dose: 150 mg Documented by:
[2019-01-03] MEDS: Heparin Adult STANDARD Wt-Based Dextrose 5% 25,000 units/500 mL IV SCH (16:56)
[2019-01-04 06:32] LABS: Partial Thromboplastin Ratio 3.6
[2019-01-04 06:34] LABS: Partial Thromboplastin Time 96.8 Seconds (21.0-31.0)
[2019-01-04] MEDS: POTASSIUM CHLORIDE 10 MEQ TABCR PO SCH ×2 (08:34→08:40)
[2019-01-04] MEDS: FAMOTIDINE 20 MG TAB PO SCH ×2 (08:34→17:24)
[2019-01-04] MEDS: PREGABALIN 150 MG CAP PO SCH ×3 (08:34→20:19)
[2019-01-04] MEDS: ONDANSETRON INJ 2 MG/ML 2 ML VIAL IV PRN ×2 (08:34→13:49)
[2019-01-04] MEDS: DRONABINOL 2.5 MG CAP PO SCH ×3 (08:34→20:19)
[2019-01-04 14:28] LABS: Partial Thromboplastin Ratio 1.6; Partial Thromboplastin Time 43.9 Seconds (21.0-31.0)
[2019-01-04] MEDS ORDERED: HEPARIN IV BOLUS 3,000 UNITS in SYRINGE 0 ML IV ONE (15:15)
--- NOTE | 2019-01-04 15:37 | Hospitalist Progress Note ---
Date of Service January 04, 2019 Assessment & Plan (1) Pulmonary embolism: massive PE causing hemodynamic compromise with hypotension at the time of admission saddle PE with signs of cor pulmonale treated with tPA at 1200 on 12/30, completed at 1400 continue heparin drip plan to transition to Lovenox 1mg/kg BID on Saturday 01/06 blood pressure still low at times, HR stable no utility in repeating CTA chest, echo after tPA showed that there was no right ventricular strain will plan for Lovenox 1mg/kg BID on discharge for lifetime anticoagulation this was recommendations of Dr. Bruner (2) Right leg DVT: continue on heparin drip, Lovenox likely tomorrow will need lifelong given cancer (3) Hypoxia: Acute respiratory distress with hypoxia due to massive PE and cor pulmonale still requiring 2L CXR 01/03 with chronic pleural effusion, no major changes likely that she will need oxygen on discharge, she already had pleural effusion and atelectasis massive clot burden will certainly take some time to decrease two step ordered for tomorrow so home oxygen can be arranged if needed (4) Metastatic squamous cell carcinoma: continues to follow with Dr. Bruner for chemotherapy can follow up next week after discharge (5) Abdominal carcinomatosis: Pt has a poorly functioning Pleurex cath in her right abdomen and CT shows likely loculated fluid collections, and there was some discussion of removing tube in the next two weeks. can follow up with Dr. Bruner (6) Hypokalemia: K normal 01/02 at 4.1 (7) Nausea: much improved, tolerating her diet (8) Pleural effusion: chronic issue, now worse could be metastatic but also related to bilateral PE will monitor causing some degree of compression atelectasis and hypoxia (9) Hypotension: running low BP since admission, no improvement with tPA patient is not overly symptomatic, mild light headedness on standing but goes away cautious to change to Lovenox since patient has been hypotensive for several days and no symptoms should be safe for discharge likely can go home on Sunday Subjective patient feeling fine at rest, gets winded quickly with walking to the bathroom she typically uses a cane, not using anything here she is interested in home physical therapy blood pressure still running low, no symptoms no chest pain discussed with Dr. Dozier, no utility in repeating the CT chest on echo there was no further right heart strain continue heparin drip until discharge and will change to Lovenox Review of Systems Review of Systems: All systems reviewed & are unremarkable except as noted in HPI & below Constitutional: + fatigue and + weakness Respiratory: + dyspnea and + dyspnea on exertion; no cough, no pain on inspiration and no wheezing Gastrointestinal: + early satiety (poor appetitie), + nausea and + vomiting; no abdominal pain, no constipation and no diarrhea/loose stools Physical Exam Constitutional: WD/WN, vitals as above Eyes: PERRL, conjunctivae normal, anicteric sclerae ENMT: external ear and nose normal, oropharynx normal Neck: trachea midline, no thyromegaly Respiratory: normal respiratory effort, lungs clear to auscultation Auscultation: + diminished lung sounds (bases); no wheezes Cardiovascular: RRR, no murmur, no edema Gastrointestinal (Abdomen): normal bowel sounds, soft, nontender, no hepatosplenomegaly Musculoskeletal: no cyanosis or clubbing, extremities motor strength 5/5 Skin: no rashes, warm and dry Neurologic: patellar DTR's 2+ bilat, sensation intact and PERRL, EOMI, accommodation nl, no face palsy, no dysarthria Psychiatric: A+Ox3, euthymic affect Lymphatic: no cervical or axillary lymphadenopathy Results & Data Vital Signs (Past 12 Hours) Vital Signs Temp Pulse Resp BP BP Pulse Ox Pulse Ox 01/04/19 11:21 96 01/04/19 10:48 36.7 C 81 18 84/57 L 100 01/04/19 07:27 97/65 L 01/04/19 07:23 36.8 C 82 16 83/56 L 96 Laboratory Results Laboratory Results - last 24 hr 01/04/19 01/04/19 01/04/19 05:40 05:40 13:53 APTT 96.8 H* 43.9 H PTT Ratio 3.6 1.6 Phosphorus 4.2 Medications Administered Current Inpatient Medications Hydrocodone Bitart/Acetaminophen ([place] 10/325) 1 tab PO QID PRN PRN Reason: pain Stop: 01/13/19 12:09 Dronabinol (Marinol) 5 mg PO TID [facility] Stop: 01/29/19 13:59 Last Admin: 01/04/19 13:47 Dose: 5 mg Documented by: Famotidine (Pepcid) 20 mg PO BID [facility]; Protocol Stop: 01/31/19 20:59 Last Admin: 01/04/19 08:34 Dose: 20 mg Documented by: Heparin Sodium (Porcine) (Heparin Sod 100 Unit/Ml Flush) 5 ml FLUSH PRN PRN PRN Reason: Flush Stop: 01/29/19 23:44 Heparin Sodium/Dextrose (Heparin Sodium/Dextrose) 25,000 units in 500 mls @ 17 mls/hr IV .Q24H [facility]; Protocol Stop: 01/29/19 15:14 Last Titration: 01/04/19 14:57 Dose: 850 units/hr, 17 mls/hr Documented by: Miscellaneous (Icu Electrolyte Replacement Protocol) 1 ea N/A UD PRN PRN Reason: for e-lyte repletion Stop: 01/06/19 12:09 Miscellaneous (Carbohydrates For Hypoglycemia) 15 gm PO ONCE PRN PRN Reason: Hypoglycemia Treatment Stop: 01/30/19 06:33 Last Admin: 12/31/18 06:35 Dose: 15 gm Documented by: Ondansetron HCl (Zofran) 4 mg IV Q4H PRN PRN Reason: Nausea Stop: 01/29/19 12:09 Last Admin: 01/04/19 13:49 Dose: 4 mg Documented by: Potassium Chloride (Klor-Con M10) 40 meq PO DAILY [facility] Stop: 01/31/19 08:59 Last Admin: 01/04/19 08:40 Dose: Not Given Documented by: Pregabalin (Lyrica) 150 mg PO TID [facility] Stop: 01/29/19 13:59 Last Admin: 01/04/19 13:47 Dose: 150 mg Documented by:
[2019-01-04 21:47] LABS: Partial Thromboplastin Ratio 3.1
[2019-01-04] MEDS: Heparin Adult STANDARD Wt-Based Dextrose 5% 25,000 units/500 mL IV SCH (22:25)
[2019-01-05 06:42] LABS: Hematocrit (blood only) 33.6 % (37-47); Mean Corpuscular Hgb Conc 32.7 g/dL (32-36); Mean Corpuscular Volume 87.3 fL (80-100); Mean Platelet Volume 10.7 fL (7.4-10.4); Platelet Count 164 K/uL (130-400); RDW Standard Deviation 61.9 fL (36.4-46.3); Red Blood Count 3.85 M/uL (4.2-5.4); White Blood Count 17.13 K/uL (4.8-10.8)
[2019-01-05 07:02] LABS: Partial Thromboplastin Ratio 3.3
[2019-01-05 07:09] LABS: Partial Thromboplastin Time 89.7 Seconds (21.0-31.0)
[2019-01-05 07:17] LABS: BUN Creatinine Ratio 20.3 (10-20); Calcium 7.3 mg/dl (8.5-10.1); Creatinine Clr Calc Pharmacy 172.5 ml/min; Est GFR (African American) 135.5; Est GFR (Non-African American) 116.9; Potassium 4.4 mmol/L (3.5-5.1)
[2019-01-05 08:01] LABS: Partial Thromboplastin Ratio 1.6; Partial Thromboplastin Time 43.9 Seconds (21.0-31.0)
[2019-01-05] MEDS: DRONABINOL 2.5 MG CAP PO SCH ×3 (08:33→21:17)
[2019-01-05] MEDS: POTASSIUM CHLORIDE 10 MEQ TABCR PO SCH (08:34)
[2019-01-05] MEDS: ONDANSETRON INJ 2 MG/ML 2 ML VIAL IV PRN ×2 (08:34→20:12)
[2019-01-05] MEDS: PREGABALIN 150 MG CAP PO SCH ×3 (08:34→21:15)
[2019-01-05] MEDS: FAMOTIDINE 20 MG TAB PO SCH ×2 (08:34→21:15)
[2019-01-05] MEDS ORDERED: HEPARIN IV BOLUS 3,000 UNITS in SYRINGE 0 ML IV ONE (09:15)
[2019-01-05] MEDS: Heparin Adult STANDARD Wt-Based Dextrose 5% 25,000 units/500 mL IV SCH (09:42)
[2019-01-05] MEDS ORDERED: CYANOCOBALAMIN 1000 MCG/ML VIAL IM SCH (13:57)
[2019-01-05] MEDS ORDERED: MEDROXYPROGESTERONE ACETATE 150 MG/ML VIAL IM SCH (13:57)
--- NOTE | 2019-01-05 14:27 | Hospitalist Progress Note ---
Date of Service January 05, 2019 Assessment & Plan (1) Pulmonary embolism: massive PE causing hemodynamic compromise with hypotension at the time of admission saddle PE with signs of cor pulmonale treated with tPA at 1200 on 12/30, completed at 1400 continue heparin drip plan to transition to Lovenox 1mg/kg BID on Saturday 01/06 blood pressure still low at times, HR stable no utility in repeating CTA chest, echo after tPA showed that there was no right ventricular strain will plan for Lovenox 1mg/kg BID on discharge for lifetime anticoagulation this was recommendations of Dr. Bruner (2) Right leg DVT: Transition to Lovenox tonight will need lifelong given cancer (3) Hypoxia: Acute respiratory distress with hypoxia due to massive PE and cor pulmonale still requiring 2L CXR 01/03 with chronic pleural effusion, no major changes likely that she will need oxygen on discharge, she already had pleural effusion and atelectasis massive clot burden will certainly take some time to decrease two step prior to d/c (4) Metastatic squamous cell carcinoma: continues to follow with Dr. Bruner for chemotherapy can follow up next week after discharge (5) Abdominal carcinomatosis: Pt has a poorly functioning Pleurex cath in her right abdomen and CT shows likely loculated fluid collections, and there was some discussion of removing tube in the next two weeks. can follow up with Dr. Bruner (6) Hypokalemia: K normal 01/02 at 4.1 (7) Nausea: much improved, tolerating her diet (8) Pleural effusion: chronic issue, now worse could be metastatic but also related to bilateral PE will monitor causing some degree of compression atelectasis and hypoxia (9) Hypotension: running low BP since admission, no improvement with tPA patient is not overly symptomatic, mild light headedness on standing but goes away cautious to change to Lovenox since patient has been hypotensive for several days and no symptoms should be safe for discharge likely can go home on Sunday (10) GERD (gastroesophageal reflux disease): Issue at baseline, feels it is worse over the last 2 days Was on protonix at home but on pepcid here due to protonix backorder Worsening GERD likely related to medication change Increase Pepcid dosing to 40mg BID (was on 20mg BID) and monitor Subjective Pt states she feels better than [employer], but still not as her usual. She is SOB only with exertion and requires O2. No prior hx of O2 need. Having worsening reflux over the last 2 days. Nausea with vomiting about 2x/day. Decreased PO intake. Pt states that emesis and decreased intake have been an ongoing issue with chemo. Pt denies fever, SOB, chest pain, abd pain, c/d, LE pain. She states she still has some LE swelling, but it is better. Review of Systems Review of Systems: Pertinent positives and negatives reviewed in HPI--all others negative Physical Exam Constitutional: WD/WN, vitals as above Eyes: normal visual batres by confrontation and + anicteric sclerae Neck: normal visual inspection and trachea midline Respiratory: normal respiratory effort, lungs clear to auscultation Cardiovascular: Rate/Rhythm: regular rate and regular rhythm Gastrointestinal (Abdomen): Inspection/Auscultation: abdomen not distended Percussion/Palpation: abdomen soft; abdomen nontender Musculoskeletal: Head/Neck/Chest: normocephalic and head atraumatic Trace R LE edema, peripheral pulses intact Skin: no rashes, warm and dry Neurologic: awake; not confused Speech / Cognition: normal speech Psychiatric: A+Ox3, euthymic affect Results & Data Vital Signs (Past 12 Hours) Vital Signs Temp Pulse Pulse Resp BP BP Pulse Ox 01/05/19 10:52 36.7 C 74 16 90/60 L 98 01/05/19 08:00 73 01/05/19 07:12 36.5 C 78 20 91/60 L 98 01/05/19 03:30 36.3 C L 74 16 88/59 L 97
[2019-01-05] MEDS: ENOXAPARIN 100 MG/1ML SYR SQ SCH (16:12)
[2019-01-05] MEDS ORDERED: LACTATED RINGER'S 500 ML IV ONE (19:49)
[2019-01-05] MEDS: LACTATED RINGER'S 1,000 ML IV SCH (20:57)
[2019-01-05] MEDS ORDERED: PEDIATRIC MULTIVITAMIN PO SCH (21:00)
[2019-01-05] MEDS ORDERED: NON-FORMULARY MEDICATION (Omeprazole 20 MG) PO SCH (21:00)
[2019-01-05] MEDS ORDERED: POTASSIUM 10 MEQ PO SCH (21:00)
--- NOTE | 2019-01-05 21:55 | Progress Note ---
Date of Service January 05, 2019 Received page from bedside nurse that the patient's blood pressure was 80/40 and that she felt weak. Brief chart review: Patient was admitted for massive pulmonary embolism status post tPA. No right ventricular strain on echo. Lovenox. History of metastatic squamous cell carcinoma. Concurrent pleural effusion. Saw patient at bedside: She was awake, watching TV. She said that her current weakness and level of shortness of breath is the same as it has been over the past few days. She denied any particular complaints and had no current requests. Plan: - She was provided a 500 cc bolus of LR with following maintenance rate due to reported decreased p.o. intake today. - Need to watch her pulmonary status (i.e. worsening pleural effusion) with this extra fluid and/or discontinue it in the morning. - Discussed the case briefly with Dr. Merino. Ángel Quinn MD PGY2 overnight call Results & Data Vital Signs (Past 12 Hours) Vital Signs Temp Pulse Resp BP BP Pulse Ox 01/05/19 21:00 72 83/56 L 01/05/19 19:45 80/40 L 01/05/19 19:25 37.4 C 76 18 83/56 L 97 01/05/19 16:05 36.4 C L 89 18 99/70 L 96 01/05/19 10:52 36.7 C 74 16 90/60 L 98
[2019-01-06] MEDS: LACTATED RINGER'S 1,000 ML IV SCH (01:53)
[2019-01-06] MEDS: ENOXAPARIN 100 MG/1ML SYR SQ SCH (05:42)
[2019-01-06 06:30] LABS: Partial Thromboplastin Ratio 1.4
[2019-01-06] MEDS: POTASSIUM CHLORIDE 10 MEQ TABCR PO SCH (07:52)
[2019-01-06] MEDS: FAMOTIDINE 20 MG TAB PO SCH (07:52)
[2019-01-06] MEDS: PREGABALIN 150 MG CAP PO SCH ×2 (08:55→15:11)
[2019-01-06] MEDS ORDERED: ENOXAPARIN INJ 40 MG/0.4 ML SYR SQ SCH (09:00)
[2019-01-06] MEDS: DRONABINOL 2.5 MG CAP PO SCH ×2 (09:29→15:11)
--- NOTE | 2019-01-06 11:33 | Discharge Summary ---
Date of Service January 06, 2019 Admission HPI Per Admitting Provider The patient is a 43 year old female who presents to the Emergency Department with complaints of shortness of breath beginning 12/29. She has a history of metastatic esophageal cancer and is on home lovenox injections. She reportedly is on home Lovenox injections because she is having difficulty controlling her INR being on Coumadin therapy and chemotherapy at the same time. She was fully anticoagulated in the past due to a left subclavian catheter associated blood clot that catheter has been since removed. She reported feeling very weak and nauseous. The patient denies being febrile and denies having chest pain. She states that she also has neuropathy and a history of a gastric bypass. The patient states that she normally does not wear Oxygen at home. She follows with Dr. Bruner and Dr. Mohamud. She states that she was a smoker 12 years ago. Pts oxygen saturation in the ER was up to 90% after being placed on a non- rebreather, the patient was also hypotensive at 40/20. Per EMS, the patient was hypotensive at 44/20 and was tachycardic. EMS states that the patient had chemotherpay 2 weeks ago. Per EMS, the patient reported having right leg achiness since yesterday morning. Per EMS, the patient's home health nurse came this morning and the patient was with an oxygen saturation in the 70s. Per EMS, the patient has not been eating much in the last couple of weeks and has not been taking her potassium supplements over the last couple of days. Principal Diagnosis Pt feels very weak still. She would like to go home though. She is doing well at rest without O2 but still SOB with ambulation. Ongoing nausea and poor appetite. No emesis today. Ongoing heartburn issues since admission. Pt denies fever, chest pain, abd pain, c/d, LE pain. LE swelling continues to improve. Discharge Exam Constitutional WD/WN, vitals as above Eyes normal visual batres by confrontation and + anicteric sclerae Neck normal visual inspection and trachea midline Respiratory normal respiratory effort, lungs clear to auscultation Cardiovascular Rate/Rhythm: regular rate and regular rhythm Gastrointestinal (Abdomen) Inspection/Auscultation: abdomen not distended Percussion/Palpation: abdomen soft; abdomen nontender Musculoskeletal Head/Neck/Chest: normocephalic and head atraumatic LE swelling is resolved Skin no rashes, warm and dry Neurologic awake; not confused Speech / Cognition: normal speech Psychiatric A+Ox3, euthymic affect Discharge Data Allergies Allergy/AdvReac Type Severity Reaction Status Date / Time No Known Allergies Allergy Verified 12/30/18 09:34 Consultations 12/30/18 10:09 ED Decision to Admit Stat 12/30/18 12:10 Consult Case Management - Discharge Planning Routine Consult Case Management - Discharge Planning Routine Consult [employer] Routine Ordered Studies 12/30/18 08:47 CT abd pelvis IV con only Stat CT angio chest PE protocol Stat 12/30/18 14:01 US venous doppler LE Routine Hospital Course (1) Pulmonary embolism: massive PE causing hemodynamic compromise with hypotension at the time of admission saddle PE with signs of cor pulmonale treated with tPA at 1200 on 12/30, completed at 1400 continue heparin drip plan to transition to Lovenox 1mg/kg BID on Saturday 01/06 blood pressure still low at times, HR stable no utility in repeating CTA chest, echo after tPA showed that there was no right ventricular strain will plan for Lovenox 1mg/kg BID on discharge for lifetime anticoagulation this was recommendation of Dr. Bruner (2) Right leg DVT: Transition to Lovenox will need lifelong given cancer (3) Hypoxia: Acute respiratory distress with hypoxia due to massive PE and cor pulmonale still requiring 2L for ambulation CXR 01/03 with chronic pleural effusion, no major changes likely that she will need oxygen on discharge, she already had pleural effusion and atelectasis massive clot burden will certainly take some time to decrease two step prior to d/c recs for O2 with ambulation only, pt is agreeable to use of home O2 in this setting (4) Metastatic squamous cell carcinoma: continues to follow with Dr. Bruner for chemotherapy can follow up next week after discharge (5) Abdominal carcinomatosis: Pt has a poorly functioning Pleurex cath in her right abdomen and CT shows likely loculated fluid collections, and there was some discussion of removing tube in the next two weeks. can follow up with Dr. Bruner (6) Hypokalemia: K normal 01/02 at 4.1 (7) Nausea: much improved, tolerating her diet (8) Pleural effusion: chronic issue, now worse could be metastatic but also related to bilateral PE will monitor causing some degree of compression atelectasis and hypoxia (9) Hypotension: running low BP since admission, no improvement with tPA patient is not overly symptomatic, mild light headedness on standing but goes away cautious to change to Lovenox since patient has been hypotensive for several days and no symptoms should be safe for discharge (10) GERD (gastroesophageal reflux disease): Issue at baseline, feels it is worse over the last 2 days Was on protonix at home but on pepcid during admission due to protonix backorder Worsening GERD likely related to medication change Increased Pepcid dosing to 40mg BID (was on 20mg BID) but this did not help Advised to resume home GERD medication on d/c Discussed use of probiotics as well Total Time Total Time Spent Total Time Spent (In Minutes): >30 minutes Discharge Plan Discharge Items Patient Disposition: Home - Home Health Services Reason For Visit: SADDLE PE Discharge Diagnosis: Saddle PE Discharge Goals: Decrease discomfort, Improve disease control, Improve function and Increase independence Activity: Resume your previous activity Activity Comment: Use oxygen with all ambulation Non-emergency contact: Primary Care Provider and Oncologist Call non-emergency contact if: you have any medication questions, your symptoms worsen, your pain is not controlled and your pain is worsening Follow-up/Referrals: Alvaro Mohamud III, MD [Primary Care Provider] - 01/08/19 2:00 pm (Please, follow up at Dr. Mohamud's office with his associate, Jannet CARLTON, on SundayJanuary 08 at 2:00 pm. *If you need to change this appointment, call the office at [phone].) Diet: Regular Addtl Provider Instructions: You are going home with oxygen to use when you are ambulating. You do not need to use it when you are at rest. This will likely be a short term need while you are being treated for the blood clots in your lungs. You should start taking a probiotic. It will likely help with your heartburn and your nausea. A good probiotic is Jarrow EPS 5 billion. It is available at [facility]. Prescriptions: New enoxaparin 100 mg/mL Syringe 100 mg subcut Q12@0600,1800 Qty: 60 RF: 0 potassium chloride [Klor-Con M10] 10 mEq Tablet,Er Particles/Crystals 40 meq PO DAILY Qty: 30 RF: 0 Continued omeprazole 20 mg Capsule,Delayed Release(Dr/Ec) 20 mg PO BID RF: 0 cyanocobalamin (vitamin B-12) 1,000 mcg/mL solution 1,000 mcg IM UD RF: 0 hydrocodone-acetaminophen [[place]] 10-325 mg tablet 1 tab PO QID PRN (Reason: pain) RF: 0 pediatric multivitamin tablet,chewable 1 tab PO BID RF: 0 dronabinol [Marinol] 5 mg capsule 5 mg PO TID RF: 0 pregabalin 150 mg Capsule 150 mg PO TID RF: 0 medroxyprogesterone 150 mg/mL suspension 1 dose IM Q3M RF: 0 Discontinued enoxaparin [Lovenox] 40 mg/0.4 mL syringe 40 mg SQ DAILY RF: 0 potassium 99 mg Tablet 10 meq PO BID RF: 0 Stand-Alone Forms: [facility], [facility] Discharge Orders: Discharge Order (Routine); Ordered 01/06/19 Ordered By: Hortensia Galan Admission Data Admit Date/Time: 12/30/18 11:04 Attending Provider: Hortensia Galan Admit Provider: Hemant Yap Primary Care Provider: Alvaro Mohamud III Other Providers: Alejandro Marcos ; Hemant Yap ; Leobardo Dozier Service: Medical Other Interventions: Discharge Summary Assessment (RN) Last Done: 01/06/19 12:32 Pending Studies at Discharge: No DC Date/Time DO NOT enter until pt leaves facility: 01/06/19 16:15
== END 2019-01-06 16:15 | disposition home health service (06) | DRG 175 ==
LOC: ED 08:28 → SUATTDRO 11:04 → 1E 11:04 → 2S 01-02 12:07 → 4E 01-05 12:55

== ENCOUNTER 2019-01-09 19:02 | Inpatient (IN) ==
[2019-01-09] MEDS ORDERED: ONDANSETRON INJ 2 MG/ML 2 ML VIAL IV STA (20:25)
--- NOTE | 2019-01-09 20:28 | Emergency Department Note ---
ED Visit Note I took a history and physical from the patient. I coordinated the patients management with Dr. Antunez .
[2019-01-09] MEDS ORDERED: SODIUM CHLORIDE 0.9% 1000ML 1,000 ML IV SCH (20:30)
[2019-01-09 20:50] LABS: Hematocrit (blood only) 37.1 % (37-47); Hemoglobin 12.3 g/dL (12.0-16.0); Immature Granulocytes # (auto) 0.14 K/uL (0.00-0.02); Immature Granulocytes % (auto) 0.8 %; Lymphocytes # (auto) 1.18 K/uL (1.2-3.4); Mean Corpuscular Hgb Conc 33.2 g/dL (32-36); Mean Corpuscular Volume 86.1 fL (80-100); Mean Platelet Volume 9.9 fL (7.4-10.4); Monocytes # (auto) 0.91 K/uL (0.11-0.59); Monocytes % (auto) 5.4 %; Neutrophils # (auto) 14.63 K/uL (1.4-6.5); Neutrophils % (auto) 86.8 %; Platelet Count 320 K/uL (130-400); RDW Coefficient of Variation 21.3 % (11.5-14.5); RDW Standard Deviation 65.5 fL (36.4-46.3); Red Blood Count 4.31 M/uL (4.2-5.4); White Blood Count 16.86 K/uL (4.8-10.8)
[2019-01-09 20:58] LABS: Albumin Level 1.4 gm/dl (3.4-5.0); BUN Creatinine Ratio 23.6 (10-20); Calcium 7.6 mg/dl (8.5-10.1); Creatinine Clr Calc Pharmacy 178.9 ml/min; Est GFR (African American) 137.3; Est GFR (Non-African American) 118.5; Magnesium 1.8 mg/dl (1.8-2.4); Potassium 3.8 mmol/L (3.5-5.1)
[2019-01-09 21:06] LABS: Albumin Globulin Ratio 0.4 (0.9-2); Bilirubin,Total 0.8 mg/dl (0.2-1); Globulin 3.8 gm/dl (2.5-4.0); Total Protein 5.2 gm/dl (6.4-8.2); Troponin I 0.078 ng/ml (0-0.045)
[2019-01-09] MEDS ORDERED: OPTIRAY 320 125ml IV PRN (21:10)
[2019-01-09 21:11] LABS: Anisocytosis Present; Echinocytes 1+
--- NOTE | 2019-01-09 21:24 | CT Scan Report ---
CT head/brain wo con CT DOSE: 2782.63 mGy.cm HISTORY: Nausea Vomiting, Metastatic cancer TECHNIQUE: Multiaxial CT images of the head were performed without the use of intravenous contrast. A dose lowering technique was utilized adhering to the principles of ALARA. Comparison: None. Findings: The paranasal sinuses and mastoid air cells are clear. The calvarium and skull base are int act. The ventricles and sulci are within normal limits. There is no mass, hematoma, midline shift, or acute infarct. Impression: No acute intracranial abnormality. The above report was generated using voice recognition software. It may contain grammatical, syntax or spelling errors. Electronically signed by: Calvin Desouza M.D. 01/09/2019 9:23 PM
--- NOTE | 2019-01-09 21:37 | CT Scan Report ---
CT angio chest PE protocol CT DOSE: HISTORY: Pulmonary emboli PE TECHNIQUE: Multiaxial CT images of the chest were performed following the intravenous administration of contrast to evaluate the pulmonary arteries. Maximal intensity projection images were also obtaine d. A dose lowering technique was utilized adhering to the principles of ALARA. COMPARISON STUDY: 12/30/2018 FINDINGS: Mildly improved exam compared to the prior study. Bilateral pulmonary emboli are again noted. These are similar in distribution compared to the prior s tudy. A saddle embolus component is no longer present. There are findings of a small pericardial effusion. Bilateral pleural effusions are again noted. Fluid is noted within the major fissures bilaterally. Th oracic aorta is normal in course and caliber. IMPRESSION: 1. Extensive bilateral pulmonary emboli. 2. Improved exam at the level of the main pulmonary arteries with a saddle embolus component no longe r seen. 3. Small pericardial effusion. 4. Unchanged bilateral pleural effusions. The above report was generated using voice recognition software. It may contain grammatical, syntax or spelling errors. Electronically signed by: Calvin Desouza M.D. 01/09/2019 9:36 PM
--- NOTE | 2019-01-09 21:44 | CT Scan Report ---
CT abd pelvis IV con only CT DOSE: HISTORY: Pain Vomiting, nausea TECHNIQUE: Multiaxial CT images of the abdomen and pelvis were performed following the use of intrave nous contrast. A dose lowering technique was utilized adhering to the principles of ALARA. COMPARISON STUDY: 12/30/2018 FINDINGS: Bilateral pulmonary pulmonary emboli are again noted. Bilateral pleural effusions and basil ar atelectatic changes are similar. Diffuse fatty replacement of the liver. Unchanged septated fluid pocket lateral aspect right hepatic lobe. Subtly progressive body wall anasarca. Kidneys enhance uniformly. No evidence for hydronephrosis. Position of the infusion catheter is unchanged. Prior cholecystectomy. Postoperative changes consistent with a prior gastric bypass type procedure. Adhesions noted the ante rior margin of the small bowel are again noted. These are nonobstructive. The small fluid pocket noted adjacent to the spleen in the prior study has maximum dimension of 2 cm. This is improved. Findings suggesting mild bowel wall thickening are noted and appear unchanged. A collection posterior to the bladder within the soft tissue pelvis has diminished to 5.5 cm at maxim um. Small additional collections throughout the mesentery previously described are diminished. IMPRESSION: 1. Bilateral pulmonary emboli are again noted as is described in the CT of the chest report. 2. Stable bilateral pleural effusions and basilar atelectasis. 3. Nonspecific wall thickening of the abdomen and pelvis which may indicate at least in part enteriti s. This is unchanged. 4. Improving perisplenic and pelvic collections. 5. Nonobstructive bowel pattern. 6. Mild body wall anasarca The above report was generated using voice recognition software. It may contain grammatical, syntax or spelling errors. Electronically signed by: Calvin Desouza M.D. 01/09/2019 9:43 PM
--- NOTE | 2019-01-09 22:08 | Emergency Department Note ---
Entered by Jailene Zhou acting as a scribe for History of Present Illness General Chief complaint: Weakness Time Seen by Provider: 01/09/19 19:10 Source: patient History of Present Illness Onset (ago): week(s) 1 Location: head (Weakness) Severity: similar to prior episodes Pain Consistency: + other (Worsening) Quality: + other (Weakness) Exacerbated By: + other (Esophageal cancer) Associated symptoms: + cough, + loss of appetite, + nausea/vomiting and + weakness; no fever/chills The patient is a 43 year old female presenting to the Emergency Department complaining of worsening weakness starting 1 week ago. The patient reports that she is nauseous and weak. She states that has lost her appetite and when she eats she vomits the food up. She explains that she has a cough and that her feet are always cold. The patient reports that she was discharged from the hospital 4 days ago and was initially admitted for PE and DVT. She states that while in the hospital she received TPA. She notes that she currently resides with her son and that an in home nurse is supposed to come evaluate her but only does so rarely. She last received chemotherapy 12/17/18 for her esophageal cancer. She adds that she sees Dr. Bruner oncologist for management of her esophageal cancer. The patient denies fevers, dysuria, diarrhea and rash. Home Medications Home Medications Medication Instructions Recorded Confirmed Type omeprazole 20 mg PO BID 05/13/18 01/09/19 History cyanocobalamin (vit B-12) 1,000 1,000 mcg IM UD ml 11/18/18 01/10/19 History mcg/mL injection solution hydrocodone 10 mg-acetaminophen 1 tab PO QID PRN 11/18/18 01/09/19 History 325 mg tablet pediatric multivitamin chewable 1 tab PO BID 11/18/18 01/09/19 History tablet pregabalin 150 mg PO TID 12/04/18 01/09/19 History dronabinol 5 mg capsule 5 mg PO TID 12/09/18 01/09/19 History medroxyprogesterone 1 dose IM Q3M 12/30/18 01/10/19 History enoxaparin 100 mg SUBCUT Q12@0600,1800 #60 ml 01/06/19 01/09/19 Rx potassium chloride [Klor-Con M10] 40 meq PO DAILY #30 tab 01/06/19 01/09/19 Rx Allergies Allergy/AdvReac Type Severity Reaction Status Date / Time No Known Allergies Allergy Verified 01/08/19 11:29 Past Med/Surg History Medical History Pleural effusion (Chronic) Ascites (Acute) Peripheral neuropathy (Chronic) Pulmonary emboli (Acute) Hypoxia (Acute) Non-ST elevation AL (NSTEMI) (Acute) Metastatic squamous cell carcinoma Abdominal carcinomatosis Right leg DVT GERD (gastroesophageal reflux disease) Esophageal cancer (Chronic) Acid reflux History of blood clots LEFT UPPER CHEST "HOOKED TO JUGULAR VEIN" (2 CLOTS TOTAL) History of pleural effusion JANUARY 2018/ R & L DRAINAGE CATHETERS History of recent chemotherapy Surgical History History of arthroscopy of left shoulder History of esophagogastroduodenoscopy (EGD) History of gastric bypass History of shoulder surgery LEFT History of vascular access device MEDIPORT LEFT CHEST Family History Grandfather Family history of stomach cancer Social History Preferred Language: Maldivian Communication Ability: Effective Beliefs That Will Affect Care: Church Current Living Situation: Other Current Living Situation Comment: with son Feels Safe at Home: Yes Safety Concerns: Feels Safe At This Time Smoking Status: Former smoker Tobacco Type: cigarettes Cigarettes Per Day: QUIT 13 YEARS AGO. HX OF SMOKING X15 YEARS Do You Dip or Chew Tobacco: No Second Hand Exposure: No Tobacco Cessation Education Requested by Patient: No Hx Alcohol Use: No Hx Substance Use: No Review of Systems See HPI for pertinent positives & negatives. and A total of 10 systems reviewed and were otherwise negative Physical Exam Vital Signs Vital Signs - 24 hr 01/09/19 18:48 01/09/19 20:48 01/09/19 22:00 Temperature 36.6 C Temperature Source Oral Oral Sepsis Recent Fever Within 48 Hours No Sepsis New/Unexplained Change in Mental Status No Sepsis Action Taken by Nursing No Action Required Pulse Rate 99 H Pulse Rate [Apical] 91 H 98 H Respiratory Rate 16 22 22 Respiratory Effort / Characteristics Non-Labored Non-Labored Respiratory Depth Normal Normal Respiratory Pattern Regular Regular Blood Pressure 108/77 Blood Pressure [Left Arm] Blood Pressure [Right Arm] 103/72 104/64 Blood Pressure Mean 87 Blood Pressure Mean [Left Arm] Blood Pressure Mean [Right Arm] 82 77 Blood Pressure Position Lying Blood Pressure Position [Right Arm] Lying Lying Pulse Oximetry 96 96 95 Oxygen Delivery Method Room Air Room Air Room Air 01/10/19 00:00 01/10/19 01:55 Temperature 36.8 C Temperature Source Oral Sepsis Recent Fever Within 48 Hours Sepsis New/Unexplained Change in Mental Status Sepsis Action Taken by Nursing Pulse Rate Pulse Rate [Apical] 113 H 96 H Respiratory Rate 21 14 Respiratory Effort / Characteristics Non-Labored Spontaneous Respiratory Depth Normal Respiratory Pattern Regular Blood Pressure Blood Pressure [Left Arm] 127/83 Blood Pressure [Right Arm] 102/66 Blood Pressure Mean Blood Pressure Mean [Left Arm] 97 Blood Pressure Mean [Right Arm] 78 Blood Pressure Position Blood Pressure Position [Right Arm] Pulse Oximetry 95 91 Oxygen Delivery Method Room Air GENERAL: Awake, alert, chronically ill-appearing, in no distress. BMI: 34.2 HENT: Normocephalic, atraumatic. Oropharynx unremarkable. EYES: Normal conjunctiva. Sclera non-icteric. NECK: Supple. No nuchal rigidity. FROM. No JVD. RESPIRATORY: Diminished breath sounds at bases. Scant intermittent wheeze, otherwise clear. CARDIAC: Regular rate, normal rhythm. Extremities warm and well perfused. Pulses equal. ABDOMEN: Soft, non-distended. No tenderness to palpation. No rebound or guarding. No masses. RUQ quadrant pleurx catheter site c/d/i. RECTAL: Deferred. MUSCULOSKELETAL: Chest examination reveals no tenderness. The back is symmetrical on inspection without obvious abnormality. There is no CVA tenderness to palpation. No joint edema. LOWER EXTREMITIES: Calves are equal size bilaterally and non-tender. No edema. No discoloration. NEURO: Normal sensorium. No sensory or motor deficits noted. SKIN: No rash or jaundice noted. Course 1999: The patient was evaluated in room B11B, and a complete history and physica l examination were performed. 2047: I reevaluated the patient at this time. 2149: The resident Dr. Pereira and I spoke to Dr. Bulmaro SORIA hospitalist at this time. She will evaluate the patient for further management. 2200: Dr. Pereira updated the patient at this time on her disposition. Consultations Consultation #1: The resident Dr. Pereira and I spoke to Dr. Chamberlain [facility] hospitalist at this time. She will evaluate the patient for further management. Time: 21:50 Administered Medications Lactated Ringer's (Lr) 1,000 mls @ 100 mls/hr IV .Q10H MERCEDEZ Stop: 02/09/19 02:44 Last Admin: 01/10/19 02:44 Dose: 100 mls/hr Documented by: [id number] Discontinued Medications Famotidine (Pepcid 20mg Iv Push) 20 mg IV ONE STA Stop: 01/09/19 23:32 Last Admin: 01/09/19 23:38 Dose: 20 mg Documented by: [id number] Sodium Chloride (Nss 1000ml) 1,000 mls @ 999 mls/hr IV .Q1H1M MERCEDEZ Stop: 01/09/19 21:30 Last Infusion: 01/09/19 21:49 Dose: 0 mls/hr Documented by: [id number] Admin: 01/09/19 20:44 Dose: 999 mls/hr Documented by: [id number] Prochlorperazine (Compazine) 2 mls @ 1 mls/min IV ONE ONE Stop: 01/09/19 23:32 Last Admin: 01/09/19 23:38 Dose: 1 mls/min Documented by: [id number] Sodium Chloride (Nss 1000ml) 1,000 mls @ 125 mls/hr IV .Q8H STA Stop: 01/10/19 07:30 Last Infusion: 01/10/19 02:52 Dose: 0 mls/hr Documented by: [id number] Infusion: 01/10/19 02:39 Dose: 0 mls/hr Documented by: [id number] Admin: 01/09/19 23:38 Dose: 125 mls/hr Documented by: [id number] Ioversol (Optiray 320 125ml) 119 ml IV ONCE PRN PRN Reason: Interaction Checking Stop: 01/13/19 21:09 Last Admin: 01/09/19 21:11 Dose: 119 ml Documented by: [id number] Morphine Sulfate (Morphine Sulfate) 4 mg IV NOW STA Stop: 01/10/19 00:59 Last Admin: 01/10/19 01:23 Dose: 4 mg Documented by: [id number] Ondansetron HCl (Zofran) 4 mg IV NOW STA Stop: 01/09/19 20:26 Last Admin: 01/09/19 20:44 Dose: 4 mg Documented by: [id number] Medical Decision Making Differential Diagnosis Differential includes acute coronary syndrome, myocardial infarction, CVA, TIA, anemia, infection, pneumonia, UTI, pyelonephritis, poor nutrition, dehydration, electrolyte disturbance,hypoglycemia. Medical Records Attestation: I reviewed the patient's medical records. Home Medications Current Medication List: was personally reviewed by me Laboratory Data Attestation: I reviewed the patient's lab results. Result diagrams: 01/09/19 19:38 01/09/19 19:38 Lab Results 01/09/19 01/09/19 Range/Units 19:38 19:38 WBC 16.86 H (4.8-10.8) K/uL RBC 4.31 (4.2-5.4) M/uL Hgb 12.3 (12.0-16.0) g/dL Hct 37.1 (37-47) % MCV 86.1 (80-100) fL MCH 28.5 (25-34) pg MCHC 33.2 (32-36) g/dL RDW Std Deviation 65.5 H (36.4-46.3) fL RDW Coeff of Huber 21.3 H (11.5-14.5) % Plt Count 320 (130-400) K/uL MPV 9.9 (7.4-10.4) fL Immature Gran % (Auto) 0.8 % Neut % (Auto) 86.8 % Lymph % (Auto) 7.0 % Waller % (Auto) 5.4 % Eos % (Auto) 0.0 % Baso % (Auto) 0.0 % Immature Gran # (Auto) 0.14 H (0.00-0.02) K/uL Neut # (Auto) 14.63 H (1.4-6.5) K/uL Lymph # (Auto) 1.18 L (1.2-3.4) K/uL Waller # (Auto) 0.91 H (0.11-0.59) K/uL Eos # (Auto) 0.00 (0-0.5) K/uL Baso # (Auto) 0.00 (0-0.2) K/uL Anisocytosis Present Echinocytes 1+ Sodium 137 (136-145) mmol/L Potassium 3.8 (3.5-5.1) mmol/L Chloride 103 (98-107) mmol/L Carbon Dioxide 26 (21-32) mmol/L Anion Gap 8.0 (3-11) BUN 11 (7-18) mg/dl Creatinine 0.48 L (0.6-1.2) mg/dl Est Cr Clr Drug Dosing 178.9 ml/min Est GFR ( Amer) 137.3 Est GFR (Non-Af Amer) 118.5 BUN/Creatinine Ratio 23.6 H (10-20) Glucose 88 (70-99) mg/dl Calcium 7.6 L (8.5-10.1) mg/dl Phosphorus 3.0 (2.5-4.9) mg/dl Magnesium 1.8 (1.8-2.4) mg/dl Total Bilirubin 0.8 (0.2-1) mg/dl AST 118 H (15-37) U/L ALT 81 H (12-78) U/L Alkaline Phosphatase 150 H (45-117) U/L Troponin I 0.078 H* (0-0.045) ng/ml Total Protein 5.2 L (6.4-8.2) gm/dl Albumin 1.4 L (3.4-5.0) gm/dl Globulin 3.8 (2.5-4.0) gm/dl Albumin/Globulin Ratio 0.4 L (0.9-2) Lipase 37 L (73-393) U/L Imaging Data Radiologist's Impression: Radiology results as stated below per my review and the radiologist's interpretation: CT head/brain wo con CT DOSE: 2782.63 mGy.cm HISTORY: Nausea Vomiting, Metastatic cancer TECHNIQUE: Multiaxial CT images of the head were performed without the use of intravenous contrast. A dose lowering technique was utilized adhering to the principles of ALARA. Comparison: None. Findings: The paranasal sinuses and mastoid air cells are clear. The calvarium and skull base are intact. The ventricles and sulci are within normal limits. There is no mass, hematoma, midline shift, or acute infarct. Impression: No acute intracranial abnormality. The above report was generated using voice recognition software. It may contain grammatical, syntax or spelling errors. Electronically signed by: Calvin Desouza M.D. 01/09/2019 9:[address] angio chest PE protocol CT DOSE: HISTORY: Pulmonary emboli PE TECHNIQUE: Multiaxial CT images of the chest were performed following the intravenous administration of contrast to evaluate the pulmonary arteries. Maximal intensity projection images were also obtained. A dose lowering technique was utilized adhering to the principles of ALARA. COMPARISON STUDY: 12/30/2018 FINDINGS: Mildly improved exam compared to the prior study. Bilateral pulmonary emboli are again noted. These are similar in distribution compared to the prior study. A saddle embolus component is no longer present. There are findings of a small pericardial effusion. Bilateral pleural effusions are again noted. Fluid is noted within the major fissures bilaterally. Thoracic aorta is normal in course and caliber. IMPRESSION: 1. Extensive bilateral pulmonary emboli. 2. Improved exam at the level of the main pulmonary arteries with a saddle embolus component no longer seen. 3. Small pericardial effusion. 4. Unchanged bilateral pleural effusions. The above report was generated using voice recognition software. It may contain grammatical, syntax or spelling errors. Electronically signed by: Calvin Desouza M.D. 01/09/2019 9:[address] abd pelvis IV con only CT DOSE: HISTORY: Pain Vomiting, nausea TECHNIQUE: Multiaxial CT images of the abdomen and pelvis were performed following the use of intravenous contrast. A dose lowering technique was utilized adhering to the principles of ALARA. COMPARISON STUDY: 12/30/2018 FINDINGS: Bilateral pulmonary pulmonary emboli are again noted. Bilateral pleural effusions and basilar atelectatic changes are similar. Diffuse fatty replacement of the liver. Unchanged septated fluid pocket lateral aspect right hepatic lobe. Subtly progressive body wall anasarca. Kidneys enhance uniformly. No evidence for hydronephrosis. Position of the infusion catheter is unchanged. Prior cholecystectomy. Postoperative changes consistent with a prior gastric bypass type procedure. Adhesions noted the anterior margin of the small bowel are again noted. These are nonobstructive. The small fluid pocket noted adjacent to the spleen in the prior study has maximum dimension of 2 cm. This is improved. Findings suggesting mild bowel wall thickening are noted and appear unchanged. A collection posterior to the bladder within the soft tissue pelvis has diminished to 5.5 cm at maximum. Small additional collections throughout the mesentery previously described are diminished. IMPRESSION: 1. Bilateral pulmonary emboli are again noted as is described in the CT of the chest report. 2. Stable bilateral pleural effusions and basilar atelectasis. 3. Nonspecific wall thickening of the abdomen and pelvis which may indicate at least in part enteritis. This is unchanged. 4. Improving perisplenic and pelvic collections. 5. Nonobstructive bowel pattern. 6. Mild body wall anasarca The above report was generated using voice recognition software. It may contain grammatical, syntax or spelling errors. Electronically signed by: Calvin Desouza M.D. 01/09/2019 9:43 PM ECG Data Attestation: I personally reviewed and interpreted this ECG as follows: Indication: weakness Rate (beats per minute): 98 Rhythm: sinus rhythm Findings: + other (Normal axis.); no acute ischemic change Blood Pressure Blood Pressure Findings: Normal blood pressure Blood Pressure Disposition: further management by hospitalist THONY Ribeiro The patient is a pleasant 43-year-old woman with a past medical history of metastatic esophageal cancer with recent admission for saddle pulmonary embolus who presents to emergency department with persistent nausea and vomiting and generalized weakness per hpi. Arrival the patient is chronically ill-appearing but no acute distress, afebrile with heart rate in the 100s vital signs otherwise stable. On exam patient has diminished breath sounds at the bases but is otherwise clear. Abdomen is nontender. Right Pleurx catheter site clean dry and intact. EKG unremarkable without evidence of acute ischemia. WBC 16.8, nonspecific and improved from prior. H/H and platelets within normal limits. Chemistry without acidosis. Troponin 0.07 decreased from prior. Lipase unremarkable. CT of the head, CTA of the chest and CT abdomen pelvis with improved but extensive pulmonary emboli, small pericardial effusion, and otherwise negative for acute process. Patient with marginal improvement after IV fluids and Zofran. Additionally given Compazine and Pepcid. Symptoms are most likely related to the patient's metastatic disease. Reasonable to admit the patient for further supportive care and possible palliative care consultation. Resident Dr. Modi, discussed the case with Dr. Chamberlain, [facility] hospitalist will evaluate the patient for admission. This patient was managed with the assistance of resident, Dr. Modi. I discussed the case with the resident, examined the patient, and confirm the findings and plan as documented in this note. Impression & Plan Metastatic disease, Nausea, Vomiting Discharge Plan Visit Data *Final* Discharge Date/Time: 01/10/19 01:38 Chief Complaint: Weakness ED Provider: Jamir Antunez ED Midlevel Provider: Nitish Modi Discharge Problem: Metastatic disease, Nausea, Vomiting Patient Disposition: Admitted As Inpatient Discharge Instructions Interventions: ED Discharge Assessment Last Done: 01/10/19 01:38 Discharge Problem: Vomiting Qualifiers: Vomiting type: unspecified Vomiting Intractability: unspecified Nausea presence: with nausea Qualified Code(s): R11.2 - Nausea with vomiting, unspecified The scribe's documentation has been prepared under my direction and personally reviewed by me in its entirety. I confirm that the note above accurately refle cts all work, treatment, procedures, and medical decision making performed by me.
[2019-01-09] MEDS ORDERED: PROCHLORPERAZINE 2 ML IV ONE (23:31)
[2019-01-09] MEDS ORDERED: FAMOTIDINE 20MG/5ML IV PUSH IV STA (23:31)
[2019-01-09] MEDS ORDERED: SODIUM CHLORIDE 0.9% 1000ML 1,000 ML IV STA (23:31)
[2019-01-10] MEDS ORDERED: MoRPHine SULFATE 4 MG/ML 1 ML CARP\\VIAL IV STA (00:58)
--- NOTE | 2019-01-10 01:23 | History & Physical Report ---
Date of Service January 10, 2019 Assessment & Plan (1) Weakness: 43-year-old female was admitted on 10 Jan 2019 for worsening weakness. Of note, she was discharged from the hospital on January 06 for multiple pulmonary emboli likely related to her metastatic esophageal cancer. Weakness, vomiting: Patient has a history of metastatic esophageal cancer, followed by Dr. Bruner. During her most recent hospitalization, patient was treated for massive PE (with related hemodynamic compromise) with tPA then transition to Lovenox. Also noted to have a right leg DVT and history of subclavian catheter-related DVT. Is on Lovenox 100 mg BID at home. - On arrival, afebrile, borderline tachycardic, SBP low 100s, SpO2 95% on room air. WBC 16, similar to recent labs. Electrolytes notable for low calcium. Troponin of 0.078, improved compared to her last hospitalization. CT of the head is non-acute. CT chest notes continued extensive bilateral pulmonary emboli, saddle embolus no longer seen, with small pericardial effusion and unchanged bilateral pleural effusions. CT a/p notes nonspecific and unchanged wall thickening that may be enteritis. - In ED, was treated with a 1 L normal saline bolus, Pepcid, Compazine, and Zofran. - Continue home [place] and pregabalin for pain. Morphine for breakthrough pain. Continued Compazine and Zofran for nausea as needed. Continue maintenance IVF. Consult heme-onc. Transaminitis: Mildly elevated AST, ALT, and alk phos. Low albumin. Recent vomiting but denies abdominal pain. - Will recheck after IVF. Ongoing medical history: - Metastatic squamous cell carcinoma, abdominal carcinomatosis, pleural effusion. - GERD: Continue home omeprazole. Code status: Full code. Diet: Regular. DVT prophy: Lovenox therapeutic dosing. PT/OT: Deferred. Disbo: Admit to med surg. Patient agrees to a palliative care consult. (2) Vomiting: (3) Metastatic squamous cell carcinoma: (4) Pulmonary emboli: (5) Right leg DVT: (6) Transaminitis: (7) Abdominal carcinomatosis: (8) Pleural effusion: History of Present Illness Primary Care Provider: Alvaro Mohamud MD 43-year-old female presents the emergency department with ongoing fatigue, n ausea, vomiting of bile-appearing emesis, and decreased p.o. intake since her discharge from the hospital on January 06. Patient has a notable history of metastatic esophageal cancer being treated by Dr. Bundy. She was recently hospitalized from to for multiple PEs, saddle embolus, and related hypertension. Was treated with tPA she was placed on subsequent therapeutic Lovenox. Last reported chemotherapy was on December 17. - Patient says that since going home she has had no food intake and minimal fluid intake due to nausea. Denies any fevers, diarrhea, abdominal pain. - At time of this H&P, she says she has a posterior headache. She says that her nausea is improved with medications given in the ED. She denies any current chest pain, shortness of breath, or other emergent concerns. --- Past medical history includes metastatic esophageal cancer, GERD. --- Past surgical history includes gastric bypass and Mediport placement. --- Social history includes living at home with her son. Allergies Allergy/AdvReac Type Severity Reaction Status Date / Time No Known Allergies Allergy Verified 01/08/19 11:29 Home Medications Home Medications Medication Instructions Recorded Confirmed Type omeprazole 20 mg PO BID 05/13/18 01/09/19 History cyanocobalamin (vit B-12) 1,000 1,000 mcg IM UD ml 11/18/18 01/10/19 History mcg/mL injection solution hydrocodone 10 mg-acetaminophen 1 tab PO QID PRN 11/18/18 01/09/19 History 325 mg tablet pediatric multivitamin chewable 1 tab PO BID 11/18/18 01/09/19 History tablet pregabalin 150 mg PO TID 12/04/18 01/09/19 History dronabinol 5 mg capsule 5 mg PO TID 12/09/18 01/09/19 History medroxyprogesterone 1 dose IM Q3M 12/30/18 01/10/19 History enoxaparin 100 mg SUBCUT Q12@0600,1800 #60 ml 01/06/19 01/09/19 Rx potassium chloride [Klor-Con M10] 40 meq PO DAILY #30 tab 01/06/19 01/09/19 Rx Past Med/Surg History Medical History Pleural effusion (Chronic) Ascites (Acute) Peripheral neuropathy (Chronic) Pulmonary emboli (Acute) Hypoxia (Acute) Non-ST elevation [place] (NSTEMI) (Acute) Metastatic squamous cell carcinoma Abdominal carcinomatosis Right leg DVT GERD (gastroesophageal reflux disease) Esophageal cancer (Chronic) Acid reflux History of blood clots LEFT UPPER CHEST "HOOKED TO JUGULAR VEIN" (2 CLOTS TOTAL) History of pleural effusion JANUARY 2018/ R & L DRAINAGE CATHETERS History of recent chemotherapy Surgical History History of arthroscopy of left shoulder History of esophagogastroduodenoscopy (EGD) History of gastric bypass History of shoulder surgery LEFT History of vascular access device MEDIPORT LEFT CHEST Family History Grandfather Family history of stomach cancer Social History Preferred Language: Portuguese Communication Ability: Effective Beliefs That Will Affect Care: Mormon Current Living Situation: Other Current Living Situation Comment: with son Feels Safe at Home: Yes Safety Concerns: Feels Safe At This Time Smoking Status: Former smoker Tobacco Type: cigarettes Cigarettes Per Day: QUIT 13 YEARS AGO. HX OF SMOKING X15 YEARS Do You Dip or Chew Tobacco: No Second Hand Exposure: No Tobacco Cessation Education Requested by Patient: No Hx Alcohol Use: No Hx Substance Use: No Review of Systems Review of Systems: Constitutional: Denies fevers, chills. Positive generalized weakness. Eyes: Denies any visual loss or diplopia ENT: Denies any ear/nose/throat pain or difficulty speaking or swallowing Respiratory: Denies any dyspnea, cough, hemoptysis Cardiovascular: Denies any chest pain or feeling of edema Gastrointestinal: Denies any abdominal pain or diarrhea. Musculoskeletal: Denies any acute extremity pains, myalgias, or focal weakness. Skin: Denies any known acute rashes or lesions Neuro: Positive headache. Denies acute focal weakness or numbness, or difficulties with speech or swallow. Physical Exam Physical Exam: GENERAL: Awake, alert, slowly conversational but in general appears exhausted and chronically ill. HENT: Normocephalic, atraumatic. Oropharynx mildly dry. EYES: Normal conjunctiva. Sclera non-icteric. NECK: Inspection normal. Supple and full ROM. No nuchal rigidity. CARDIAC: +S1S2 regular tachycardia, no murmurs. Right upper chest Mediport accessed. RESPIRATORY: Clear to auscultation. No wheezes or rales. Normal respiratory effort. GI: +BS, soft, non-distended. No tenderness to palpation. No rebound or guarding. EXTREMITIES: No pedal edema or calf tenderness. Moving all extremities naturally. NEURO: No gross neuro deficits. Results & Data Vital Signs (Past 12 Hours) Vital Signs Temp Pulse Pulse Resp BP BP Pulse Ox 01/10/19 00:00 113 H 21 102/66 95 01/09/19 22:00 98 H 22 104/64 95 01/09/19 20:48 91 H 22 103/72 96 01/09/19 18:48 36.6 C 99 H 16 108/77 96 Laboratory Results 01/09/19 01/09/19 Range/Units 19:38 19:38 WBC 16.86 H (4.8-10.8) K/uL RBC 4.31 (4.2-5.4) M/uL Hgb 12.3 (12.0-16.0) g/dL Hct 37.1 (37-47) % MCV 86.1 (80-100) fL MCH 28.5 (25-34) pg MCHC 33.2 (32-36) g/dL RDW Std Deviation 65.5 H (36.4-46.3) fL RDW Coeff of Huber 21.3 H (11.5-14.5) % Plt Count 320 (130-400) K/uL MPV 9.9 (7.4-10.4) fL Immature Gran % (Auto) 0.8 % Neut % (Auto) 86.8 % Lymph % (Auto) 7.0 % [place] % (Auto) 5.4 % Eos % (Auto) 0.0 % Baso % (Auto) 0.0 % Immature Gran # (Auto) 0.14 H (0.00-0.02) K/uL Neut # (Auto) 14.63 H (1.4-6.5) K/uL Lymph # (Auto) 1.18 L (1.2-3.4) K/uL [place] # (Auto) 0.91 H (0.11-0.59) K/uL Eos # (Auto) 0.00 (0-0.5) K/uL Baso # (Auto) 0.00 (0-0.2) K/uL Anisocytosis Present Echinocytes 1+ Sodium 137 (136-145) mmol/L Potassium 3.8 (3.5-5.1) mmol/L Chloride 103 (98-107) mmol/L Carbon Dioxide 26 (21-32) mmol/L Anion Gap 8.0 (3-11) BUN 11 (7-18) mg/dl Creatinine 0.48 L (0.6-1.2) mg/dl Est Cr Clr Drug Dosing 178.9 ml/min Est GFR ( Amer) 137.3 Est GFR (Non-Af Amer) 118.5 BUN/Creatinine Ratio 23.6 H (10-20) Glucose 88 (70-99) mg/dl Calcium 7.6 L (8.5-10.1) mg/dl Phosphorus 3.0 (2.5-4.9) mg/dl Magnesium 1.8 (1.8-2.4) mg/dl Total Bilirubin 0.8 (0.2-1) mg/dl AST 118 H (15-37) U/L ALT 81 H (12-78) U/L Alkaline Phosphatase 150 H (45-117) U/L Troponin I 0.078 H* (0-0.045) ng/ml Total Protein 5.2 L (6.4-8.2) gm/dl Albumin 1.4 L (3.4-5.0) gm/dl Globulin 3.8 (2.5-4.0) gm/dl Albumin/Globulin Ratio 0.4 L (0.9-2) Lipase 37 L (73-393) U/L Medications Administered Sodium Chloride (Nss 1000ml) 1,000 mls @ 125 mls/hr IV .Q8H STA Stop: 01/10/19 07:30 Last Admin: 01/09/19 23:38 Dose: 125 mls/hr Documented by: [id number] Ioversol (Optiray 320 125ml) 119 ml IV ONCE PRN PRN Reason: Interaction Checking Stop: 01/13/19 21:09 Last Admin: 01/09/19 21:11 Dose: 119 ml Documented by: [id number] Discontinued Medications Famotidine (Pepcid 20mg Iv Push) 20 mg IV ONE STA Stop: 01/09/19 23:32 Last Admin: 01/09/19 23:38 Dose: 20 mg Documented by: [id number] Sodium Chloride (Nss 1000ml) 1,000 mls @ 999 mls/hr IV .Q1H1M MERCEDEZ Stop: 01/09/19 21:30 Last Infusion: 01/09/19 21:49 Dose: 0 mls/hr Documented by: [id number] Admin: 01/09/19 20:44 Dose: 999 mls/hr Documented by: [id number] Prochlorperazine (Compazine) 2 mls @ 1 mls/min IV ONE ONE Stop: 01/09/19 23:32 Last Admin: 01/09/19 23:38 Dose: 1 mls/min Documented by: [id number] Ondansetron HCl (Zofran) 4 mg IV NOW STA Stop: 01/09/19 20:26 Last Admin: 01/09/19 20:44 Dose: 4 mg Documented by: [id number] Code Status & VTE Plan Code Status Full code VTE Prophylaxis Plan VTE Prophylaxis will be ordered: Yes Supervising Physician Co-Signing Physician Notes Patient seen and examined, chart reviewed, case discussed with Dr. Quinn and I agree with his assessment and plan as above. 43yo C female with metastatic esophageal cancer, recently discharged to home returns with FTT, nausea, PO intolerance On exam she is afebrile, hemodynamically stable, non-toxic but chronically ill in appearance Dry MM Remainder of exam unremarkable Labs and images reviewed Admission for IVF and anti-emetics, Palliative care consult, remainder of plan as above Resident Activity Tracking Resident Involvement: Resident Care Provided Care Provided: Adult Hospital Medicine (1) Pulmonary emboli Pulmonary embolism type: saddle (2) Vomiting Nausea presence: with nausea Vomiting Intractability: unspecified Vomiting type: unspecified Qualified Code(s): R11.2 - Nausea with vomiting, unspecified
[2019-01-10] MEDS ORDERED: ONDANSETRON INJ 2 MG/ML 2 ML VIAL IV SCH (02:03)
[2019-01-10] MEDS: LACTATED RINGER'S 1,000 ML IV SCH ×4 (02:43→22:44)
[2019-01-10] MEDS: ONDANSETRON HCL 8 MG in DEXTROSE 5% 50 ML IV SCH ×3 (05:23→20:14)
[2019-01-10] MEDS: ENOXAPARIN 100 MG/1ML SYR SQ SCH ×2 (05:27→18:21)
[2019-01-10] MEDS ORDERED: DRONABINOL 2.5 MG CAP PO ONE (07:48)
[2019-01-10] MEDS ORDERED: PREGABALIN 150 MG CAP PO ONE (07:48)
[2019-01-10] MEDS: PANTOprazole 40 MG TAB PO SCH ×2 (07:50→20:15)
[2019-01-10] MEDS: FLINTSTONES COMPLETE CHEWABLE TAB PO SCH ×2 (07:50→20:15)
[2019-01-10] MEDS: POTASSIUM CHLORIDE 10 MEQ TABCR PO SCH (07:50)
[2019-01-10] MEDS: DRONABINOL 2.5 MG CAP PO SCH ×3 (07:51→20:14)
[2019-01-10] MEDS: PREGABALIN 150 MG CAP PO SCH ×3 (07:51→20:14)
[2019-01-10] MEDS: PROCHLORPERAZINE 5 MG in SYRINGE 4 ML IV PRN (08:26)
--- NOTE | 2019-01-10 09:26 | Consultation Report ---
DATE OF CONSULTATION: 01/10/2019 MEDICAL ONCOLOGY CONSULTATION REASON FOR CONSULTATION: Severe asthenia in this pleasant but unfortunate 43-year-old female with metastatic esophageal cancer. HISTORY OF PRESENT ILLNESS: Naomi is a pleasant and again unfortunate 43-year-old female patient, currently under my care for metastatic esophageal cancer. She was admitted to [facility] earlier this morning with general clinical decline, intractable nausea and vomiting, anorexia and weight loss. Naomi had been recently admitted for massive PE, saddle embolus to be precise and related hypertension. She was initially treated with TPA and continues on b.i.d. subcutaneous Lovenox. Since being discharged home, she has had very little p.o. intake and continues to collazo with persistent nausea. She basically describes her circumstances as "feeling terrible." She is very weak, unable to really ambulate and finally had her son bring her to the Emergency Room. CT scan of the chest, abdomen and pelvis including CTA of the chest reveals persistent pulmonary emboli, but not necessarily evidence for disease progression. Her last dose of Taxotere was administered on 12/17. During her last hospitalization, I proposed upon resumption to divide her dose by 3 and administer weekly for better tolerance. Clearly, I was initially optimistic because the pleural effusion accumulation had significantly subsided since chemotherapy, but unfortunately, on the other side of treatment, she has not tolerated full dose very well. Naomi was originally diagnosed back in December of 2017. She received full complement of FOLFOX chemotherapy, but unfortunately shortly after discontinuance, began to show evidence for disease progression. Unfortunately, she also suffered chemotherapy-induced peripheral neuropathy. Her disease had manifested with malignant pleural effusions at diagnosis necessitating a PleurX catheter placement. She is presently on the medical oncology unit. I have been asked to see her to discuss therapeutics and/or perhaps a palliative care moving forward. PAST MEDICAL HISTORY: Significant for metastatic esophageal cancer, extensive pulmonary embolism, DVT of the upper extremity, malignant pleural effusions, hyperlipidemia, gastroesophageal reflux, obstructive sleep apnea, morbid obesity, vitamin B12 and vitamin D deficiencies. PAST SURGICAL HISTORY: Includes Hubert-en-Y gastric bypass, colposcopy, cholecystectomy, and tooth extraction. She has also previously undergone talc pleurodesis of the left chest and a PleurX catheter of the right chest to manage effusions. MEDICATIONS: Prior to admission include Marinol 5 mg p.o. t.i.d., medroxyprogesterone one dose IM q. 3 months, enoxaparin 100 mg subQ q. 12 hours, potassium chloride 40 mEq p.o. daily, omeprazole 20 mg p.o. b.i.d., cyanocobalamin 1000 mcg IM q. monthly, hydrocodone 10/325 one tablet p.o. q.i.d. p.r.n., multivitamin. ALLERGIES: No known drug allergies. 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 She is single. She has a 26-year-old son. Former smoker, [id number] previously. Social alcohol only. FAMILY HISTORY: Grandfather with a history of stomach cancer. REVIEW OF SYSTEMS: Positive for asthenia, generalized weakness, anorexia, nausea and vomiting, poor performance status overall. She is presently not ambulating readily. SKIN: No rashes or lesions. No history of dermatoses. HEENT: She denies any headaches, lightheadedness or dizziness. No visual or hearing deficits. No sinus symptoms, sore throat or dysphagia. LYMPH: No history of lymphadenopathy. CARDIAC: No history of angina or palpitations. No history of coronary artery disease. PULMONARY: Positive for malignant effusions. She does not suffer from COPD. Denies cough. No hemoptysis. GASTROINTESTINAL: Positive for persistent nausea and vomiting. No abdominal pain per se. No hematochezia, melena or mich rectal bleeding noted. GENITOURINARY: No hematuria, dysuria, urinary incontinence. PSYCHIATRIC: Negative for anxiety, depression or psychoses. ENDOCRINE: Negative for diabetes or thyroid disease. NEUROLOGIC: Negative for seizure, stroke, or migraine headache. MUSCULOSKELETAL: Positive for generalized weakness. No arthralgias or myalgias otherwise. HEMATOLOGIC: Positive for cytopenias, attributable to current chemotherapy treatment. PHYSICAL EXAMINATION: GENERAL: Very pleasant 43-year-old female patient appears quite ill, answers questions appropriately, in no acute distress. VITAL SIGNS: Temperature 36.6, pulse 100, respiratory rate 20, blood pressure 106/74. SKIN: Pale, warm, dry, noncyanotic without petechia, rash or ecchymosis. HEENT: Head is atraumatic, normocephalic. Eyes: PERRLA, EOMI. Nares patent without rhinorrhea or discharge. Throat clear. Tongue midline. No buccal lesions or ulcerations. Mucous membranes are dry. NECK: Supple. Trachea midline. No JVD noted. HEART: Regular rate and rhythm. No clicks, rubs, murmurs or gallops. LUNGS: Diminished breath sounds in the posterior bases. No rales or rhonchi appreciated. ABDOMEN: Soft. Bowel sounds are hypoactive. No rigidity or guarding. No palpable hepatosplenomegaly. EXTREMITIES: Musculoskeletal strength and pulses are equal in all four quadrants. No clubbing, cyanosis or edema otherwise. NEUROLOGICALLY: She is awake, alert and oriented x3. Cranial nerves are grossly intact. LABORATORY DATA: WBC count 16,860, hemoglobin 12.3, platelet count 320,000, absolute neutrophil count 14,630. Sodium 137, potassium 3.8, chloride 103, carbon dioxide 26, BUN 11, creatinine 0.48. Albumin 1.4, AST 118, ALT 81. IMPRESSION: 1. Failing performance status/asthenia. 2. Intractable nausea and vomiting. 3. Metastatic esophageal cancer. 4. Hypoalbuminemia. 5. Disambulation. 6. Generalized weakness. PLAN: I visited with Naomi at bedside this morning. She is clearly in rapid clinical decline, recently hospitalized with extensive pulmonary embolism requiring TPA and subsequent subQ Lovenox. Unfortunately, aNomi is not tolerating a full-dose docetaxel. During the last admission, I had suggested dividing her dose by thirds and administering weekly dose of Taxol in the hopes of extending her survival. She fully understands her disease is terminal. I had a mich discussion with her regarding her code status today. She has initially made herself full code, but I requested that she rethink that option. I would prefer to have Naomi make the decision and not have her enter crisis requiring her family, particularly her son to make end of life decisions. Hopefully, I was able to convince her to seriously consider no code status. Palliative care consult is appropriate, I did not take options of resuming chemotherapy off table, but clearly Naomi has to dramatically improve her overall performance status before I would consider resuming treatment. Naomi's albumin is dreadfully low and may need to consider supplemental IV albumin. I also took the liberty of adding dexamethasone to her Zofran regimen. We may want to consider MRI of the brain as a source for intractable nausea. I have seen cases in the past where patients were far removed from the effects of chemotherapy and yet she may have occult GIS INSTRUCTOR metastases, particularly in the brain stem or intracerebrally that may prove to be the underlying cause for persistent nausea. I would not be surprised if she has GIS INSTRUCTOR metastatic disease. She appears to be neurologically intact otherwise. For now, I would proceed with a clear-liquid diet, aggressively IV hydrate her, would also perhaps get physical and occupational therapy involved expediently. I will remain awake overnight monitor until Sunday and we will periodically see Naomi during her stay. If you have any further specific questions for me, I can be contacted by myself. Thank you very much for assisting us in the care of this very pleasant, but unfortunate patient. NEO
[2019-01-10 09:31] LABS: INR 1.4 (0.9-1.1); Prothrombin Time 14.4 Seconds (9.0-12.0)
[2019-01-10] MEDS: dexAMETHasone 4 MG in SYRINGE 0 ML IV SCH ×2 (12:31→20:00)
--- NOTE | 2019-01-10 13:49 | Palliative Care Consultation ---
Date of Consultation January 10, 2019 History of Present Illness Attending Physician: Kiya Rausch MD Allergies Allergy/AdvReac Type Severity Reaction Status Date / Time No Known Allergies Allergy Verified 01/08/19 11:29 Home Medications Home Medications Medication Instructions Recorded Confirmed Type omeprazole 20 mg PO BID 05/13/18 01/09/19 History cyanocobalamin (vit B-12) 1,000 1,000 mcg IM UD ml 11/18/18 01/10/19 History mcg/mL injection solution hydrocodone 10 mg-acetaminophen 1 tab PO QID PRN 11/18/18 01/09/19 History 325 mg tablet pediatric multivitamin chewable 1 tab PO BID 11/18/18 01/09/19 History tablet pregabalin 150 mg PO TID 12/04/18 01/09/19 History dronabinol 5 mg capsule 5 mg PO TID 12/09/18 01/09/19 History medroxyprogesterone 1 dose IM Q3M 12/30/18 01/10/19 History enoxaparin 100 mg SUBCUT Q12@0600,1800 #60 ml 01/06/19 01/09/19 Rx potassium chloride [Klor-Con M10] 40 meq PO DAILY #30 tab 01/06/19 01/09/19 Rx Patient History Medical History Pleural effusion (Chronic) Ascites (Acute) Peripheral neuropathy (Chronic) Pulmonary emboli (Acute) Hypoxia (Acute) Non-ST elevation [place] (NSTEMI) (Acute) Metastatic squamous cell carcinoma Abdominal carcinomatosis Right leg DVT GERD (gastroesophageal reflux disease) Esophageal cancer (Chronic) Acid reflux History of blood clots LEFT UPPER CHEST "HOOKED TO JUGULAR VEIN" (2 CLOTS TOTAL) History of pleural effusion JANUARY 2018/ R & L DRAINAGE CATHETERS History of recent chemotherapy Surgical History History of arthroscopy of left shoulder History of esophagogastroduodenoscopy (EGD) History of gastric bypass History of shoulder surgery LEFT History of vascular access device MEDIPORT LEFT CHEST Family History Grandfather Family history of stomach cancer Social History Preferred Language: Croatian Communication Ability: Effective Beliefs That Will Affect Care: [place] Current Living Situation: Other Current Living Situation Comment: with son Feels Safe at Home: Yes Safety Concerns: Feels Safe At This Time Smoking Status: Former smoker Tobacco Type: cigarettes Cigarettes Per Day: QUIT 13 YEARS AGO. HX OF SMOKING X15 YEARS Do You Dip or Chew Tobacco: No Second Hand Exposure: No Tobacco Cessation Education Requested by Patient: No Hx Alcohol Use: No Hx Substance Use: No Results & Data Vital Signs (Past 12 Hours) Vital Signs Temp Pulse Resp BP Pulse Ox 01/10/19 12:00 36.4 C L 101 H 20 100/69 91 01/10/19 07:00 36.6 C 100 H 20 106/74 94 01/10/19 01:55 36.8 C 96 H 14 127/83 91
[2019-01-10] MEDS: HYDROCODONE/ACETAMINOPHEN 10/325 TAB PO PRN (14:34)
--- NOTE | 2019-01-10 17:02 | Palliative Care Consultation ---
Date of Consultation January 10, 2019 Assessment & Plan (1) Goals of care, counseling/discussion: Patient seen and examined-patient's friend, Rod, at bedside-patient gave permission to speak in front of Rod. Patient is a 43-year-old female with metastatic esophageal cancer, with carcinomatosis-status post chemo, after completing chemo patient had disease present aggression and is on second line chemo. Patient has received 3 full doses-last chemo was on 12/17. Patient was hospitalized for increased shortness of breath-patient was found to have a saddle embolus-she was discharged home on 01/06 on Lovenox twice daily. Since discharge, patient has had poor p.o. intake with nausea and vomiting. Patient states it starts out as a coughing fit which initiates a vomiting cycle. Patient has been taking scheduled Zofran and Compazine at home-does admit that she may have missed a few doses due to memory issues from chemotherapy. Patient is currently on Zofran every 8 hours as well as Marinol 3 times daily-IV Decadron was added today by Dr. Bruner. Patient is tolerating smoothly p.o. Patient with increased edema due to low albumin-discussed with patient and friend ideas regarding increasing protein intake. Family to bring and JIF peanut butter, fruit flavored protein drinks, as well as other items patient feels she may be able to tolerate. Patient's only complaint of pain is in her lower back-she feels this may be due to being bedbound for prolonged period of time. She did receive 1 as needed IV morphine in the past 24 hours. Patient also has a right Pleurx drain. Spoke at length with patient on how treatment has been going-patient is hoping to get stronger and continue her chemo. We did discuss CODE STATUS at length-at this time patient has named both her son and her mother as healthcare power of workers compensation attorney-she does not feel that they would necessarily agree. She is planning on talking to her mother tonight and discussing with her her wishes- will have patient sales representatives bring by paperwork that patient can fill out naming her medical POA. Patient is unsure if she would want to be intubated if needed-she does not want her family to have to make the decision to withdraw life support. Patient is contemplating no intubation-discussed that she is at high risk of recurrent PEs with her cancer diagnosis. Discussed her different options for CODE STATUS-patient is to discuss her wishes with both her son and her mother. Patient also reports a new rash on the right side of her scalp starting to involve her right eye-she states this was noted last night in the ER. Rash is consistent with shingles-discussed with attending physician. -Goals of care-discussed at length with patient her current goals as well as CODE STATUS-patient is moving towards DO NOT INTUBATE-however wishes to speak with both her mother and son first. Patient know she needs to fill out paperwork regarding healthcare surrogacy-legally at this point her son being her only adult child would be her decision maker. -Metastatic esophageal cancer-patient is hoping to improve her functional status and be able to continue with her chemotherapy although she realizes per her discussion with Dr. Bruner that it would have to be at a reduced dose. -Nausea with vomiting-improved control with scheduled Zofran, scheduled Decadron as well as Marinol 3 times daily-encouraged small sips, patient tolerating fruit smoothly -Back pain - Patient attributes to prolonged bedrest-has not had prior back pain-cancer related pain has mainly been abdominal pain due to carcinomatosis -Scalp rash-consistent with shingles-we will have attending physician evaluate -Will continue to follow and assist patient with medical decision making as well as healthcare surrogacy (2) Vomiting: Appears well controlled on scheduled Zofran, Decadron and Marinol 3 times daily Discussed taking small sips and small amounts of p.o.-discussed foods she may be able to tolerate Nausea presence: with nausea Vomiting Intractability: unspecified Vomiting type: unspecified Qualified Code(s): R11.2 - Nausea with vomiting, unspecified (3) Abdominal carcinomatosis: -Pain well-controlled with PRN [place]/PRN IV morphine (4) Pulmonary embolism: Saddle embolus-resolving, now with an PEs-on Lovenox twice daily, no increased shortness of breath, O2 sats adequate on room air History of Present Illness Reason for Consultation: Discuss CODE STATUS as well as goals of care Requesting Physician: Dr. Quinn Attending Physician: Kiya Rausch MD History of Present Illness Patient seen and examined-patient's friend, Rod, at bedside-patient gave permission to speak in front of Rod. Patient is a 43-year-old female with metastatic esophageal cancer, with carcinomatosis-status post chemo, after completing chemo patient had disease present aggression and is on second line chemo. Patient has received 3 full doses-last chemo was on 12/17. Patient was hospitalized for increased shortness of breath-patient was found to have a saddle embolus-she was discharged home on 01/06 on Lovenox twice daily. Since discharge, patient has had poor p.o. intake with nausea and vomiting. Patient states it starts out as a coughing fit which initiates a vomiting cycle. Patient has been taking scheduled Zofran and Compazine at home-does admit that she may have missed a few doses due to memory issues from chemotherapy. Patient is currently on Zofran every 8 hours as well as Marinol 3 times daily-IV Decadron was added today by Dr. Bruner. Patient is tolerating smoothly p.o. Patient with increased edema due to low albumin-discussed with patient and friend ideas regarding increasing protein intake. Family to bring and JIF peanut butter, fruit flavored protein drinks, as well as other items patient feels she may be able to tolerate. Patient's only complaint of pain is in her lower back-she feels this may be due to being bedbound for prolonged period of time. She did receive 1 as needed IV morphine in the past 24 hours. Patient also has a right Pleurx drain. Spoke at length with patient on how treatment has been going-patient is hoping to get stronger and continue her chemo. We did discuss CODE STATUS at length-at this time patient has named both her son and her mother as healthcare power of workers compensation attorney-she does not feel that they would necessarily agree. She is planning on talking to her mother tonight and discussing with her her wishes- will have patient sales representatives bring by paperwork that patient can fill out naming her medical POA. Patient is unsure if she would want to be intubated if needed-she does not want her family to have to make the decision to withdraw life support. Patient is contemplating no intubation-discussed that she is at high risk of recurrent PEs with her cancer diagnosis. Discussed her different options for CODE STATUS-patient is to discuss her wishes with both her son and her mother. Patient also reports a new rash on the right side of her scalp starting to involve her right eye-she states this was noted last night in the ER. Rash is consistent with shingles-discussed with attending physician. Allergies Allergy/AdvReac Type Severity Reaction Status Date / Time No Known Allergies Allergy Verified 01/08/19 11:29 Home Medications Home Medications Medication Instructions Recorded Confirmed Type omeprazole 20 mg PO BID 05/13/18 01/09/19 History cyanocobalamin (vit B-12) 1,000 1,000 mcg IM UD ml 11/18/18 01/10/19 History mcg/mL injection solution hydrocodone 10 mg-acetaminophen 1 tab PO QID PRN 11/18/18 01/09/19 History 325 mg tablet pediatric multivitamin chewable 1 tab PO BID 11/18/18 01/09/19 History tablet pregabalin 150 mg PO TID 12/04/18 01/09/19 History dronabinol 5 mg capsule 5 mg PO TID 12/09/18 01/09/19 History medroxyprogesterone 1 dose IM Q3M 12/30/18 01/10/19 History enoxaparin 100 mg SUBCUT Q12@0600,1800 #60 ml 01/06/19 01/09/19 Rx potassium chloride [Klor-Con M10] 40 meq PO DAILY #30 tab 01/06/19 01/09/19 Rx Patient History Medical History Pleural effusion (Chronic) Ascites (Acute) Peripheral neuropathy (Chronic) Pulmonary emboli (Acute) Hypoxia (Acute) Non-ST elevation [place] (NSTEMI) (Acute) Metastatic squamous cell carcinoma Abdominal carcinomatosis Right leg DVT GERD (gastroesophageal reflux disease) Esophageal cancer (Chronic) Acid reflux History of blood clots LEFT UPPER CHEST "HOOKED TO JUGULAR VEIN" (2 CLOTS TOTAL) History of pleural effusion JANUARY 2018/ R & L DRAINAGE CATHETERS History of recent chemotherapy Surgical History History of arthroscopy of left shoulder History of esophagogastroduodenoscopy (EGD) History of gastric bypass History of shoulder surgery LEFT History of vascular access device MEDIPORT LEFT CHEST Family History Grandfather Family history of stomach cancer Social History Preferred Language: Citizen Of The [place] Communication Ability: Effective Beliefs That Will Affect Care: Hoahaoism Current Living Situation: Other Current Living Situation Comment: with son Feels Safe at Home: Yes Safety Concerns: Feels Safe At This Time Smoking Status: Former smoker Tobacco Type: cigarettes Cigarettes Per Day: QUIT 13 YEARS AGO. HX OF SMOKING X15 YEARS Do You Dip or Chew Tobacco: No Second Hand Exposure: No Tobacco Cessation Education Requested by Patient: No Hx Alcohol Use: No Hx Substance Use: No Review of Systems Review of Systems: Patient denies fever, chills, chest pain, increased shortness of breath, symptoms or abdominal pain. Positive for nausea with vomiting and back pain New rash noted yesterday on the right side of scalp Physical Exam Physical Exam: PE: Patient awake and alert, no acute distress. Positive memory deficits-able to give a reliable history HEENT: EOMI, hearing within normal limits. Macular rash in a linear distribution across the right side of her scalp-consistent with shingles-onset evening of 01/09 Respiratory: Unlabored, adequate saturations on room air-recent saddle embolus- now with multiple scattered PEs CV: Regular rate, positive edema Abdomen: Soft, nontender, decreased bowel sounds, anasarca Extremities: Positive edema, full range of motion Neuro: Alert and oriented-mild cognitive deficits likely due to chemo Psych: Appropriate mood Results & Data Vital Signs (Past 12 Hours) Vital Signs Temp Pulse Resp BP Pulse Ox 01/10/19 15:54 98.1 F 99 H 20 102/73 90 01/10/19 12:00 97.5 F L 101 H 20 100/69 91 01/10/19 07:00 97.9 F 100 H 20 106/74 94 Time Spent Attending Total time spent 110 minutes with greater than 50% of the time spent at bedside discussing goals of care as well as CODE STATUS. Collaborated with attending physician regarding scalp rash
[2019-01-10] MEDS: VALACYCLOVIR HCL 500 MG TABLET PO SCH (20:19)
[2019-01-11] MEDS: dexAMETHasone 4 MG in SYRINGE 0 ML IV SCH ×2 (04:13→13:29)
[2019-01-11] MEDS: ONDANSETRON HCL 8 MG in DEXTROSE 5% 50 ML IV SCH ×2 (04:15→13:28)
[2019-01-11] MEDS: ENOXAPARIN 100 MG/1ML SYR SQ SCH ×2 (05:57→18:18)
[2019-01-11 06:36] LABS: Basophils # (auto) 0.01 K/uL (0-0.2); Basophils % (auto) 0.1 %; Hematocrit (blood only) 31.6 % (37-47); Hemoglobin 10.4 g/dL (12.0-16.0); Immature Granulocytes % (auto) 0.8 %; Lymphocytes % (auto) 7.2 %; Mean Corpuscular Hgb Conc 32.9 g/dL (32-36); Mean Corpuscular Volume 87.1 fL (80-100); Mean Platelet Volume 9.7 fL (7.4-10.4); Monocytes # (auto) 0.64 K/uL (0.11-0.59); Monocytes % (auto) 5.1 %; Neutrophils # (auto) 10.92 K/uL (1.4-6.5); Neutrophils % (auto) 86.8 %; Platelet Count 277 K/uL (130-400); RDW Coefficient of Variation 21.9 % (11.5-14.5); RDW Standard Deviation 67.7 fL (36.4-46.3); Red Blood Count 3.63 M/uL (4.2-5.4); White Blood Count 12.57 K/uL (4.8-10.8)
[2019-01-11 07:04] LABS: Albumin Level 1.2 gm/dl (3.4-5.0); BUN Creatinine Ratio 25.3 (10-20); Calcium 7.2 mg/dl (8.5-10.1); Creatinine Clr Calc Pharmacy 179.4 ml/min; Echinocytes 1+; Est GFR (African American) 136.4; Est GFR (Non-African American) 117.7; Hypochromasia Present; Potassium 4.2 mmol/L (3.5-5.1)
[2019-01-11 07:07] LABS: Albumin Globulin Ratio 0.4 (0.9-2); Bilirubin,Total 0.7 mg/dl (0.2-1); Globulin 3.3 gm/dl (2.5-4.0); Total Protein 4.5 gm/dl (6.4-8.2)
[2019-01-11] MEDS: POTASSIUM CHLORIDE 10 MEQ TABCR PO SCH (07:51)
[2019-01-11] MEDS: LACTATED RINGER'S 1,000 ML IV SCH ×2 (07:59→18:18)
[2019-01-11] MEDS: DRONABINOL 2.5 MG CAP PO SCH ×3 (08:00→22:03)
[2019-01-11] MEDS: PREGABALIN 150 MG CAP PO SCH ×3 (08:00→22:09)
[2019-01-11] MEDS: PANTOprazole 40 MG TAB PO SCH ×2 (08:01→22:05)
[2019-01-11] MEDS: FLINTSTONES COMPLETE CHEWABLE TAB PO SCH ×2 (08:01→22:04)
[2019-01-11] MEDS: VALACYCLOVIR HCL 500 MG TABLET PO SCH ×3 (08:01→22:05)
[2019-01-11] MEDS ORDERED: MICONAZOLE NITRATE POWDER 43 GM EXT PRN (10:28)
--- NOTE | 2019-01-11 11:12 | Progress Note ---
DATE: 01/11/2019 MEDICAL ONCOLOGY PROGRESS NOTE DIAGNOSES: 1. Failing performance status/asthenia. 2. Intractable nausea and vomiting. 3. Metastatic esophageal cancer. 4. Severe hypoalbuminemia. 5. Generalized weakness/disambulation. SUBJECTIVE: I was very surprised when I examined Naomi at bedside. She is much brighter mentally today. She is trying to increase p.o. intake. Nausea is much better controlled. She still has not ambulated per se and hopefully will incorporate physical and occupational therapy in short order to get her on her feet. She continues b.i.d. jja-livyskblj-nzltef heparin. Appreciate palliative service input. Naomi states pain is presently well controlled. Nursing reports no overnight difficulties. PHYSICAL EXAMINATION: GENERAL: A pleasant 43-year-old female patient in no acute distress. VITAL SIGNS: Temperature 37, pulse 88, respiratory rate 18, blood pressure 115/76. SKIN: Newly developed zoster rash involving her scalp. HEENT: Oral mucosa without erythema or ulceration. HEART: Regular rate and rhythm. LUNGS: Fine crackles in the right posterior base predominantly. ABDOMEN: Soft, nontender, nondistended. EXTREMITIES: 1-2+ peripheral edema bilaterally. NEUROLOGIC: Grossly intact. LABORATORY DATA: WBC count 12,570, hemoglobin 10.4, platelet count 277,000. Sodium 137, potassium 4.2, chloride 105, carbon dioxide 29, creatinine 0.49, BUN 12. IMPRESSION: 1. Herpes zoster (scalp). 2. Asthenia/generalized weakness. 3. Intractable nausea and vomiting. 4. Severe hypoalbuminemia. PLAN: Naomi was seen and examined this morning. Very pleased that she is definitely mentally brighter and is trying to tolerate her diet. Pain is well controlled. Obviously, my concern moving forward is her nutritional status and overall performance status before resuming chemotherapy. Palliative consultation was appropriate and appreciate their input. It is still my hope Naomi ultimately decides to make herself no code as her condition is terminal. Again, resumption of any form of treatment will solely depend on improving performance status. She is currently receiving antiviral for a newly developed zoster involving the scalp region. I totally agree with current medical management. We will continue to follow her daily. Thank you very much for assisting in the care of this very pleasant, but unfortunate young lady. NEO
--- NOTE | 2019-01-11 14:19 | Family Medicine Progress Note ---
Date of Service January 11, 2019 Assessment & Plan (1) Weakness: 43-year-old female was admitted on 10 Jan 2019 for worsening weakness. Of note, she was discharged from the hospital on January 06 for multiple pulmonary emboli likely related to her metastatic esophageal cancer. Generalized weakness likely secondary to intractable nausea and vomiting due to Metastatic Esophageal cancer with abdominal carcinomatosis Malnutrition - On arrival, afebrile, borderline tachycardic, SBP low 100s, SpO2 95% on room air. WBC 16, similar to recent labs. Electrolytes notable for low calcium. Troponin of 0.078, improved compared to her last hospitalization. CT of the head is non-acute. CT chest notes continued extensive bilateral pulmonary emboli, saddle embolus no longer seen, with small pericardial effusion and unchanged bilateral pleural effusions. CT a/p notes nonspecific and unchanged wall thickening that may be enteritis. - In ED, was treated with a 1 L normal saline bolus, Pepcid, Compazine, and Zofran. - Continue home [place] and pregabalin for pain. Morphine for breakthrough pain. Continued Compazine and Zofran for nausea as needed. - Once optimal PO intake confirm - will d/c IVF - seen by Dr. Bruner. Recommended palliative care consult. - Palliative care - discussed extensively code status. Recent Massive PE treated with tpa infusion, right leg DVT and history of subclavian catheter-related DVT -continue lovenox 100mgs bid. Herpes Zoster - Started valtrex - 01/10/19. Transaminitis: Mildly elevated AST, ALT, and alk phos. Low albumin. Recent vomiting but denies abdominal pain. - Recheck same. Follow. Ongoing medical history: - Metastatic squamous cell carcinoma, abdominal carcinomatosis, pleural effusion. - GERD: Continue home omeprazole. Code status: Full code. FEN: IVF, Regular diet. DVT prophy: Lovenox therapeutic dosing. PT/OT: Deferred. Disbo: Admit to med surg. Subjective more alert today. has some appetite no fever, rash with no pain. Physical Exam Constitutional: WD/WN, vitals as above sitting in chair Respiratory: normal respiratory effort, lungs clear to auscultation Cardiovascular: RRR, no murmur, no edema Gastrointestinal (Abdomen): normal bowel sounds, soft, nontender, no hepatosplenomegaly Psychiatric: A+Ox3, euthymic affect Results & Data Vital Signs (Past 12 Hours) Vital Signs Temp Pulse Resp BP Pulse Ox 01/11/19 11:32 36.9 C 88 20 96/67 L 92 01/11/19 07:00 37 C 88 18 115/76 91 01/11/19 04:20 36.9 C 93 H 18 116/79 92
[2019-01-12] MEDS: dexAMETHasone 4 MG in SYRINGE 0 ML IV SCH ×3 (01:44→18:36)
[2019-01-12] MEDS: ONDANSETRON HCL 8 MG in DEXTROSE 5% 50 ML IV SCH ×3 (01:44→18:37)
[2019-01-12] MEDS: LACTATED RINGER'S 1,000 ML IV SCH ×2 (04:56→14:23)
[2019-01-12] MEDS: ENOXAPARIN 100 MG/1ML SYR SQ SCH ×2 (06:03→18:35)
[2019-01-12 06:38] LABS: Basophils # (auto) 0.01 K/uL (0-0.2); Basophils % (auto) 0.1 %; Eosinophils # (auto) 0.01 K/uL (0-0.5); Eosinophils % (auto) 0.1 %; Hematocrit (blood only) 33.2 % (37-47); Hemoglobin 10.8 g/dL (12.0-16.0); Immature Granulocytes # (auto) 0.09 K/uL (0.00-0.02); Immature Granulocytes % (auto) 0.8 %; Lymphocytes # (auto) 1.34 K/uL (1.2-3.4); Lymphocytes % (auto) 12.1 %; Mean Corpuscular Hgb Conc 32.5 g/dL (32-36); Mean Corpuscular Volume 87.8 fL (80-100); Mean Platelet Volume 9.5 fL (7.4-10.4); Monocytes # (auto) 0.36 K/uL (0.11-0.59); Monocytes % (auto) 3.3 %; Neutrophils # (auto) 9.22 K/uL (1.4-6.5); Neutrophils % (auto) 83.6 %; Platelet Count 278 K/uL (130-400); RDW Coefficient of Variation 22.5 % (11.5-14.5); RDW Standard Deviation 69.6 fL (36.4-46.3); Red Blood Count 3.78 M/uL (4.2-5.4); White Blood Count 11.03 K/uL (4.8-10.8)
[2019-01-12 07:11] LABS: Albumin Level 1.3 gm/dl (3.4-5.0); BUN Creatinine Ratio 30.6 (10-20); Calcium 7.5 mg/dl (8.5-10.1); Creatinine Clr Calc Pharmacy 188.6 ml/min; Est GFR (African American) 138.3; Est GFR (Non-African American) 119.3; Potassium 4.1 mmol/L (3.5-5.1)
[2019-01-12 07:14] LABS: Albumin Globulin Ratio 0.4 (0.9-2); Bilirubin,Total 0.7 mg/dl (0.2-1); Globulin 3.6 gm/dl (2.5-4.0); Total Protein 4.9 gm/dl (6.4-8.2)
[2019-01-12 07:23] LABS: Hypochromasia Present; Poikilocytosis Present
[2019-01-12] MEDS: FLINTSTONES COMPLETE CHEWABLE TAB PO SCH ×2 (09:26→20:44)
[2019-01-12] MEDS: VALACYCLOVIR HCL 500 MG TABLET PO SCH ×3 (09:27→20:44)
[2019-01-12] MEDS: PANTOprazole 40 MG TAB PO SCH ×2 (09:27→20:44)
[2019-01-12] MEDS: POTASSIUM CHLORIDE 10 MEQ TABCR PO SCH (09:28)
[2019-01-12] MEDS: DRONABINOL 2.5 MG CAP PO SCH ×3 (09:40→20:44)
[2019-01-12] MEDS: PREGABALIN 150 MG CAP PO SCH ×3 (09:40→20:44)
--- NOTE | 2019-01-12 10:58 | Family Medicine Progress Note ---
Date of Service January 12, 2019 Assessment & Plan (1) Weakness: 43-year-old female was admitted on 10 Jan 2019 for worsening weakness. Of note, she was discharged from the hospital on January 06 for multiple pulmonary emboli likely related to her metastatic esophageal cancer. Generalized weakness likely secondary to intractable nausea and vomiting due to Metastatic Esophageal cancer with abdominal carcinomatosis Malnutrition - On arrival, afebrile, borderline tachycardic, SBP low 100s, SpO2 95% on room air. WBC 16, similar to recent labs. Electrolytes notable for low calcium. Troponin of 0.078, improved compared to her last hospitalization. CT of the head is non-acute. CT chest notes continued extensive bilateral pulmonary emboli, saddle embolus no longer seen, with small pericardial effusion and unchanged bilateral pleural effusions. CT a/p notes nonspecific and unchanged wall thickening that may be enteritis. - In ED, was treated with a 1 L normal saline bolus, Pepcid, Compazine, and Zofran. - Continue home [place] and pregabalin for pain. Morphine for breakthrough pain. Continued Compazine and Zofran for nausea as needed. - Maintanence IVF. Once optimal PO intake confirm - will d/c IVF - Oncology following. Concerned about her ability to tolerate chemo. Recom mended palliative care consult. - Palliative care - Code status updated to today to DNR as per patient's wishes. To discuss further recommendations tomorrow. Recent Massive PE treated with tpa infusion, right leg DVT and history of subclavian catheter-related DVT -continue lovenox 100mgs bid. Herpes Zoster - Started valtrex - 01/10/19. Transaminitis: Mildly elevated AST, ALT, and alk phos. Low albumin. Recent vomiting but denies abdominal pain. - Recheck same. Follow. Ongoing medical history: - Metastatic squamous cell carcinoma, abdominal carcinomatosis, pleural effusion. - GERD: Continue home omeprazole. Code status: DNR FEN: IVF, Regular diet. DVT prophy: Lovenox therapeutic dosing. PT/OT: Deferred. Disbo: Admit to med surg. Subjective continuing to feel overall better. still with decreased appetite. had BM this morning. Rash on right side of face - extended into the upper eyelid. no pain in the rash area. no fever, Physical Exam Constitutional: WD/WN, vitals as above Eyes: PERRL, conjunctivae normal, anicteric sclerae Respiratory: normal respiratory effort, lungs clear to auscultation Cardiovascular: RRR, no murmur, no edema Gastrointestinal (Abdomen): normal bowel sounds, soft, nontender, no hepatosplenomegaly Skin: vesicular rash on right forehead, upper eyelid, anterior scalp Psychiatric: A+Ox3, euthymic affect Results & Data Vital Signs (Past 12 Hours) Vital Signs Temp Pulse Resp BP Pulse Ox 01/12/19 07:00 36.5 C 85 18 108/74 95 01/12/19 04:12 36.8 C 68 18 114/80 93 01/11/19 23:21 36.5 C 85 19 109/74 94
[2019-01-12] MEDS: HYDROCODONE/ACETAMINOPHEN 10/325 TAB PO PRN ×2 (11:38→16:52)
--- NOTE | 2019-01-12 12:32 | Progress Note ---
DATE: 01/12/2019 MEDICAL ONCOLOGY PROGRESS NOTE DIAGNOSES: 1. Herpes zoster (scalp). 2. Failing performance status/asthenia. 3. Intractable nausea and vomiting. 4. Metastatic esophageal cancer. 5. Severe hypoalbuminemia. 6. Generalized weakness and disambulation. SUBJECTIVE: Naomi seems to have taken a step back. She was seen and examined this morning. She is once again nauseated and basically refused both her lunch and dinner yesterday. She understands the importance of increasing her protein intake. She has no complaints of pain per se. She has really done very little in regards to activities, particularly getting out of bed other than sitting in chair. She was recently started on antiviral for herpes zoster rash involving her scalp. She reports her eyes being somewhat pasty this morning. OBJECTIVE: GENERAL: Pleasant 43-year-old female patient in no acute distress. VITAL SIGNS: Temperature 36.5, pulse 85, respiratory rate 18, blood pressure 108/74. SKIN: Scalp manifests zoster type rash that starts from the right forehead, extending back towards the parietal region. Oral mucosa dry. No buccal lesions or ulcerations. NECK: Supple. Trachea midline. HEART: Regular rate and rhythm. LUNGS: Clear to auscultation bilaterally. ABDOMEN: Soft, nontender, nondistended. EXTREMITIES: 1-2+ peripheral edema bilaterally. NEUROLOGIC: Grossly intact. LABORATORY DATA: WBC count 11,030, hemoglobin 10.8, platelet count 278,000. Sodium 136, potassium 4.1, chloride 104, carbon dioxide 27, BUN 15, creatinine 0.47. AST 84, ALT 101, albumin 1.3. IMPRESSION: 1. Herpes zoster (scalp). 2. Severe hypoalbuminemia. 3. Elevated liver transaminases. 4. Intractable nausea and vomiting. 5. Asthenia/generalized weakness. 6. Metastatic esophageal cancer. PLAN: Total deference from my visit with Naomi 24 hours prior when she seemed to be doing quite well, had a visitor in the room, was sitting up in chair and seemed to be in bright spirits. She is now nauseated once again and basically refused both her lunch and dinner. She has no complaints of pain today. I did sense some frustration, and hopefully over time, she will begin to come around. Perhaps maybe even supplemental albumin is in order to try to bolster her a bit dosing her once daily over the next couple of days, 25% to be precise. Encourage p.o. intake. Again, if nausea persists, may want to consider MRI of the brain/brainstem as sometimes occult malignancy can result in persistent nausea. I will be off service as of tomorrow morning and will sign Naomi out to Dr. Ybarra. Thank you very much for assisting us in the care of this very pleasant quite unfortunate female patient. [facility]
[2019-01-13] MEDS: LACTATED RINGER'S 1,000 ML IV SCH ×3 (00:32→18:32)
[2019-01-13] MEDS: dexAMETHasone 4 MG in SYRINGE 0 ML IV SCH ×3 (02:18→18:19)
[2019-01-13] MEDS: ONDANSETRON HCL 8 MG in DEXTROSE 5% 50 ML IV SCH ×3 (02:19→18:28)
[2019-01-13] MEDS: ENOXAPARIN 100 MG/1ML SYR SQ SCH ×2 (05:59→18:20)
[2019-01-13 06:40] LABS: Basophils # (auto) 0.03 K/uL (0-0.2); Basophils % (auto) 0.2 %; Hematocrit (blood only) 32.9 % (37-47); Hemoglobin 11.1 g/dL (12.0-16.0); Immature Granulocytes # (auto) 0.13 K/uL (0.00-0.02); Immature Granulocytes % (auto) 0.8 %; Lymphocytes # (auto) 2.02 K/uL (1.2-3.4); Lymphocytes % (auto) 12.4 %; Mean Corpuscular Hgb Conc 33.7 g/dL (32-36); Mean Platelet Volume 9.4 fL (7.4-10.4); Monocytes # (auto) 0.45 K/uL (0.11-0.59); Monocytes % (auto) 2.8 %; Neutrophils # (auto) 13.65 K/uL (1.4-6.5); Neutrophils % (auto) 83.8 %; Platelet Count 293 K/uL (130-400); RDW Coefficient of Variation 22.4 % (11.5-14.5); RDW Standard Deviation 69.2 fL (36.4-46.3); Red Blood Count 3.78 M/uL (4.2-5.4); White Blood Count 16.28 K/uL (4.8-10.8)
[2019-01-13 07:08] LABS: Echinocytes 1+; Polychromasia 1+
[2019-01-13 07:11] LABS: Albumin Level 1.4 gm/dl (3.4-5.0); BUN Creatinine Ratio 30.4 (10-20); Calcium 7.5 mg/dl (8.5-10.1); Creatinine Clr Calc Pharmacy 192.2 ml/min; Est GFR (African American) 138.3; Est GFR (Non-African American) 119.3; Potassium 4.3 mmol/L (3.5-5.1)
[2019-01-13 07:14] LABS: Albumin Globulin Ratio 0.4 (0.9-2); Bilirubin,Total 0.6 mg/dl (0.2-1); Globulin 3.6 gm/dl (2.5-4.0)
[2019-01-13] MEDS: DRONABINOL 2.5 MG CAP PO SCH ×3 (08:34→20:48)
[2019-01-13] MEDS: VALACYCLOVIR HCL 500 MG TABLET PO SCH ×3 (08:34→20:48)
[2019-01-13] MEDS: PREGABALIN 150 MG CAP PO SCH ×3 (08:34→20:48)
[2019-01-13] MEDS: POTASSIUM CHLORIDE 10 MEQ TABCR PO SCH (08:35)
[2019-01-13] MEDS: PANTOprazole 40 MG TAB PO SCH ×2 (08:35→20:48)
[2019-01-13] MEDS: FLINTSTONES COMPLETE CHEWABLE TAB PO SCH ×2 (08:35→20:48)
--- NOTE | 2019-01-13 12:49 | Palliative Care Progress Note ---
Date of Service January 13, 2019 Assessment & Plan (1) Goals of care, counseling/discussion: Patient seen and examined-patient's neighbor, at bedside-patient gave permission to speak in front of friend. Patient is a 43-year-old female with metastatic esophageal cancer, with carcinomatosis-status post chemo, after completing chemo patient had disease present aggression and is on second line chemo. Patient has received 3 full doses-last chemo was on 12/17. Patient was hospitalized for increased shortness of breath-patient was found to have a saddle embolus-she was discharged home on 01/06 on Lovenox twice daily. Since discharge, patient has had poor p.o. intake with nausea and vomiting. Patient states it starts out as a coughing fit which initiates a vomiting cycle. Patient has been taking scheduled Zofran and Compazine at home-does admit that she may have missed a few doses due to memory issues from chemotherapy. Patient is currently on Zofran every 8 hours as well as Marinol 3 times daily-IV Decadron was added today by Dr. Bruner. Patient is tolerating smoothly p.o. Patient with increased edema due to low albumin-discussed with patient ways of increasing protein intake. Spoke at length with patient on how treatment has been going-patient is hoping to get stronger and continue her chemo. We did discuss CODE STATUS- patient is now a DNR. Scalp rash is consistent with shingles-on Valtrex -Metastatic esophageal cancer-patient is hoping to improve her functional status and be able to continue with her chemotherapy although she realizes per her discussion with Dr. Bruner that it would have to be at a reduced dose. -Nausea with vomiting-improved control with scheduled Zofran, scheduled Decadron as well as Marinol 3 times daily-encouraged small sips, patient tolerating fruit smoothie -will find out from GI if patient is candidate for Reglan and/or [place] tube to supplement p.o. intake -Will continue to follow and assist patient with medical decision making (2) Vomiting: Appears well controlled on scheduled Zofran, Decadron and Marinol 3 times daily Discussed taking small sips and small amounts of p.o.-discussed foods she may be able to tolerate (3) Abdominal carcinomatosis: -Pain well-controlled with PRN [place]/PRN IV morphine (4) Pulmonary embolism: Saddle embolus-resolving, now with an PEs-on Lovenox twice daily, no increased shortness of breath, O2 sats adequate on room air Subjective Patient seen and examined in her room, her neighbor also at bedside. Patient denies pain, did report nausea with vomiting yesterday. Patient continues on scheduled antiemetics. Discussed with attending physician-we will need to consult GI to see if Reglan is possible to use given her gastric bypass surgery and if an [place] tube would be possible given her surgery. Review of Systems Review of Systems: Positive for nausea and vomiting yesterday Patient denies pain, fever, chills, chest pain, increased shortness of breath, or abdominal pain. Patient states she is moving her bowels well Physical Exam Physical Exam: PE: NAD HEENT: EOMI, hearing within normal limits. Some extension of the rash on the right side of her scalp-being treated for possible shingles Respiratory-unlabored, clear breath sounds CV: Regular rate, positive anasarca, positive lower extremity edema-stable Abdomen: Improved bowel sounds, soft nontender Extremities: Generalized weakness, lower extremity edema Neuro: No new focal deficits Psych: Appropriate mood Results & Data Vital Signs (Past 12 Hours) Vital Signs Temp Pulse Resp BP Pulse Ox 01/13/19 07:19 99.0 F 86 18 119/79 96 01/13/19 03:07 98.1 F 88 18 102/69 93 Time Spent Attending Total time spent 35 minutes with greater than 50% of the time spent at bedside discussing possible treatment options and collaborating with staff and attending physician. (1) Vomiting Nausea presence: with nausea Vomiting Intractability: unspecified Vomiting type: unspecified Qualified Code(s): R11.2 - Nausea with vomiting, unspecified
--- NOTE | 2019-01-13 16:12 | Family Medicine Progress Note ---
Date of Service January 13, 2019 Assessment & Plan (1) Weakness: 43-year-old female was admitted on 10 Jan 2019 for worsening weakness. Of note, she was discharged from the hospital on January 06 for multiple pulmonary emboli likely related to her metastatic esophageal cancer. Weakness, vomiting: * Patient's nausea and vomiting improved today, her deconditioning is due in large part to her lack of caloric intake * Will need to improve dietary intake somehow. * Will investigate patient's complaint of premature satiety via a barium swallow tomorrow and trialling a prokinetic following those results. * Palliative care following recommended possibly using reglan as a prokineti c. Will evaluate feasability of this prokinetic in a patient post gastric bypass [place] en Y procedure. - Metastatic squamous cell carcinoma * Patient wishing to continue with chemotherapy with Dr. Bruner even though she is not curable. * To meet this goal, we will need to increase caloric intake and she would likely benefit from intensive therapy * Adjusted Code status to DNR * Son and mother are medical decision makers for patient. Code status: DNR Diet: Regular. DVT prophy: Lovenox therapeutic dosing. PT/OT: Ordered Disbo: Admit to med surg Supervising Physician Co-Signing Physician Notes I personally examined the patient and verified all roa points of history and exam, discussed case, and agree with decision making with Dr Tobin. Ongoing nausea and difficulty taking orally. No new complaints otherwise. She notes she almost immediately feels bloated after eating. Vitals noted, in general she is awake and alert pleasant no distress, but does appear fatigued. Breathing is unlabored no accessory muscle use good effort. Skin shows no rashes no pallor or icterus. Neuro shows no focal deficits. Severe protein malnutrition related to esophageal cancerher stated goal is to continue to try to get chemo and fight the cancer as best as she can. We discussed that her malnutrition is a severe limitation on this, and we definitely would need to find a way to affect better intake. Certainly enteral intake would be preferred if at all possible, will check a barium swallow to look at the structure of her GI anatomy and ensure there is no anatomic narrowing etc. We will continue to try to work on appetite stimulation, give consideration to feeding tube if possible, although this may be more difficult given her postop anatomy. TPN is a last resort, given the risks associated with it especially in her frail state. Disposition will be to rehab once possible. Weaknessappears to be related to the above as well as her pulmonary emboli, creating a failure to thrive type picture. PT/OT eval and treat, rehab once possible Pulmonary embolicontinue [place]. Subjective Nausea and vomiting much better today, but patient complaining of extreme fatigue. She has not been able to eat hardly any food. Only eating one or two bites of things at a time. Reaffirmed code status to DNR, and that her goal is to get strong enough to continue with lower dose, potentially life lengthening chemotherapy with Dr. Bruner. She tells me the issue with food and drinks is that after just one or two bites/sips she feels like there is a bunch of food stuck in her stomach, she doesn't get hungry. Review of Systems Review of Systems: All systems reviewed & are unremarkable except as noted in HPI & below Physical Exam Constitutional: + ill appearing and + obese; no altered mental status Eyes: PERRL, conjunctivae normal, anicteric sclerae ENMT: Zoster rash on head about eight blisters darkly erythematous and crusted over Neck: normal visual inspection Respiratory: normal respiratory effort, lungs clear to auscultation Cardiovascular: Rate/Rhythm: regular rate and regular rhythm Heart Sounds: normal S1 and normal S2; no click, no gallop, no murmur and no cardiac rub Extremities: + edema (Widespread massive edema) Gastrointestinal (Abdomen): normal bowel sounds, soft, nontender, no hepatosplenomegaly Skin: See description of herpes zoster rash above Results & Data Vital Signs (Past 12 Hours) Vital Signs Temp Pulse Resp BP Pulse Ox 01/13/19 07:19 37.2 C 86 18 119/79 96 Resident Activity Tracking Resident Involvement: Resident Care Provided Care Provided: Adult Hospital Medicine
[2019-01-14] MEDS: HYDROCODONE/ACETAMINOPHEN 10/325 TAB PO PRN ×2 (00:30→20:11)
[2019-01-14] MEDS: ONDANSETRON HCL 8 MG in DEXTROSE 5% 50 ML IV SCH ×3 (02:39→18:20)
[2019-01-14] MEDS: dexAMETHasone 4 MG in SYRINGE 0 ML IV SCH ×3 (02:41→18:20)
[2019-01-14] MEDS: ENOXAPARIN 100 MG/1ML SYR SQ SCH ×2 (06:26→18:20)
[2019-01-14] MEDS: LACTATED RINGER'S 1,000 ML IV SCH ×2 (06:28→16:10)
[2019-01-14] MEDS: DRONABINOL 2.5 MG CAP PO SCH ×3 (09:24→21:59)
[2019-01-14] MEDS: PREGABALIN 150 MG CAP PO SCH ×3 (09:24→21:58)
[2019-01-14] MEDS: PANTOprazole 40 MG TAB PO SCH ×2 (09:25→21:59)
[2019-01-14] MEDS: VALACYCLOVIR HCL 500 MG TABLET PO SCH ×3 (09:25→22:00)
[2019-01-14] MEDS: FLINTSTONES COMPLETE CHEWABLE TAB PO SCH ×2 (09:25→21:58)
[2019-01-14] MEDS: POTASSIUM CHLORIDE 10 MEQ TABCR PO SCH (09:26)
--- NOTE | 2019-01-14 11:28 | Family Medicine Progress Note ---
Date of Service January 14, 2019 Assessment & Plan (1) Weakness: 43-year-old female was admitted on 10 Jan 2019 for worsening weakness. Of note, she was discharged from the hospital on January 06 for multiple pulmonary emboli likely related to her metastatic esophageal cancer. Weakness, vomiting: * Patient able to take in more food today than yesterday, her deconditioning is due in large part to her lack of caloric intake * Will need to improve dietary intake, increased marinol to maximum dose possibly seeing some effect. * Unable to undergo barium swallow due to inability to stand - Metastatic squamous cell carcinoma * Patient wishing to continue with chemotherapy for life prolongation with Dr. Bruner even though she is not curable. * To meet this goal, we will need to increase caloric intake and she would likely benefit from intensive therapy * Son and mother are medical decision makers for patient. Code status: DNR Diet: Regular. DVT prophy: Lovenox therapeutic dosing. PT/OT: Ordered Dispo: med/surg Supervising Physician Co-Signing Physician Notes I personally examined the patient and verified all roa points of history and exam, discussed case, and agree with decision making with Dr Tobin. Does not really feel a whole lot better than yesterday. Tried to eat but then vomited. Was unable to stand for her barium swallow, and does not believe she would be able to drink oral contrast for a CT. Vitals noted, in general she is awake and alert pleasant no distress, but does appear fatigued. Breathing is unlabored no accessory muscle use good effort. Abdomen soft mild epigastric tenderness no guarding/rebound/rigidity. Skin shows no rashes no pallor or icterus. Neuro shows no focal deficits. Severe protein malnutrition related to esophageal cancerher stated goal is to continue to try to get chemo and fight the cancer as best as she can. We re discussed that her malnutrition is a severe limitation on this, and we definitely would need to find a way to affect better intake. For now we will try to maximize symptom relief with antiemetics, and add Reglan for an attempted prokinetic effect (discussed risks and benefits with her postop anatomy), if ov er the next 24 to 48 hours we are not affecting enough improvement, then it may be time to have considerations for placement of a feeding tube is possible. TPN is a last resort, given the risks associated with it especially in her frail state. Disposition will be to rehab once possible. Weaknessappears to be related to the above as well as her pulmonary emboli, creating a failure to thrive type picture. PT/OT eval and treat, rehab once possible, certainly the severity of her weakness is worrisome. Pulmonary embolicontinue Lovenox. Seems stable in this regard Subjective Naomi royal resting today. She is feeling nauseous again today and has been vomiting though she does say the medicine helps. She tells me she was able to participate in physical therapy today and that she has been able to keep more food down than yesterday despite her earlier nausea/vomiting Review of Systems Review of Systems: All systems reviewed & are unremarkable except as noted in HPI & below Physical Exam Constitutional: + ill appearing and + obese; no altered mental status Eyes: PERRL, conjunctivae normal, anicteric sclerae Neck: normal visual inspection Respiratory: normal respiratory effort, lungs clear to auscultation Cardiovascular: Rate/Rhythm: regular rate and regular rhythm Heart Sounds: normal S1 and normal S2; no click, no gallop, no murmur and no cardiac rub Extremities: + edema (Widespread massive edema) Gastrointestinal (Abdomen): normal bowel sounds, soft, nontender, no hepatosplenomegaly Results & Data Vital Signs (Past 12 Hours) Vital Signs Temp Pulse Pulse Resp BP Pulse Ox 01/14/19 11:11 37.0 C 94 H 16 109/74 91 01/14/19 08:15 37.0 C 72 16 102/70 92 01/14/19 04:17 36.5 C 89 16 108/75 93 01/13/19 23:54 36.8 C 87 16 109/74 93 Resident Activity Tracking Resident Involvement: Resident Care Provided Care Provided: Adult Hospital Medicine
[2019-01-14] MEDS: PROCHLORPERAZINE 5 MG in SYRINGE 4 ML IV PRN (13:00)
--- NOTE | 2019-01-14 15:37 | Palliative Care Progress Note ---
Date of Service January 14, 2019 Assessment & Plan (1) Goals of care, counseling/discussion: Patient seen and examined no friends or family present on either of 2 visits Patient is a 43-year-old female with metastatic esophageal cancer, with carcinomatosis-status post chemo, after completing chemo patient had disease present aggression and is on second line chemo. Patient has received 3 full doses-last chemo was on 12/17. Patient was hospitalized for increased shortness of breath-patient was found to have a saddle embolus-she was discharged home on 01/06 on Lovenox twice daily. Since discharge, patient has had poor p.o. intake with nausea and vomiting. Patient states it starts out as a coughing fit which initiates a vomiting cycle. Patient has been taking scheduled Zofran and Compazine at home-does admit that she may have missed a few doses due to memory issues from chemotherapy. Patient is currently on Zofran every 8 hours as well as Marinol 3 times daily-IV Decadron was added today by Dr. Bruner. Patient is tolerating smoothly p.o. Patient with increased edema due to low albumin-albumin level 1.2-1.4. Spoke at length with patient on how treatment has been going-patient is hoping to get stronger and continue her chemo. CODE STATUS-patient is currently a DNR. Scalp rash is consistent with shingles-on Valtrex -Metastatic esophageal cancer-patient is reporting more bad days than good days, pt reporting general decline -Nausea with vomiting-improved control with scheduled Zofran, scheduled Decadron as well as Marinol 3 times daily-encouraged small bites and sips as tolerated. -Will continue to follow and assist patient with medical decision making (2) Vomiting: Appears well controlled on scheduled Zofran, Decadron and Marinol 3 times daily Discussed taking small sips and small amounts of p.o.-discussed foods she may be able to tolerate (3) Abdominal carcinomatosis: -Pain well-controlled with PRN [place]/PRN IV morphine (4) Pulmonary embolism: Saddle embolus-resolving, now with an PEs-on Lovenox twice daily, no increased shortness of breath, O2 sats adequate on room air Subjective Pt seen and examined in her room on 2 visits today - no friends or family at bedside. Pt with increased nausea today - had been taking more PO. Discussed with pt how she feels things are going in general - she replied she feels she is having more bad days than good days. Dr Bruner had discussion regarding code status - pt is currently a DNR Told pt we would do everything we could to help her improve as well as keeping her comfortable Review of Systems Review of Systems: Other Unable to obtain due to fatigue Physical Exam Physical Exam: PE: NAD,pale , more lethargic HEENT: EOMI, hearing WNL Resp : unlabored, on RA CV: RR, anasarca Abd: soft, NT, active BS, ascites Ext: edema all extremities Neuro: oriented X 4 Results & Data Vital Signs (Past 12 Hours) Vital Signs Temp Pulse Pulse Resp BP Pulse Ox 01/14/19 11:11 98.6 F 94 H 16 109/74 91 01/14/19 08:15 98.6 F 72 16 102/70 92 01/14/19 04:17 97.7 F 89 16 108/75 93 Time Spent Attending total time spent 35 min on 2 separate visits to discuss goals of care with > 50 % of time spent at bedside (1) Vomiting Nausea presence: with nausea Vomiting Intractability: unspecified Vomiting type: unspecified Qualified Code(s): R11.2 - Nausea with vomiting, unspecified
[2019-01-14] MEDS ORDERED: PROCHLORPERAZINE 5 MG in SYRINGE 4 ML IV SCH (18:00)
[2019-01-14] MEDS: METOCLOPRAMIDE HCL INJ 5 MG/ML 2 ML VIAL IV SCH (18:20)
[2019-01-15] MEDS: dexAMETHasone 4 MG in SYRINGE 0 ML IV SCH ×3 (02:00→18:08)
[2019-01-15] MEDS: ONDANSETRON HCL 8 MG in DEXTROSE 5% 50 ML IV SCH ×3 (02:00→18:08)
[2019-01-15] MEDS: LACTATED RINGER'S 1,000 ML IV SCH ×3 (02:45→23:24)
[2019-01-15] MEDS: METOCLOPRAMIDE HCL INJ 5 MG/ML 2 ML VIAL IV SCH ×4 (06:26→18:08)
[2019-01-15] MEDS: ENOXAPARIN 100 MG/1ML SYR SQ SCH ×2 (06:26→18:08)
--- NOTE | 2019-01-15 07:35 | Family Medicine Progress Note ---
Date of Service January 15, 2019 Assessment & Plan (1) Weakness: 43-year-old female was admitted on 10 Jan 2019 for worsening weakness. Of note, she was discharged from the hospital on January 06 for multiple pulmonary emboli likely related to her metastatic esophageal cancer. Weakness, vomiting: * Patient yet to eat anything this morning, hopeful adding reglan will help her to do better with intake today. * her deconditioning is due in large part to her lack of caloric intake * Increased marinol to 20 mg daily * added reglan scheduled to try to increase gut motility. Will monitor for any extrapyramidal symptoms. * Unable to undergo barium swallow due to inability to stand we will monitor intake today and hope for improvement. - Metastatic squamous cell carcinoma * Patient wishing to continue with chemotherapy for life prolongation with Dr. Bruner even though she is not curable. * To meet this goal, we will need to increase caloric intake and she would likely benefit from intensive therapy, encouraged her to participate with physical therapy today. * Son and mother are medical decision makers for patient. Code status: DNR Diet: Regular. DVT prophy: Lovenox therapeutic dosing. PT/OT: Ordered Dispo: med/surg Supervising Physician Co-Signing Physician Notes I personally examined the patient and verified all roa points of history and exam, discussed case, and agree with decision making with Dr Tobin. Feeling about the same, ongoing nausea. Vitals noted, in general she is awake and alert pleasant no distress, but does appear fatigued. Breathing is unlabored no accessory muscle use good effort. Skin shows no rashes no pallor or icterus. Neuro shows no focal deficits. Severe protein malnutrition related to esophageal cancerher stated goal is to continue to try to get chemo and fight the cancer as best as she can. Continuing with attempt to maximize symptom relief with antiemetics, although this is not improving much at all right now. Follow into tomorrow to give medications a little bit more time to take effect, but if she is continuing to feel about the same tomorrow, we will ask gastroenterology for the feasibility of any kind of enteral feeding tube. TPN is a last resort, given the risks associated with it especially in her frail state. Disposition will be to rehab once possible. Weaknessappears to be related to the above as well as her pulmonary emboli, creating a failure to thrive type picture. Continue PT/OT eval and treat, rehab once possible, certainly the severity of her weakness is worrisome. Pulmonary embolicontinue Lovenox. Seems stable in this regard, no breathing issues noted Subjective Ms Caro is resting comfotably this morning just waking up. She tells me she is hopeful that today will be a better day and she already feels a bit more energetic than yesterday. She has noticed a lot more rumbling in her stomach and hopes that is her prokinetic medicine kicking in. She is worried that things won't work out and we discussed her hopes and wishes. Still adamantly wanting to attempt nutrition by any means necessary including a feeding tube if necessary. Review of Systems Review of Systems: All systems reviewed & are unremarkable except as noted in HPI & below Physical Exam Constitutional: + ill appearing and + obese; no acute distress and no altered mental status Eyes: PERRL, conjunctivae normal, anicteric sclerae Neck: normal visual inspection Respiratory: normal respiratory effort, lungs clear to auscultation Cardiovascular: Rate/Rhythm: regular rate and regular rhythm Heart Sounds: normal S1 and normal S2; no click, no gallop, no murmur and no cardiac rub Extremities: + edema (Widespread massive edema) Gastrointestinal (Abdomen): normal bowel sounds, soft, nontender, no hepatosplenomegaly Bowel sounds more active today than yesterday. Psychiatric: Orientation: alert and oriented x 3 Affect: + depressed affect Mood: + depressed mood Results & Data Vital Signs (Past 12 Hours) Vital Signs Temp Pulse Resp BP Pulse Ox 01/15/19 04:00 36.5 C 93 H 18 113/74 94 01/14/19 23:39 36.6 C 94 H 20 103/70 93 Resident Activity Tracking Resident Involvement: Resident Care Provided Care Provided: Adult Hospital Medicine
[2019-01-15] MEDS: PANTOprazole 40 MG TAB PO SCH ×2 (08:38→21:47)
[2019-01-15] MEDS: PREGABALIN 150 MG CAP PO SCH ×3 (08:38→21:48)
[2019-01-15] MEDS: DRONABINOL 2.5 MG CAP PO SCH ×2 (08:38→21:48)
[2019-01-15] MEDS: FLINTSTONES COMPLETE CHEWABLE TAB PO SCH ×2 (08:38→21:47)
[2019-01-15] MEDS: VALACYCLOVIR HCL 500 MG TABLET PO SCH ×3 (08:39→21:48)
[2019-01-15] MEDS: POTASSIUM CHLORIDE 10 MEQ TABCR PO SCH ×2 (08:39→08:44)
[2019-01-15] MEDS: PROCHLORPERAZINE 5 MG in SYRINGE 4 ML IV PRN ×3 (08:40→22:47)
[2019-01-16] MEDS: METOCLOPRAMIDE HCL INJ 5 MG/ML 2 ML VIAL IV SCH ×4 (00:43→17:39)
[2019-01-16] MEDS: dexAMETHasone 4 MG in SYRINGE 0 ML IV SCH ×3 (02:07→18:44)
[2019-01-16] MEDS: ONDANSETRON HCL 8 MG in DEXTROSE 5% 50 ML IV SCH ×3 (02:07→17:35)
[2019-01-16 05:48] LABS: Hematocrit (blood only) 31.4 % (37-47); Hemoglobin 10.8 g/dL (12.0-16.0); Mean Corpuscular Hgb Conc 34.4 g/dL (32-36); Mean Corpuscular Volume 86.7 fL (80-100); Mean Platelet Volume 9.5 fL (7.4-10.4); Platelet Count 279 K/uL (130-400); RDW Coefficient of Variation 23.4 % (11.5-14.5); RDW Standard Deviation 69.2 fL (36.4-46.3); Red Blood Count 3.62 M/uL (4.2-5.4); White Blood Count 12.44 K/uL (4.8-10.8)
[2019-01-16] MEDS: ENOXAPARIN 100 MG/1ML SYR SQ SCH ×2 (06:07→18:44)
[2019-01-16 06:20] LABS: Creatinine Clr Calc Pharmacy 269.2 ml/min; Est GFR (African American) > 150.0; Est GFR (Non-African American) 132.7
[2019-01-16] MEDS: LACTATED RINGER'S 1,000 ML IV SCH ×2 (09:24→20:37)
[2019-01-16] MEDS: POTASSIUM CHLORIDE 10 MEQ TABCR PO SCH (09:26)
[2019-01-16] MEDS: FLINTSTONES COMPLETE CHEWABLE TAB PO SCH ×2 (09:27→20:38)
[2019-01-16] MEDS: VALACYCLOVIR HCL 500 MG TABLET PO SCH ×3 (09:27→20:38)
[2019-01-16] MEDS: PANTOprazole 40 MG TAB PO SCH ×2 (09:27→20:38)
[2019-01-16] MEDS: DRONABINOL 2.5 MG CAP PO SCH ×2 (09:35→20:38)
[2019-01-16] MEDS: PREGABALIN 150 MG CAP PO SCH ×3 (09:35→20:38)
[2019-01-16] MEDS ORDERED: MAGNESIUM HYDROXIDE SUSP 30 ML UDC PO PRN (14:00)
--- NOTE | 2019-01-16 14:17 | Ultrasound Report ---
US venous doppler UE LT CLINICAL HISTORY: Left upper extremity swelling COMPARISON STUDY: No previous studies for comparison. FINDINGS: No intraluminal thrombus was visualized. The internal jugular, subclavian, axillary, cephal ic, brachial, basilic, radial, and ulnar veins were patent. IMPRESSION: No evidence of left upper extremity DVT. Electronically signed by: Darrin Dejesus M.D. 01/16/2019 2:16 PM
[2019-01-16] MEDS: HYDROCODONE/ACETAMINOPHEN 10/325 TAB PO PRN (14:40)
[2019-01-16] MEDS: PROCHLORPERAZINE 5 MG in SYRINGE 4 ML IV PRN (16:08)
--- NOTE | 2019-01-16 16:33 | Palliative Care Progress Note ---
Date of Service January 16, 2019 Assessment & Plan (1) Goals of care, counseling/discussion: Patient seen and examined no friends or family at bedside Patient is a 43-year-old female with metastatic esophageal cancer, with carcinomatosis-status post chemo, after completing chemo patient had disease present aggression and is on second line chemo. Patient has received 3 full doses-last chemo was on 12/17. Patient was hospitalized for increased shortness of breath-patient was found to have a saddle embolus-she was discharged home on 01/06 on Lovenox twice daily. Since discharge, patient has had poor p.o. intake with nausea and vomiting. Patient states it starts out as a coughing fit which initiates a vomiting cycle. Patient has been taking scheduled Zofran and Compazine at home-does admit that she may have missed a few doses due to memory issues from chemotherapy. Patient is currently on Zofran every 8 hours , Marinol 3 times daily-IV Decadron every 8h and IV Reglan every 6h. Patient continues to have poor p.o. intake-plan is to consult GI regarding possibility of a feeding tube. Patient's albumin is steady at 1.4. Spoke at length with patient on how treatment has been going-patient is hoping to get stronger and continue her chemo. CODE STATUS-patient is current ly a DNR. -Metastatic esophageal cancer-patient is reporting more bad days than good days, pt reporting general decline -Nausea with vomiting-improved control with scheduled Zofran, scheduled Decadron scheduled Marinol, IV Reglan was added on 01/14-patient tolerating well -Abdominal [id number] with occasional PRN Gray -Will continue to follow and assist patient with medical decision making (2) Vomiting: Appears well controlled on scheduled Zofran, Decadron, Marinol and IV Reglan Discussed taking small sips and small amounts of p.o.-discussed foods she may be able to tolerate (3) Abdominal carcinomatosis: -Pain well-controlled with PRN Gray, has not required any PRN IV morphine (4) Pulmonary embolism: Saddle embolus-resolving, now with an PEs-on Lovenox twice daily, no increased shortness of breath, O2 sats adequate on room air Subjective Patient awake and alert-reports she is feeling better today, less nausea. Appears to be tolerating the IV Reglan. Patient did require 1 PRN Gray today, prior dose was on 01/14 Review of Systems Review of Systems: Patient denies fever, chills, chest pain, increased shortness of breath or increased abdominal pain Physical Exam Physical Exam: PE: Patient awake and alert, no acute distress HEENT: EOMI, hearing within normal limits Respiratory: Unlabored CV: Regular rate, increasing edema-especially left upper extremity Abdomen: Distended, positive bowel sounds Extremities: Edema, anasarca Skin: Scalp rash is fading Results & Data Vital Signs (Past 12 Hours) Vital Signs Temp Pulse Resp BP BP Pulse Ox 01/16/19 15:15 97.5 F L 95 H 18 89/61 L 94 01/16/19 13:40 92 01/16/19 11:54 98.4 F 88 18 102/62 94 01/16/19 07:08 98.1 F 97 H 18 127/83 92 Time Spent Attending Total time spent 30 minutes with greater than 50% of the time spent at bedside assessing patient's nausea and pain. Will continue to follow and assist with symptom management as well as goals of care. (1) Vomiting Nausea presence: with nausea Vomiting Intractability: unspecified Vomiting type: unspecified Qualified Code(s): R11.2 - Nausea with vomiting, unspecified
[2019-01-16] MEDS: MoRPHine SULFATE 4 MG/ML 1 ML CARP\\VIAL IV PRN (18:56)
--- NOTE | 2019-01-16 20:12 | Family Medicine Progress Note ---
Date of Service January 16, 2019 Assessment & Plan (1) Weakness: 43-year-old female was admitted on 10 Jan 2019 for worsening weakness. Of note, she was discharged from the hospital on January 06 for multiple pulmonary emboli likely related to her metastatic esophageal cancer. Weakness, vomiting: * Patient has not had great gains in her caloric intake despite increasing marinol and adding reglan. * her deconditioning is due in large part to her lack of caloric intake * At this time she would like to pursue a feeding tube. We will discuss with GI how to go about this in a patient with a Hubert-en-Y - Metastatic squamous cell carcinoma * Patient wishing to continue with chemotherapy for life prolongation with Dr. Bruner even though she is not curable. * Too weak currently per Dr Bruner * To meet this goal, we will need to increase caloric intake and she would likely benefit from intensive therapy post discharge * Son and mother are medical decision makers for patient. Code status: DNR Diet: Regular. DVT prophy: Lovenox therapeutic dosing. PT/OT: Ordered Dispo: med/surg Supervising Physician Co-Signing Physician Notes I personally examined the patient and verified all roa points of history and exam, discussed case, and agree with decision making with Dr Tobin. Feeling about the same, ongoing nausea. Meds do not seem to be helping Vitals noted, in general she is awake and alert pleasant no distress, but does appear fatigued. Breathing is unlabored no accessory muscle use good effort. Skin shows no rashes no pallor or icterus. Neuro shows no focal deficits. Severe protein malnutrition related to esophageal cancerher stated goal is to continue to try to get chemo and fight the cancer as best as she can. Despite maximizing medications, she is not really feeling any better. Will discuss with GI if a PEG is even feasible given her anatomy versus potential consult for surgery for a more direct approach. Weaknessappears to be related to the above as well as her pulmonary emboli, creating a failure to thrive type picture. Continue PT/OT eval and treat, will definitely need some form of supervised/rehab setting. Pulmonary embolicontinue Lovenox. Seems stable in this regard, left arm swelling will obtain a Doppler, but do not expect to find clotting given her therapeutic Lovenox. Subjective Ms Caro is feeling okay this morning, able to eat some broth. Tells me she is still having a few episodes of vomiting and his losing hope with her ability to bring in enough calories herself. She is adamant that she would like to attempt getting nutrition through a feeding tube. She is very fatigued today, but attempting to participate in physical therapy. She does not think she could function independently at home without strengthening Review of Systems Review of Systems: All systems reviewed & are unremarkable except as noted in HPI & below Physical Exam Constitutional: + ill appearing and + obese; no acute distress and no altered mental status Eyes: PERRL, conjunctivae normal, anicteric sclerae Neck: normal visual inspection Respiratory: normal respiratory effort, lungs clear to auscultation Cardiovascular: Rate/Rhythm: regular rate and regular rhythm Heart Sounds: normal S1 and normal S2; no click, no gallop, no murmur and no cardiac rub Extremities: + edema (Widespread massive edema) Gastrointestinal (Abdomen): normal bowel sounds, soft, nontender, no hepatosplenomegaly Psychiatric: Orientation: alert and oriented x 3 Affect: + depressed affect Mood: + depressed mood Shows good insight and reasonable thinking when it comes to fci goals Results & Data Vital Signs (Past 12 Hours) Vital Signs Temp Pulse Resp BP BP Pulse Ox 01/16/19 20:00 36.6 C 97 H 112/80 97 01/16/19 15:15 36.4 C L 95 H 18 89/61 L 94 01/16/19 13:40 92 01/16/19 11:54 36.9 C 88 18 102/62 94 Resident Activity Tracking Resident Involvement: Resident Care Provided Care Provided: Adult Hospital Medicine
[2019-01-17] MEDS: METOCLOPRAMIDE HCL INJ 5 MG/ML 2 ML VIAL IV SCH ×5 (00:32→23:37)
[2019-01-17] MEDS: ONDANSETRON HCL 8 MG in DEXTROSE 5% 50 ML IV SCH ×3 (02:06→18:40)
[2019-01-17] MEDS: dexAMETHasone 4 MG in SYRINGE 0 ML IV SCH ×3 (02:07→20:08)
[2019-01-17] MEDS: LACTATED RINGER'S 1,000 ML IV SCH ×2 (05:59→18:42)
[2019-01-17] MEDS: ENOXAPARIN 100 MG/1ML SYR SQ SCH ×2 (06:02→20:07)
[2019-01-17] MEDS: PROCHLORPERAZINE 5 MG in SYRINGE 4 ML IV PRN (08:01)
[2019-01-17] MEDS: VALACYCLOVIR HCL 500 MG TABLET PO SCH ×3 (08:09→20:38)
[2019-01-17] MEDS: PANTOprazole 40 MG TAB PO SCH ×2 (08:09→20:38)
[2019-01-17] MEDS: POTASSIUM CHLORIDE 10 MEQ TABCR PO SCH (08:10)
[2019-01-17] MEDS: FLINTSTONES COMPLETE CHEWABLE TAB PO SCH ×2 (08:10→20:38)
[2019-01-17] MEDS: PREGABALIN 150 MG CAP PO SCH ×3 (08:16→21:04)
[2019-01-17] MEDS: DRONABINOL 2.5 MG CAP PO SCH ×2 (08:16→21:05)
[2019-01-17] MEDS: MoRPHine SULFATE 4 MG/ML 1 ML CARP\\VIAL IV PRN (11:11)
--- NOTE | 2019-01-17 11:26 | Surgery Consultation ---
Date of Consultation January 17, 2019 Assessment & Plan (1) Metastatic squamous cell carcinoma: 43-year-old unfortunate female with metastatic esophageal cancer, now with malnutrition desires a feeding tube. Given her complex history, I think she is a high risk for surgery and would consider transfer to a tertiary center for possible interventional radiology placement of a feeding tube. Discussed this with her and will discuss the primary team. (2) Abdominal carcinomatosis: (3) Pulmonary embolism: (4) Weakness: History of Present Illness Attending Physician: Samm Jin DO History of Present Illness 43-year-old female known to me from prior port placements. Unfortunately, she has metastatic esophageal cancer. She has a history of gastric bypass and is on her second round of chemotherapy. She has had a history of malignant ascites and carcinomatosis of her abdomen. We are planning on removing the peritoneal drain on several occasions, however she recently was diagnosed with a saddle pulmonary embolus despite being on anticoagulation. She was discharged sometime last week, but was readmitted a few days ago for failure to thrive and decreased p.o. intake. Consulting service is requesting a feeding tube. Allergies Allergy/AdvReac Type Severity Reaction Status Date / Time No Known Allergies Allergy Verified 01/08/19 11:29 Home Medications Home Medications Medication Instructions Recorded Confirmed Type omeprazole 20 mg PO BID 05/13/18 01/09/19 History cyanocobalamin (vit B-12) 1,000 1,000 mcg IM UD ml 11/18/18 01/10/19 History mcg/mL injection solution hydrocodone 10 mg-acetaminophen 1 tab PO QID PRN 11/18/18 01/09/19 History 325 mg tablet pediatric multivitamin chewable 1 tab PO BID 11/18/18 01/09/19 History tablet pregabalin 150 mg PO TID 12/04/18 01/09/19 History dronabinol 5 mg capsule 5 mg PO TID 12/09/18 01/09/19 History medroxyprogesterone 1 dose IM Q3M 12/30/18 01/10/19 History enoxaparin 100 mg SUBCUT Q12@0600,1800 #60 ml 01/06/19 01/09/19 Rx potassium chloride [Klor-Con M10] 40 meq PO DAILY #30 tab 01/06/19 01/09/19 Rx Patient History Medical History Pleural effusion (Chronic) Ascites (Acute) Peripheral neuropathy (Chronic) Pulmonary emboli (Acute) Hypoxia (Acute) Non-ST elevation [place] (NSTEMI) (Acute) Metastatic squamous cell carcinoma Abdominal carcinomatosis Right leg DVT GERD (gastroesophageal reflux disease) Esophageal cancer (Chronic) Acid reflux History of blood clots LEFT UPPER CHEST "HOOKED TO JUGULAR VEIN" (2 CLOTS TOTAL) History of pleural effusion JANUARY 2018/ R & 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 History of recent chemotherapy Surgical History History of arthroscopy of left shoulder History of esophagogastroduodenoscopy (EGD) History of gastric bypass History of shoulder surgery LEFT History of vascular access device MEDIPORT LEFT CHEST Family History Grandfather Family history of stomach cancer Social History Preferred Language: Estonian Communication Ability: Effective Beliefs That Will Affect Care: Presybeterian Current Living Situation: Other Current Living Situation Comment: with son Feels Safe at Home: Yes Safety Concerns: Feels Safe At This Time Smoking Status: Former smoker Tobacco Type: cigarettes Cigarettes Per Day: QUIT 13 YEARS AGO. HX OF SMOKING X15 YEARS Do You Dip or Chew Tobacco: No Second Hand Exposure: No Tobacco Cessation Education Requested by Patient: No Hx Alcohol Use: No Hx Substance Use: No Review of Systems Review of Systems: All systems reviewed & are unremarkable except as noted in HPI & below 10 point review of systems negative except as above Physical Exam Constitutional: + obese; + not well nourished and no acute distress Eyes: PERRL, conjunctivae normal, anicteric sclerae ENMT: external ear and nose normal, oropharynx normal Neck: trachea midline, no thyromegaly Respiratory: normal respiratory effort, lungs clear to auscultation Cardiovascular: RRR, no murmur, no edema Gastrointestinal (Abdomen): Port site incisions well-healed, no evidence of hernia. In her left upper quadrant there may be a firm mass. Musculoskeletal: no cyanosis or clubbing, extremities motor strength 5/5 Skin: + rash Neurologic: PERRL, EOMI, accommodation nl, no face palsy, no dysarthria Psychiatric: A+Ox3, euthymic affect Mood: + depressed mood Lymphatic: no cervical or axillary lymphadenopathy Results & Data Vital Signs (Past 12 Hours) Vital Signs Temp Pulse Resp BP BP Pulse Ox 01/17/19 07:00 36.7 C 87 18 90/60 L 91 01/17/19 04:00 36.6 C 95 H 18 98/68 L 92 Laboratory Results alb 1.4
--- NOTE | 2019-01-17 12:10 | Palliative Care Progress Note ---
Date of Service January 17, 2019 Assessment & Plan (1) Goals of care, counseling/discussion: -43 year old female with metastatic esophageal cancer. -Needing feeding tube, but is a poor surgical candidate. After discussion with surgeon, palliative care, and attending, it has been decided to forego feeding tube and focus on comfort. -Plan is tentatively SNF with hospice. -POLST form was completed today which indicated DNR and full treatment, but POLST form will probably need to be redone now that decision was made for hospice. Will follow up on Sunday about POLST. -Patient would want her mother Adore to be primary surrogate decision maker and her son, Nathan Tomas, to be secondary. -Added some PRN Maalox for after meals as patient is experiencing coughing after eating, then coughing fits are causing her to vomit. -Will continue to follow closely. (2) Metastatic squamous cell carcinoma: (3) Abdominal carcinomatosis: (4) Vomiting: Subjective patient is feeling weak and tired today. Had an episode of coughing after eating, got into a "coughing fit and vomited stomach acid." Long discussion about prognosis and goals of care. Review of Systems Constitutional: + fatigue, + weakness and + anorexia Ear, Nose, Mouth, Throat: no dysphagia Respiratory: + cough (after eating); no dyspnea Cardiovascular: + edema; no chest pain Gastrointestinal: + abdominal pain and + nausea (intermittently) Integumentary: + rash Neurologic: no confusion Psychiatric: no depression and no anxiety Physical Exam Constitutional: + ill appearing and + obese; + not well nourished and no acute distress ENMT: external ear and nose normal, oropharynx normal Neck: normal visual inspection Respiratory: normal respiratory effort, lungs clear to auscultation Cardiovascular: Rate/Rhythm: regular rate and regular rhythm Extremities: + edema (Widespread massive edema) Skin: + rash Psychiatric: Orientation: alert and oriented x 3 Results & Data Vital Signs (Past 12 Hours) Vital Signs Temp Pulse Resp BP BP Pulse Ox 01/17/19 12:04 36.9 C 87 19 90/65 L 90 01/17/19 07:00 36.7 C 87 18 90/60 L 91 01/17/19 04:00 36.6 C 95 H 18 98/68 L 92 Supervising Physician Co-Signing Physician Notes Pt seen and examined this afternoon , Resident present, collaborated with BRANDT Ruth Pt seen by GI and case discussed with surgery - pt would be a poor candidate for surgical feeding tube. Pt with prior GI surgery - Hubert-en-Y. Given pt's poor functional status as well poor nutritional status - she would be high risk for surgery and at risk for poor healing. Pt felt she needed to explore her options , but felt in her heart she would likely not be a good candidate for surgery. Pt looking for confirmation of what she already thought . Pt not able to care for herself - she has only been able to sit on the side of the bed for 15 min with PT. Pt agreeable with placement at a facility with Hospice care. Discussed with pt that if she would improve she could sign out of Hospice and seek more aggressive treatment for her cancer. PE: NAD HEENT: EOMI, hearing WNL Resp: unlabored CV: RR, + edema/anasarca Abd: + ascited Neuro: A&O X 4 Agree with above note, assessment and plan as per BRANDT Ruth - will cont to follow to provide support to pt with medical decision making. Time Spent Midlevel 70 minutes with >50% of time spent at bedside with patient discussing condition and GOC as well as POLST form. Attending Spent 30 min in addition to time spent by BRANDT Ruth for a total of 100 min with > 50% of time spent at bedside discussing treatment options and developing a POC (1) Vomiting Nausea presence: with nausea Vomiting Intractability: unspecified Vomiting type: unspecified Qualified Code(s): R11.2 - Nausea with vomiting, unspecified
[2019-01-17] MEDS: ALUMINUM/MAGNESIUM SUSP 30 ML UDC PO PRN (12:50)
--- NOTE | 2019-01-17 18:15 | Family Medicine Progress Note ---
Date of Service January 17, 2019 Assessment & Plan (1) Weakness: 43-year-old female was admitted on 10 Jan 2019 for worsening weakness. Of note, she was discharged from the hospital on January 06 for multiple pulmonary emboli likely related to her metastatic esophageal cancer. Weakness, vomiting: * Patient has not had great gains in her caloric intake despite increasing marinol and adding reglan. * 2/2 her advanced cancer state. - Metastatic squamous cell carcinoma * Had mich discussions with patient about where she appears to be in her cancer diagnosis. She feels that she has done everything she could do to reasonably fight this disease. She is becoming more aware of how advanced her disease is and at this time has decided that she would not like to pursue any sort of feeding tube placement at this time. She feels, quite reasonably, that she is too weak to contend with a major surgery that may sap her of the little vitality she has left without a likely large benefit possible. * She has requested to enter hospice at a nursing facility * Answered as many as her questions as she could and she also discussed decision with palliative care * Will continue to support patient as much as possible while arrangements are made for placement. Code status: DNR Diet: Regular. DVT prophy: Lovenox therapeutic dosing. PT/OT: Ordered Dispo: med/surg Supervising Physician Co-Signing Physician Notes I personally examined the patient and verified all roa points of history and exam, discussed case, and agree with decision making with Dr Tobin. Feeling about the same. Discussed surgical feeding tube, Dr. Galeana discussed with the patient, but unfortunately even this would likely be extremely high risk. He noted her poor prognosis, but noted if a feeding tube was desirable, that possibly it could be placed by interventional radiology. After this discussion Dr. Tobin revisited and discussed with her, and she is starting to realize the unfortunate futility of her situation and is looking to change her status to comfort care. Vitals noted, in general she is fatigued no distress. HEENT normal cephalic atraumatic mucous membranes moist. Breathing unlabored no accessory muscle use. Metastatic esophageal cancer/failure to thrive/weaknessshe is looking to move more towards a hospice mode of care. She definitely will need SNF, she is looking at [facility]. PELovenox Subjective Naomi Caro is exhausted today. She had an episode of emesis after trying to eat a small amount of food this morning. We talked about goals of care today on several different occasions and she stated that she does not want to follow through with a feeding tube procedure any longer. We discussed hospice and she would like to do hospice at a facility as she does not believe that she is able to manage at home. Review of Systems Constitutional: + weakness and + anorexia; no fever and no chills Respiratory: no cough, no dyspnea and no wheezing Cardiovascular: no chest pain, no chest pain at rest and no dyspnea Gastrointestinal: + nausea and + vomiting; no hematemesis and no pain with swallowing Physical Exam Constitutional: + ill appearing and + obese; no acute distress and no altered mental status Eyes: PERRL, conjunctivae normal, anicteric sclerae Neck: normal visual inspection Respiratory: normal respiratory effort, lungs clear to auscultation Cardiovascular: Rate/Rhythm: regular rate and regular rhythm Heart Sounds: normal S1 and normal S2; no click, no gallop, no murmur and no cardiac rub Extremities: + edema (Widespread massive edema) Gastrointestinal (Abdomen): normal bowel sounds, soft, nontender, no hepatosplenomegaly Psychiatric: Orientation: alert and oriented x 3 Affect: + depressed affect Mood: + depressed mood Lymphatic: Swollen left arm > Right arm Results & Data Vital Signs (Past 12 Hours) Vital Signs Temp Pulse Pulse Resp BP BP Pulse Ox 01/17/19 15:07 36.9 C 96 H 21 L 21 154/94 H 96 01/17/19 12:04 36.9 C 87 19 90/65 L 90 01/17/19 07:00 36.7 C 87 18 90/60 L 91 Resident Activity Tracking Resident Involvement: Resident Care Provided Care Provided: Adult Hospital Medicine
[2019-01-18] MEDS: dexAMETHasone 4 MG in SYRINGE 0 ML IV SCH ×3 (01:31→17:55)
[2019-01-18] MEDS: ONDANSETRON HCL 8 MG in DEXTROSE 5% 50 ML IV SCH ×3 (01:31→17:54)
[2019-01-18] MEDS: LACTATED RINGER'S 1,000 ML IV SCH ×3 (01:31→20:43)
[2019-01-18] MEDS: ENOXAPARIN 100 MG/1ML SYR SQ SCH ×2 (05:53→17:54)
[2019-01-18] MEDS: METOCLOPRAMIDE HCL INJ 5 MG/ML 2 ML VIAL IV SCH ×3 (05:54→18:16)
[2019-01-18] MEDS: DRONABINOL 2.5 MG CAP PO SCH ×2 (09:00→20:46)
[2019-01-18] MEDS: PREGABALIN 150 MG CAP PO SCH ×3 (09:01→20:48)
[2019-01-18] MEDS: POTASSIUM CHLORIDE 10 MEQ TABCR PO SCH (09:01)
[2019-01-18] MEDS: FLINTSTONES COMPLETE CHEWABLE TAB PO SCH ×2 (09:02→20:46)
[2019-01-18] MEDS: PANTOprazole 40 MG TAB PO SCH ×2 (09:02→20:48)
[2019-01-18] MEDS: VALACYCLOVIR HCL 500 MG TABLET PO SCH ×3 (09:02→20:49)
[2019-01-18] MEDS: ALUMINUM/MAGNESIUM SUSP 30 ML UDC PO PRN (09:06)
--- NOTE | 2019-01-18 10:01 | Family Medicine Progress Note ---
Date of Service January 18, 2019 Assessment & Plan (1) Weakness: 43-year-old female was admitted on 10 Jan 2019 for worsening weakness. Of note, she was discharged from the hospital on January 06 for multiple pulmonary emboli likely related to her metastatic esophageal cancer. Weakness, vomiting: * Patient has not had great gains in her caloric intake despite increasing marinol and adding reglan. * 2/2 her advanced cancer state. * patient eating breakfast well so far this morning. - Metastatic squamous cell carcinoma * Had mich discussions with patient about where she appears to be in her cancer diagnosis. She feels that she has done everything she could do to reasonably fight this disease. She is becoming more aware of how advanced her disease is and at this time has decided that she would not like to pursue any sort of feeding tube placement at this time. She feels, quite reasonably, that she is too weak to contend with a major surgery that may sap her of the little vitality she has left without a likely large benefit possible. * She has requested to enter hospice at a nursing facility referrals have been made to [facility] * Answered as many as her questions as she could and she also discussed decision with palliative care * Will continue to support patient as much as possible while arrangements are made for placement. Code status: DNR Diet: Regular. DVT prophy: Lovenox therapeutic dosing. PT/OT: Ordered Dispo: med/surg Supervising Physician Co-Signing Physician Notes I personally examined the patient and verified all roa points of history and exam, discussed case, and agree with decision making with Dr Tobin. No new complaints. Still nauseated. Comfortable with her decision to change to hospice. Vitals noted, in general she is fatigued no distress. HEENT normal cephalic atraumatic mucous membranes moist. Breathing unlabored no accessory muscle use. Metastatic esophageal cancer/failure to thrive/weaknessplan will be hospice at [facility]. Offered empathy and support of her decision. PELovenox, arm Doppler was negative. Subjective Ms. Caro is eating breakfast this morning, no nausea yet. She is still strong in her conviction to continue down the road of hospice at an outside facility such as [facility]. Review of Systems Constitutional: no fever, no chills, no sweats and no body aches Respiratory: no cough and no dyspnea Cardiovascular: + edema; no chest pain and no dyspnea Gastrointestinal: + nausea and + vomiting; no abdominal pain Physical Exam Constitutional: + ill appearing, + obese, cooperative and comfortable; no a cute distress and no altered mental status Eyes: PERRL, conjunctivae normal, anicteric sclerae Neck: normal visual inspection Respiratory: normal respiratory effort, lungs clear to auscultation Cardiovascular: Rate/Rhythm: regular rate and regular rhythm Heart Sounds: normal S1 and normal S2; no click, no gallop, no murmur and no cardiac rub Extremities: + edema (Widespread massive edema) Gastrointestinal (Abdomen): normal bowel sounds, soft, nontender, no hepatosplenomegaly Psychiatric: Orientation: alert and oriented x 3 Affect: + depressed affect Mood: + depressed mood Results & Data Vital Signs (Past 12 Hours) Vital Signs Temp Pulse Pulse Resp BP BP Pulse Ox 01/18/19 07:40 36.7 C 90 12 102/68 92 01/18/19 04:00 36.5 C 87 19 127/86 93 Resident Activity Tracking Resident Involvement: Resident Care Provided Care Provided: Adult Hospital Medicine
[2019-01-18] MEDS: PROCHLORPERAZINE 5 MG in SYRINGE 4 ML IV PRN (17:33)
[2019-01-19] MEDS: METOCLOPRAMIDE HCL INJ 5 MG/ML 2 ML VIAL IV SCH ×4 (00:06→18:58)
[2019-01-19] MEDS: MoRPHine SULFATE 4 MG/ML 1 ML CARP\\VIAL IV PRN ×3 (01:15→20:24)
[2019-01-19] MEDS: ONDANSETRON HCL 8 MG in DEXTROSE 5% 50 ML IV SCH ×3 (02:13→18:56)
[2019-01-19] MEDS: dexAMETHasone 4 MG in SYRINGE 0 ML IV SCH ×3 (02:27→18:57)
[2019-01-19] MEDS: LACTATED RINGER'S 1,000 ML IV SCH ×2 (06:05→16:23)
[2019-01-19] MEDS: ENOXAPARIN 100 MG/1ML SYR SQ SCH ×2 (06:08→18:57)
[2019-01-19 06:32] LABS: Hematocrit (blood only) 34.1 % (37-47); Hemoglobin 11.4 g/dL (12.0-16.0); Mean Corpuscular Hgb Conc 33.4 g/dL (32-36); Mean Corpuscular Volume 89.7 fL (80-100); Mean Platelet Volume 9.8 fL (7.4-10.4); Platelet Count 290 K/uL (130-400); RDW Coefficient of Variation 25.3 % (11.5-14.5); RDW Standard Deviation 79.2 fL (36.4-46.3); White Blood Count 15.08 K/uL (4.8-10.8)
[2019-01-19 07:17] LABS: Creatinine Clr Calc Pharmacy 365.3 ml/min; Est GFR (African American) > 150.0; Est GFR (Non-African American) 144.9
[2019-01-19] MEDS: FLINTSTONES COMPLETE CHEWABLE TAB PO SCH ×2 (09:13→20:33)
[2019-01-19] MEDS: PREGABALIN 150 MG CAP PO SCH ×3 (09:13→20:31)
[2019-01-19] MEDS: PANTOprazole 40 MG TAB PO SCH ×2 (09:13→20:31)
[2019-01-19] MEDS: DRONABINOL 2.5 MG CAP PO SCH ×2 (09:13→20:31)
[2019-01-19] MEDS: POTASSIUM CHLORIDE 10 MEQ TABCR PO SCH (09:13)
[2019-01-19] MEDS: VALACYCLOVIR HCL 500 MG TABLET PO SCH ×3 (09:14→20:32)
--- NOTE | 2019-01-19 09:55 | Family Medicine Progress Note ---
Date of Service January 19, 2019 Assessment & Plan (1) Weakness: 43-year-old female was admitted on 10 Jan 2019 for worsening weakness. Of note, she was discharged from the hospital on January 06 for multiple pulmonary emboli likely related to her metastatic esophageal cancer. Weakness, vomiting: * Patient has not had great gains in her caloric intake despite increasing marinol and adding reglan. * 2/2 her advanced cancer state. * Patient with worsening bilious emesis this morning causing her a great deal of discomfort. * on scheduled zofran, reglan and marinol. Will consider adding other antiemetics such as olanzapine or gabapentin which have shown to be effective in palliative studies of cancer related emesis. - Metastatic squamous cell carcinoma * Had mich discussions with patient about where she appears to be in her cancer diagnosis. She feels that she has done everything she could do to reasonably fight this disease. She is becoming more aware of how advanced her disease is and at this time has decided that she would not like to pursue any sort of feeding tube placement at this time. She feels, quite reasonably, that she is too weak to contend with a major surgery that may sap her of the little vitality she has left without a likely large benefit possible. * She has requested to enter hospice at a nursing facility referrals have been made to [facility] * Answered as many as her questions as she could and she also discussed decision with palliative care * Will continue to support patient as much as possible while arrangements are made for placement. * Today patient's family will be coming in for a family meeting so she can tell them her decision. Will be at 4 pm we will attend. Code status: DNR Diet: Regular. DVT prophy: Lovenox therapeutic dosing. PT/OT: Ordered Dispo: med/surg Supervising Physician Co-Signing Physician Notes I personally examined the patient and verified all roa points of history and exam, discussed case, and agree with decision making with Dr Tobin. Still nauseated, willing to try Zyprexa and/or Ativan to help quell nausea given that other efforts have failed. Family present, Dr. Tobin leads a discussion on patient's choices and prognosis, I arrived to help answer questions as well as offered support for the patient's decision. Family has very good questions are very supportive loving and actually even have good humor for the situation as awful as it is. Vitals noted, in general she is fatigued no distress. HEENT normal cephalic atraumatic mucous membranes moist. Breathing unlabored no accessory muscle use. Metastatic esophageal cancer/failure to thrive/weaknessplan will be hospice at [facility]. Offered empathy and support of her decision. Reiterated this with family. Nauseatrial of Zyprexa, possibly trial of Ativan. PELovenox, arm Doppler was negative. Subjective Ms Caro is feeling okay this morning, she is nauseous and had several episodes of biliary emesis. She felt like she was too nauseous to take her pills. This morning. She is also having some leg pain where her stockings are digging into her swollen leg. She does not have any other new or concerning symptoms. She tells me she is having her parents and son come in at 4 pm and that she would appreciate having myself and Dr. Jin present at that time. Review of Systems Review of Systems: All systems reviewed & are unremarkable except as noted in HPI & below Physical Exam Constitutional: + ill appearing, + obese, cooperative and comfortable; no acute distress and no altered mental status Eyes: PERRL, conjunctivae normal, anicteric sclerae Neck: normal visual inspection Respiratory: normal respiratory effort, lungs clear to auscultation Cardiovascular: Rate/Rhythm: regular rate and regular rhythm Heart Sounds: normal S1 and normal S2; no click, no gallop, no murmur and no cardiac rub Extremities: + edema (Widespread massive edema) Gastrointestinal (Abdomen): normal bowel sounds, soft, nontender, no hepatosplenomegaly Skin: Erythema where compression stockings dig into leg, these were removed. Psychiatric: Orientation: alert and oriented x 3 Affect: + depressed affect Mood: + depressed mood Results & Data Vital Signs (Past 12 Hours) Vital Signs Temp Pulse Resp BP BP Pulse Ox 01/19/19 07:33 36.6 C 93 H 16 99/69 L 91 01/19/19 04:27 36.5 C 99 H 14 83/58 L 92 01/18/19 22:16 36.8 C 93 H 17 88/60 L 91 Resident Activity Tracking Resident Involvement: Resident Care Provided Care Provided: Adult Hospital Medicine
[2019-01-19] MEDS: OLANZAPINE ZYDIS 5 MG ORALLY DIS. TAB PO SCH (21:31)
[2019-01-20] MEDS: LACTATED RINGER'S 1,000 ML IV SCH ×3 (01:48→20:50)
[2019-01-20] MEDS: dexAMETHasone 4 MG in SYRINGE 0 ML IV SCH ×3 (01:51→18:49)
[2019-01-20] MEDS: ONDANSETRON HCL 8 MG in DEXTROSE 5% 50 ML IV SCH ×3 (01:54→18:48)
[2019-01-20] MEDS: ENOXAPARIN 100 MG/1ML SYR SQ SCH ×2 (05:41→18:49)
--- NOTE | 2019-01-20 08:36 | Progress Note ---
DATE: 01/20/2019 MEDICAL ONCOLOGY PROGRESS NOTE DIAGNOSES: 1. Herpes zoster (scalp). 2. Failing performance status/asthenia. 3. Intractable nausea and vomiting. 4. Metastatic esophageal cancer. SUBJECTIVE: Naomi was seen and examined at bedside. She is clearly declining and was somewhat relieved to hear that Naomi has accepted her prognosis and has agreed to let hospice assist her through the transition. According to clinical notes and Naomi verifies that she will be going to [facility] when bed is available. I had a very nice discussion with Naomi, she seems to be very comfortable with her decision and symptoms other than the nausea seemed to be relatively well controlled. Her p.o. intake is marginal. She reports no increase in pain and nursing reports no significant overnight difficulties. PHYSICAL EXAMINATION: GENERAL: Naomi is a pleasant 43-year-old female in no acute distress, awake, alert and conversant. VITAL SIGNS: Temperature 36.4, pulse 79, respiratory rate 16, blood pressure 102/68. SKIN: Without zoster rash involving her right scalp, predominantly several encrusted lesions noted. HEENT: Oral mucosa is dry. No buccal lesions or ulcerations. NECK: Supple. HEART: Regular rate and rhythm. LUNGS: Clear to auscultation. EXTREMITIES: Her left upper extremity is significantly swollen, bilateral lower extremities with 1-2+ peripheral edema. NEUROLOGIC: Grossly intact. IMPRESSION: 1. Failing performance status/asthenia. 2. Intractable nausea and vomiting. 3. Metastatic esophageal cancer. PLAN: Naomi has decided to make herself DNR/DNI. She is pending discharge to [facility] when bed is available and hospice will take over comfort care. Engaged in discussion regarding the advantages of hospice care at the end of life. Naoim I feel has accepted her prognosis and is demonstrated bravery and marino. According to Naomi, she will most likely be discharged later on today or perhaps tomorrow. I will be more than happy to assist in her hospice care moving forward. Thank you very much for assisting us in the care of this very pleasant young lady.
[2019-01-20] MEDS: FLINTSTONES COMPLETE CHEWABLE TAB PO SCH ×2 (09:23→20:47)
[2019-01-20] MEDS: PREGABALIN 150 MG CAP PO SCH ×3 (09:23→20:48)
[2019-01-20] MEDS: DRONABINOL 2.5 MG CAP PO SCH ×2 (09:23→20:47)
[2019-01-20] MEDS: POTASSIUM CHLORIDE 10 MEQ TABCR PO SCH (09:23)
[2019-01-20] MEDS: PANTOprazole 40 MG TAB PO SCH ×2 (09:24→20:48)
[2019-01-20] MEDS: OLANZAPINE ZYDIS 5 MG ORALLY DIS. TAB PO SCH ×2 (09:25→20:49)
[2019-01-20] MEDS: VALACYCLOVIR HCL 500 MG TABLET PO SCH ×2 (09:25→16:15)
[2019-01-20] MEDS: ALUMINUM/MAGNESIUM SUSP 30 ML UDC PO PRN (12:18)
[2019-01-20] MEDS: MoRPHine SULFATE 4 MG/ML 1 ML CARP\\VIAL IV PRN ×2 (13:04→20:42)
--- NOTE | 2019-01-20 16:32 | Palliative Care Progress Note ---
Date of Service January 20, 2019 Assessment & Plan (1) Goals of care, counseling/discussion: -43 year old female with metastatic esophageal cancer. -Decision was made for no feeding tube. Plan is for SNF with hospice. -Redid POLST form today: DNR, comfort measures only, abx with comfort as the g oal, trial of IVF if for comfort, but no feeding tube. WE discussed how at this point, IVF likely not going to be beneficial. She agreed but wanted POLST to remain. -Waiting for bed availability at [facility], case management is following. -Discussed some EOL issues. -Symptoms are pretty well controlled at this time. Occasionally has some nausea, but not at this time. (2) Metastatic squamous cell carcinoma: (3) Abdominal carcinomatosis: (4) Vomiting: Subjective Patient feels a little more weak and fatigued today. She is feeling overwhelmed, but also at peace with her decision to pursue hospice care. Review of Systems Constitutional: + fatigue, + weakness and + anorexia Respiratory: + cough (after eating); no dyspnea Cardiovascular: + edema; no chest pain Gastrointestinal: + abdominal pain and + nausea (intermittently) Physical Exam Constitutional: + ill appearing and + obese; + not well nourished and no acute distress ENMT: external ear and nose normal, oropharynx normal Neck: normal visual inspection Respiratory: normal respiratory effort, lungs clear to auscultation Cardiovascular: Rate/Rhythm: regular rate and regular rhythm Extremities: + edema (Widespread massive edema) Skin: + rash Psychiatric: Orientation: alert and oriented x 3 Results & Data Vital Signs (Past 12 Hours) Vital Signs Temp Pulse Resp BP Pulse Ox 01/20/19 14:57 36.4 C L 94 H 20 100/68 96 01/20/19 11:34 36.7 C 89 20 110/72 94 01/20/19 06:00 36.4 C L 79 16 102/68 95 Supervising Physician Co-Signing Physician Notes Patient seen and examined, no family or friends at bedside. Patient appears weaker, appears to be declining. Goal is to transfer to [facility] under hospice care-Case management working on arrangements. PE: No acute distress, patient reports she is comfortable HEENT: EOMI, hearing within normal limits Respirations: Unlabored CV: Regular rate, increasing edema Abdomen: Positive anasarca, pain well controlled Extremities: Generalized weakness, increased edema Neuro more fatigued, oriented x4 Agree with above note, assessment and plan as per BRANDT Ruth-will continue to follow and assist with medical decision making Time Spent Midlevel 40 minutes with >50% of time spent at bedside with patient discussing EOL, hospice, and POLST form. (1) Vomiting Nausea presence: with nausea Vomiting Intractability: unspecified Vomiting type: unspecified Qualified Code(s): R11.2 - Nausea with vomiting, unspecified
--- NOTE | 2019-01-20 17:02 | Family Medicine Progress Note ---
Date of Service January 20, 2019 Assessment & Plan (1) Metastatic disease: Naomi is a 43-year-old female with advanced metastatic esophageal squamous cell carcinoma who is now DNR, comfort measures only who is pending placement to SNF for hospice. Metastatic esophageal squamous cell carcinoma -She has had extensive discussions with oncology and her primary team regarding the extent of her disease. Per Dr. Tobin's note and discussion she feels she "has not everything she could do to reasonably fight this disease. She is becoming more aware of how advanced her disease is and at this time has decided that she would not like to pursue any sort of feeding tube placement at this time. She feels, quite reasonably, that she is too weak to contend with a major surgery that may sap her of the little vitality she has left without a likely large benefit possible." Comfort measures only DNR/DNI Pending discharge to [facility] when a bed is available Morphine 4 mg IV every 2 hours as needed for pain Nausea, anorexia Currently on scheduled Zofran, Reglan, Marinol -started olanzapine today, she has not noticed a benefit - She experienced some burning chest pain this morning without diaphoresis/shortness of breath or ST/T wave changes. Partially improved with maalox, added on ranitidine and protonix. Shingles Lesions in crusted phase, appears to be in a V1 distribution Valacyclovir 1 g p.o. 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 Patient still with intermittent nausea requests no additional medications at the time of my visit. Patient is pending transfer to a nursing facility with hospice. I spoke with case management and we are still pending bed availability. Metastatic esophageal cancer/failure to thrive/weakness Pending hospice at a nursing care facility Nausea Continue current medications Palliative input appreciated Subjective Naomi reports she feels very tired this morning. She reports she feels achy all over, "but that is not new ". She did not have any fevers, chills, sweats, shortness of breath, chest pain, chest pressure overnight. She reports she has no appetite, but does not have a stomachache this morning. Addendum: On revisit late this morning she notes that she is having some central chest pain, burning in quality, which is not associated with any diaphoresis or shortness of breath. Review of Systems Review of Systems: All systems reviewed & are unremarkable except as noted in HPI & below Physical Exam Physical Exam: General: A&Ox3. Ill-appearing. Comfortable, but appears tired. HEENT: Atraumatic, normocephalic. Crusted rash/lesions present in a right V1 distribution. Vision intact, pupils equal and reactive to light bilaterally. Pulm: CTAB A&P. -wheezes, -rales, -rhonchi. Symmetrical chest rise. No increase work of breathing. No respiratory distress. Cardiac: RRR, -mrg. Radial pulses intact and symmetrical. Abdominal: Obese, nontender, soft. BS present. Extremity: Diffuse edema present in all extremities. Results & Data Vital Signs (Past 12 Hours) Vital Signs Temp Pulse Resp BP Pulse Ox 01/20/19 04:00 36.5 C 87 17 107/73 95 01/19/19 23:57 36.4 C L 98 H 16 134/84 98 Resident Activity Tracking Resident Involvement: Resident Care Provided Care Provided: Adult Hospital Medicine
[2019-01-21] MEDS: ONDANSETRON HCL 8 MG in DEXTROSE 5% 50 ML IV SCH ×3 (01:21→17:56)
[2019-01-21] MEDS: dexAMETHasone 4 MG in SYRINGE 0 ML IV SCH ×3 (01:38→17:51)
[2019-01-21] MEDS: ENOXAPARIN 100 MG/1ML SYR SQ SCH ×2 (06:18→17:58)
[2019-01-21] MEDS: ALUMINUM/MAGNESIUM SUSP 30 ML UDC PO PRN (06:48)
[2019-01-21] MEDS: MoRPHine SULFATE 4 MG/ML 1 ML CARP\\VIAL IV PRN ×2 (06:49→10:28)
[2019-01-21] MEDS ORDERED: FUROSEMIDE 20 MG in SYRINGE 0 ML IV ONE (07:15)
[2019-01-21] MEDS: HEPARIN 100 UNIT/ML 5ML FLUSH FLUSH PRN (08:08)
[2019-01-21] MEDS: POTASSIUM CHLORIDE 10 MEQ TABCR PO SCH (08:09)
[2019-01-21] MEDS ORDERED: PANTOprazole 40 MG TAB PO SCH (09:00)
[2019-01-21] MEDS: DRONABINOL 2.5 MG CAP PO SCH ×2 (10:39→21:08)
[2019-01-21] MEDS: PREGABALIN 150 MG CAP PO SCH ×3 (10:40→21:08)
[2019-01-21] MEDS: FLINTSTONES COMPLETE CHEWABLE TAB PO SCH ×2 (10:40→21:25)
[2019-01-21] MEDS: OLANZAPINE ZYDIS 5 MG ORALLY DIS. TAB PO SCH ×2 (10:40→21:09)
[2019-01-21] MEDS: PANTOprazole 40 MG TAB PO SCH ×2 (10:44→21:09)
--- NOTE | 2019-01-21 16:18 | Palliative Care Progress Note ---
Date of Service January 21, 2019 Subjective Patient seen briefly-patient sleeping, resting comfortably-did not awaken patient Patient appears more fatigued, coloring more brumfield We will continue to follow patient and assist with medical decision making-plan is to go to [facility] when bed available under hospice care. Results & Data Vital Signs (Past 12 Hours) Vital Signs Temp Pulse Resp BP BP Pulse Ox 01/21/19 11:00 97.9 F 102 H 18 91/61 L 93 01/21/19 07:00 98.2 F 96 H 124/75 01/21/19 04:32 98.4 F 102 H 20 114/75 94
--- NOTE | 2019-01-21 16:21 | Family Medicine Progress Note ---
Date of Service January 21, 2019 Assessment & Plan (1) Metastatic disease: Naomi is a 43-year-old female with advanced metastatic esophageal squamous cell carcinoma who is now DNR, comfort measures only who is pending placement to SNF for hospice. Metastatic esophageal squamous cell carcinoma -She has had extensive discussions with oncology and her primary team regarding the extent of her disease. Per Dr. Tobin's note and discussion she feels she "has not everything she could do to reasonably fight this disease. She is becoming more aware of how advanced her disease is and at this time has decided that she would not like to pursue any sort of feeding tube placement at this time. She feels, quite reasonably, that she is too weak to contend with a major surgery that may sap her of the little vitality she has left without a likely large benefit possible." Comfort measures only DNR/DNI Pending discharge to [facility] when a bed is available Morphine 4 mg IV every 2 hours as needed for pain - Her lungs sound wet today with rales in the lower and low upper L quadrant. Will stop IVFM and give 20mg IV lasix. Nausea, anorexia Currently on scheduled Zofran, Reglan, Marinol - Continue olazepine Chest Pain - Improved with zantac. 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 Continue protonix. - Would not obtain further ECG/troponins in the setting of comfort goals of care and hospice. No prior ECG changes with chest discomfort. Discussed with pt. Shingles Lesions in crusted phase, appears to be in a V1 distribution Valacyclovir 1 g p.o. 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 Upon my visit with the patient today, she was in the midst of undergoing physical therapy. However the patient had significant pain while trying to sit up and thus physical therapy was discontinued. I spoke with nursing who was then going to medicate her with IV morphine for her acute pain. Patient is pending transfer to a nursing facility with hospice. I spoke with case management and we are still pending bed availability. Metastatic esophageal cancer/failure to thrive/weakness Pending hospice at a nursing care facility Physical therapy seems reasonable as long is it does not provoke pain Continue comfort measures Subjective Naomi is very tired today. She reports her chest pain improved yesterday after taking Zantac. Has not had any additional chest pain this morning. Is not very short of breath, but feels her breaething is a little more difficult than yesterday. Denies fevers/chills. She continues to have some diffuse aches and pain improved with morphine. L arm continues to be swollen with lymphedema. She has no questions or concerns at time of visit, reports her pain and nausea are adequately controlled at time of visit. Review of Systems Review of Systems: All systems reviewed & are unremarkable except as noted in HPI & below Physical Exam Physical Exam: General: A&Ox3. Ill-appearing. Comfortable, but appears tired. HEENT: Atraumatic, normocephalic. Crusted rash/lesions present in a right V1 distribution. Vision intact, pupils equal and reactive to light bilaterally. Pulm: LLL/ADRIANO crackles and fine rales. Symmetrical chest rise. No increased work of breathing. No respiratory distress. Cardiac: RRR, -mrg. Radial pulses intact and symmetrical. Abdominal: Obese, nontender, soft. BS present. Extremity: Diffuse edema present in all extremities, most prominent in L arm. Results & Data Vital Signs (Past 12 Hours) Vital Signs Temp Pulse Resp BP Pulse Ox 01/21/19 04:32 36.9 C 102 H 20 114/75 94 01/21/19 00:32 36.7 C 102 H 20 138/85 93 01/20/19 19:58 36.8 C 98 H 20 116/82 92 Resident Activity Tracking Resident Involvement: Resident Care Provided Care Provided: Adult Hospital Medicine
[2019-01-21] MEDS: LACTATED RINGER'S 1,000 ML IV SCH (17:50)
[2019-01-22] MEDS: dexAMETHasone 4 MG in SYRINGE 0 ML IV SCH ×2 (02:31→10:20)
[2019-01-22] MEDS: ONDANSETRON HCL 8 MG in DEXTROSE 5% 50 ML IV SCH ×2 (02:31→10:20)
[2019-01-22] MEDS: LACTATED RINGER'S 1,000 ML IV SCH (04:14)
[2019-01-22] MEDS: ENOXAPARIN 100 MG/1ML SYR SQ SCH (06:07)
[2019-01-22] MEDS: MoRPHine SULFATE 4 MG/ML 1 ML CARP\\VIAL IV PRN (06:28)
[2019-01-22 06:38] LABS: Hematocrit (blood only) 31.8 % (37-47); Hemoglobin 10.6 g/dL (12.0-16.0); Mean Corpuscular Hgb Conc 33.3 g/dL (32-36); Mean Corpuscular Volume 90.9 fL (80-100); Mean Platelet Volume 9.9 fL (7.4-10.4); Platelet Count 276 K/uL (130-400); RDW Coefficient of Variation 26.8 % (11.5-14.5); RDW Standard Deviation 88.8 fL (36.4-46.3); White Blood Count 13.87 K/uL (4.8-10.8)
[2019-01-22 07:14] LABS: Creatinine Clr Calc Pharmacy 398.1 ml/min; Est GFR (African American) > 150.0; Est GFR (Non-African American) 148.8
[2019-01-22] MEDS: PREGABALIN 150 MG CAP PO SCH ×2 (08:50→14:44)
[2019-01-22] MEDS: OLANZAPINE ZYDIS 5 MG ORALLY DIS. TAB PO SCH (08:50)
[2019-01-22] MEDS: DRONABINOL 2.5 MG CAP PO SCH (08:50)
[2019-01-22] MEDS: PANTOprazole 40 MG TAB PO SCH (08:50)
[2019-01-22] MEDS: FLINTSTONES COMPLETE CHEWABLE TAB PO SCH (08:51)
[2019-01-22] MEDS: POTASSIUM CHLORIDE 10 MEQ TABCR PO SCH (08:51)
--- NOTE | 2019-01-22 11:03 | Palliative Care Progress Note ---
Date of Service January 22, 2019 Assessment & Plan (1) Goals of care, counseling/discussion: -Planning for SNF with hospice today at [address]. [facility] hospice will meet patient there at 1600. -Convert IV morphine to Roxanol 10mg PO/SL Q3h PRN pain or SOB. Has only been using IV morphine once a day, should be well-controlled on PO morphine. -NO N/V at this time. -POLST form was previously completed. (2) Metastatic squamous cell carcinoma: (3) Abdominal carcinomatosis: (4) Vomiting: Subjective Patient is more lethargic today. Some confusion. Poor PO intake. Review of Systems Review of Systems: Denies pain, SOB, N/V at this time. Does c/o fatigue and tired ness. Physical Exam Constitutional: + ill appearing and + obese; + not well nourished and no acute distress ENMT: external ear and nose normal, oropharynx normal Neck: normal visual inspection Respiratory: normal respiratory effort, lungs clear to auscultation Cardiovascular: Rate/Rhythm: regular rate and regular rhythm Extremities: + edema (Widespread massive edema) Gastrointestinal (Abdomen): Inspection/Auscultation: + abdomen distended and normal bowel sounds Percussion/Palpation: abdomen nontender and + abdomen not soft (firm in areas) Skin: + rash Neurologic: awake and + confused Psychiatric: Orientation: alert, oriented to person and oriented to place; + not oriented to time Affect: euthymic affect Thought Process: + looseness of associations Results & Data Vital Signs (Past 12 Hours) Vital Signs Temp Pulse Resp BP Pulse Ox 01/22/19 07:13 36.9 C 98 H 20 105/74 98 Time Spent Midlevel 35 minutes with >50% of time spent at bedside with patient discussing comfort care, as we as collaborating with nursing staff and IDT to coordinate care. (1) Vomiting Nausea presence: with nausea Vomiting Intractability: unspecified Vomiting type: unspecified Qualified Code(s): R11.2 - Nausea with vomiting, unspecified
[2019-01-22] MEDS: HEPARIN 100 UNIT/ML 5ML FLUSH FLUSH PRN ×2 (11:10→15:17)
[2019-01-22] MEDS ORDERED: MoRPHine SULFATE 10 MG/0.5 ML UDP PO PRN (11:11)
[2019-01-22] MEDS ORDERED: MoRPHine SULFATE 4 MG/ML 1 ML CARP\\VIAL IV STA (14:51)
[2019-01-22] MEDS ORDERED: MoRPHine SULFATE 4 MG/ML 1 ML CARP\\VIAL ONE (14:56)
[2019-01-22] MEDS: PROCHLORPERAZINE 5 MG in SYRINGE 4 ML IV PRN (15:17)
--- NOTE | 2019-01-22 17:48 | Discharge Summary ---
Date of Service January 22, 2019 Admission HPI Per Admitting Provider 43-year-old female presents the emergency department with ongoing fatigue, nausea, vomiting of bile-appearing emesis, and decreased p.o. intake since her discharge from the hospital on January 06. Patient has a notable history of metastatic esophageal cancer being treated by Dr. Bundy. She was recently hospitalized from 29Apr to 06May for multiple PEs, saddle embolus, and related hypertension. Was treated with tPA she was placed on subsequent therapeutic Lovenox. Last reported chemotherapy was on December 17. - Patient says that since going home she has had no food intake and minimal fluid intake due to nausea. Denies any fevers, diarrhea, abdominal pain. - At time of this H&P, she says she has a posterior headache. She says that her nausea is improved with medications given in the ED. She denies any current c hest pain, shortness of breath, or other emergent concerns. --- Past medical history includes metastatic esophageal cancer, GERD. --- Past surgical history includes gastric bypass and Mediport placement. --- Social history includes living at home with her son. Admission Exam Per Admitting Provider GENERAL: Awake, alert, slowly conversational but in general appears exhausted and chronically ill. HENT: Normocephalic, atraumatic. Oropharynx mildly dry. EYES: Normal conjunctiva. Sclera non-icteric. NECK: Inspection normal. Supple and full ROM. No nuchal rigidity. CARDIAC: +S1S2 regular tachycardia, no murmurs. Right upper chest Mediport accessed. RESPIRATORY: Clear to auscultation. No wheezes or rales. Normal respiratory effort. GI: +BS, soft, non-distended. No tenderness to palpation. No rebound or guarding. EXTREMITIES: No pedal edema or calf tenderness. Moving all extremities naturally. NEURO: No gross neuro deficits. Principal Diagnosis Metastatic Squamous Cell Carcinoma Discharge Exam General: Oriented to name only. Ill-appearing. Comfortable, but appears tired. Tangential speech, with loose association of thought. HEENT: Atraumatic, normocephalic. Crusted rash/lesions present in a right V1 distribution. Vision intact, pupils equal and reactive to light bilaterally. Pulm: Moderate to poor air movement this morning. Bibasilar crackles without overt rales or wheeze. Symmetrical chest rise. No increased work of breathing. No respiratory distress. Cardiac: RRR, -mrg. Abdominal: Obese, nontender, soft. BS present. Extremity: Diffuse edema present in all extremities, most prominent in L arm. Discharge Data Allergies Allergy/AdvReac Type Severity Reaction Status Date / Time No Known Allergies Allergy Verified 01/08/19 11:29 Consultations 01/09/19 22:53 ED Decision to Admit Stat 01/10/19 02:03 Consult Case Management - Discharge Planning Routine Consult Hematology Routine Consult Palliative Care Routine 01/10/19 15:52 Consult Patient Services Stat 01/17/19 09:20 Consult General Surgery Routine Ordered Studies 01/09/19 20:25 CT abd pelvis IV con only Stat CT angio chest PE protocol Stat 01/09/19 20:52 CT head/brain wo con Stat 01/16/19 12:24 US venous doppler UE LT Urgent Hospital Course (1) Metastatic squamous cell carcinoma: Naomi is a 43-year-old female with advanced metastatic esophageal squamous cell carcinoma who was admitted for weakness and who is been discharged to inpatient hospice care with comfort care goals. Metastatic esophageal squamous cell carcinoma, hospice with comfort care goals Naomi is a 43-year-old female with metastatic cancer who presented with weakness with a recent prior hospitalization for shortness of breath due to saddle embolus in the setting of malignancy. Following treatment for her PE she had been hoping to get strong enough to continue chemo but had continued to develop worsening fatigue. Oncology and palliative care were consulted during her admission. Her clinical deterioration was felt to be too to her progressive advanced metastatic disease. Her electrolytes were medically optimized and she did not show signs of infection but her strength and clinical condition continued to deteriorate. She continued to experience diffuse body edema and left arm lymphedema which was minimally improved with diuresis and fluid optimization. She had poor p.o. intake and experience little benefit from Marinol, antiemetics, and olanzapine. After mich discussion between patient and her care teams she expressed that she had done everything she could to reasonably fight her disease and was aware that it was very advanced. She decided that she would not like to pursue feeding tube placement, but she was too weak to contend with any major surgery that might sap her of what little life she had left, I did not wish to pursue further chemotherapy. She requested a comfort oriented care plan and to enter hospice at a nursing facility. Palliative and hospice were consulted, and she was transitioned to comfort care with morphine for pain and Zofran/Compazine for nausea. She was discharged to hospice services at [facility]. Recent pulmonary embolism On admission and he was continued on therapeutic Lovenox dosing adjusted from 100 mg every 12 hours. Following the above discussion this was discontinued with the goals of comfort care. (2) Metastatic disease: (3) Weakness: (4) Goals of care, counseling/discussion: (5) Pulmonary embolism: Total Time Total Time Spent Total Time Spent (In Minutes): 30 Discharge Plan Discharge Items Patient Disposition: Hospice - Medical Facility Reason For Visit: METASTATIC ESOPHAGEAL CANCER,VOMITING Discharge Diagnosis: Metastatic esophageal cancer Discharge Goals: Decrease discomfort Activity: Per 'Additional Instructions' section Non-emergency contact: Primary Care Provider Call non-emergency contact if: you have any medication questions, your symptoms worsen and your pain is not controlled Follow-up/Referrals: Alvaro Mohamud III, MD [Primary Care Provider] - Diet: Regular Addtl Provider Instructions: Naomi Caro was seen in the hospital for worsening weakness and fatigue due to metastatic esophageal squamous cell carcinoma. After extensive discussions between her and her oncology and primary care teams she made the decision to enroll in hospice services with comfort measures only and DNR/DNI. She is being transferred to [facility] for hospice services. During admission she experienced an outbreak of right V1 distribution shingles treated with a course of valacyclovir. Antiviral treatment was completed prior to discharge and her lesions were improving. Labs and medications were de-escalated with a goal of comfort and reducing pill burden. She was receiving IV morphine 4 mg every 2 hours as needed for pain at time of discharge with plan to confer either to orals or continue IV as deemed appropriate by hospice services. Prescriptions: Continued omeprazole 20 mg Capsule,Delayed Release(Dr/Ec) 20 mg PO BID RF: 0 hydrocodone-acetaminophen [Lorraine] 10-325 mg tablet 1 tab PO QID PRN (Reason: pain) RF: 0 dronabinol [Marinol] 5 mg capsule 5 mg PO TID RF: 0 pregabalin 150 mg Capsule 150 mg PO TID RF: 0 medroxyprogesterone 150 mg/mL suspension 1 dose IM Q3M RF: 0 enoxaparin 100 mg/mL Syringe 100 mg subcut Q12@0600,1800 Qty: 60 RF: 0 Discontinued cyanocobalamin (vitamin B-12) 1,000 mcg/mL solution 1,000 mcg IM UD RF: 0 pediatric multivitamin tablet,chewable 1 tab PO BID RF: 0 potassium chloride [Klor-Con M10] 10 mEq Tablet,Er Particles/Crystals 40 meq PO DAILY Qty: 30 RF: 0 Stand-Alone Forms: My [facility] Discharge Orders: Discharge Order (Routine); Ordered 01/22/19 Ordered By: Zechariah Hinkle Admission Data Admit Date/Time: 01/10/19 00:57 Attending Provider: Chet Valladares Admit Provider: Ángel Quinn Primary Care Provider: Alvaro Mohamud III Other Providers: Ai Chamberlain ; Liborio Bruner V ; Cheryl Jaimes ; Kiya Rausch ; Alfredo Galeana Service: Medical Other Interventions: Discharge Summary Assessment (RN) Last Done: 01/22/19 12:55 DC Date/Time DO NOT enter until pt leaves facility: 01/22/19 15:30 Supervising Physician Co-Signing Physician Notes I saw the patient with the resident physician and confirmed roa portions of the history and physical exam. I also discussed the case with oncology and palliative care consultants. Earlier this morning, the patient was said to be sleepy and less responsive; however when I saw her midmorning she was awake and alert and conversational - there was some slight confusion but she was aware of her condition, where she was, and the fact that she was being transferred to [facility] later today. I spent 90 minutes in seeing the patient and preparing discharge information today, which included discussion with consultants as well as a phone conversation with the receiving hospice nurse. In addition to the medications as listed in the discharge summary, the following initial hospice orders and prescriptions were provided in written form: #1 Roxanol 20 mg/mL, 0.5 to 1 mL p.o. every 1 hours as needed pain or air hunger #2 Ativan 0.5 mg tabs, 1 p.o. every 4 hours as needed anxiety #3 Levsin 0.125 mg sublingual tab p.o. or sublingual every 4 hours as needed excessive secretions In addition the patient was medicated with 4 mg of IV morphine just prior to transfer. Resident Activity Tracking Resident Involvement: Resident Care Provided Care Provided: Adult Hospital Medicine
[2019-02-02] MEDS ORDERED: CYANOCOBALAMIN 1000 MCG/ML VIAL IM SCH (09:00)
[2019-03-18] MEDS ORDERED: MEDROXYPROGESTERONE ACETATE 150 MG/ML VIAL IM SCH (09:00)
== END 2019-01-22 15:30 | disposition hospice, inpatient (51) | DRG 374 ==
LOC: ED 19:02 → 4E 01-10 00:57 → SUATTDRO 01-10 00:57 → 4E 01-10 01:38